=== PATIENT | male | born 1965 | race Caucasian/White ===

== ENCOUNTER 2017-07-07 10:05 | Inpatient (IN) | payer OTHER ==
[~2017-07-07] VITALS: Ht 154.9 cm; Wt 73.4 kg
[2017-07-07 11:25] LABS: BASOPHIL # 0.1 10^3/ul (0.0-0.1); BASOPHILS % 0.5 % (0.0-2.0); EOSINOPHILS % 0.2 % (0.0-7.0); HEMATOCRIT 45.8 % (42.0-52.0); HEMOGLOBIN 15.1 g/dl (14.0-18.0); LYMPHOCYTES # 1.9 10^3/ul (0.8-2.9); LYMPHOCYTES % 15.5 % (15.0-51.0); MEAN CORPUSCULAR HEMOGLOBIN 33.2 pg (29.0-33.0); MEAN CORPUSCULAR VOLUME 100.7 fl (82.0-101.0); MEAN PLATELET VOLUME 10.7 fl (7.4-10.4); MONOCYTE # 0.5 10^3/ul (0.3-0.9); NEUTROPHIL # 9.8 10^3/ul (1.6-7.5); NEUTROPHILS % 79.3 % (39.0-77.0); PLATELET COUNT 220 10^3/UL (140-415); RED BLOOD COUNT 4.55 10^6/ul (4.70-6.10); RED CELL DISTRIBUTION WIDTH 13.7 % (11.5-14.5); WHITE BLOOD COUNT 12.4 10^3/ul (4.8-10.8)
[2017-07-07 11:51] LABS: ALBUMIN 3.9 g/dl (3.3-4.9); ALBUMIN/GLOBULIN RATIO 0.97; BILIRUBIN,INDIRECT 0.8 mg/dl (0-1.1); BILIRUBIN,TOTAL 0.8 mg/dl (0.2-1.3); CALCIUM 9.3 mg/dl (8.4-10.2); CREATININE 1.29 mg/dl (0.61-1.24); POTASSIUM 4.6 mmol/L (3.5-5.1); TOTAL PROTEIN 7.9 g/dl (6.1-8.1)
[2017-07-07] MEDS ORDERED: SOD CHLORIDE 0.9% 100 ML ONE (12:31)
[2017-07-07] MEDS ORDERED: IOHEXOL 300MG/ML 150 ML BTL ONE (12:31)
--- NOTE | 2017-07-07 13:05 | RADRPT ---
PROCEDURE: CT ABDOMEN AND PELVIS WITH IV CONTRAST. CLINICAL INDICATION: Right lower quadrant pain with nausea and vomiting TECHNIQUE: CT scan of the abdomen and pelvis without contrast was performed on a multidetector hig h-resolution CT scanner following the use of IV contrast. 100 cc Omnipaque-300 was administered. Cor onal and sagittal reformatted images were obtained from the axial source images. Images were reviewe d on a high-resolution PACS workstation. The total exam CTDI equals 11 mGy and the total exam DLP eq uals 677.8 mGy-cm. One or more of the following dose reduction techniques were used: Automated exposure control. Adjustment of the mA and/or kV according to patient size. Use of iterative reconstruction technique. COMPARISON: None FINDINGS: CT abdomen: The lung bases are clear. The heart size is within limits. There is no significant pericardial effus ion. Hepatic morphology is within limits. Multiple large masses are scattered throughout the entire liver , with the largest within the posterior right lobe liver measuring 7.5 x 6.0 cm. Findings are highly concerning for malignancy. There is marked thickening of the wall the gallbladder . There is bulky lymphadenopathy in the region of the carmen hepatis and peripancreatic regions. The spleen is unremarkable. There is fatty atrophy of the pancreas. Both adrenal glands appear to be within normal limits. Both kidneys are and normal anatomic position. There is a left-sided renal cyst measuring 1.7 cm. No evidence of obstruction hydronephrosis. The visualized GI tract demonstrates normal caliber loops of small and large bowel. No evidence of o bstruction. Fat-containing periumbilical hernia is noted. The appendix is not clearly identified, ho wever no inflammatory change in right lower quadrant. The aorta appears to within limits. There is a large bulky retroperitoneal lymphadenopathy. The larg est measures 6.8 x 2.7 cm within the left periaortic region. Multiple aortocaval lymphadenopathy is also identified. CT pelvis: The bladder demonstrates asymmetric thickening of the mendiola. Bilateral inguinal hernias are noted. F luid is noted within the right inguinal hernia. The rectosigmoid colon demonstrate diverticulosis. N onspecific free fluid within the pelvis. Left external iliac chain lymphadenopathy is identified. The visualized osseous structures demonstrates multilevel degenerative disease of the spine. No fracisco s abnormal osseous lesions noted at this time. IMPRESSION: 1. Multiple large irregular enhancing masses scattered throughout the entire liver. The largest, gurdeep sures 7.5 x 6.0 cm within the posterior right lobe of the liver. Findings are highly concerning for malignancy/metastatic disease. 2. Marked abnormal appearance of the gallbladder, with marked thickening of the gallbladder wall. Ca nnot exclude the possibility of gallbladder malignancy. Recommend correlation with ultrasound. 3. Bulky mesenteric and retroperitoneal lymphadenopathy. The largest lymph node measures 6.8 x 2.7 c m within the left periaortic region. Findings are highly concerning for metastasis versus lymphoma. 4. No evidence of bowel obstruction. The appendix is not clearly identified, however no inflammatory changes within right lower quadrant. 5. Fat containing periumbilical hernia. Bilateral inguinal hernias. Fluid is noted within the right inguinal hernia. 6. Marked thickening of the wall the bladder, although findings may be secondary to infectious versu s inflammatory cystitis, bladder malignancy is not excluded. 7. Other incidental findings as described above. RPTAT: AAPP Physician Carline Date Time Electronically viewed and signed by Physician Carline on 07/07/2017 13:04 CARMEN/
--- NOTE | 2017-07-07 13:54 | ERD ---
ER Documentation Chief Complaint Chief Complaint sent by pmd for abd pain x 3 days with nausea HPI This is a 52-year-old male with a history of mental retardation is complaining of abdominal pain for a month. The patient says his pain is getting worse over the past 3 days. Is not a good historian due to his mental status however he has caretakers who can help me with history. 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 He has had no vomiting or diarrhea but does have some difficulty urinating. The patient is complaining of pain in his suprapubic and right lower quadrant. ROS All systems reviewed and are negative except as per history of present illness. PMhx/Soc History of Surgery: No Anesthesia Reaction: No Hx Neurological Disorder: No Hx Respiratory Disorders: No Hx Cardiac Disorders: No Hx Psychiatric Problems: Yes (DOWN SYNDROME.HYPOTHYROIDISM) Hx Miscellaneous Medical Probl: No Hx Alcohol Use: No Hx Substance Use: No Hx Tobacco Use: No Smoking Status: Never smoker FmHx Family History: No coronary disease Physical Exam Vitals Vital Signs Date Time Temp Pulse Resp B/P Pulse Ox O2 Delivery O2 Flow Rate FiO2 07/07/17 10:06 98.4 106 18 122/76 97 Physical Exam Const: Well-developed, well-nourished Head: Atraumatic, normocephalic Eyes: Normal Conjunctiva, PERRLA, EOMI, normal sclera, no nystagmus ENT: Normal External Ears, Nose and Mouth, moist mucus membranes. Neck: Full range of motion. No meningismus, no lymphadenopathy. Resp: Clear to auscultation bilaterally, no wheezing, rhonchi, rales Cardio: Regular rate and rhythm, no murmurs, S1 S2 present Abd: Soft, mild suprapubic and right lower quadrant tenderness, there is also some mild tenderness in the right upper quadrant, non distended. Normal bowel sounds, no guarding or rebound, no pulsitile abdominal masses or bruits Skin: No petechiae or rashes, no ecchymosis , no maculopapular rash Back: No midline or flank tenderness Ext: No cyanosis, or edema, FROM x 4, normal inspection, neurovascularly intact x 4 Neur: Awake and alert, STR 5/5 x 4, sensation intact x 4, no focal findings, cerebellum intact Psych: Normal Mood and Affect Result Diagram: 07/07/17 1115 07/07/17 1115 Results 24 hrs Laboratory Tests Test 07/07/17 11:15 White Blood Count 12.410^3/ul Red Blood Count 4.5510^6/ul Hemoglobin 15.1g/dl Hematocrit 45.8% Mean Corpuscular Volume 100.7fl Mean Corpuscular Hemoglobin 33.2pg Mean Corpuscular Hemoglobin Concent 33.0g/dl Red Cell Distribution Width 13.7% Platelet Count 20415^3/UL Mean Platelet Volume 10.7fl Neutrophils % 79.3% Lymphocytes % 15.5% Monocytes % 4.0% Eosinophils % 0.2% Basophils % 0.5% Nucleated Red Blood Cells % 0.0/100WBC Neutrophils # 9.810^3/ul Lymphocytes # 1.910^3/ul Monocytes # 0.510^3/ul Eosinophils # 0.010^3/ul Basophils # 0.110^3/ul Nucleated Red Blood Cells # 0.010^3/ul Sodium Level 140mmol/L Potassium Level 4.6mmol/L Chloride Level 98mmol/L Carbon Dioxide Level 33mmol/L Anion Gap 14 Blood Urea Nitrogen 15mg/dl Creatinine 1.29mg/dl Glucose Level 109mg/dl Calcium Level 9.3mg/dl Total Bilirubin 0.8mg/dl Direct Bilirubin 0.00mg/dl Indirect Bilirubin 0.8mg/dl Aspartate Amino Transf (AST/SGOT) 144IU/L Alanine Aminotransferase (ALT/SGPT) 136IU/L Alkaline Phosphatase 270IU/L Total Protein 7.9g/dl Albumin 3.9g/dl Globulin 4.00g/dl Albumin/Globulin Ratio 0.97 Current Medications Medications (Trade) Dose Ordered Sig/George Route PRN Reason Start Time Stop Time Status Last Admin Dose Admin Sodium Chloride (NS) 100 ml @ ud STK-MED ONCE .ROUTE 07/07/17 12:31 07/07/17 12:32 DC Iohexol (Omnipaque 300mg/ ml) 150 ml STK-MED ONCE .ROUTE 07/07/17 12:31 07/07/17 12:32 DC Procedures/MDM PROCEDURE: CT ABDOMEN AND PELVIS WITH IV CONTRAST. CLINICAL INDICATION: Right lower quadrant pain with nausea and vomiting TECHNIQUE: CT scan of the abdomen and pelvis without contrast was performed on a multidetector high-resolution CT scanner following the use of IV contrast. 100 cc Omnipaque-300 was administered. Coronal and sagittal reformatted images were obtained from the axial source images. Images were reviewed on a high- resolution PACS workstation. The total exam CTDI equals 11 mGy and the total exam DLP equals 677.8 mGy-cm. One or more of the following dose reduction techniques were used: Automated exposure control. Adjustment of the mA and/or kV according to patient size. Use of iterative reconstruction technique. COMPARISON: None FINDINGS: CT abdomen: The lung bases are clear. The heart size is within limits. There is no significant pericardial effusion. Hepatic morphology is within limits. Multiple large masses are scattered throughout the entire liver, with the largest within the posterior right lobe liver measuring 7.5 x 6.0 cm. Findings are highly concerning for malignancy. There is marked thickening of the wall the gallbladder . There is bulky lymphadenopathy in the region of the carmen hepatis and peripancreatic regions. The spleen is unremarkable. There is fatty atrophy of the pancreas. Both adrenal glands appear to be within normal limits. Both kidneys are and normal anatomic position. There is a left-sided renal cyst measuring 1.7 cm. No evidence of obstruction hydronephrosis. The visualized GI tract demonstrates normal caliber loops of small and large bowel. No evidence of obstruction. Fat-containing periumbilical hernia is noted. The appendix is not clearly identified, however no inflammatory change in right lower quadrant. The aorta appears to within limits. There is a large bulky retroperitoneal lymphadenopathy. The largest measures 6.8 x 2.7 cm within the left periaortic region. Multiple aortocaval lymphadenopathy is also identified. CT pelvis: The bladder demonstrates asymmetric thickening of the mendiola. Bilateral inguinal hernias are noted. Fluid is noted within the right inguinal hernia. The rectosigmoid colon demonstrate diverticulosis. Nonspecific free fluid within the pelvis. Left external iliac chain lymphadenopathy is identified. The visualized osseous structures demonstrates multilevel degenerative disease of the spine. No gross abnormal osseous lesions noted at this time. IMPRESSION: 1. Multiple large irregular enhancing masses scattered throughout the entire liver. The largest, measures 7.5 x 6.0 cm within the posterior right lobe of the liver. Findings are highly concerning for malignancy/metastatic disease. 2. Marked abnormal appearance of the gallbladder, with marked thickening of the gallbladder wall. Cannot exclude the possibility of gallbladder malignancy. Recommend correlation with ultrasound. 3. Bulky mesenteric and retroperitoneal lymphadenopathy. The largest lymph node measures 6.8 x 2.7 cm within the left periaortic region. Findings are highly concerning for metastasis versus lymphoma. 4. No evidence of bowel obstruction. The appendix is not clearly identified, however no inflammatory changes within right lower quadrant. 5. Fat containing periumbilical hernia. Bilateral inguinal hernias. Fluid is noted within the right inguinal hernia. 6. Marked thickening of the wall the bladder, although findings may be secondary to infectious versus inflammatory cystitis, bladder malignancy is not excluded. 7. Other incidental findings as described above. RPTAT: AAPP Physician Carline Date Time Electronically viewed and signed by Physician Carline on 07/07/2017 13:04 JL/ CC: EMMA FERRELL DO We will obtain ultrasound of the liver and gallbladder to rule out gallbladder malignancy. We will place a Tian catheter as the patient's unable to void and is having a difficult time urinating he feels that he is retaining urine. I page Dr. Rodriguez for admission for cancer workup and follow-up with gallbladder ultrasound for bladder cancer/and/or cholecystitis Departure Diagnosis: Primary Impression: Liver masses Additional Impression: Urinary retention Condition: Stable EMMA FERRELL DO Jul 07, 2017 13:54
--- NOTE | 2017-07-07 14:18 | RADRPT ---
PROCEDURE: US Abdomen. CLINICAL INDICATION: abdominal pain TECHNIQUE: Multiple real-time images were acquired of the patient's right upper quadrant abdomen a nd retroperitoneum utilizing a high resolution transducer. COMPARISON: CT from same day FINDINGS: The liver demonstrates heterogeneous echogenicity. The liver is normal in size. There are multiple liver masses, measuring up to 7.4 cm. The liver measures 16.8 cm in length. The portal vein is patent with normal direction of flow. No i ntrahepatic biliary dilatation is seen. The gallbladder is contracted and not well seen. There is a 9 mm calcified stone within the gallblad fernando. There is no pericholecystic fluid . There is gallbladder wall thickening, measuring 7 mm. The c ommon bile duct measures 8.5 mm in maximal dimension. The pancreas is only partially visualized. No free fluid is identified. The right kidney is normal in size, and demonstrate normal echogenicity and cortical thickness. The right kidney measures 9.6 cm in long dimension. There is no evidence of hydronephrosis. There are no kidney stones. RPTAT: AA IMPRESSION: Multiple large liver masses, consistent with metastatic disease. Small calcified stone within the gallbladder. Gallbladder wall is thickened measuring 7 mm. Dilated CBD. .Ezra Butler MD, Date Time Electronically viewed and signed by .Ezra Butler MD, MD on 07/07/2017 14:18 .S/
[2017-07-07] MEDS ORDERED: SOD CHLORIDE 0.9% 1,000 ML IV SCH (14:24)
[2017-07-07] MEDS ORDERED: ONDANSETRON 4 MG INJ IV PRN ×2 (14:30→23:00)
[2017-07-07] MEDS ORDERED: ACETAMINOPHEN 325 MG TAB PO PRN ×3 (14:30→23:00)
[2017-07-07 15:02] LABS: ADD UMIC YES; UR ASCORBIC ACID NEGATIVE (NEGATIVE); UR BACTERIA FEW /HPF (NONE SEEN); UR BILIRUBIN (Dip) NEGATIVE (NEGATIVE); UR BLOOD (Dip) NEGATIVE (NEGATIVE); UR CLARITY CLEAR (CLEAR); UR COLOR AMBER (YELLOW); UR GLUCOSE (Dip) NEGATIVE (NEGATIVE); UR KETONES (Dip) NEGATIVE (NEGATIVE); UR LEUKOCYTE ESTERASE (Dip) NEGATIVE Leu/ul (NEGATIVE); UR MUCUS FEW /HPF (NONE SEEN); UR NITRITE (Dip) NEGATIVE (NEGATIVE); UR RBC 2 /HPF (0-5); UR SPECIFIC GRAVITY (Dip) 1.043 (1.003-1.030); UR TOTAL PROTEIN (Dip) 2+ mg/dl (NEGATIVE); UR UROBILINOGEN (Dip) 1+ mg/dL (NEGATIVE)
[2017-07-07] MEDS ORDERED: LEVO50TA83 PO (16:08)
[2017-07-07] MEDS ORDERED: VIT D (16:08)
[2017-07-07] MEDS ORDERED: VALS80TA2 PO (16:08)
[2017-07-07] MEDS ORDERED: ALLO300T46 PO (16:08)
[2017-07-07] MEDS ORDERED: ATOR10TA65 PO (16:08)
[2017-07-07 20:00] VITALS: BP 118/77; RESP 20
[2017-07-07] MEDS: SOD CHLORIDE 0.45% 1,000 ML IV SCH (22:00)
--- NOTE | 2017-07-07 22:46 | QN ---
Documentation Comment [id number] KINGSLEY OVALLE MD Jul 07, 2017 22:46
[2017-07-07] MEDS ORDERED: NACL 0.9% 3 ML SYG IV SCH (23:00)
[2017-07-07] MEDS ORDERED: MAGNESIUM HYDROXIDE 30ML CUP PO PRN (23:00)
[2017-07-07] MEDS ORDERED: BISACODYL (EC) 5 MG TAB PO PRN (23:00)
[2017-07-07] MEDS ORDERED: DOCUSATE SODIUM 100 MG CAP PO PRN (23:00)
[2017-07-07] MEDS ORDERED: ACETAMINOPHEN 650 MG SUPP PR PRN (23:00)
[2017-07-08] MEDS: CEFTRIAXONE 1 GM/50 ML (PMX) 50 ML IVPB SCH ×2 (01:44→22:33)
[2017-07-08 02:19] VITALS: BP 121/75; RESP 20
[2017-07-08 02:27] LABS: CANCER ANTIGEN 125 99.4 U/ml (0.0-35.0)
[2017-07-08 03:08] LABS: CANCER ANTIGEN 19-9 > 1000.0 U/ml (0.0-37.0)
--- NOTE | 2017-07-08 05:31 | HP ---
DATE OF ADMISSION: 07/07/2017 HISTORY OF PRESENT ILLNESS: Kevin Samano is a 52-year-old male who has a history of mental retardation, was seen by er md, noted to have abdominal pain. Patient has not seen PMD for some time. The patient himself is unable to give any detailed history, has history of hypertension, gout. The patient in the ER, blood pressure 122/76. WBC 12.4, hematocrit 45.8, sodium 140, potassium 4.6, BUN 15, creatinine 1.29. Had a CT of the abdomen and pelvis without contrast performed, shows patient has multiple large irregular enhancing masses scattered toward the entire liver, marked abdominal appearance of the gallbladder with marked thickening of the gallbladder wall, bulky mesenteric and retroperitoneal lymphadenopathy. No evidence of bowel obstruction, fat containing periumbilical hernia, marked thickening of the wall of the bladder. PAST MEDICAL HISTORY: Positive for dyslipidemia, hypothyroidism, hypertension, gout. ALLERGY HISTORY: LISTED NEGATIVE. FAMILY HISTORY: Noncontributory. SOCIAL HISTORY: Negative. MEDICATIONS: 1. Allopurinol. 2. Lipitor. 3. Levothyroxine. 4. Diovan. 5. Vitamin D. REVIEW OF SYSTEM: HEENT: Unremarkable. RESPIRATORY: Unremarkable. CARDIOVASCULAR: Unremarkable. ABDOMEN: No hematemesis, melena, abdominal pain noted at this point. EXTREMITIES: Unremarkable for any swelling. CENTRAL NERVOUS SYSTEM: No history of CVA except mental retardation. PHYSICAL EXAMINATION: GENERAL: The patient is mentally challenged male with family at bedside. VITAL SIGNS: Pulse 85, blood pressure 120/76. HEAD: Atraumatic, normocephalic. Pupils equal, reactive to light. No pale conjunctivae or icterus. NECK: Supple. No JVD. LUNGS: Clear. CARDIOVASCULAR: S1, S2 normal. ABDOMEN: Soft, obese, bowel sounds present, no palpable mass. Distention noted. EXTREMITIES: No cyanosis, clubbing, or edema. CENTRAL NERVOUS SYSTEM: The patient is awake, alert, no focal deficit. LABORATORY DATA: As mentioned above with elevated abnormal LFT. IMPRESSION: 1. Metastatic carcinoma. 2. Acute kidney injury. 3. Systemic inflammatory response syndrome, rule out for gastrointestinal malignancy. 4. Mental retardation. 5. Hypothyroidism. 6. Dyslipidemia history. 7. History of gout. PLAN: Give this patient clear liquid diet, PPI, pain medication. Oncology consultation, antibiotics, and orders were done. Dictated By: KINGSLEY OVALLE MD BS/NTS Conf#: [id number] DID#: [id number]
[2017-07-08] MEDS: PANTOPRAZOLE (EC) 40 MG TAB PO SCH (06:00)
[2017-07-08 06:15] LABS: BASOPHIL # 0.1 10^3/ul (0.0-0.1); BASOPHILS % 0.5 % (0.0-2.0); EOSINOPHILS % 0.1 % (0.0-7.0); HEMATOCRIT 39.7 % (42.0-52.0); HEMOGLOBIN 12.8 g/dl (14.0-18.0); LYMPHOCYTES # 1.7 10^3/ul (0.8-2.9); LYMPHOCYTES % 17.6 % (15.0-51.0); MEAN CORPUSCULAR HEMOGLOBIN 31.9 pg (29.0-33.0); MEAN CORPUSCULAR HGB CONC 32.2 g/dl (32.0-37.0); MEAN PLATELET VOLUME 11.2 fl (7.4-10.4); MONOCYTE # 0.5 10^3/ul (0.3-0.9); MONOCYTES % 5.5 % (0.0-11.0); NEUTROPHIL # 7.5 10^3/ul (1.6-7.5); NEUTROPHILS % 75.8 % (39.0-77.0); PLATELET COUNT 200 10^3/UL (140-415); RED BLOOD COUNT 4.01 10^6/ul (4.70-6.10); WHITE BLOOD COUNT 9.8 10^3/ul (4.8-10.8)
[2017-07-08] MEDS: PANTOPRAZOLE 40 MG INJ IV SCH (06:22)
[2017-07-08] MEDS: LEVOTHYROXINE 50 MCG TAB PO SCH (06:22)
[2017-07-08 06:38] LABS: ALBUMIN 3.2 g/dl (3.3-4.9); ALBUMIN/GLOBULIN RATIO 0.94; BILIRUBIN,INDIRECT 0.6 mg/dl (0-1.1); BILIRUBIN,TOTAL 0.6 mg/dl (0.2-1.3); CALCIUM 8.4 mg/dl (8.4-10.2); CREATININE 1.16 mg/dl (0.61-1.24); POTASSIUM 4.8 mmol/L (3.5-5.1); TOTAL PROTEIN 6.6 g/dl (6.1-8.1)
--- NOTE | 2017-07-08 07:08 | CONS ---
Date/Time of Note Date/Time of Note DATE: 07/08/17 TIME: 06:59 Assessment/Plan Assessment/Plan Chief Complaint/Hosp Course 52 yo with 1. Multiple liver masses 2. Abdominal pain 3. Hypertension 4. Gout -pt will need a liver biopsy -CEA, CA 19-9 all ordered. will follow up -further recommendations will depend on final pathology Problems: Consultation Date/Type/Reason Admit Date/Time Jul 07, 2017 at 14:27 Date of Consultation: Jul 08, 2017 Type of Consultation: oncology Reason for Consultation liver masses Referring Provider: KINGSLEY OVALLE Hx of Present Illness a 52-year-old male who has a history of mental retardation, HTN and gout who presents to ER with abdominal pain and nausea. CT of the abdomen and pelvis without contrast performed, which demonstrated multiple large irregular enhancing masses throughout liver, marked abdominal appearance of the gallbladder with marked thickening of the gallbladder wall, as well as bulky mesenteric and retroperitoneal lymphadenopathy. We have been consulted given concern for underlying malignancy. Eyes: no complaints ENT: no complaints Respiratory: no complaints Cardiovascular: no complaints Gastrointestinal: decreased appetite, nausea, pain Genitourinary: no complaints Musculoskeletal: no complaints Skin: no complaints Neurologic: no complaints Endocrine: no complaints Past Medical History dyslipidemia, hypothyroidism, hypertension, gout. Past Surgical History Past Surgical Hx: no surgical history Family History Significant Family History: no pertinent family hx Social History Alcohol Use: none Smoking Status: Never smoker Drug Use: none Exam/Review of Systems Vital Signs Vitals Vital Signs Date Time Temp Pulse Resp B/P Pulse Ox O2 Delivery O2 Flow Rate FiO2 07/08/17 02:19 98.3 99 20 121/75 94 07/07/17 15:13 Room Air Intake and Output 07/07/17 07/07/17 07/08/17 15:00 23:00 07:00 Intake Total 930 ml Output Total 350 ml Balance 580 ml Exam Constitutional: other (with developmental delay) Psych: no complaints Head: normocephalic Eyes: nl conjunctiva ENMT: nl external ears & nose Neck: non-tender, supple Respiratory: clear to auscultation, normal air movement Cardiovascular: nl pulses, regular rate and rhythm Gastrointestinal: soft Musculoskeletal: nl extremities to inspection, nl gait and stance Extremities: normal pulses 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 Results Result Diagram: 07/08/17 0525 07/07/17 1115 Results 24 hrs Laboratory Tests Test 07/07/17 11:15 07/07/17 14:19 07/08/17 05:25 White Blood Count 12.4 H 9.8 # Red Blood Count 4.55 L 4.01 L Hemoglobin 15.1 12.8 L Hematocrit 45.8 39.7 L Mean Corpuscular Volume 100.7 99.0 Mean Corpuscular Hemoglobin 33.2 H 31.9 Mean Corpuscular Hemoglobin Concent 33.0 32.2 Red Cell Distribution Width 13.7 14.0 Platelet Count 220 200 Mean Platelet Volume 10.7 H 11.2 H Neutrophils % 79.3 H 75.8 Lymphocytes % 15.5 17.6 Monocytes % 4.0 5.5 Eosinophils % 0.2 0.1 Basophils % 0.5 0.5 Nucleated Red Blood Cells % 0.0 0.0 Neutrophils # 9.8 H 7.5 Lymphocytes # 1.9 1.7 Monocytes # 0.5 0.5 Eosinophils # 0.0 0.0 Basophils # 0.1 0.1 Nucleated Red Blood Cells # 0.0 0.0 Sodium Level 140 Potassium Level 4.6 Chloride Level 98 Carbon Dioxide Level 33 H Anion Gap 14 Blood Urea Nitrogen 15 Creatinine 1.29 H Glucose Level 109 Calcium Level 9.3 Total Bilirubin 0.8 Direct Bilirubin 0.00 Indirect Bilirubin 0.8 Aspartate Amino Transf (AST/SGOT) 144 H Alanine Aminotransferase (ALT/SGPT) 136 H Alkaline Phosphatase 270 H Total Protein 7.9 Albumin 3.9 Globulin 4.00 H Albumin/Globulin Ratio 0.97 Alpha Fetoprotein 3.86 Carcinoembryonic Antigen 611.0 H CA 19-9 Antigen > 1000.0 H CA 125 Antigen 99.4 H Urine Color VJ Urine Clarity CLEAR Urine pH 6.0 Urine Specific Campbell 1.043 H Urine Ketones NEGATIVE Urine Nitrite NEGATIVE Urine Bilirubin NEGATIVE Urine Urobilinogen 1+ H Urine Leukocyte Esterase NEGATIVE Urine Microscopic RBC 2 Urine Microscopic WBC 3 Urine Bacteria FEW A Urine Mucus FEW A Urine Hemoglobin NEGATIVE Urine Glucose NEGATIVE Urine Total Protein 2+ H Medications Medications Current Medications Sodium Chloride (1/2 NS) 1,000 ml @ 50 mls/hr Q20H IV Last administered on t 22:00; Admin Dose 50 MLS/HR; Start 07/07/17 at 22:00 Acetaminophen (Tylenol Tab) 650 mg Q6H PRN PO PAIN AND OR ELEVATED TEMP; Start 07/07/17 at 22:00 Pantoprazole (Protonix Tab) 40 mg DAILY@06 PO ; Start 07/08/17 at 06:00 Allopurinol (Zyloprim) 300 mg DAILY PO ; Start 07/08/17 at 09:00 Valsartan (Diovan) 80 mg DAILY PO ; Start 07/08/17 at 09:00 Cholecalciferol (Vitamin D) 2,000 unit DAILY PO ; Start 07/08/17 at 09:00 Ondansetron HCl (Zofran Inj) 4 mg Q6H PRN IV NAUSEA AND/OR VOMITING; Start 07/07/17 at 23:00 Acetaminophen (Tylenol Tab) 650 mg Q6H PRN PO PAIN LEVEL 1-3 OR FEVER; Start 07/07/17 at 23:00 Acetaminophen (Tylenol Supp) 650 mg Q6H PRN VA PAIN LEVEL 1-3 OR FEVER; Start 07/07/17 at 23:00 Docusate Sodium (Colace) 100 mg Q12H PRN PO CONSTIPATION; Start 07/07/17 at 23: 00 Magnesium Hydroxide (Milk Of Mag) 30 ml DAILY PRN PO CONSTIPATION; Start at 23:00 Bisacodyl (Dulcolax) 5 mg DAILY PRN PO CONSTIPATION; Start 07/07/17 at 23:00 Pantoprazole 40 mg 40 mg DAILY@06 IV Last administered on 07/08/17 06:22; Admin Dose 40 MG; Start 07/08/17 at 06:00 Ceftriaxone Sodium (Rocephin) 50 ml @ 100 mls/hr Q24H IVPB Last administered on 07/08/17 01:44; Admin Dose 100 MLS/HR; Start 07/07/17 at 23:00 Levothyroxine Sodium (Synthroid) 50 mcg DAILY@06 PO Last administered on 06:22; Admin Dose 50 MCG; Start 07/08/17 at 06:00 EMIGDIO SPIVEY M.D. Jul 08, 2017 07:07
[2017-07-08 07:38] VITALS: BP 119/78; RESP 14
[2017-07-08 08:36] LABS: INR 1.16; PROTIME 14.9 Sec (12.2-14.2); PT RATIO 1.2
[2017-07-08] MEDS: VALSARTAN 80 MG TAB PO SCH (08:41)
[2017-07-08] MEDS: ALLOPURINOL 300 MG TAB PO SCH (08:41)
[2017-07-08] MEDS: CHOLECALCIFEROL 2,000 UNIT CAP PO SCH (08:41)
[2017-07-08 12:30] LABS: CANCER ANTIGEN 19-9 > 10000.0 U/ml (0.0-37.0)
[2017-07-08 13:56] VITALS: BP 105/70; RESP 14
[2017-07-08] MEDS: SOD CHLORIDE 0.45% 1,000 ML IV SCH (18:00)
[2017-07-08 19:33] VITALS: BP 123/76; RESP 20
--- NOTE | 2017-07-08 20:33 | RADRPT ---
PROCEDURE: XR Chest. CLINICAL INDICATION: Shortness of breath. Preoperative exam TECHNIQUE: A single portable view of the chest was obtained. COMPARISON: None FINDINGS: The cardiomediastinal silhouette is within normal limits. The lung volumes are low with bibasilar co mpressive atelectasis. The remaining lungs and pleural spaces are clear. The soft tissues and osseo us structures are unremarkable. IMPRESSION: No acute cardiopulmonary disease. Low lung volumes with bibasilar compressive atelectasis. RPTAT: HPNM Physician Virgen Date Time Electronically viewed and signed by Physician Virgen on 07/08/2017 20:33 /
--- NOTE | 2017-07-08 22:29 | PN ---
Date/Time of Note Date/Time of Note DATE: 07/08/17 TIME: 22:28 Assessment/Plan VTE Prophylaxis VTE Prophylaxis Intervention: other Lines/Catheters IV Catheter Type (from Nrs): Peripheral IV Urinary Cath still in place: Yes Reason Cath still needed: other (indicate) Assessment/Plan Chief Complaint/Hosp Course IMPRESSION: 1. Metastatic carcinoma. 2. Acute kidney injury. 3. Systemic inflammatory response syndrome, rule out for gastrointestinal malignancy. 4. Mental retardation. 5. Hypothyroidism. 6. Dyslipidemia history. 7. History of gout. plan per dr crespo/w family Problems: Subjective 24 Hr Interval Summary Cardiovascular: no complaints Gastrointestinal: no complaints Genitourinary: no complaints Exam/Review of Systems Vital Signs Vitals Vital Signs Date Time Temp Pulse Resp B/P Pulse Ox O2 Delivery O2 Flow Rate FiO2 07/08/17 19:33 98.4 99 20 123/76 95 07/07/17 15:13 Room Air Intake and Output 07/07/17 07/07/17 07/08/17 15:00 23:00 07:00 Intake Total 930 ml Output Total 350 ml Balance 580 ml Exam Neck: supple Respiratory: clear to auscultation Cardiovascular: regular rate and rhythm Gastrointestinal: bowel sounds (+), soft Extremities: No edema Results Result Diagram: 07/08/1752407/08/17 0525 Results 24 hrs Laboratory Tests Test 07/08/17 05:25 07/08/17 07:42 White Blood Count 9.8 # Red Blood Count 4.01 L Hemoglobin 12.8 L Hematocrit 39.7 L Mean Corpuscular Volume 99.0 Mean Corpuscular Hemoglobin 31.9 Mean Corpuscular Hemoglobin Concent 32.2 Red Cell Distribution Width 14.0 Platelet Count 200 Mean Platelet Volume 11.2 H Neutrophils % 75.8 Lymphocytes % 17.6 Monocytes % 5.5 Eosinophils % 0.1 Basophils % 0.5 Nucleated Red Blood Cells % 0.0 Neutrophils # 7.5 Lymphocytes # 1.7 Monocytes # 0.5 Eosinophils # 0.0 Basophils # 0.1 Nucleated Red Blood Cells # 0.0 Sodium Level 138 Potassium Level 4.8 Chloride Level 101 Carbon Dioxide Level 28 Anion Gap 14 Blood Urea Nitrogen 18 Creatinine 1.16 Glucose Level 97 Calcium Level 8.4 Total Bilirubin 0.6 Direct Bilirubin 0.00 Indirect Bilirubin 0.6 Aspartate Amino Transf (AST/SGOT) 132 H Alanine Aminotransferase (ALT/SGPT) 124 H Alkaline Phosphatase 261 H Total Protein 6.6 # Albumin 3.2 L Globulin 3.40 H Albumin/Globulin Ratio 0.94 Prothrombin Time 14.9 H Prothrombin Time Ratio 1.2 INR International Normalized Ratio 1.16 Activated Partial Thromboplast Time 31.0 Carcinoembryonic Antigen 584.0 H CA 19-9 Antigen > 28923.0 H Medications Medications Current Medications Sodium Chloride (1/2 NS) 1,000 ml @ 50 mls/hr Q20H IV Last administered on 22:00; Admin Dose 50 MLS/HR; Start 07/07/17 at 22:00 Acetaminophen (Tylenol Tab) 650 mg Q6H PRN PO PAIN AND OR ELEVATED TEMP; Start 07/07/17 at 22:00 Pantoprazole (Protonix Tab) 40 mg DAILY@06 PO ; Start 07/08/17 at 06:00 Allopurinol (Zyloprim) 300 mg DAILY PO Last administered on 07/08/17 08:41; Admin Dose 300 MG; Start 07/08/17 at 09:00 Valsartan (Diovan) 80 mg DAILY PO Last administered on 07/08/17 08:41; Admin Dose 80 MG; Start 07/08/17 at 09:00 Cholecalciferol (Vitamin D) 2,000 unit DAILY PO Last administered on 07/08/17 08:41; Admin Dose 2,000 UNIT; Start 07/08/17 at 09:00 Ondansetron HCl (Zofran Inj) 4 mg Q6H PRN IV NAUSEA AND/OR VOMITING; Start 07/07/17 at 23:00 Acetaminophen (Tylenol Tab) 650 mg Q6H PRN PO PAIN LEVEL 1-3 OR FEVER; Start 07/07/17 at 23:00 Acetaminophen (Tylenol Supp) 650 mg Q6H PRN [place] PAIN LEVEL 1-3 OR FEVER; Start 07/07/17 at 23:00 Docusate Sodium (Colace) 100 mg Q12H PRN PO CONSTIPATION; Start 07/07/17 at 23: 00 Magnesium Hydroxide (Milk Of Mag) 30 ml DAILY PRN PO CONSTIPATION; Start at 23:00 Bisacodyl (Dulcolax) 5 mg DAILY PRN PO CONSTIPATION; Start 07/07/17 at 23:00 Pantoprazole 40 mg 40 mg DAILY@06 IV Last administered on 07/08/17 06:22; Admin Dose 40 MG; Start 07/08/17 at 06:00 Ceftriaxone Sodium (Rocephin) 50 ml @ 100 mls/hr Q24H IVPB Last administered on 07/08/17 01:44; Admin Dose 100 MLS/HR; Start 07/07/17 at 23:00 Levothyroxine Sodium (Synthroid) 50 mcg DAILY@06 PO Last administered on 06:22; Admin Dose 50 MCG; Start 07/08/17 at 06:00 KINGSLEY OVALLE MD Jul 08, 2017 22:29
[2017-07-08 22:36] VITALS: PULSE 83
[2017-07-09] VITALS (9 sets, daily range): BP systolic 94–123; BP diastolic 64–77; PULSE 78–82; RESP 11–20
[2017-07-09] MEDS: PANTOPRAZOLE (EC) 40 MG TAB PO SCH (06:00)
[2017-07-09] MEDS: LEVOTHYROXINE 50 MCG TAB PO SCH (06:00)
[2017-07-09] MEDS: PANTOPRAZOLE 40 MG INJ IV SCH (06:11)
[2017-07-09] MEDS ORDERED: MIDAZOLAM 1 MG/ML 2 ML INJ ONE (09:00)
[2017-07-09] MEDS ORDERED: FENTAnyl 50 MCG/ML VIAL ONE (09:00)
[2017-07-09] MEDS ORDERED: PROPOFOL 200 MG INJ ONE (09:00)
[2017-07-09] MEDS ORDERED: LIDOCAINE 1% (MDV) 20 ML INJ ONE (10:51)
[2017-07-09] MEDS ORDERED: SOD CHLORIDE 0.9% 500 ML ONE (10:51)
--- NOTE | 2017-07-09 10:56 | RADRPT ---
PROCEDURE: CT guided liver biopsy. CLINICAL INDICATION: Liver mass. TECHNIQUE: Informed consent was obtained. The procedure, risks, benefits, complications and alternatives were explained to the patient. Risks including bleeding and infection were explained. The patient unders tood and was willing to proceed. A procedural pause was performed. The patient's name, date of [facility], and procedure to be performed were verified. One or more of the following dose reduction techni ques were used: Automated exposure control, adjustment of the mA and/or kV according to patient size , use of iterative reconstruction technique. Using local anesthetic, sterile technique and CT guidance, a 20-gauge automated core biopsy needle w as used to biopsy the mass in the left hepatic lobe. Multiple passes were made. Adequate tissue wa s obtained according to the pathologist present during the procedure. The needle was removed. A po stprocedural scan was performed. A dressing was applied. The patient tolerated procedure well. COMPARISON: None. FINDINGS: Initial images demonstrate the tip of the needle at the edge of the lesion in question. Post biopsy images demonstrate no immediate complication. IMPRESSION: 1. Successful CT guided liver biopsy. RPTAT: QQ .Kilo De La Rosa MD, Date Time Electronically viewed and signed by .Kilo De La Rosa MD, on 07/09/2017 10:56 .R/
[2017-07-09] MEDS: SOD CHLORIDE 0.45% 1,000 ML IV SCH (11:23)
[2017-07-09] MEDS: VALSARTAN 80 MG TAB PO SCH (11:27)
[2017-07-09] MEDS: ALLOPURINOL 300 MG TAB PO SCH (11:30)
[2017-07-09] MEDS: CHOLECALCIFEROL 2,000 UNIT CAP PO SCH (11:30)
--- NOTE | 2017-07-09 15:46 | RADRPT ---
Vent Rate: 88 bpm RR Interval: 0 msec SD Interval: 140 msec QRS Duration: 88 msec QT Interval: 378 msec QTC Interval: 457 msec P-R-T [place]: 56 - 55 - 39 degrees Normal sinus rhythm RSR apos; orattern in V1 suggests right ventricular conduction delay Borderline ECG Electronically Signed By: Saleem Herbert [id number]
--- NOTE | 2017-07-09 18:36 | PN ---
Date/Time of Note Date/Time of Note DATE: 07/09/17 TIME: 18:35 Assessment/Plan VTE Prophylaxis VTE Prophylaxis Intervention: other Lines/Catheters IV Catheter Type (from Nrs): Peripheral IV Urinary Cath still in place: Yes Reason Cath still needed: other (indicate) Assessment/Plan Chief Complaint/Hosp Course IMPRESSION: 1. Metastatic carcinoma. 2. Acute kidney injury.better 3. Systemic inflammatory response syndrome, rule out for gastrointestinal malignancy. 4. Mental retardation. 5. Hypothyroidism. 6. Dyslipidemia history. 7. History of gout. 8 liver failure plan per dr dugan Problems: Subjective 24 Hr Interval Summary Subjective hx not possible: other (s/p liver biopsy) Exam/Review of Systems Vital Signs Vitals Vital Signs Date Time Temp Pulse Resp B/P Pulse Ox O2 Delivery O2 Flow Rate FiO2 07/09/17 13:40 97.5 91 18 123/71 98 07/09/17 10:56 Room Air 07/09/17 10:36 4.0 Intake and Output 07/08/17 07/08/17 07/09/17 15:00 23:00 07:00 Intake Total 2210 ml 980 ml Output Total 1500 ml 2000 ml Balance 710 ml -1020 ml Exam Respiratory: clear to auscultation Cardiovascular: regular rate and rhythm Gastrointestinal: bowel sounds (+), soft Extremities: No edema Results Result Diagram: 07/08/1752407/08/17524 Medications Medications Current Medications Sodium Chloride (1/2 NS) 1,000 ml @ 50 mls/hr Q20H IV Last administered on 11:23; Admin Dose 50 MLS/HR; Start 07/07/17 at 22:00 Acetaminophen (Tylenol Tab) 650 mg Q6H PRN PO PAIN AND OR ELEVATED TEMP; Start 07/07/17 at 22:00 Pantoprazole (Protonix Tab) 40 mg DAILY@06 PO ; Start 07/08/17 at 06:00 Allopurinol (Zyloprim) 300 mg DAILY PO Last administered on 07/09/17 11:30; Admin Dose 300 MG; Start 07/08/17 at 09:00 Valsartan (Diovan) 80 mg DAILY PO Last administered on 07/08/17 08:41; Admin Dose 80 MG; Start 07/08/17 at 09:00 Cholecalciferol (Vitamin D) 2,000 unit DAILY PO Last administered on 07/09/17 11:30; Admin Dose 2,000 UNIT; Start 07/08/17 at 09:00 Ondansetron HCl (Zofran Inj) 4 mg Q6H PRN IV NAUSEA AND/OR VOMITING; Start 07/07/17 at 23:00 Acetaminophen (Tylenol Tab) 650 mg Q6H PRN PO PAIN LEVEL 1-3 OR FEVER; Start 07/07/17 at 23:00 Acetaminophen (Tylenol Supp) 650 mg Q6H PRN [place] PAIN LEVEL 1-3 OR FEVER; Start 07/07/17 at 23:00 Docusate Sodium (Colace) 100 mg Q12H PRN PO CONSTIPATION; Start 07/07/17 at 23: 00 Magnesium Hydroxide (Milk Of Mag) 30 ml DAILY PRN PO CONSTIPATION; Start at 23:00 Bisacodyl (Dulcolax) 5 mg DAILY PRN PO CONSTIPATION; Start 07/07/17 at 23:00 Pantoprazole 40 mg 40 mg DAILY@06 IV Last administered on 07/09/17 06:11; Admin Dose 40 MG; Start 07/08/17 at 06:00 Ceftriaxone Sodium (Rocephin) 50 ml @ 100 mls/hr Q24H IVPB Last administered on 07/08/17 22:33; Admin Dose 100 MLS/HR; Start 07/07/17 at 23:00 Levothyroxine Sodium (Synthroid) 50 mcg DAILY@06 PO Last administered on 06:22; Admin Dose 50 MCG; Start 07/08/17 at 06:00 KINGSLEY OVALLE MD Jul 09, 2017 18:36
--- NOTE | 2017-07-09 18:52 | CONS ---
Date/Time of Note Date/Time of Note DATE: 07/09/17 TIME: 18:44 Assessment/Plan Assessment/Plan Chief Complaint/Hosp Course 52 yo with 1. Multiple liver masses 2. Abdominal pain 3. Hypertension 4. Gout -liver biopsy done this am -CA 19-9 markedly elevated making hepatobiliary origin cancer most probable. will follow up -further recommendations will depend on final pathology Problems: Consultation Date/Type/Reason Admit Date/Time Jul 07, 2017 at 14:27 Initial Consult Date 07/08/17 Type of Consultation: oncology Reason for Consultation liver mets Referring Provider: KINGSLEY OVALLE MD 24 HR Interval Summary Free Text/Dictation pt is s/p liver biopsy Exam/Review of Systems Vital Signs Vitals Vital Signs Date Time Temp Pulse Resp B/P Pulse Ox O2 Delivery O2 Flow Rate FiO2 07/09/17 13:40 97.5 91 18 123/71 98 07/09/17 10:56 Room Air 07/09/17 10:36 4.0 Intake and Output 07/08/17 07/08/17 07/09/17 15:00 23:00 07:00 Intake Total 2210 ml 980 ml Output Total 1500 ml 2000 ml Balance 710 ml -1020 ml Exam Constitutional: alert, oriented Psych: no complaints Head: normocephalic Eyes: nl conjunctiva ENMT: nl external ears & nose Neck: supple Respiratory: clear to auscultation Cardiovascular: regular rate and rhythm Gastrointestinal: soft Musculoskeletal: nl extremities to inspection Results Result Diagram: 07/08/17 0525 07/08/17 0525 Medications Medications Current Medications Sodium Chloride (1/2 NS) 1,000 ml @ 50 mls/hr Q20H IV Last administered on 11:23; Admin Dose 50 MLS/HR; Start 07/07/17 at 22:00 Acetaminophen (Tylenol Tab) 650 mg Q6H PRN PO PAIN AND OR ELEVATED TEMP; Start 07/07/17 at 22:00 Pantoprazole (Protonix Tab) 40 mg DAILY@06 PO ; Start 07/08/17 at 06:00 Allopurinol (Zyloprim) 300 mg DAILY PO Last administered on 07/09/17 11:30; Admin Dose 300 MG; Start 07/08/17 at 09:00 Valsartan (Diovan) 80 mg DAILY PO Last administered on 07/08/17 08:41; Admin Dose 80 MG; Start 07/08/17 at 09:00 Cholecalciferol (Vitamin D) 2,000 unit DAILY PO Last administered on 07/09/17 11:30; Admin Dose 2,000 UNIT; Start 07/08/17 at 09:00 Ondansetron HCl (Zofran Inj) 4 mg Q6H PRN IV NAUSEA AND/OR VOMITING; Start 07/07/17 at 23:00 Acetaminophen (Tylenol Tab) 650 mg Q6H PRN PO PAIN LEVEL 1-3 OR FEVER; Start 07/07/17 at 23:00 Acetaminophen (Tylenol Supp) 650 mg Q6H PRN OR PAIN LEVEL 1-3 OR FEVER; Start 07/07/17 at 23:00 Docusate Sodium (Colace) 100 mg Q12H PRN PO CONSTIPATION; Start 07/07/17 at 23: 00 Magnesium Hydroxide (Milk Of Mag) 30 ml DAILY PRN PO CONSTIPATION; Start at 23:00 Bisacodyl (Dulcolax) 5 mg DAILY PRN PO CONSTIPATION; Start 07/07/17 at 23:00 Pantoprazole 40 mg 40 mg DAILY@06 IV Last administered on 07/09/17 06:11; Admin Dose 40 MG; Start 07/08/17 at 06:00 Ceftriaxone Sodium (Rocephin) 50 ml @ 100 mls/hr Q24H IVPB Last administered on 07/08/17 22:33; Admin Dose 100 MLS/HR; Start 07/07/17 at 23:00 Levothyroxine Sodium (Synthroid) 50 mcg DAILY@06 PO Last administered on 06:22; Admin Dose 50 MCG; Start 07/08/17 at 06:00 EMIGDIO SPIVEY M.D. Jul 09, 2017 18:52
[2017-07-09 19:13] LABS: HAAIG REFLEX REFLEX FILED
[2017-07-09 20:28] LABS: HEPATITIS B CORE ANTIBODY NEGATIVE (NEGATIVE)
[2017-07-09] MEDS: CEFTRIAXONE 1 GM/50 ML (PMX) 50 ML IVPB SCH (23:20)
[2017-07-10 02:00] VITALS: BP 122/79; RESP 20
[2017-07-10] MEDS: PANTOPRAZOLE (EC) 40 MG TAB PO SCH (05:40)
[2017-07-10] MEDS: LEVOTHYROXINE 50 MCG TAB PO SCH (05:40)
[2017-07-10 05:50] LABS: BASOPHILS % 0.4 % (0.0-2.0); EOSINOPHILS # 0.1 10^3/ul (0.0-0.5); EOSINOPHILS % 0.5 % (0.0-7.0); HEMATOCRIT 40.4 % (42.0-52.0); HEMOGLOBIN 13.1 g/dl (14.0-18.0); LYMPHOCYTES # 1.8 10^3/ul (0.8-2.9); LYMPHOCYTES % 18.3 % (15.0-51.0); MEAN CORPUSCULAR HEMOGLOBIN 32.3 pg (29.0-33.0); MEAN CORPUSCULAR HGB CONC 32.4 g/dl (32.0-37.0); MEAN CORPUSCULAR VOLUME 99.5 fl (82.0-101.0); MEAN PLATELET VOLUME 10.9 fl (7.4-10.4); MONOCYTE # 0.5 10^3/ul (0.3-0.9); MONOCYTES % 4.7 % (0.0-11.0); NEUTROPHIL # 7.4 10^3/ul (1.6-7.5); NEUTROPHILS % 75.5 % (39.0-77.0); PLATELET COUNT 176 10^3/UL (140-415); RED BLOOD COUNT 4.06 10^6/ul (4.70-6.10); RED CELL DISTRIBUTION WIDTH 14.1 % (11.5-14.5); WHITE BLOOD COUNT 9.8 10^3/ul (4.8-10.8)
[2017-07-10] MEDS: PANTOPRAZOLE 40 MG INJ IV SCH (06:00)
[2017-07-10 06:55] LABS: ALBUMIN 3.2 g/dl (3.3-4.9); ALBUMIN/GLOBULIN RATIO 0.96; BILIRUBIN,INDIRECT 0.5 mg/dl (0-1.1); BILIRUBIN,TOTAL 0.5 mg/dl (0.2-1.3); CALCIUM 8.2 mg/dl (8.4-10.2); CREATININE 1.08 mg/dl (0.61-1.24); POTASSIUM 4.4 mmol/L (3.5-5.1); TOTAL PROTEIN 6.5 g/dl (6.1-8.1)
[2017-07-10 07:33] VITALS: BP 117/78; RESP 18
[2017-07-10] MEDS: ALLOPURINOL 300 MG TAB PO SCH (08:32)
[2017-07-10] MEDS: CHOLECALCIFEROL 2,000 UNIT CAP PO SCH (08:32)
[2017-07-10] MEDS: VALSARTAN 80 MG TAB PO SCH (08:33)
[2017-07-10] MEDS: SOD CHLORIDE 0.45% 1,000 ML IV SCH (09:03)
[2017-07-10 14:26] VITALS: BP 94/56; RESP 18
--- NOTE | 2017-07-10 18:36 | PN ---
Date/Time of Note Date/Time of Note DATE: 07/10/17 TIME: 18:35 Assessment/Plan VTE Prophylaxis VTE Prophylaxis Intervention: other Lines/Catheters IV [facility]from [facility] Mid Line Urinary Cath still in place: No Assessment/Plan Chief Complaint/Hosp Course IMPRESSION: 1. Metastatic carcinoma. 2. Acute kidney injury.better 3. Systemic inflammatory response syndrome, rule out for gastrointestinal malignancy. 4. Mental retardation. 5. Hypothyroidism. 6. Dyslipidemia history. 7. History of gout. 8 liver failure plan per dr dugan CK BIOPSY Problems: Subjective 24 Hr Interval Summary Subjective hx not possible: other (S/P LIVER BIOPSY) Gastrointestinal: no complaints Genitourinary: no complaints Exam/Review of Systems Vital Signs Vitals Vital Signs Date Time Temp Pulse Resp B/P Pulse Ox O2 Delivery O2 Flow Rate FiO2 07/10/17 14:26 98.0 95 18 94/56 94 07/09/17 10:56 Room Air 07/09/17 10:36 4.0 Intake and Output 07/09/17 07/09/17 07/10/17 14:59 22:59 06:59 Intake Total 600 ml 960 ml Output Total 1400 ml Balance -800 ml 960 ml Exam Respiratory: clear to auscultation Cardiovascular: regular rate and rhythm Gastrointestinal: nl liver, spleen, soft Musculoskeletal: nl extremities to inspection Results Result Diagram: 07/10/17 0520 07/10/17 0520 Results 24 hrs Laboratory Tests Test 07/09/17 19:08 07/10/17 05:20 Hepatitis B Surface Antigen NEGATIVE Hepatitis B Core Total Antibody NEGATIVE Hepatitis C Antibody NEGATIVE White Blood Count 9.8 Red Blood Count 4.06 L Hemoglobin 13.1 L Hematocrit 40.4 L Mean Corpuscular Volume 99.5 Mean Corpuscular Hemoglobin 32.3 Mean Corpuscular Hemoglobin Concent 32.4 Red Cell Distribution Width 14.1 Platelet Count 176 Mean Platelet Volume 10.9 H Neutrophils % 75.5 Lymphocytes % 18.3 Monocytes % 4.7 Eosinophils % 0.5 Basophils % 0.4 Nucleated Red Blood Cells % 0.0 Neutrophils # 7.4 Lymphocytes # 1.8 Monocytes # 0.5 Eosinophils # 0.1 Basophils # 0.0 Nucleated Red Blood Cells # 0.0 Sodium Level 135 Potassium Level 4.4 Chloride Level 98 Carbon Dioxide Level 29 Anion Gap 12 Blood Urea Nitrogen 11 Creatinine 1.08 Glucose Level 98 Calcium Level 8.2 L Total Bilirubin 0.5 Direct Bilirubin 0.00 Indirect Bilirubin 0.5 Aspartate Amino Transf (AST/SGOT) 217 #H Alanine Aminotransferase (ALT/SGPT) 184 H Alkaline Phosphatase 287 H Total Protein 6.5 Albumin 3.2 L Globulin 3.30 H Albumin/Globulin Ratio 0.96 Medications Medications Current Medications Sodium Chloride (1/2 NS) 1,000 ml @ 50 mls/hr Q20H IV Last administered on 09:03; Admin Dose 50 MLS/HR; Start 07/07/17 at 22:00 Pantoprazole (Protonix Tab) 40 mg DAILY@06 PO Last administered on 07/10/17 05 :40; Admin Dose 40 MG; Start 07/08/17 at 06:00 Allopurinol (Zyloprim) 300 mg DAILY PO Last administered on 07/10/17 08:32; Admin Dose 300 MG; Start 07/08/17 at 09:00 Valsartan (Diovan) 80 mg DAILY PO Last administered on 07/10/17 08:33; Admin Dose 80 MG; Start 07/08/17 at 09:00 Cholecalciferol (Vitamin D) 2,000 unit DAILY PO Last administered on 07/10/17 08:32; Admin Dose 2,000 UNIT; Start 07/08/17 at 09:00 Ondansetron HCl (Zofran Inj) 4 mg Q6H PRN IV NAUSEA AND/OR VOMITING Last administered on 07/10/17 09:55; Admin Dose 4 MG; Start 07/07/17 at 23:00 Acetaminophen (Tylenol Tab) 650 mg Q6H PRN PO PAIN LEVEL 1-3 OR FEVER; Start 07/07/17 at 23:00 Acetaminophen (Tylenol Supp) 650 mg Q6H PRN [place] PAIN LEVEL 1-3 OR FEVER; Start 07/07/17 at 23:00 Docusate Sodium (Colace) 100 mg Q12H PRN PO CONSTIPATION; Start 07/07/17 at 23: 00 Magnesium Hydroxide (Milk Of Mag) 30 ml DAILY PRN PO CONSTIPATION; Start at 23:00 Bisacodyl 5 mg 5 mg DAILY PRN PO CONSTIPATION; Start 07/07/17 at 23:00 Ceftriaxone Sodium (Rocephin) 50 ml @ 100 mls/hr Q24H IVPB Last administered on 07/09/17 23:20; Admin Dose 100 MLS/HR; Start 07/07/17 at 23:00 Levothyroxine Sodium (Synthroid) 50 mcg DAILY@06 PO Last administered on 05:40; Admin Dose 50 MCG; Start 07/08/17 at 06:00 KINGSLEY OVALLE MD Jul 10, 2017 18:36
[2017-07-10 19:53] VITALS: BP 106/66; RESP 20
[2017-07-10] MEDS: CEFTRIAXONE 1 GM/50 ML (PMX) 50 ML IVPB SCH (22:32)
[2017-07-11 02:08] VITALS: BP 111/74; RESP 20
[2017-07-11] MEDS: SOD CHLORIDE 0.45% 1,000 ML IV SCH ×2 (05:46→12:46)
[2017-07-11] MEDS: PANTOPRAZOLE (EC) 40 MG TAB PO SCH (05:46)
[2017-07-11] MEDS: LEVOTHYROXINE 50 MCG TAB PO SCH (05:46)
[2017-07-11 05:51] LABS: BASOPHIL # 0.1 10^3/ul (0.0-0.1); BASOPHILS % 0.6 % (0.0-2.0); EOSINOPHILS % 0.3 % (0.0-7.0); HEMATOCRIT 36.7 % (42.0-52.0); LYMPHOCYTES # 1.6 10^3/ul (0.8-2.9); MEAN CORPUSCULAR HEMOGLOBIN 32.4 pg (29.0-33.0); MEAN CORPUSCULAR HGB CONC 32.7 g/dl (32.0-37.0); MEAN CORPUSCULAR VOLUME 99.2 fl (82.0-101.0); MEAN PLATELET VOLUME 10.9 fl (7.4-10.4); MONOCYTE # 0.6 10^3/ul (0.3-0.9); MONOCYTES % 5.9 % (0.0-11.0); NEUTROPHIL # 8.1 10^3/ul (1.6-7.5); NEUTROPHILS % 77.6 % (39.0-77.0); PLATELET COUNT 164 10^3/UL (140-415); RED CELL DISTRIBUTION WIDTH 14.1 % (11.5-14.5); WHITE BLOOD COUNT 10.5 10^3/ul (4.8-10.8)
[2017-07-11 06:08] VITALS: BP 115/67; PULSE 95; RESP 16
[2017-07-11 06:20] LABS: ALBUMIN/GLOBULIN RATIO 0.93; BILIRUBIN,INDIRECT 0.5 mg/dl (0-1.1); BILIRUBIN,TOTAL 0.5 mg/dl (0.2-1.3); CREATININE 1.15 mg/dl (0.61-1.24); POTASSIUM 4.3 mmol/L (3.5-5.1); TOTAL PROTEIN 6.2 g/dl (6.1-8.1)
[2017-07-11 07:58] VITALS: BP 115/66; RESP 18
[2017-07-11] MEDS: VALSARTAN 80 MG TAB PO SCH (08:41)
[2017-07-11] MEDS: CHOLECALCIFEROL 2,000 UNIT CAP PO SCH (08:41)
[2017-07-11] MEDS: ALLOPURINOL 300 MG TAB PO SCH (08:41)
[2017-07-11 09:00] VITALS: Ht 154.9 cm; Wt 73.4 kg
[2017-07-11 11:26] VITALS: BP 108/57
--- NOTE | 2017-07-11 12:24 | PN ---
Date/Time of Note Date/Time of Note DATE: 07/11/17 TIME: 12:23 Assessment/Plan VTE Prophylaxis VTE Prophylaxis Intervention: ambulation Lines/Catheters IV [facility] Type (from [facility]): mid line Urinary Cath still in place: No Assessment/Plan Chief Complaint/Hosp Course 1. Metastatic carcinoma. 2. Acute kidney injury,better 3. Systemic inflammatory response syndrome 4. Mental retardation. 5. Hypothyroidism. 6. HX dyslipidemia. 7. History of gout. 8 liver failure 9. Hyponatremia Problems: Subjective 24 Hr Interval Summary Constitutional: no complaints Gastrointestinal: other (stool ater) Exam/Review of Systems Vital Signs Vitals Vital Signs Date Time Temp Pulse Resp B/P Pulse Ox O2 Delivery O2 Flow Rate FiO2 07/11/17 11:26 97.3 108/57 07/11/17 07:58 95 18 96 07/11/17 06:08 Room Air 07/09/17 10:36 4.0 Intake and Output 07/10/17 07/10/17 07/11/17 15:00 23:00 07:00 Intake Total 450 ml 1050 ml 1150 ml Output Total 600 ml Balance 450 ml 1050 ml 550 ml Exam Constitutional: alert Neck: supple Respiratory: clear to auscultation Cardiovascular: regular rate and rhythm Gastrointestinal: soft Results Result Diagram: 07/11/17 0524 07/11/17 0524 Results 24 hrs Laboratory Tests Test 07/11/17 05:24 White Blood Count 10.5 Red Blood Count 3.70 L Hemoglobin 12.0 L Hematocrit 36.7 L Mean Corpuscular Volume 99.2 Mean Corpuscular Hemoglobin 32.4 Mean Corpuscular Hemoglobin Concent 32.7 Red Cell Distribution Width 14.1 Platelet Count 164 Mean Platelet Volume 10.9 H Neutrophils % 77.6 H Lymphocytes % 15.0 Monocytes % 5.9 Eosinophils % 0.3 Basophils % 0.6 Nucleated Red Blood Cells % 0.0 Neutrophils # 8.1 H Lymphocytes # 1.6 Monocytes # 0.6 Eosinophils # 0.0 Basophils # 0.1 Nucleated Red Blood Cells # 0.0 Sodium Level 133 L Potassium Level 4.3 Chloride Level 97 Carbon Dioxide Level 30 Anion Gap 10 Blood Urea Nitrogen 11 Creatinine 1.15 Glucose Level 101 Calcium Level 8.0 L Total Bilirubin 0.5 Direct Bilirubin 0.00 Indirect Bilirubin 0.5 Aspartate Amino Transf (AST/SGOT) 182 H Alanine Aminotransferase (ALT/SGPT) 164 H Alkaline Phosphatase 257 H Total Protein 6.2 Albumin 3.0 L Globulin 3.20 Albumin/Globulin Ratio 0.93 Medications Medications Current Medications Sodium Chloride (1/2 NS) 1,000 ml @ 50 mls/hr Q20H IV Last administered on 09:03; Admin Dose 50 MLS/HR; Start 07/07/17 at 22:00 Pantoprazole (Protonix Tab) 40 mg DAILY@06 PO Last administered on 07/11/17 05:46; Admin Dose 40 MG; Start 07/08/17 at 06:00 Allopurinol (Zyloprim) 300 mg DAILY PO Last administered on 07/11/17 08:41; Admin Dose 300 MG; Start 07/08/17 at 09:00 Valsartan (Diovan) 80 mg DAILY PO Last administered on 07/10/17 08:33; Admin Dose 80 MG; Start 07/08/17 at 09:00 Cholecalciferol (Vitamin D) 2,000 unit DAILY PO Last administered on 08:41; Admin Dose 2,000 UNIT; Start 07/08/17 at 09:00 Ondansetron HCl (Zofran Inj) 4 mg Q6H PRN IV NAUSEA AND/OR VOMITING Last administered on 07/10/17 09:55; Admin Dose 4 MG; Start 07/07/17 at 23:00 Acetaminophen (Tylenol Tab) 650 mg Q6H PRN PO PAIN LEVEL 1-3 OR FEVER; Start 07/07/17 at 23:00 Acetaminophen (Tylenol Supp) 650 mg Q6H PRN [place] PAIN LEVEL 1-3 OR FEVER; Start 07/07/17 at 23:00 Docusate Sodium (Colace) 100 mg Q12H PRN PO CONSTIPATION; Start 07/07/17 at 23: 00 Magnesium Hydroxide (Milk Of Mag) 30 ml DAILY PRN PO CONSTIPATION; Start at 23:00 Bisacodyl 5 mg 5 mg DAILY PRN PO CONSTIPATION; Start 07/07/17 at 23:00 Ceftriaxone Sodium (Rocephin) 50 ml @ 100 mls/hr Q24H IVPB Last administered on 07/10/17 22:32; Admin Dose 100 MLS/HR; Start 07/07/17 at 23:00 Levothyroxine Sodium (Synthroid) 50 mcg DAILY@06 PO Last administered on t 05:46; Admin Dose 50 MCG; Start 07/08/17 at 06:00 MADALYN ART Jul 11, 2017 12:24
[2017-07-11 15:16] VITALS: BP 102/58; RESP 18
--- NOTE | 2017-07-11 19:39 | CONS ---
DATE OF ADMISSION: 07/07/2017 DATE OF CONSULTATION: CONSULTING SERVICE: GI. REQUESTING PROVIDER: Vignesh Ovalle MD. HISTORY OF PRESENT ILLNESS: The patient is a 52-year-old male with developmental delay, came to the emergency room complaining of abdominal pain. Not much information could be gathered from the earl ent. He had a CAT scan done, which showed multiple mets in the liver, also lymphadenopathy. He und erwent a liver biopsy, and the biopsy was consistent with the diagnosis of adenocarcinoma, the proba ble origin maybe biliary tract or upper GI or lower gastrointestinal tract. The patient's CA 19-9 w as 10,000. CEA was 584. PAST MEDICAL HISTORY: Dyslipidemia, hypothyroidism, hypertension and gout. FAMILY HISTORY: Nothing contributory. SOCIAL HISTORY: Negative. MEDICATIONS: All reviewed. PHYSICAL EXAMINATION: VITALS: Stable. HEENT: Unremarkable. NECK: Supple, no thyromegaly, no lymphadenopathy. CARDIOVASCULAR: No murmur, gallop or click. LUNGS: Clear. ABDOMEN: Benign. EXTREMITIES: No edema. CENTRAL NERVOUS SYSTEM: Grossly within normal limits. IMPRESSION: 1. Metastatic carcinoma in the liver. 2. Developmental delay. 3. Hypothyroidism. 4. Dyslipidemia. 5. Gout. PLAN: Discussed the case with Dr. Felisa Mckee, and Dr. Vignesh Ovalle. They want to proceed with EG D and colonoscopy in order to identify the primary. Discussed with brother, and he is in agreement for the procedure. Continue present care in the interim. The patient is scheduled for EGD and colo noscopy on Friday. Dictated By: MERRY KIM/EDGAR Conf#: [id number] DID#: [id number] CC: VIGNESH OVALLE MD;*EndCC*
[2017-07-11 19:51] VITALS: BP 105/58; RESP 20
--- NOTE | 2017-07-11 22:32 | CONS ---
Date/Time of Note Date/Time of Note DATE: 07/11/17 TIME: 22:28 Assessment/Plan Assessment/Plan Chief Complaint/Hosp Course 52 yo with 1. Multiple liver masses 2. Abdominal pain 3. Hypertension 4. 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 will follow up -further recommendations will depend on final pathology and results of endoscopy -lengthy discussion was had with PMD Dr Lester and patient's brother, regarding pathology and plan of care A total of 50 minutes of [id number] time was spent speaking with the patient, of which greater than 50% was spent in counseling and coordination of care and a detailed question and answer session. Problems: Consultation Date/Type/Reason Admit Date/Time Jul 07, 2017 at 14:27 Initial Consult Date 07/08/17 Type of Consultation: oncology Reason for Consultation liver mets Referring Provider: KINGSLEY OVALLE MD 24 HR Interval Summary Free Text/Dictation no acute overnight events. spoke with brother today about prelim path report Exam/Review of Systems Vital Signs Vitals Vital Signs Date Time Temp Pulse Resp B/P Pulse Ox O2 Delivery O2 Flow Rate FiO2 07/11/17 19:51 99.4 96 20 105/58 92 07/11/17 06:08 Room Air 07/09/17 10:36 4.0 Intake and Output 07/10/17 07/10/17 07/11/17 15:00 23:00 07:00 Intake Total 450 ml 1050 ml 1150 ml Output Total 600 ml Balance 450 ml 1050 ml 550 ml Exam Constitutional: alert, other (with developmental delay) Psych: no complaints Head: normocephalic Eyes: nl conjunctiva ENMT: nl external ears & nose Neck: non-tender, supple Respiratory: clear to auscultation Cardiovascular: regular rate and rhythm Gastrointestinal: soft Musculoskeletal: nl extremities to inspection Results Result Diagram: 07/11/1752307/11/17523 Results 24 hrs Laboratory Tests Test 07/11/17 05:24 White Blood Count 10.5 Red Blood Count 3.70 L Hemoglobin 12.0 L Hematocrit 36.7 L Mean Corpuscular Volume 99.2 Mean Corpuscular Hemoglobin 32.4 Mean Corpuscular Hemoglobin Concent 32.7 Red Cell Distribution Width 14.1 Platelet Count 164 Mean Platelet Volume 10.9 H Neutrophils % 77.6 H Lymphocytes % 15.0 Monocytes % 5.9 Eosinophils % 0.3 Basophils % 0.6 Nucleated Red Blood Cells % 0.0 Neutrophils # 8.1 H Lymphocytes # 1.6 Monocytes # 0.6 Eosinophils # 0.0 Basophils # 0.1 Nucleated Red Blood Cells # 0.0 Sodium Level 133 L Potassium Level 4.3 Chloride Level 97 Carbon Dioxide Level 30 Anion Gap 10 Blood Urea Nitrogen 11 Creatinine 1.15 Glucose Level 101 Calcium Level 8.0 L Total Bilirubin 0.5 Direct Bilirubin 0.00 Indirect Bilirubin 0.5 Aspartate Amino Transf (AST/SGOT) 182 H Alanine Aminotransferase (ALT/SGPT) 164 H Alkaline Phosphatase 257 H Total Protein 6.2 Albumin 3.0 L Globulin 3.20 Albumin/Globulin Ratio 0.93 Medications Medications Current Medications Sodium Chloride (1/2 NS) 1,000 ml @ 50 mls/hr Q20H IV Last administered on 12:46; Admin Dose 50 MLS/HR; Start 07/07/17 at 22:00 Pantoprazole (Protonix Tab) 40 mg DAILY@06 PO Last administered on 07/11/17 05:46; Admin Dose 40 MG; Start 07/08/17 at 06:00 Allopurinol (Zyloprim) 300 mg DAILY PO Last administered on 07/11/17 08:41; Admin Dose 300 MG; Start 07/08/17 at 09:00 Valsartan (Diovan) 80 mg DAILY PO Last administered on 07/10/17 08:33; Admin Dose 80 MG; Start 07/08/17 at 09:00 Cholecalciferol (Vitamin D) 2,000 unit DAILY PO Last administered on 08:41; Admin Dose 2,000 UNIT; Start 07/08/17 at 09:00 Ondansetron HCl (Zofran Inj) 4 mg Q6H PRN IV NAUSEA AND/OR VOMITING Last administered on 07/10/17 09:55; Admin Dose 4 MG; Start 07/07/17 at 23:00 Acetaminophen (Tylenol Tab) 650 mg Q6H PRN PO PAIN LEVEL 1-3 OR FEVER; Start 07/07/17 at 23:00 Acetaminophen (Tylenol Supp) 650 mg Q6H PRN [place] PAIN LEVEL 1-3 OR FEVER; Start 07/07/17 at 23:00 Docusate Sodium (Colace) 100 mg Q12H PRN PO CONSTIPATION; Start 07/07/17 at 23: 00 Magnesium Hydroxide (Milk Of Mag) 30 ml DAILY PRN PO CONSTIPATION; Start at 23:00 Bisacodyl 5 mg 5 mg DAILY PRN PO CONSTIPATION; Start 07/07/17 at 23:00 Ceftriaxone Sodium (Rocephin) 50 ml @ 100 mls/hr Q24H IVPB Last administered on 07/10/17 22:32; Admin Dose 100 MLS/HR; Start 07/07/17 at 23:00 Levothyroxine Sodium (Synthroid) 50 mcg DAILY@06 PO Last administered on 05:46; Admin Dose 50 MCG; Start 07/08/17 at 06:00 EMIGDIO SPIVEY M.D. Jul 11, 2017 22:31
[2017-07-11] MEDS: CEFTRIAXONE 1 GM/50 ML (PMX) 50 ML IVPB SCH (22:39)
[2017-07-12] MEDS: SOD CHLORIDE 0.45% 1,000 ML IV SCH ×2 (01:26→09:24)
[2017-07-12 02:03] VITALS: BP 112/72; RESP 20
[2017-07-12] MEDS: PANTOPRAZOLE (EC) 40 MG TAB PO SCH (06:03)
[2017-07-12] MEDS: LEVOTHYROXINE 50 MCG TAB PO SCH (06:03)
[2017-07-12 07:50] VITALS: BP 108/51; RESP 18
[2017-07-12] MEDS: VALSARTAN 80 MG TAB PO SCH (09:00)
[2017-07-12] MEDS: ALLOPURINOL 300 MG TAB PO SCH (09:24)
[2017-07-12] MEDS: CHOLECALCIFEROL 2,000 UNIT CAP PO SCH (09:24)
--- NOTE | 2017-07-12 13:12 | PN ---
Date/Time of Note Date/Time of Note DATE: 07/12/17 TIME: 13:11 Assessment/Plan VTE Prophylaxis VTE Prophylaxis Intervention: ambulation Lines/Catheters IV [facility] Mid Line Central line still needed: Yes Urinary Cath still in place: No Assessment/Plan Chief Complaint/Hosp Course 1. Metastatic adenocarcinoma. 2. Acute kidney injury,better 3. Systemic inflammatory response syndrome 4. Mental retardation. 5. Hypothyroidism. 6. HX dyslipidemia. 7. History of gout. 8. liver failure 9. Hyponatremia Problems: Assessment/Plan 1. EGD per dr Villavicencio 2. Fluid restriction to 1500 ml 3,. Disk with ct scan of abdomen Subjective 24 Hr Interval Summary Constitutional: improved, no complaints Exam/Review of Systems Vital Signs Vitals Vital Signs Date Time Temp Pulse Resp B/P Pulse Ox O2 Delivery O2 Flow Rate FiO2 07/12/17 07:50 98.6 96 18 108/51 94 07/11/17 06:08 Room Air 07/09/17 10:36 4.0 Intake and Output 07/11/17 07/11/17 07/12/17 15:00 23:00 07:00 Intake Total 600 ml 1320 ml 1130 ml Output Total 1500 ml Balance 600 ml -180 ml 1130 ml Exam Constitutional: alert, oriented Gastrointestinal: soft, tender (left epigastric area) Results Result Diagram: 07/11/17 0524 07/11/17 0524 Medications Medications Current Medications Sodium Chloride (1/2 NS) 1,000 ml @ 50 mls/hr Q20H IV Last administered on 09:24; Admin Dose 50 MLS/HR; Start 07/07/17 at 22:00 Pantoprazole (Protonix Tab) 40 mg DAILY@06 PO Last administered on 07/12/17 06:03; Admin Dose 40 MG; Start 07/08/17 at 06:00 Allopurinol (Zyloprim) 300 mg DAILY PO Last administered on 07/12/17 09:24; Admin Dose 300 MG; Start 07/08/17 at 09:00 Valsartan (Diovan) 80 mg DAILY PO Last administered on 07/10/17 08:33; Admin Dose 80 MG; Start 07/08/17 at 09:00 Cholecalciferol (Vitamin D) 2,000 unit DAILY PO Last administered on 09:24; Admin Dose 2,000 UNIT; Start 07/08/17 at 09:00 Ondansetron HCl (Zofran Inj) 4 mg Q6H PRN IV NAUSEA AND/OR VOMITING Last administered on 07/10/17 09:55; Admin Dose 4 MG; Start 07/07/17 at 23:00 Acetaminophen (Tylenol Tab) 650 mg Q6H PRN PO PAIN LEVEL 1-3 OR FEVER; Start 07/07/17 at 23:00 Acetaminophen (Tylenol Supp) 650 mg Q6H PRN [place] PAIN LEVEL 1-3 OR FEVER; Start 07/07/17 at 23:00 Docusate Sodium (Colace) 100 mg Q12H PRN PO CONSTIPATION; Start 07/07/17 at 23: 00 Magnesium Hydroxide (Milk Of Mag) 30 ml DAILY PRN PO CONSTIPATION; Start at 23:00 Bisacodyl 5 mg 5 mg DAILY PRN PO CONSTIPATION; Start 07/07/17 at 23:00 Ceftriaxone Sodium (Rocephin) 50 ml @ 100 mls/hr Q24H IVPB Last administered on 07/11/17 22:39; Admin Dose 100 MLS/HR; Start 07/07/17 at 23:00 Levothyroxine Sodium (Synthroid) 50 mcg DAILY@06 PO Last administered on 06:03; Admin Dose 50 MCG; Start 07/08/17 at 06:00 MADALYN ART Jul 12, 2017 13:12
[2017-07-12 14:16] VITALS: BP 107/68; RESP 16
[2017-07-12 20:00] VITALS: BP 96/51; RESP 20
[2017-07-12] MEDS: CEFTRIAXONE 1 GM/50 ML (PMX) 50 ML IVPB SCH (22:59)
[2017-07-13 02:00] VITALS: BP 115/70; RESP 20
[2017-07-13] MEDS: PANTOPRAZOLE (EC) 40 MG TAB PO SCH (05:53)
[2017-07-13] MEDS: LEVOTHYROXINE 50 MCG TAB PO SCH (05:53)
[2017-07-13 06:43] LABS: ALBUMIN 2.6 g/dl (3.3-4.9); ALBUMIN/GLOBULIN RATIO 0.76; BILIRUBIN,INDIRECT 0.5 mg/dl (0-1.1); BILIRUBIN,TOTAL 0.5 mg/dl (0.2-1.3); CALCIUM 8.2 mg/dl (8.4-10.2); CREATININE 1.19 mg/dl (0.61-1.24); POTASSIUM 4.4 mmol/L (3.5-5.1)
[2017-07-13 07:41] VITALS: BP 110/68; RESP 20
[2017-07-13] MEDS: VALSARTAN 80 MG TAB PO SCH (08:45)
[2017-07-13] MEDS: CHOLECALCIFEROL 2,000 UNIT CAP PO SCH (08:46)
[2017-07-13] MEDS: ALLOPURINOL 300 MG TAB PO SCH (08:46)
--- NOTE | 2017-07-13 09:59 | PN ---
MADALYN THACKER 07/13/17 0959: Date/Time of Note Date/Time of Note DATE: 07/13/17 TIME: 09:58 Assessment/Plan VTE Prophylaxis VTE Prophylaxis Intervention: ambulation Lines/Catheters IV Catheter Type (from [facility]): Mid Line Urinary Cath still in place: No Assessment/Plan Chief Complaint/Hosp Course 1. Metastatic adenocarcinoma. 2. Acute kidney injury,better 3. Systemic inflammatory response syndrome 4. Mental retardation. 5. Hypothyroidism. 6. HX dyslipidemia. 7. History of gout. 8. liver failure 9. Hyponatremia Problems: Assessment/Plan 1. Pending colonscopy 2. chemotherapy starts per dr Mckee Subjective 24 Hr Interval Summary Constitutional: improved, no complaints Exam/Review of Systems Vital Signs Vitals Vital Signs Date Time Temp Pulse Resp B/P Pulse Ox O2 Delivery O2 Flow Rate FiO2 07/13/17 07:41 98.8 92 20 110/68 97 07/11/17 06:08 Room Air 07/09/17 10:36 4.0 Intake and Output 07/12/17 07/12/17 07/13/17 15:00 23:00 07:00 Intake Total 200 ml 1500 ml 50 ml Output Total 1350 ml Balance 200 ml 150 ml 50 ml Exam Constitutional: alert, oriented Respiratory: clear to auscultation Cardiovascular: regular rate and rhythm Results Result Diagram: 07/11/17 0524 07/13/17 0501 Results 24 hrs Laboratory Tests Test 07/13/17 05:01 Sodium Level 136 Potassium Level 4.4 Chloride Level 99 Carbon Dioxide Level 32 H Anion Gap 9 Blood Urea Nitrogen 11 Creatinine 1.19 Glucose Level 97 Calcium Level 8.2 L Total Bilirubin 0.5 Direct Bilirubin 0.00 Indirect Bilirubin 0.5 Aspartate Amino Transf (AST/SGOT) 143 H Alanine Aminotransferase (ALT/SGPT) 144 H Alkaline Phosphatase 254 H Total Protein 6.0 L Albumin 2.6 L Globulin 3.40 H Albumin/Globulin Ratio 0.76 Medications Medications Current Medications Pantoprazole (Protonix Tab) 40 mg DAILY@06 PO Last administered on 07/13/17 05:53; Admin Dose 40 MG; Start 07/08/17 at 06:00 Allopurinol (Zyloprim) 300 mg DAILY PO Last administered on 07/13/17 08:46; Admin Dose 300 MG; Start 07/08/17 at 09:00 Valsartan (Diovan) 80 mg DAILY PO Last administered on 07/10/17 08:33; Admin Dose 80 MG; Start 07/08/17 at 09:00 Cholecalciferol (Vitamin D) 2,000 unit DAILY PO Last administered on 08:46; Admin Dose 2,000 UNIT; Start 07/08/17 at 09:00 Ondansetron HCl (Zofran Inj) 4 mg Q6H PRN IV NAUSEA AND/OR VOMITING Last administered on 07/10/17 09:55; Admin Dose 4 MG; Start 07/07/17 at 23:00 Acetaminophen (Tylenol Tab) 650 mg Q6H PRN PO PAIN LEVEL 1-3 OR FEVER; Start 07/07/17 at 23:00 Acetaminophen (Tylenol Supp) 650 mg Q6H PRN [place] PAIN LEVEL 1-3 OR FEVER; Start 07/07/17 at 23:00 Docusate Sodium (Colace) 100 mg Q12H PRN PO CONSTIPATION; Start 07/07/17 at 23: 00 Magnesium Hydroxide (Milk Of Mag) 30 ml DAILY PRN PO CONSTIPATION; Start at 23:00 Bisacodyl 5 mg 5 mg DAILY PRN PO CONSTIPATION; Start 07/07/17 at 23:00 Ceftriaxone Sodium (Rocephin) 50 ml @ 100 mls/hr Q24H IVPB Last administered on 07/12/17 22:59; Admin Dose 100 MLS/HR; Start 07/07/17 at 23:00 Levothyroxine Sodium (Synthroid) 50 mcg DAILY@06 PO Last administered on 05:53; Admin Dose 50 MCG; Start 07/08/17 at 06:00 YASEMIN OLIVARES MD 07/13/17 1459: Assessment/Plan Assessment/Plan Assessment/Plan EGD and colonoscopy tmw per GI Exam/Review of Systems Results Result Diagram: 07/11/17 0524 07/13/17 0501 MADALYN ART Jul 13, 2017 09:59 YASEMIN OLIVARES MD Jul 13, 2017 14:59
--- NOTE | 2017-07-13 10:11 | CONS ---
Date/Time of Note Date/Time of Note DATE: 07/12/17 TIME: 20:09 Assessment/Plan Assessment/Plan Chief Complaint/Hosp Course IMPRESSION: 1. Metastatic carcinoma in the liver. 2. Developmental delay. 3. Hypothyroidism. 4. Dyslipidemia. 5. Gout. PLAN: Discussed the case with Dr. Felisa Mckee, and Dr. Vignesh Ovalle. They want to proceed with EGD and colonoscopy in order to identify the primary. Discussed with brother, and he is in agreement for the procedure. Continue present care in the interim. The patient is scheduled for EGD and colonoscopy on Friday. Problems: Consultation Date/Type/Reason Admit Date/Time Jul 07, 2017 at 14:27 Initial Consult Date 07/08/17 Type of Consultation: GI Referring Provider: VIGNESH OVALLE MD 24 HR Interval Summary Free Text/Dictation no n/v, tolerating po Exam/Review of Systems Vital Signs Vitals Vital Signs Date Time Temp Pulse Resp B/P Pulse Ox O2 Delivery O2 Flow Rate FiO2 07/13/17 07:41 98.8 92 20 110/68 97 07/11/17 06:08 Room Air 07/09/17 10:36 4.0 Intake and Output 07/12/17 07/12/17 07/13/17 14:59 22:59 06:59 Intake Total 200 ml 1500 ml 50 ml Output Total 1350 ml Balance 200 ml 150 ml 50 ml Exam Constitutional: alert, oriented, well developed Psych: nl mood/affect, no complaints Head: atraumatic, normocephalic Eyes: EOMI, nl conjunctiva, nl lids ENMT: nl external ears & nose, nl lips & teeth, nl nasal mucosa & septum Neck: non-tender, supple Respiratory: clear to auscultation, normal air movement Cardiovascular: nl pulses, regular rate and rhythm Gastrointestinal: bowel sounds, non-tender Results Result Diagram: 07/11/17 0524 07/13/17 0501 Results 24 hrs Laboratory Tests Test 07/13/17 05:01 Sodium Level 136 Potassium Level 4.4 Chloride Level 99 Carbon Dioxide Level 32 H Anion Gap 9 Blood Urea Nitrogen 11 Creatinine 1.19 Glucose Level 97 Calcium Level 8.2 L Total Bilirubin 0.5 Direct Bilirubin 0.00 Indirect Bilirubin 0.5 Aspartate Amino Transf (AST/SGOT) 143 H Alanine Aminotransferase (ALT/SGPT) 144 H Alkaline Phosphatase 254 H Total Protein 6.0 L Albumin 2.6 L Globulin 3.40 H Albumin/Globulin Ratio 0.76 Medications Medications Current Medications Pantoprazole (Protonix Tab) 40 mg DAILY@06 PO Last administered on 07/13/17 05:53; Admin Dose 40 MG; Start 07/08/17 at 06:00 Allopurinol (Zyloprim) 300 mg DAILY PO Last administered on 07/13/17 08:46; Admin Dose 300 MG; Start 07/08/17 at 09:00 Valsartan (Diovan) 80 mg DAILY PO Last administered on 07/10/17 08:33; Admin Dose 80 MG; Start 07/08/17 at 09:00 Cholecalciferol (Vitamin D) 2,000 unit DAILY PO Last administered on 08:46; Admin Dose 2,000 UNIT; Start 07/08/17 at 09:00 Ondansetron HCl (Zofran Inj) 4 mg Q6H PRN IV NAUSEA AND/OR VOMITING Last administered on 07/10/17 09:55; Admin Dose 4 MG; Start 07/07/17 at 23:00 Acetaminophen (Tylenol Tab) 650 mg Q6H PRN PO PAIN LEVEL 1-3 OR FEVER; Start 07/07/17 at 23:00 Acetaminophen (Tylenol Supp) 650 mg Q6H PRN [place] PAIN LEVEL 1-3 OR FEVER; Start 07/07/17 at 23:00 Docusate Sodium (Colace) 100 mg Q12H PRN PO CONSTIPATION; Start 07/07/17 at 23: 00 Magnesium Hydroxide (Milk Of Mag) 30 ml DAILY PRN PO CONSTIPATION; Start at 23:00 Bisacodyl 5 mg 5 mg DAILY PRN PO CONSTIPATION; Start 07/07/17 at 23:00 Ceftriaxone Sodium (Rocephin) 50 ml @ 100 mls/hr Q24H IVPB Last administered on 07/12/17 22:59; Admin Dose 100 MLS/HR; Start 07/07/17 at 23:00 Levothyroxine Sodium (Synthroid) 50 mcg DAILY@06 PO Last administered on 05:53; Admin Dose 50 MCG; Start 07/08/17 at 06:00 MICHELLE GLASGOW MD Jul 13, 2017 10:11
--- NOTE | 2017-07-13 10:25 | CONS ---
Date/Time of Note Date/Time of Note DATE: 07/13/17 TIME: 10:24 Assessment/Plan Assessment/Plan Chief Complaint/Hosp Course IMPRESSION: 1. Metastatic carcinoma in the liver. 2. Developmental delay. 3. Hypothyroidism. 4. Dyslipidemia. 5. Gout. PLAN: 1. I discussed with brother, and he is in agreement for the procedure. 2. bowel prep today 3. scheduled for EGD and colonoscopy on Friday with Dr. Villavicencio. Problems: Consultation Date/Type/Reason Admit Date/Time Jul 07, 2017 at 14:27 Initial Consult Date 07/08/17 Type of Consultation: GI Referring Provider: KINGSLEY OVALLE MD 24 HR Interval Summary Free Text/Dictation no n/v, no abdominal pain Exam/Review of Systems Vital Signs Vitals Vital Signs Date Time Temp Pulse Resp B/P Pulse Ox O2 Delivery O2 Flow Rate FiO2 07/13/17 07:41 98.8 92 20 110/68 97 07/11/17 06:08 Room Air 07/09/17 10:36 4.0 Intake and Output 07/12/17 07/12/17 07/13/17 15:00 23:00 07:00 Intake Total 200 ml 1500 ml 50 ml Output Total 1350 ml Balance 200 ml 150 ml 50 ml Exam Psych: nl mood/affect, no complaints Head: atraumatic, normocephalic Eyes: EOMI, nl conjunctiva, nl lids ENMT: nl external ears & nose, nl lips & teeth, nl nasal mucosa & septum Neck: non-tender, supple Respiratory: clear to auscultation, normal air movement Cardiovascular: nl pulses, regular rate and rhythm Gastrointestinal: bowel sounds, non-tender, soft Results Result Diagram: 07/11/17 0524 07/13/17 0501 Results 24 hrs Laboratory Tests Test 07/13/17 05:01 Sodium Level 136 Potassium Level 4.4 Chloride Level 99 Carbon Dioxide Level 32 H Anion Gap 9 Blood Urea Nitrogen 11 Creatinine 1.19 Glucose Level 97 Calcium Level 8.2 L Total Bilirubin 0.5 Direct Bilirubin 0.00 Indirect Bilirubin 0.5 Aspartate Amino Transf (AST/SGOT) 143 H Alanine Aminotransferase (ALT/SGPT) 144 H Alkaline Phosphatase 254 H Total Protein 6.0 L Albumin 2.6 L Globulin 3.40 H Albumin/Globulin Ratio 0.76 Medications Medications Current Medications Pantoprazole (Protonix Tab) 40 mg DAILY@06 PO Last administered on 07/13/17 05:53; Admin Dose 40 MG; Start 07/08/17 at 06:00 Allopurinol (Zyloprim) 300 mg DAILY PO Last administered on 07/13/17 08:46; Admin Dose 300 MG; Start 07/08/17 at 09:00 Valsartan (Diovan) 80 mg DAILY PO Last administered on 07/10/17 08:33; Admin Dose 80 MG; Start 07/08/17 at 09:00 Cholecalciferol (Vitamin D) 2,000 unit DAILY PO Last administered on 08:46; Admin Dose 2,000 UNIT; Start 07/08/17 at 09:00 Ondansetron HCl (Zofran Inj) 4 mg Q6H PRN IV NAUSEA AND/OR VOMITING Last administered on 07/10/17 09:55; Admin Dose 4 MG; Start 07/07/17 at 23:00 Acetaminophen (Tylenol Tab) 650 mg Q6H PRN PO PAIN LEVEL 1-3 OR FEVER; Start 07/07/17 at 23:00 Acetaminophen (Tylenol Supp) 650 mg Q6H PRN [place] PAIN LEVEL 1-3 OR FEVER; Start 07/07/17 at 23:00 Docusate Sodium (Colace) 100 mg Q12H PRN PO CONSTIPATION; Start 07/07/17 at 23: 00 Magnesium Hydroxide (Milk Of Mag) 30 ml DAILY PRN PO CONSTIPATION; Start at 23:00 Bisacodyl 5 mg 5 mg DAILY PRN PO CONSTIPATION; Start 07/07/17 at 23:00 Ceftriaxone Sodium (Rocephin) 50 ml @ 100 mls/hr Q24H IVPB Last administered on 07/12/17 22:59; Admin Dose 100 MLS/HR; Start 07/07/17 at 23:00 Levothyroxine Sodium (Synthroid) 50 mcg DAILY@06 PO Last administered on 05:53; Admin Dose 50 MCG; Start 07/08/17 at 06:00 MICHELLE GLASGOW MD Jul 13, 2017 10:25
[2017-07-13 14:10] VITALS: BP 99/67; RESP 18
[2017-07-13 15:00] VITALS: BP 114/68; PULSE 99; RESP 16
[2017-07-13] MEDS ORDERED: PEG/ELECTROLYTES 4L BTL PO ONE ×2 (15:00→19:00)
[2017-07-13] MEDS ORDERED: BISACODYL (EC) 5 MG TAB PO ONE ×2 (16:00→20:00)
[2017-07-13 20:00] VITALS: BP 109/59; RESP 20
[2017-07-13] MEDS: CEFTRIAXONE 1 GM/50 ML (PMX) 50 ML IVPB SCH (22:56)
[2017-07-14] VITALS (10 sets, daily range): BP systolic 96–119; BP diastolic 58–81; PULSE 90–119; RESP 14–27
[2017-07-14] MEDS: PANTOPRAZOLE (EC) 40 MG TAB PO SCH (06:00)
[2017-07-14] MEDS: LEVOTHYROXINE 50 MCG TAB PO SCH (06:00)
[2017-07-14] MEDS: ALLOPURINOL 300 MG TAB PO SCH (08:33)
[2017-07-14] MEDS: VALSARTAN 80 MG TAB PO SCH (08:33)
[2017-07-14] MEDS: CHOLECALCIFEROL 2,000 UNIT CAP PO SCH (08:33)
--- NOTE | 2017-07-14 09:10 | CONS ---
Date/Time of Note Date/Time of Note DATE: 07/14/17 TIME: 09:08 Assessment/Plan Assessment/Plan Chief Complaint/Hosp Course 52 yo with 1. Multiple liver masses 2. Abdominal pain 3. Hypertension 4. Gout -prelim pathology from liver bx is consistent with either GI origin vs hepatobiliary -will consult GI for EGD and colonoscopy to help determine primary tumor. 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 will follow up -further recommendations will depend on final pathology and results of endoscopy -lengthy discussion was had with PMD Dr Lester and patient's brother, regarding pathology and plan of care A total of 50 minutes of [id number] time was spent speaking with the patient, of which greater than 50% was spent in counseling and coordination of care and a detailed question and answer session. Problems: Consultation Date/Type/Reason Admit Date/Time Jul 07, 2017 at 14:27 Initial Consult Date 07/08/17 Type of Consultation: Hematology/ Oncology Reason for Consultation metastatic cancer to liver Referring Provider: KINGSLEY OVALLE MD 24 HR Interval Summary Free Text/Dictation no acute overnight events. pt scheduled for EGD and colonoscopy today Exam/Review of Systems Vital Signs Vitals Vital Signs Date Time Temp Pulse Resp B/P Pulse Ox O2 Delivery O2 Flow Rate FiO2 07/14/17 07:38 99.1 91 16 115/71 94 07/13/17 15:00 Room Air Intake and Output 07/13/17 07/13/17 07/14/17 15:00 23:00 07:00 Intake Total 1200 ml 1850 ml Output Total 1800 ml 2 ml Balance -600 ml 1848 ml Exam Constitutional: alert, other (with developmental delay) Psych: no complaints Head: atraumatic, normocephalic Eyes: nl conjunctiva ENMT: nl external ears & nose Neck: supple Respiratory: clear to auscultation, normal air movement Cardiovascular: nl pulses, regular rate and rhythm Gastrointestinal: soft Extremities: normal pulses Neurological: 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 OPERATOR II-XII 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 Results Result Diagram: 07/11/17 0524 07/13/17 0501 Medications Medications Current Medications Pantoprazole (Protonix Tab) 40 mg DAILY@06 PO Last administered on 07/13/17t 05:53; Admin Dose 40 MG; Start 07/08/17 at 06:00 Allopurinol (Zyloprim) 300 mg DAILY PO Last administered on 07/13/17 08:46; Admin Dose 300 MG; Start 07/08/17 at 09:00 Valsartan (Diovan) 80 mg DAILY PO Last administered on 07/10/17 08:33; Admin Dose 80 MG; Start 07/08/17 at 09:00 Cholecalciferol (Vitamin D) 2,000 unit DAILY PO Last administered on 08:46; Admin Dose 2,000 UNIT; Start 07/08/17 at 09:00 Ondansetron HCl (Zofran Inj) 4 mg Q6H PRN IV NAUSEA AND/OR VOMITING Last administered on 07/10/17 09:55; Admin Dose 4 MG; Start 07/07/17 at 23:00 Acetaminophen (Tylenol Tab) 650 mg Q6H PRN PO PAIN LEVEL 1-3 OR FEVER; Start 07/07/17 at 23:00 Acetaminophen (Tylenol Supp) 650 mg Q6H PRN [place] PAIN LEVEL 1-3 OR FEVER; Start 07/07/17 at 23:00 Docusate Sodium (Colace) 100 mg Q12H PRN PO CONSTIPATION; Start 07/07/17 at 23: 00 Magnesium Hydroxide (Milk Of Mag) 30 ml DAILY PRN PO CONSTIPATION; Start at 23:00 Bisacodyl 5 mg 5 mg DAILY PRN PO CONSTIPATION; Start 07/07/17 at 23:00 Ceftriaxone Sodium (Rocephin) 50 ml @ 100 mls/hr Q24H IVPB Last administered on 07/13/17 22:56; Admin Dose 100 MLS/HR; Start 07/07/17 at 23:00 Levothyroxine Sodium (Synthroid) 50 mcg DAILY@06 PO Last administered on 05:53; Admin Dose 50 MCG; Start 07/08/17 at 06:00 EMIGDIO SPIVEY M.D. Jul 14, 2017 09:10
--- NOTE | 2017-07-14 11:15 | PN ---
Date/Time of Note Date/Time of Note DATE: 07/14/17 TIME: 11:10 Assessment/Plan VTE Prophylaxis VTE Prophylaxis Intervention: ambulation Lines/Catheters [facility] Line Urinary Cath still in place: No Assessment/Plan Chief Complaint/Hosp Course 52 y/o with # Metastatic adenocarcinoma s/p Liver biopsy primary; GI vs Hepatobiliary # Acute kidney injury resolved # Systemic inflammatory response syndrome # Mental retardation. # Hypothyroidism. # HX dyslipidemia. # History of gout. # Hyponatremia Plan - EGD and colonoscopy today - f/u Dr Rafi maher - dc rocephin - pain control - c/w allopurinol - c.w valsartan - c/w levothyroxine Spoke to brother at bedside Problems: Subjective 24 Hr Interval Summary Free Text/Dictation No abdominal pain EGD and Colonoscopy scheduled today Spoke to brother at bedside Exam/Review of Systems Vital Signs Vitals Vital Signs Date Time Temp Pulse Resp B/P Pulse Ox O2 Delivery O2 Flow Rate FiO2 07/14/17 07:38 99.1 91 16 115/71 94 07/13/17 15:00 Room Air Intake and Output 07/13/17 07/13/17 07/14/17 15:00 23:00 07:00 Intake Total 1200 ml 1850 ml Output Total 1800 ml 2 ml Balance -600 ml 1848 ml Exam Exam Psych: Mentally challenged no complaints, drawing on paper Head: atraumatic, normocephalic Eyes: EOMI, nl conjunctiva, nl lids ENMT: nl external ears & nose, nl lips & teeth, nl nasal mucosa & septum Neck: non-tender, supple Respiratory: clear to auscultation, normal air movement Cardiovascular: nl pulses, regular rate and rhythm Gastrointestinal: bowel sounds, non-tender, soft Results Result Diagram: 07/11/17 0524 07/13/17 0501 Medications Medications Current Medications Pantoprazole (Protonix Tab) 40 mg DAILY@06 PO Last administered on 07/13/17 05:53; Admin Dose 40 MG; Start 07/08/17 at 06:00 Allopurinol (Zyloprim) 300 mg DAILY PO Last administered on 07/13/17 08:46; Admin Dose 300 MG; Start 07/08/17 at 09:00 Valsartan (Diovan) 80 mg DAILY PO Last administered on 07/10/17 08:33; Admin Dose 80 MG; Start 07/08/17 at 09:00 Cholecalciferol (Vitamin D) 2,000 unit DAILY PO Last administered on 08:46; Admin Dose 2,000 UNIT; Start 07/08/17 at 09:00 Ondansetron HCl (Zofran Inj) 4 mg Q6H PRN IV NAUSEA AND/OR VOMITING Last administered on 07/10/17 09:55; Admin Dose 4 MG; Start 07/07/17 at 23:00 Acetaminophen (Tylenol Tab) 650 mg Q6H PRN PO PAIN LEVEL 1-3 OR FEVER; Start 07/07/17 at 23:00 Acetaminophen (Tylenol Supp) 650 mg Q6H PRN [place] PAIN LEVEL 1-3 OR FEVER; Start 07/07/17 at 23:00 Docusate Sodium (Colace) 100 mg Q12H PRN PO CONSTIPATION; Start 07/07/17 at 23: 00 Magnesium Hydroxide (Milk Of Mag) 30 ml DAILY PRN PO CONSTIPATION; Start at 23:00 Bisacodyl (Dulcolax) 5 mg DAILY PRN PO CONSTIPATION; Start 07/07/17 at 23:00 Levothyroxine Sodium (Synthroid) 50 mcg DAILY@06 PO Last administered on 05:53; Admin Dose 50 MCG; Start 07/08/17 at 06:00 YASEMIN OLIVARES MD Jul 14, 2017 11:15
[2017-07-14] MEDS ORDERED: LIDOCAINE 2% (SDV) 5 ML INJ ONE (12:46)
[2017-07-14] MEDS ORDERED: PROPOFOL 40 ML ONE (12:46)
--- NOTE | 2017-07-14 13:24 | OPPN ---
Date/Time of Note Date/Time of Note DATE: 07/14/17 TIME: 13:22 Proc Note GI Procedure Date 07/14/17 Indication: screening/surveillance, diagnostic Pre-procedure Diagnosis Intermittent vomiting Metastasis in the liver Post-procedure Diagnosis Gastritis #1 2. Thickened fold in the fundal area colon 1. Mild diverticulosis 2. External hemorrhoids 3. Negative all the way into the cecum Procedure Performed: Endoscopy, Colonoscopy Surgeon see signature line Record Center Coordinator none Anesthesia Type: MAC Tourniquet Time none EBL none Transfusion required none Biopsy 1: Stomach biopsy 1 Grafts/Implants none Tubes/Drains none Complication(s) none Procedure Description See description MERRY KWAN MD Jul 14, 2017 13:24
[2017-07-14] MEDS ORDERED: hydrALAzine 5 MG IV PRN (14:00)
[2017-07-14] MEDS ORDERED: LABETALOL 5 MG IV PRN (14:00)
[2017-07-15 02:00] VITALS: BP 108/67; RESP 20
--- NOTE | 2017-07-15 02:55 | GILP ---
DATE OF PROCEDURE: PROCEDURE PERFORMED: EGD with a biopsy and colonoscopy. INDICATION: A 52-year-old male undergoing this procedure for metastatic liver disease. He also has intermittent nausea and vomiting. The purpose is to evaluate the upper GI and lower GI tract and r ule out primary besides his CA was greater than 571. The risk of the procedure, related and unrelat ed complications, anesthetic risks, alternatives discussed and informed consent was obtained. DESCRIPTION OF PROCEDURE: The patient was brought to the GI lab, sedated by the anesthesiologist. After obtaining sedation, scope was passed with much ease into the esophagus which was grossly withi n normal limits. Stomach mucosa revealed gastritis. Biopsy taken to rule out H. pylori infection. Retroversion done, thickened fold in the fundal area identified. Scope was straightened out and en tered into duodenum. The apex of the duodenum and close to the ampulla, there were inflammatory felicia nges identified. Perhaps this might be due to the pancreatic lesion pressing into the duodenum. Al so, there was a bulge seen, although it was small in the bulb which appeared extraluminal compressio n. Scope was then straightened out and removed with good patient tolerance. IMPRESSION: 1. Thickened fold in the antrum close to the GE junction. 2. Gastritis. 3. Inflammatory inflammation of the mucosa, close to the ampulla and there was some bumps seen in t he bulb, probably from extraluminal compression. PLAN: To review histopathology. The patient needs a dedicated pancreatic CT scan with a 3-phase st udy. The patient's CA 19-9 is greater than 10,000. COLONOSCOPY REPORT: The patient was turned around, scope was passed with much ease into rectum. Th e whole colon appeared to be dilated and we did manage to pass through sigmoid, descending, transver se colon all the way into cecum. Appendiceal orifice identified. While coming out, mucosa thorough ly inspected. A few scattered diverticula seen in the left side of the colon. Retroversion was don e; it was grossly normal except for the external hemorrhoids. IMPRESSION: 1. Normal findings all the way into cecum. 2. Diverticulosis. 3. External hemorrhoids. 4. Clarity and cleanliness was good. PLAN: Again, is to get the pancreatic CT with 3-phase study to make sure there is no pancreatic les ion as the cause of mets in the liver. Dictated By: MERRY KWAN MD PJ/NTS Conf#: [id number] [facility]#: [id number] CC: EMIGDIO SPIVEY MD; KINGSLEY OVALLE MD;*EndCC*
[2017-07-15] MEDS: LEVOTHYROXINE 50 MCG TAB PO SCH (05:52)
[2017-07-15] MEDS: PANTOPRAZOLE (EC) 40 MG TAB PO SCH (05:52)
[2017-07-15 07:47] VITALS: BP 120/74; RESP 20
[2017-07-15] MEDS: CHOLECALCIFEROL 2,000 UNIT CAP PO SCH (08:25)
[2017-07-15] MEDS: ALLOPURINOL 300 MG TAB PO SCH (08:25)
[2017-07-15] MEDS: VALSARTAN 80 MG TAB PO SCH (08:25)
[2017-07-15] MEDS ORDERED: BARIUM SULF 2% 450 ML BTL (BERRY SMOOTHIE) PO ONE (10:00)
[2017-07-15] MEDS ORDERED: BARIUM SULFATE 0.1% 450 ML BTL (VOLUMEN) PO ONE (11:52)
--- NOTE | 2017-07-15 12:58 | PN ---
Date/Time of Note Date/Time of Note DATE: 07/15/17 TIME: 12:56 Assessment/Plan VTE Prophylaxis VTE Prophylaxis Intervention: contraindicated Lines/Catheters IV [facility] Type [facility]from [facility] Urinary Cath still in place: No Assessment/Plan Chief Complaint/Hosp Course 52 y/o with # Metastatic adenocarcinoma s/p Liver biopsy primary; GI vs Hepatobiliary # Acute kidney injury resolved # Systemic inflammatory response syndrome # Mental retardation. # Hypothyroidism. # HX dyslipidemia. # History of gout. # Hyponatremia Plan - CT pancreas today - f/u Dr Mckee recnan, f/u in 1 week post dc today - d/c home today pending CT scan results - pain control - c/w allopurinol - c.w valsartan - c/w levothyroxine Spoke to brother at bedside Problems: Subjective 24 Hr Interval Summary Free Text/Dictation s/p EGG and Colnoscopy which showed some gastritis/diverticulosis CT pancreas per Dr Mckee Exam/Review of Systems Vital Signs Vitals Vital Signs Date Time Temp Pulse Resp B/P Pulse Ox O2 Delivery O2 Flow Rate FiO2 07/15/17 07:47 99.2 90 20 120/74 94 07/14/17 13:43 Room Air Intake and Output 07/14/17 07/14/17 07/15/17 15:00 23:00 07:00 Intake Total 740 ml 500 ml Output Total 1 ml Balance 740 ml 499 ml Exam sych: Mentally challenged no complaints, drawing on paper Head: atraumatic, normocephalic Eyes: EOMI, nl conjunctiva, nl lids ENMT: nl external ears & nose, nl lips & teeth, nl nasal mucosa & septum Neck: non-tender, supple Respiratory: clear to auscultation, normal air movement Cardiovascular: nl pulses, regular rate and rhythm Gastrointestinal: bowel sounds, non-tender, soft Results Result Diagram: 07/11/17 0524 07/13/17 0501 Medications Medications Current Medications Pantoprazole (Protonix Tab) 40 mg DAILY@06 PO Last administered on 07/15/17 05:52; Admin Dose 40 MG; Start 07/08/17 at 06:00 Allopurinol (Zyloprim) 300 mg DAILY PO Last administered on 07/15/17 08:25; Admin Dose 300 MG; Start 07/08/17 at 09:00 Valsartan (Diovan) 80 mg DAILY PO Last administered on 07/15/17 08:25; Admin Dose 80 MG; Start 07/08/17 at 09:00 Cholecalciferol (Vitamin D) 2,000 unit DAILY PO Last administered on 08:25; Admin Dose 2,000 UNIT; Start 07/08/17 at 09:00 Ondansetron HCl (Zofran Inj) 4 mg Q6H PRN IV NAUSEA AND/OR VOMITING Last administered on 07/10/17 09:55; Admin Dose 4 MG; Start 07/07/17 at 23:00 Acetaminophen (Tylenol Tab) 650 mg Q6H PRN PO PAIN LEVEL 1-3 OR FEVER; Start 07/07/17 at 23:00 Acetaminophen (Tylenol Supp) 650 mg Q6H PRN [place] PAIN LEVEL 1-3 OR FEVER; Start 07/07/17 at 23:00 Docusate Sodium (Colace) 100 mg Q12H PRN PO CONSTIPATION; Start 07/07/17 at 23: 00 Magnesium Hydroxide (Milk Of Mag) 30 ml DAILY PRN PO CONSTIPATION; Start at 23:00 Bisacodyl (Dulcolax) 5 mg DAILY PRN PO CONSTIPATION; Start 07/07/17 at 23:00 Levothyroxine Sodium (Synthroid) 50 mcg DAILY@06 PO Last administered on 05:52; Admin Dose 50 MCG; Start 07/08/17 at 06:00 YASEMIN OLIVARES MD Jul 15, 2017 12:58
[2017-07-15] MEDS ORDERED: PANT40TA4 PO (13:00)
--- NOTE | 2017-07-15 13:00 | PDOCDIS ---
Discharge Instructions DIAGNOSIS Discharge Diagnosis Metastatic liver adeno CA CONDITION Patient Condition: Good HOME CARE INSTRUCTIONS: Diet Instructions: Low Fat /CholesterolSpecial Diet: REGULAR ACTIVITY: Activity Restrictions: Slowly Increase Activity FOLLOW UP/APPOINTMENTS Follow-up Plan F/U Dr Chiang in 1 week for chemotherapy treatment f/u PCP in 1 -2 weeks YASEMIN OLIVARES MD Jul 15, 2017 12:59
--- NOTE | 2017-07-15 13:15 | CONS ---
Date/Time of Note Date/Time of Note DATE: 07/15/17 TIME: 13:12 Assessment/Plan Assessment/Plan Chief Complaint/Hosp Course 52 yo with 1. Multiple liver masses 2. Abdominal pain 3. Hypertension 4. Gout -prelim pathology from liver bx is consistent with either GI origin vs hepatobiliary - EGD and colonoscopy were negative for obvious malignancy -will check CT Abdomen with pancreatic protocol to more fully evaluate for pancreatic mass -CA 19-9 markedly elevated making hepatobiliary origin cancer most probable. will follow up -further recommendations will depend on final pathology and results of endoscopy -lengthy discussion was had with PMD Dr Lester and patient's brother, regarding pathology and plan of care A total of 50 minutes of [id number] time was spent speaking with the patient, of which greater than 50% was spent in counseling and coordination of care and a detailed question and answer session. Problems: Consultation Date/Type/Reason Admit Date/Time Jul 07, 2017 at 14:27 Initial Consult Date 07/08/17 Type of Consultation: Hematology/ Oncology Reason for Consultation metastatic cancer to liver Referring Provider: KINGSLEY OVALLE MD 24 HR Interval Summary Free Text/Dictation s/p EGD and colonoscopy both which were unremarkable Exam/Review of Systems Vital Signs Vitals Vital Signs Date Time Temp Pulse Resp B/P Pulse Ox O2 Delivery O2 Flow Rate FiO2 07/15/17 07:47 99.2 90 20 120/74 94 07/14/17 13:43 Room Air Intake and Output 07/14/17 07/14/17 07/15/17 15:00 23:00 07:00 Intake Total 740 ml 500 ml Output Total 1 ml Balance 740 ml 499 ml Exam Constitutional: alert, oriented, other (with developmental delay) Psych: no complaints Head: normocephalic Eyes: nl conjunctiva ENMT: nl external ears & nose, nl lips & teeth Neck: non-tender, supple Respiratory: clear to auscultation, normal air movement Cardiovascular: regular rate and rhythm Gastrointestinal: soft Results Result Diagram: 07/11/17 0524 07/13/17 0501 Medications Medications Current Medications Pantoprazole (Protonix Tab) 40 mg DAILY@06 PO Last administered on 07/15/17t 05:52; Admin Dose 40 MG; Start 07/08/17 at 06:00 Allopurinol (Zyloprim) 300 mg DAILY PO Last administered on 07/15/17 08:25; Admin Dose 300 MG; Start 07/08/17 at 09:00 Valsartan (Diovan) 80 mg DAILY PO Last administered on 07/15/17 08:25; Admin Dose 80 MG; Start 07/08/17 at 09:00 Cholecalciferol (Vitamin D) 2,000 unit DAILY PO Last administered on 08:25; Admin Dose 2,000 UNIT; Start 07/08/17 at 09:00 Ondansetron HCl (Zofran Inj) 4 mg Q6H PRN IV NAUSEA AND/OR VOMITING Last administered on 07/10/17 09:55; Admin Dose 4 MG; Start 07/07/17 at 23:00 Acetaminophen (Tylenol Tab) 650 mg Q6H PRN PO PAIN LEVEL 1-3 OR FEVER; Start 07/07/17 at 23:00 Acetaminophen (Tylenol Supp) 650 mg Q6H PRN [place] PAIN LEVEL 1-3 OR FEVER; Start 07/07/17 at 23:00 Docusate Sodium (Colace) 100 mg Q12H PRN PO CONSTIPATION; Start 07/07/17 at 23: 00 Magnesium Hydroxide (Milk Of Mag) 30 ml DAILY PRN PO CONSTIPATION; Start at 23:00 Bisacodyl (Dulcolax) 5 mg DAILY PRN PO CONSTIPATION; Start 07/07/17 at 23:00 Levothyroxine Sodium (Synthroid) 50 mcg DAILY@06 PO Last administered on 05:52; Admin Dose 50 MCG; Start 07/08/17 at 06:00 EMIGDIO SPIVEY M.D. Jul 15, 2017 13:15
[2017-07-15] MEDS ORDERED: IOHEXOL 300MG/ML 150 ML BTL ONE (13:25)
[2017-07-15 14:08] VITALS: BP 121/65; RESP 20
--- NOTE | 2017-07-15 15:29 | RADRPT ---
PROCEDURE: CT Abdomen with and without contrast. CLINICAL INDICATION: Liver masses. Evaluate for pancreatic lesion. TECHNIQUE: Multiple contiguous axial CT images of the abdomen were obtained prior to and following the intravenous administration of 100 cc of Omnipaque-300. Contrast enhanced images were obtained d uring the arterial and venous phases. Coronal and sagittal reformations were also performed. DICOM images are available. CTDIvol (mGy): 13.90, 17.56, 17.18; Total Exam DLP (mGy-cm): 1785.21. One or more of the following dose reduction techniques were utilized: - Automated exposure control. - Adjustment of the mA and/or kV according to patient size. - Use of iterative reconstruction technique. COMPARISON: CT guided liver biopsy 07/09/2017. Gallbladder ultrasound 07/07/2017. CT abdomen/pelvi s 07/07/2017. FINDINGS: Limited imaging of the lower thorax demonstrates scattered bibasilar atelectatic changes. Infiltrative carcinoma is seen throughout the right lobe of the liver and medial segment of the left hepatic lobe. The general appearance of the liver is grossly unchanged. The hepatic and portal vein s are patent. Marked heterogeneous enhancement and gallbladder wall thickening are present. There is no definable fat plane between the gallbladder and liver. There is marked enhancement and wall thic kening of the cystic duct. Mild intrahepatic biliary duct dilatation is present. Bulky adenopathy is seen within the carmen hepatis and portacaval space. This adenopathy is in intimate association with the head/neck of the pancreas and does not appear to be centered within the pancreatic parenchyma. The remainder of the pancreas is unremarkable. There is no pancreatic gland atrophy or main duct dil atation. Bulky retrocrural and retroperitoneal/periaortic lymphadenopathy is unchanged. The spleen a nd left adrenal gland are unremarkable. Very mild nodularity of the right adrenal gland is observed. The kidneys are symmetric in size and enhancement. There is no evidence of enhancing/hypoenhancing r enal lesion. There is a punctate stone within the interpolar region of the left kidney. There are no stones of the upper urinary tracts. There is no hydronephrosis or abnormal perinephric inflammatio n. The abdominal aorta is normal in caliber. Atherosclerotic calcification is present. The stomach is partially distended with fluid. The descending portion of the duodenum is not well vi sualized as a result of infiltrative tumor and adenopathy within the carmen hepatis. The visualized p ortions of the large intestines are unremarkable. There is a fat-containing umbilical hernia. Mild n odularity is seen within the right paracolic gutter raising suspicion of peritoneal carcinomatosis. Trace upper abdominal ascites is observed. Degenerative changes of the spine are present. Subcutaneous soft tissues are unremarkable. IMPRESSION: Extensive infiltrative carcinoma throughout the liver with mild intrahepatic biliary duct dilatation , as detailed above. The hepatic parenchyma is indistinguishable from the presumed tumor infiltratio n of the gallbladder. In addition, there is thickening and hyperenhancement of the cystic duct with bulky neoplastic lymphadenopathy of the central upper abdomen and retroperitoneum. 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 The bulky lymphadenopathy of the carmen hepatis and portacaval space is in intimate association wit h the head/neck of the pancreas and not completely centered within the pancreatic parenchyma. Thus, a pancreatic carcinoma cannot be completely excluded however is considered less likely. Trace ascites with nodularity of the right paracolic gutter, highly suspicious for peritoneal carcin omatosis. RPTAT: HLST .Melissa Jeffers MD, Date Time Electronically viewed and signed by .Melissa Jeffers MD, on 07/15/2017 15:28 .T/
--- NOTE | 2017-07-16 06:35 | DS ---
DATE OF ADMISSION: 07/07/2017 DATE OF DISCHARGE: 07/15/2017 HISTORY OF PRESENT ILLNESS AND HOSPITAL COURSE: This is a 52-year-old male with a past medical hist ory of mental retardation. Seen by , noted to have abdominal pain. The patient had not seen a nv PMD for quite some time. The patient has history of hypertension, gout, hypothyroidism. On admi ssion, the vital signs were stable. White count was 12.4, hematocrit 45.8. Sodium 140, potassium 4 .6, BUN of 14, creatinine of 1.29. The patient had a CT scan of the abdomen and pelvis on admission which showed the patient had marked irregular enhancing masses scattered throughout the entire live r, largest was 7.5 x 6 cm within the posterior right lobe of the liver. Marked abnormal appearance of gallbladder with thickening of the gallbladder wall. Bulky mesenteric and retroperitoneal lympha denopathy. Largest lymph node was 6.8 x 2 cm. No evidence of bowel obstruction. Fat-containing pe riumbilical hernia. Marked thickening of the wall of the bladder. Although findings may be infecti ous versus inflammatory cystitis. The patient had a gallbladder ultrasound that showed multiple lar ge liver masses consistent with metastatic disease. Small calcified stone within the gallbladder. Gallbladder wall is thickened measuring 7 mm. Dilated CBD. The patient was seen by Dr. Mckee for o ncology consultation. According to her, the patient will need liver biopsy. CEA and CA 19-9 were o rdered. CEA was 584 and CA 19-9 was greater than 100,000. The patient was also seen with a GI cons ultation with Dr. Villavicencio. The patient had a biopsy. Also had a chest x-ray which showed no acute c ardiopulmonary disease. The patient had a needle biopsy of the liver masses that showed biopsy was consistent with metastatic adenocarcinoma moderately differentiated. Possible sites of origin for t his metastatic adenocarcinoma include stomach, pancreas and small intestine. Clinical correlation i s recommended. Based on Dr. Mckee's recommendation, GI was consulted for colonoscopy and EGD. The patient had an EGD and colonoscopy that basically did not show any evidence of a primary malignancy. EGD showed some gastritis, thickened fold in the fundal area. Colonoscopy showed mild diverticulo sis, external hemorrhoids. The patient also had an abdominal CT of the pancreas per protocol which showed extensive infiltrative carcinoma throughout the liver with intrahepatic ductal dilatation. H epatic carcinoma is indistinguishable. In addition, there is thickening and hyperenhancement of cys tic duct with bulky neoplastic lymphadenopathy. Imaging findings are highly suspicious for gallblad fernando carcinoma with liver mets and metastatic lymphadenopathy. The bulky lymphadenopathy of carmen he patis and portacaval association with head and neck of the pancreas which could not be complet michelle excluded. The patient was seen by Dr. Mckee, and the plan was to follow her as an outpatient fo r possible treatment, chemo options. Case was discussed with at bedside. DISCHARGE DIAGNOSES: 1. Multiple liver masses with metastatic adenocarcinoma, primary gastrointestinal. Esophagogastrod uodenoscopy and colonoscopy negative for any primary malignancy. Likely secondary to liver/pancreas . 2. Acute kidney injury, resolved. 3. Systemic inflammatory response syndrome. 4. Mental retardation. 5. Hypothyroidism. 6. History of dyslipidemia. 7. History of gout. 8. Hyponatremia, resolved. DISCHARGE INSTRUCTIONS: 1. The patient was instructed. I have spoken to the brother about meeting with Dr. Mckee in about 1 week about chemotherapy options. 2. New medication was pantoprazole 40 mg p.o. daily. Continue with home medications which are allo purinol 300, levothyroxine 50, valsartan 80, , atorvastatin 10. 3. The patient was instructed to return to the ER if he has severe abdominal pain, nausea, vomiting , fevers and chills. Dictated By: YASEMIN VILLARREAL/EDGAR Conf#: [id number] DID#: [id number] CC: KINGSLEY OVALLE MD;*EndCC*
== END 2017-07-15 18:30 | disposition home or self-care (01) | DRG 436 ==
LOC: E/R 10:05 → MS2 14:27
PROVIDERS: ADMIT Internal Medicine Nephrology; ATTEND Internal Medicine Nephrology
PROC: 0FB23ZX Excision of Left Lobe Liver, Percutaneous Approach, Diagnostic (ICD-10-PCS; 2017-07-09)
PROC: 0DB68ZX Excision of Stomach, Via Natural or Artificial Opening Endoscopic, Diagnostic (ICD-10-PCS; principal; 2017-07-14 12:30)
PROC: 0DJD8ZZ Inspection of Lower Intestinal Tract, Via Natural or Artificial Opening Endoscopic (ICD-10-PCS; 2017-07-14 12:30)
DX: C78.7 Secondary malignant neoplasm of liver and intrahepatic bile duct (principal); N17.9 Acute kidney failure, unspecified; K72.90 Hepatic failure, unspecified without coma; R65.10 Systemic inflammatory response syndrome (SIRS) of non-infectious origin without acute organ dysfunction; C23 Malignant neoplasm of gallbladder; C77.2 Secondary and unspecified malignant neoplasm of intra-abdominal lymph nodes; E87.1 Hypo-osmolality and hyponatremia; I10 Essential (primary) hypertension; Q90.9 Down syndrome, unspecified; E03.9 Hypothyroidism, unspecified; R33.9 Retention of urine, unspecified; M10.9 Gout, unspecified; E78.5 Hyperlipidemia, unspecified; K29.70 Gastritis, unspecified, without bleeding; K57.30 Diverticulosis of large intestine without perforation or abscess without bleeding; K64.4 Residual hemorrhoidal skin tags
CPT/HCPCS: 36415; 71010; 74160; 74177; 76705; 77012; 80053; 81001; 82105; 82378; 85025; 85610; 85730; 86301; 86304; 86704; 86709; 86803; 87340; 88307; 88313; 93005; C9113; J0696; J2250; J2405; J3010; J7030; J7040; Q9967

== ENCOUNTER 2017-07-21 11:07 | Inpatient (IN) | payer OTHER ==
[~2017-07-21] VITALS: Ht 154.9 cm; Wt 75.1 kg
[~2017-07-21 11:07] MED LIST: ALLO300T46 PO; LEVO50TA83 PO; PANT40TA4 PO; VALS80TA2 PO; VIT D
[2017-07-21] MEDS ORDERED: LEVO75TA5 PO (11:15)
[2017-07-21] MEDS ORDERED: CHOL100062 PO (11:15)
[2017-07-21] MEDS ORDERED: ATOR10TA65 PO (11:16)
--- NOTE | 2017-07-21 11:19 | ERD ---
ER Documentation Chief Complaint Chief Complaint HPI 52-year-old man with a recent history of hepatocellular carcinoma with metastasis presents with increasing abdominal distention and pain. His brother who is at the bedside states he has been using opioid analgesics without relief and has had continued abdominal pain and distention. He has had no fevers or chills, no blood per rectum, no vomiting or diarrhea, no complaints of chest pain or shortness of breath. HPI supplemented by reviewing past medical history , speaking to EMS, speaking to his brother. ROS All systems reviewed and are negative except as per history of present illness. Medications Home Meds Reported Medications Atorvastatin Calcium (Atorvastatin Calcium) 10 Mg Tablet, 10 MG PO QHS, #30 TAB 07/21/17 Levothyroxine Sodium* (Levothyroxine Sodium*) 75 Mcg Tablet, 75 MCG PO BEFORE BREAKFAST, #30 TAB 07/21/17 Cholecalciferol* (Vitamin D3*) 1,000 Unit Tablet, 2000 UNIT PO DAILY, TAB 07/21/17 Valsartan* (Diovan*) 80 Mg Tablet, 80 MG PO DAILY, TAB 07/07/17 Allopurinol* (Zyloprim*) 300 Mg Tablet, 300 MG PO DAILY, TAB 07/07/17 Discontinued Reported Medications Levothyroxine Sodium* (Synthroid*) 50 Mcg Tablet, 50 MCG PO BEFORE BREAKFAST, # 30 TAB 07/07/17 [Vit D] No Conflict Check, 1999 INTLU 07/07/17 Atorvastatin Calcium (Atorvastatin Calcium) 10 Mg Tablet, 10 MG PO QHS, #30 TAB 07/07/17 Discontinued Scripts Pantoprazole* (Pantoprazole*) 40 Mg Tablet.dr, 40 MG PO DAILY@06 for 30 Days Prov:YASEMIN OLIVARES MD 07/15/17 Allergies Allergies: Coded Allergies: No Known Allergies (Verified Allergy, Unknown, 07/07/17) PMhx/Soc Recent diagnosed hepatocellular metastatic adenocarcinoma, Down syndrome, possible gallbladder, metastatic lymphadenopathy of the retroperitoneum, carmen hepatis, hypothyroidism, hyponatremia, dyslipidemia History of Surgery: No Anesthesia Reaction: No Hx Neurological Disorder: Yes (mental delay) Hx Respiratory Disorders: No Hx Cardiac Disorders: Yes (htn) Hx Psychiatric Problems: No Hx Miscellaneous Medical Probl: Yes (gout, hyoerlipidemia) Hx Alcohol Use: No Hx Substance Use: No Hx Tobacco Use: No FmHx Family History: No diabetes Physical Exam Vitals Vital Signs Date Time Temp Pulse Resp B/P Pulse Ox O2 Delivery O2 Flow Rate FiO2 07/21/17 11:18 100.6 134 20 106/75 95 Physical Exam GENERAL: Mild discomfort, Down syndrome facies, febrile, dehydrated HEENT: Dry mucous membranes, pink conjunctiva, no cervical spine tenderness or step-off deformities, no goiter, no jaundice or icterus, extraocular movements intact without pain. No submandibular induration, and no pharyngeal erythema NEURO: Pupils equal round reactive to light, no focal deficits, no facial asymmetry, mostly nonverbal CARDIAC: Regular rate and rhythm, no murmurs rubs or gallops LUNGS: Clear bilaterally no wheezing crackles or stridor ABDOMEN: Soft protuberant, distended abdomen, mild periumbilical ecchymosis with a small soft hernia periumbilically SKIN: Warm and dry to touch, no abrasions, contusions, or hematomas, no lacerations, no ecchymosis, no target lesions, and without ulcers EXTREMITIES: No clubbing cyanosis, 1+ pitting edema bilaterally, calves are bilaterally symmetrical, no Homans sign, no popliteal cord sign. Distal pulses equal and bilateral PSYCH: Normal affect without agitation or irritability Result Diagram: 07/21/17 1130 07/21/17 1130 Results 24 hrs Laboratory Tests Test 07/21/17 11:30 07/21/17 11:39 White Blood Count 12.810^3/ul Red Blood Count 3.7110^6/ul Hemoglobin 12.4g/dl Hematocrit 36.5% Mean Corpuscular Volume 98.4fl Mean Corpuscular Hemoglobin 33.4pg Mean Corpuscular Hemoglobin Concent 34.0g/dl Red Cell Distribution Width 16.2% Platelet Count 66621^3/UL Mean Platelet Volume 11.9fl Neutrophils % 86.9% Lymphocytes % 7.5% Monocytes % 4.0% Eosinophils % 0.0% Basophils % 0.3% Nucleated Red Blood Cells % 0.0/100WBC Neutrophils # 11.210^3/ul Lymphocytes # 1.010^3/ul Monocytes # 0.510^3/ul Eosinophils # 0.010^3/ul Basophils # 0.010^3/ul Nucleated Red Blood Cells # 0.010^3/ul Prothrombin Time 16.9Sec Prothrombin Time Ratio 1.3 INR International Normalized Ratio 1.37 Sodium Level 133mmol/L Potassium Level 4.7mmol/L Chloride Level 94mmol/L Carbon Dioxide Level 29mmol/L Anion Gap 15 Blood Urea Nitrogen 21mg/dl Creatinine 1.25mg/dl Glucose Level 102mg/dl Lactic Acid Level 3.9mmol/L Calcium Level 8.8mg/dl Total Bilirubin 5.7mg/dl Direct Bilirubin 4.10mg/dl Indirect Bilirubin 1.6mg/dl Aspartate Amino Transf (AST/SGOT) 1420IU/L Alanine Aminotransferase (ALT/SGPT) 778IU/L Alkaline Phosphatase 826IU/L Ammonia < 9umol/l Troponin I < 0.012ng/ml Total Protein 6.7g/dl Albumin 3.1g/dl Globulin 3.60g/dl Albumin/Globulin Ratio 0.86 Lipase 123U/L Urine Color VJ Urine Clarity CLOUDY Urine pH 5.0 Urine Specific [place] 1.021 Urine Ketones NEGATIVEmg/dL Urine Nitrite NEGATIVEmg/dL Urine Bilirubin 1+mg/dL Urine Urobilinogen 2+mg/dL Urine Leukocyte Esterase NEGATIVELeu/ul Urine Microscopic RBC 1/HPF Urine Microscopic WBC 4/HPF Urine Bacteria FEW/HPF Urine Mucus FEW/HPF Urine Hemoglobin 2+mg/dL Urine Glucose NEGATIVEmg/dL Urine Total Protein 2+mg/dl Current Medications Medications (Trade) Dose Ordered Sig/George Route PRN Reason Start Time Stop Time Status Last Admin Dose Admin Sodium Chloride (NS) 1,000 ml @ 1,000 mls/hr Q1H ONCE IV 07/21/17 11:30 07/21/17 12:29 DC 07/21/17 11:45 Ondansetron HCl (Zofran Inj) 4 mg ONCE STAT IV 07/21/17 11:24 07/21/17 11:25 DC 07/21/17 11:45 Ketorolac Tromethamine (Toradol) 15 mg ONCE STAT IV 07/21/17 11:25 07/21/17 11:26 DC 07/21/17 11:45 Sodium Chloride 2000 ml 2,000 ml BOLUS OVER 2 HOURS STAT IV* 07/21/17 11:28 07/21/17 11:35 DC 07/21/17 11:45 Cefepime HCl 50 ml @ 100 mls/hr ONCE ONCE IVPB 07/21/17 11:30 07/21/17 11:59 DC 07/21/17 11:45 Vancomycin HCl (Vancocin) 250 ml @ 125 mls/hr ONCE IVPB 07/21/17 11:30 07/21/17 13:29 DC 07/21/17 13:03 Procedures/MDM IV line was established patient was placed on hospital monitor rhythm strip revealed a sinus tachycardia at 120 bpm with upright P and T waves. Patient was febrile. Blood and urine cultures have been ordered results are pending I will follow-up. I administered 2 L IV for suspected sepsis although patient received less than 30 cc/kg IV fluids because of his recent history of hepatocellular carcinoma and current edema. I treated him here with Toradol 15 mg IV, Zofran 4 mg IV, cefepime 1 g IV, and vancomycin 1 g IV. I reviewed the patient's recent pathology report. Recent Biopsy: MICROSCOPIC DESCRIPTION: Multiple core needle biopsies of liver show complete replacement of hepatic parenchyma by adenocarcinoma. Tumor is composed of small to medium size glands, occasionally in a cribriform arrangement, with cuboidal to columnar epithelial cells showing round to irregular hyperchromatic nuclei and a moderate amount of amphophilic to eosinophilic cytoplasm. Tumor necrosis is present and there are frequent mitotic figures. There is moderate stromal fibrosis. The tumor cells show luminal and intracytoplasmic mucin positivity and a mucicarmine stain ( positive control concurrently reviewed). The differential diagnosis includes metastatic adenocarcinoma from the gastrointestinal tract, including colon, the extrahepatic biliary system and pancreas, lung and less likely, primary cholangiocarcinoma of the liver.... results as follow: CA19.9: Positive, cytoplasmic. CDX2: Weakly positive, nuclear. CK7: Positive, cytoplasmic. CK17: Negative. CK19: Positive, cytoplasmic. CK20: Positive, cytoplasmic. Napsin A: Negative. SATB2: Negative. TTF1: Negative. Villin: Positive, cytoplasmic. EKG performed, read by me revealed a sinus tachycardia at 124 bpm, normal axis, narrow QRS complex, no concerning ST elevations or depressions noted. One view chest x-ray performed, read by me there is atelectatic changes bilaterally and a right lower lobe infiltrate, no pneumothorax, no end of the diaphragm. CBC reveals a mild leukocytosis, electrolytes revealed dehydration with a BUN/ creatinine of 21/1.3, liver function tests were all abnormal with elevated total bilirubin, and severe transaminitis which is worse than previous. His lipase is normal, alkaline phosphatase is normal, lactic acid elevated at 3.9, troponin negative. Urine analysis was negative for infection CT scan of the abdomen and pelvis was performed please review radiologist dictation for full report although no significant changes, although patient does have ascites. Spontaneous bacterial peritonitis is a concern. Patient's infectious symptoms have not stabilized and the patient is at risk of rapid decompensation. The patient will be admitted for careful hydration, antibiotic therapy, and infectious source control. Severe Sepsis Assessment: Infectious Source: Right lower lobe pneumonia versus SBP End organ damage indicated by: Lactate > 2.0 mmol/L Bili > 2 Severe Sepsis Managment: Blood Cultures X 2 before broad spectrum antibiotics initiated within 3 hours of recognition. 30 ml/kg NS bolus Completed Initial Lactate: 3.9 Repeat Lactate 3.7 Critical Care: Time: 55 minutes, this was time separate from other billable procedures Treatments/Evaluations: Emergent fluid management, while maintaining close respiratory support. Immediate broad spectrum antibiotic therapy. Simultaneous assessment for possible sources in order to direct therapy. Consideration for invasive and chemical support to prevent respiratory or cardiac collapse. Septic Shock Assessment (1 hour post 30 ml/kg fluid bolus): Hypotension (SBP < 90 or 40 mmHg drop, MAP < 65): No Lactic acid > 4.0 no Perfusion Reassessment for Septic Shock: Temp 99.5, pulse 100 bpm, respiratory rate 20 breaths per minute, BP 120/80 Heart Exam: Tachycardic Lung Exam: No Crackles Capillary Refill: Less than 2 seconds Peripheral Pulses: Radially present Skin: [place] and dry Hypotensive Treatment (not required for isolated lactic acid elevation): Comfort Care: No Central LIne: Not indicated Vasopressor started: Not Indicated I considered further perfusion assessment with CVP measurement, SCVO2, bedside ultrasound volume assessment, passive leg raise, trial of further fluid bolus. And preceded with gentle IV hydration and broad-spectrum antibiotics Accepting Care Team: Current data and ongoing care discussed. Time: Time of admission Primary Provider: Dr. Rodriguez Consulting: Infectious disease, hematology oncology, nephrology Outstanding Data: none Departure Diagnosis: Primary Impression: Sepsis Sepsis type: sepsis due to unspecified organism Qualified Code: A41.9 - Sepsis, due to unspecified organism Additional Impressions: Pneumonia Pneumonia type: due to unspecified organism Laterality: right Lung location : lower lobe of lung Qualified Code: J18.1 - Pneumonia of right lower lobe due to infectious organism Ascites Ascites type: malignant Qualified Code: R18.0 - Malignant ascites Hepatocellular carcinoma Hepatitis Transaminitis Down syndrome Condition: Serious MICHELLE GARCIA MD Jul 21, 2017 11:19
[2017-07-21] MEDS ORDERED: ONDANSETRON 4 MG INJ IV STA (11:24)
[2017-07-21] MEDS ORDERED: KETOROLAC 15 MG INJ IV STA ×2 (11:25→15:24)
[2017-07-21] MEDS ORDERED: SODIUM CHLORIDE 0.9% 1L BAG IV* STA (11:28)
[2017-07-21] MEDS ORDERED: VANCOMYCIN 1 GM (PMX) 250 ML IVPB SCH (11:30)
[2017-07-21] MEDS ORDERED: SOD CHLORIDE 0.9% 1,000 ML IV ONE (11:30)
[2017-07-21] MEDS ORDERED: CEFEPIME 1GM/50 ML (PMX) 50 ML IVPB ONE (11:30)
[2017-07-21 12:09] LABS: BASOPHILS % 0.3 % (0.0-2.0); HEMATOCRIT 36.5 % (42.0-52.0); HEMOGLOBIN 12.4 g/dl (14.0-18.0); LYMPHOCYTES % 7.5 % (15.0-51.0); MEAN CORPUSCULAR HEMOGLOBIN 33.4 pg (29.0-33.0); MEAN CORPUSCULAR VOLUME 98.4 fl (82.0-101.0); MEAN PLATELET VOLUME 11.9 fl (7.4-10.4); MONOCYTE # 0.5 10^3/ul (0.3-0.9); NEUTROPHIL # 11.2 10^3/ul (1.6-7.5); NEUTROPHILS % 86.9 % (39.0-77.0); PLATELET COUNT 187 10^3/UL (140-415); RED BLOOD COUNT 3.71 10^6/ul (4.70-6.10); RED CELL DISTRIBUTION WIDTH 16.2 % (11.5-14.5); WHITE BLOOD COUNT 12.8 10^3/ul (4.8-10.8)
[2017-07-21 12:14] LABS: ADD UMIC YES; UR ASCORBIC ACID NEGATIVE (NEGATIVE); UR BACTERIA FEW /HPF (NONE SEEN); UR BILIRUBIN (Dip) 1+ mg/dL (NEGATIVE); UR BLOOD (Dip) 2+ mg/dL (NEGATIVE); UR CLARITY CLOUDY (CLEAR); UR COLOR AMBER (YELLOW); UR GLUCOSE (Dip) NEGATIVE (NEGATIVE); UR KETONES (Dip) NEGATIVE (NEGATIVE); UR LEUKOCYTE ESTERASE (Dip) NEGATIVE Leu/ul (NEGATIVE); UR MUCUS FEW /HPF (NONE SEEN); UR NITRITE (Dip) NEGATIVE (NEGATIVE); UR RBC 1 /HPF (0-5); UR SPECIFIC GRAVITY (Dip) 1.021 (1.003-1.030); UR TOTAL PROTEIN (Dip) 2+ mg/dl (NEGATIVE); UR UROBILINOGEN (Dip) 2+ mg/dL (NEGATIVE)
--- NOTE | 2017-07-21 12:19 | RADRPT ---
PROCEDURE: XR Chest. CLINICAL INDICATION: Shortness of breath. Possible sepsis TECHNIQUE: A single portable view of the chest was obtained. COMPARISON: 07/08/2017 FINDINGS: The cardiomediastinal silhouette is within normal limits. Right basilar air space disease is seen. T he right hemidiaphragm is elevated. Suggestion of mild left basilar atelectasis is seen. The remaini ng lungs and pleural spaces are clear. The soft tissues and osseous structures are unremarkable. IMPRESSION: Right basilar air space disease which may represent atelectasis versus infiltrate. A short interval follow-up is suggested. RPTAT: HPNM Physician Virgen Date Time Electronically viewed and signed by Physician Virgen on 07/21/2017 12:19 /
[2017-07-21 12:27] LABS: INR 1.37; PROTIME 16.9 Sec (12.2-14.2); PT RATIO 1.3
[2017-07-21 12:31] LABS: ALANINE AMINOTRANSFERASE 778 IU/L (13-69); ALBUMIN 3.1 g/dl (3.3-4.9); ALBUMIN/GLOBULIN RATIO 0.86; ALKALINE PHOSPHATASE 826 IU/L (42-121); ANION GAP 15 (8-16); BILIRUBIN,INDIRECT 1.6 mg/dl (0-1.1); BILIRUBIN,TOTAL 5.7 mg/dl (0.2-1.3); BLOOD UREA NITROGEN 21 mg/dl (7-20); CALCIUM 8.8 mg/dl (8.4-10.2); CARBON DIOXIDE 29 mmol/L (21-31); CHLORIDE 94 mmol/L (97-110); CREATININE 1.25 mg/dl (0.61-1.24); GLUCOSE 102 mg/dl (70-220); POTASSIUM 4.7 mmol/L (3.5-5.1); SODIUM 133 mmol/L (135-144); TOTAL PROTEIN 6.7 g/dl (6.1-8.1)
[2017-07-21 12:37] LABS: ASPARTATE AMINO TRANSFERASE 1420 IU/L (15-46)
--- NOTE | 2017-07-21 12:39 | RADRPT ---
PROCEDURE: CT abdomen and pelvis without IV contrast. CLINICAL INDICATION: Abdominal pain TECHNIQUE: CT scan of the abdomen and pelvis without contrast was performed on the [employer] volumetric [address] scanner. The patient was scanned without intravenous contrast. Coronal and sagittal refo rmatted images were obtained from the axial source images. The CTDI vol is 17.68 mGy and the DLP is 1071.51 mGy-cm. One or more of the following dose reduction techniques were used: Automated exposure control. Adjustment of the mA and/or kV according to patient size. Use of iterative reconstruction technique. COMPARISON: 07/15/2017 FINDINGS: CT abdomen: Bibasilar air space is once again seen which may represent atelectasis. A nodule in the lingula is s een measuring 4 mm in size on image series 3 image 10. The heart size is not enlarged and is without pericardial thickening or effusion. The liver is again noted to be abnormal morphology with enlargement of the lateral segment left hepa tic lobe and caudate lobe. Multiple infiltrating low attenuation irregular masses throughout the angelo er is once again seen. Mild intrahepatic ductal dilatation is seen. The spleen is normal in size an d homogeneous in density. The stomach is grossly unremarkable. the pancreas is grossly unremarkabl e in size and contour. No discrete pancreatic mass is seen. The pancreatic duct appears normal in ca liber. The gallbladder and biliary tree are unremarkable and there is no evidence for common bile du ct dilatation. The adrenal glands are symmetric and normal. The kidneys are symmetrically unremark able as well. A small left renal cyst is again seen. No renal calculus or obstructive uropathy or ma ss lesion is seen. The aorta is of normal in caliber. Again seen is bulky adenopathy in the retroperitoneum once again which has not changed significantly. Multiple enlarged nodes in the right hepatis region are also o nce again seen. The small and large bowel and mesentery, as visualized, are unremarkable. No inflam matory changes in the periappendiceal region is seen. A very mild volume of ascites is once again se en. A fat containing ventral hernia is again seen. CT pelvis: The pelvic organs are normal. The pelvic sidewalls and inguinal regions are clear. No pelvic mass, lymphadenopathy, or free fluid is seen. No acute inflammation is seen. The urinary bladder wall i s thickened. Bilateral inguinal hernias are seen containing acidic fluid. The surrounding osseous structures are unremarkable. No osteolytic or osteoblastic lesion is detect ed. IMPRESSION: 1. Abnormal liver morphology with infiltrating masses throughout the liver again seen which may rep resent liver metastasis and is essentially unchanged. 2. Bulky retroperitoneal lymphadenopathy as well as adenopathy in the carmen hepatis again seen cons istent with lymph node metastasis without significant interval change. 3. Mild volume of ascites which has not changed significantly. 4. Thickened urinary bladder wall, questionable if this is related to a decompressed state. The pos sibility of cystitis cannot be excluded. Consider correlation with urinalysis as clinically warrante d. RPTAT: HPNM Physician Virgen Date Time Electronically viewed and signed by Physician Virgen on 07/21/2017 12:39 /
[2017-07-21 12:46] LABS: TROPONIN-I < 0.012 ng/ml (0.00-0.12)
--- NOTE | 2017-07-21 13:12 | HP ---
Date/Time of Note Date/Time of Note DATE: 07/21/17 TIME: 13:08 Assessment/Plan VTE Prophylaxis VTE Prophylaxis Intervention: LMWH Assessment/Plan Chief Complaint/Hosp Course 1. Sepsis, lactic acid 3.9 possible with primary pneumonia. Chest X ray showed Right basilar air space disease which may represent atelectasis versus infiltrate. 2. Multiple liver masses with metastatic adenocarcinoma, primary gastrointestinal. Esophagogastroduodenoscopy and colonoscopy negative for any primary malignancy. 3. Hyponatremia 4. Mental retardation. 5. Hypothyroidism. 6. History of dyslipidemia. 7. History of gout. 8. Anemia 9. Hypoalbuminemia 10 Ventral hernia, containing fat 11. Hyperbilirubunemia. Problems: Assessment/Plan 1. resuscitation with fluids 2. Start antibiotics. 3. Sepsis workout 4. Telemetry admit. 5. Dr Desai consult, was called 6. Dr Mullen was called , pulmonary consult 7. Dr. Villavicencio for hyperbilirubnemia, was called HPI/ROS Admit Date/Time Admit Date/Time Hx of Present Illness Patient has mental retardation and unable to provide any history. Per patient brother patient did not feel good last week, showed abdominal pain and was weak. The primary doctor ordered Hydromorphone 4 mg once and the medication knocked pt down, he slept, not moving whole consecutive night, developed diaphoresis and weakness. Next day his abdomen was more distended and umbilicus protrudes. Per assisted poly area supervisor, who also presents at the bedside, on Friday patient vomited few times undigested food and Friday he vomited once. Pt has history of liver metastatic disease, obesity, the primary lesion still undiagnosed, hypertension, OBED, and mental retardation. The patient has appointment with Dr Desai to start chemotherapy. ROS icteric ENT: congestion, dysphagia, sore throat, No bleeding, No discharge, No no complaints, No other, No pain Respiratory: cough, no complaints, other, pain, pleuritic pain, shortness of breath, sputum, wheezing Cardiovascular: chest pain, edema, lightheadedness, orthopenea, No no complaints, No other, No palpitations, No paroxysmal nocturnal dyspnea Gastrointestinal: constipation (last stool yesterday), No blood, No decreased appetite, No diarrhea, No flatus, No nausea, No no complaints, No other, No pain, No passing stool, No vomiting Skin: bruising, erythema, laceration, no complaints, other, pruritis, rash, skin lesions Neurologic: confusion, dizziness, No focal-weakness, No headache, No no complaints, No other, No seizure, No syncope Lymphatic: adenopathy, lymphadema, tender nodes, No no complaints, No other Immunologic: immunodeficiency (known malignancy) PMH/Family/Social Past Surgical History Past Surgical Hx: no surgical history Social History Smoking Status: Never smoker Exam/Review of Systems Vital Signs Vitals Vital Signs Date Time Temp Pulse Resp B/P Pulse Ox O2 Delivery O2 Flow Rate FiO2 07/21/17 11:18 100.6 134 20 106/75 95 Exam Exam Brother in the examination room Constitutional: alert, oriented Psych: no complaints Eyes: nl conjunctiva ENMT: nl external ears & nose Respiratory: crackles/rales, other (with supplemental oxygen) Cardiovascular: regular rate and rhythm Gastrointestinal: distended, firm, soft Genitourinary - Male: nl penis Musculoskeletal: nl extremities to inspection Extremities: normal pulses Skin: diaphoresis, ecchymosis, laceration, nl turgor, other, puncture, rash or lesions Labs Result Diagram: 07/21/17 1130 07/21/17 1130 Medications Medications Current Medications Vancomycin HCl (Vancocin) 250 ml @ 125 mls/hr ONCE IVPB Last administered on 07/21/17t 13:03; Admin Dose 125 MLS/HR; Start 07/21/17 at 11:30; Stop at 13:29 MADALYN ART Jul 21, 2017 13:12
[2017-07-21 13:15] VITALS: TEMP 98.1
[2017-07-21] MEDS ORDERED: HYDROmorphONE 0.5 MG/0.5 ML SYG IV PRN (13:30)
[2017-07-21] MEDS ORDERED: ACETAMINOPHEN 325 MG TAB PO PRN (13:30)
[2017-07-21] MEDS ORDERED: IBUPROFEN 600 MG TAB PO PRN (13:30)
[2017-07-21] MEDS ORDERED: DEXTROSE 5%-0.45% NACL 1,000 ML IV SCH (13:30)
[2017-07-21] MEDS ORDERED: METOCLOPRAMIDE 10 MG INJ IV PRN (13:30)
[2017-07-21] MEDS ORDERED: NACL 0.9% 3 ML SYG IV SCH (13:30)
[2017-07-21] MEDS ORDERED: KETOROLAC 30 MG INJ IV STA (15:23)
[2017-07-21 16:08] VITALS: BP 106/58; PULSE 119; RESP 18; Ht 154.9 cm; Wt 75.1 kg
--- NOTE | 2017-07-21 19:46 | CONS ---
DATE OF ADMISSION: 07/21/2017 DATE OF CONSULTATION: TYPE OF CONSULTATION: Pulmonary. REASON FOR CONSULTATION: Respiratory distress, dehydration and sepsis. HISTORY OF PRESENT ILLNESS: This is an unfortunate 52-year-old gentleman with a history of learning disability, recently diagnosed with metastatic liver cancer 2 weeks ago. The patient was discharge d back to his assisted living facility. Today, he had increasing confusion, abdominal pain, mild re spiratory distress requiring transfer back to [facility]. The patient has had pro gressive lymphadenopathy consistent with metastatic disease. Chest x-ray shows right lower lobe ate lectasis. He has elevated lactic acidosis and significant severe transaminitis with elevated total and direct bilirubin. PAST MEDICAL HISTORY: Has a recent diagnosis of metastatic adenocarcinoma, presumed gastrointestina l. ALLERGIES: NONE. SOCIAL HISTORY: Nonsmoker, no alcohol, no history of drug use. FAMILY HISTORY: Noncontributory. REVIEW OF SYSTEMS: A 12-point review of systems was negative other than that mentioned above. PHYSICAL EXAMINATION: GENERAL: Well-nourished, well-developed gentleman, appears comfortable at rest, jaundiced. VITAL SIGNS: Currently afebrile. T-max was 100.6, pulse is 120, blood pressure 124/75, O2 sat 96% on 1 liter nasal cannula. NECK: Supple. No JVD or lymphadenopathy. NECK: Supple. Palpable lymphadenopathy. CARDIAC: S1, S2, tachycardia. No added sounds or murmurs. CHEST: Diminished air entry bilaterally. ABDOMEN: Distended, obese. Palpable liver. EXTREMITIES: No cyanosis, clubbing or edema. NEUROLOGIC: Generalized weakness. LABORATORIES: White count 12.8, hemoglobin 12.4, platelets of 187. INR 1.37. BUN 21, creatinine 1 .25. Lactic acid initially 3.9, now 3.7. AST 1420, ALT 778, alk phos 826, total bilirubin 5.7. DIAGNOSTIC DATA: CT abdomen and pelvis demonstrates metastatic liver process, significant lymphaden opathy. IMPRESSION AND PLAN: 1. Severe sepsis. 2. Progressive metastatic adenocarcinoma. 3. Significant transaminitis secondary to above. Overall, the patient's prognosis is extremely poor. Will require: 1. Hydration. 2. Antibiotics. 3. Agree with DNR code status. 4. Consider palliative care consult. Dictated By: RICHIE ANN MD SV/EDGAR Conf#: [id number] [facility]#: [id number] CC: YASEMIN OLIVARES;*[facility]*
[2017-07-21 20:00] VITALS: PULSE 120
[2017-07-21] MEDS ORDERED: VANCOMYCIN IV PER PHARMACY XX SCH (20:00)
--- NOTE | 2017-07-21 20:14 | QN ---
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 livermets - Paracentesis, send fluid for studies - pain control - iv abx - chandler - Heme onc/ GI and pulmonary consults YASEMIN OLIVARES MD Jul 21, 2017 20:14
[2017-07-21] MEDS ORDERED: PIPER-TAZO 3.375 GM IV (PMX) 100 ML ONE (20:38)
[2017-07-21] MEDS: SOD CHLORIDE 0.9% 1,000 ML IV SCH (21:06)
[2017-07-21] MEDS: PIPER-TAZO 3.375 GM IV (PMX) 50 ML IVPB SCH (21:07)
[2017-07-21 21:52] VITALS: BP 107/62; PULSE 124; RESP 18
[2017-07-22] VITALS (10 sets, daily range): BP systolic 92–118; BP diastolic 57–69; PULSE 100–113; RESP 18–20
[2017-07-22] MEDS: SOD CHLORIDE 0.9% 1,000 ML IV SCH ×3 (02:00→22:36)
[2017-07-22 05:50] LABS: HAAIG REFLEX REFLEX FILED
[2017-07-22 05:57] LABS: BASOPHILS % 0.3 % (0.0-2.0); HEMATOCRIT 30.7 % (42.0-52.0); HEMOGLOBIN 10.3 g/dl (14.0-18.0); LYMPHOCYTES % 9.4 % (15.0-51.0); MEAN CORPUSCULAR HEMOGLOBIN 33.2 pg (29.0-33.0); MEAN CORPUSCULAR HGB CONC 33.6 g/dl (32.0-37.0); MEAN PLATELET VOLUME 12.1 fl (7.4-10.4); MONOCYTE # 0.5 10^3/ul (0.3-0.9); MONOCYTES % 4.9 % (0.0-11.0); NEUTROPHIL # 9.3 10^3/ul (1.6-7.5); NEUTROPHILS % 84.3 % (39.0-77.0); PLATELET COUNT 171 10^3/UL (140-415); RED CELL DISTRIBUTION WIDTH 16.5 % (11.5-14.5); WHITE BLOOD COUNT 11.1 10^3/ul (4.8-10.8)
[2017-07-22] MEDS: PIPER-TAZO 3.375 GM IV (PMX) 50 ML IVPB SCH ×4 (06:00→22:57)
[2017-07-22] MEDS ORDERED: PANTOPRAZOLE 40 MG INJ IV SCH (06:00)
[2017-07-22 06:44] LABS: CALCIUM 7.9 mg/dl (8.4-10.2); CREATININE 1.17 mg/dl (0.61-1.24); MAGNESIUM 2.1 mg/dl (1.7-2.5); POTASSIUM 4.5 mmol/L (3.5-5.1)
[2017-07-22] MEDS ORDERED: PIPER-TAZO 3.375 GM IV (PMX) 100 ML ONE (07:00)
[2017-07-22 07:30] LABS: HEPATITIS B CORE ANTIBODY NEGATIVE (NEGATIVE)
[2017-07-22] MEDS: ENOXAPARIN 40 MG/0.4 ML SYG SC SCH ×2 (09:00→17:40)
--- NOTE | 2017-07-22 09:49 | RADRPT ---
PROCEDURE: XR Chest. CLINICAL INDICATION: Shortness of breath TECHNIQUE: Single portable view of the chest was obtained COMPARISON: July 21, 2017 FINDINGS: The trachea is midline. The cardiac silhouette a large and pulmonary vascularity are within normal l imits. There is a right lower lobe opacification. The costophrenic angles are sharp. IMPRESSION: 1. No change since prior exam. 2. Right lower lobe opacification; pneumonia versus atelectasis. RPTAT: AARR Physician Carline Date Time Electronically viewed and signed by Audrey Guzman Physician on 07/22/2017 09:49 CARMEN/
[2017-07-22] MEDS ORDERED: VANCOMYCIN 1.25 GM in SOD CHLORIDE 0.9% 250 ML IVPB SCH (10:00)
[2017-07-22] MEDS ORDERED: KETOROLAC 15 MG INJ IV STA (10:47)
--- NOTE | 2017-07-22 11:11 | CONS ---
Date/Time of Note Date/Time of Note DATE: 07/22/17 TIME: 11:07 Assessment/Plan Assessment/Plan Additional Assessment/Plan Chest x-ray was reviewed from today which is showing minimal right lower lobe infiltrative changes. Difficult to rule out underlying malignant process. Assessment and recommendations; 1. Patient with a history of Down syndrome admitted for abdominal distention, scheduled for abdominal paracentesis today. 2. Metastatic hepatocellular carcinoma with unknown primary. With bulky abdominal lymphadenopathy. 3. Mild ascites. 4. Severe elevation in transaminases and hyperbilirubinemia. 5. Mild pain. 6. Difficult to rule out superimposed right lower lobe pneumonia versus underlying metastatic process. I did have a very detailed discussion the patient's 2 brothers who are the primary caregivers and apprised him of the very poor overall prognosis. The family wants comfort care evaluation and transferred to hospice. Prognosis is extremely poor. At this time I would recommend canceling MRI of the abdomen. Consultation Date/Type/Reason Admit Date/Time Jul 21, 2017 at 12:47 Initial Consult Date Type of Consultation: Pulmonary 24 HR Interval Summary Free Text/Dictation Patient's condition is stable. Denies any shortness of breath. Complains of very minimal abdominal pain. General exam; middle-aged male, awake, currently in no distress. Exam/Review of Systems Vital Signs Vitals Vital Signs Date Time Temp Pulse Resp B/P Pulse Ox O2 Delivery O2 Flow Rate FiO2 07/22/17 08:00 107 07/22/17 05:55 98.0 20 103/64 94 Nasal Cannula 2.0 Intake and Output 07/21/17 07/21/17 07/22/17 15:00 23:00 07:00 Output Total 300 ml 250 ml Balance -300 ml -250 ml Exam HEENT exam; supple neck, patient remains icteric. Cervical lymphadenopathy is present. Patient has carious teeth. Pupils are small bilaterally. Patient has Down's facies. Chest exam; diminished but clear breath sounds. S1-S2 audible, no murmurs. Regular rhythm. Abdomen exam; slightly protuberant. Nontender. Bowel sounds audible. Hepatomegaly is present. Extremity exam; no peripheral edema. 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 Results Result Diagram: 07/22/17 0446 07/22/17 0446 Results 24 hrs Laboratory Tests Test 07/21/17 11:30 07/21/17 11:39 07/21/17 13:47 07/21/17 15:26 White Blood Count 12.8 #H Red Blood Count 3.71 L Hemoglobin 12.4 L Hematocrit 36.5 L Mean Corpuscular Volume 98.4 Mean Corpuscular Hemoglobin 33.4 H Mean Corpuscular Hemoglobin Concent 34.0 Red Cell Distribution Width 16.2 H Platelet Count 187 Mean Platelet Volume 11.9 H Neutrophils % 86.9 H Lymphocytes % 7.5 L Monocytes % 4.0 Eosinophils % 0.0 Basophils % 0.3 Nucleated Red Blood Cells % 0.0 Neutrophils # 11.2 H Lymphocytes # 1.0 Monocytes # 0.5 Eosinophils # 0.0 Basophils # 0.0 Nucleated Red Blood Cells # 0.0 Prothrombin Time 16.9 H Prothrombin Time Ratio 1.3 INR International Normalized Ratio 1.37 Sodium Level 133 L Potassium Level 4.7 Chloride Level 94 L Carbon Dioxide Level 29 Anion Gap 15 Blood Urea Nitrogen 21 H Creatinine 1.25 H Glucose Level 102 Lactic Acid Level 3.9 *H 3.7 *H 2.6 *H Calcium Level 8.8 Total Bilirubin 5.7 H Direct Bilirubin 4.10 H Indirect Bilirubin 1.6 H Aspartate Amino Transf (AST/SGOT) 1420 H Alanine Aminotransferase (ALT/SGPT) 778 H Alkaline Phosphatase 826 H Ammonia < 9 L Troponin I < 0.012 Total Protein 6.7 Albumin 3.1 L Globulin 3.60 H Albumin/Globulin Ratio 0.86 Lipase 123 Urine Color VJ Urine Clarity CLOUDY A Urine pH 5.0 Urine Specific [place] 1.021 Urine Ketones NEGATIVE Urine Nitrite NEGATIVE Urine Bilirubin 1+ H Urine Urobilinogen 2+ H Urine Leukocyte Esterase NEGATIVE Urine Microscopic RBC 1 Urine Microscopic WBC 4 Urine Bacteria FEW A Urine Mucus FEW A Urine Hemoglobin 2+ H Urine Glucose NEGATIVE Urine Total Protein 2+ H Test 07/22/17 04:46 White Blood Count 11.1 H Red Blood Count 3.10 L Hemoglobin 10.3 L Hematocrit 30.7 L Mean Corpuscular Volume 99.0 Mean Corpuscular Hemoglobin 33.2 H Mean Corpuscular Hemoglobin Concent 33.6 Red Cell Distribution Width 16.5 H Platelet Count 171 Mean Platelet Volume 12.1 H Neutrophils % 84.3 H Lymphocytes % 9.4 L Monocytes % 4.9 Eosinophils % 0.0 Basophils % 0.3 Nucleated Red Blood Cells % 0.0 Neutrophils # 9.3 H Lymphocytes # 1.0 Monocytes # 0.5 Eosinophils # 0.0 Basophils # 0.0 Nucleated Red Blood Cells # 0.0 Sodium Level 134 L Potassium Level 4.5 Chloride Level 100 Carbon Dioxide Level 27 Anion Gap 12 Blood Urea Nitrogen 20 Creatinine 1.17 Glucose Level 85 Calcium Level 7.9 L Phosphorus Level 4.0 Magnesium Level 2.1 Hepatitis B Surface Antigen NEGATIVE Hepatitis B Core Total Antibody NEGATIVE Hepatitis C Antibody NEGATIVE Medications Medications Current Medications Ondansetron HCl (Zofran Inj) 4 mg Q6H PRN IV NAUSEA AND/OR VOMITING; Start at 13:30 Metoclopramide HCl (Reglan) 10 mg Q6H PRN IV NAUSEA AND/OR VOMITING; Start at 13:30 Acetaminophen (Tylenol Tab) 650 mg Q6H PRN PO PAIN LEVEL 1-3 OR FEVER; Start 07/21/17 at 13:30 Pantoprazole (Protonix Iv) 40 mg DAILY@06 IV Last administered on 07/22/17 05 :51; Admin Dose 40 MG; Start 07/22/17 at 06:00 Enoxaparin Sodium 40 mg 40 mg DAILY SC ; Start 07/22/17 at 09:00 Sodium Chloride 1,000 ml @ 60 mls/hr [id number] IV Last administered on 21:06; Admin Dose 60 MLS/HR; Start 07/21/17 at 16:00 Piperacillin Sod/ Tazobactam Sod 50 ml @ 100 mls/hr Q8 IVPB Last administered on 07/22/17 06:00; Admin Dose 100 MLS/HR; Start 07/21/17 at 22:00 Vancomycin HCl 1.25 gm/Sodium Chloride 250 ml @ 83.333 mls/ hr Q24H IVPB Last administered on 07/22/17 09:07; Admin Dose 83.333 MLS/HR; Start 07/22/17 at 10:00; Stop 07/22/17 at 11:59 Vancomycin HCl/ Dextrose/Water (Vancocin/D5W) 150 ml @ 100 mls/hr Q12H IVPB ; Start 07/23/17 at 00:00 JOHN DOMINIQUE Jul 22, 2017 11:10
--- NOTE | 2017-07-22 11:21 | CONS ---
DATE OF ADMISSION: 07/21/2017 DATE OF CONSULTATION: TYPE OF CONSULTATION: Gastroenterology. Dear Drs. Ovalle and Antonio: Thank you for your referral. The patient is a pleasant 52-year-old male with developmental delay wh o was recently diagnosed with metastatic disease in the liver. The patient underwent upper endoscop y and colonoscopy by me, both were negative and to my knowledge, CA 19-9 level was high almost 38,00 0. Though the CAT scan did not show any pancreatic mass, both the CA 19-9 and CEA levels were high. The patient came to the emergency room complaining of abdominal pain, diffuse in nature. 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 PAST MEDICAL HISTORY: Metastatic liver disease, obesity, developmental delay, hypertension. REVIEW OF SYSTEMS: Negative. Discussed with the brother who was by the side of the patient. PAST SURGICAL HISTORY: None. SOCIAL HISTORY: Does not smoke or drink, lives in board and care facility. ALLERGIES: NONE. PHYSICAL EXAMINATION: GENERAL: Overweight, not in distress. VITAL SIGNS: Stable. HEENT: Unremarkable. NECK: Supple, no thyromegaly, no lymphadenopathy. CARDIOVASCULAR: No murmur, gallop or click. LUNGS: Clear. ABDOMEN: Soft. Mild tenderness. Bowel sounds good. No mass upper abdomen. EXTREMITIES: No edema. CENTRAL NERVOUS SYSTEM: Grossly within normal limits. LABORATORY DATA: WBC 12.8, hematocrit is 36.5. The patient's BUN and creatinine were within normal limits. Ammonia was normal. Bilirubin was 5.7, SGOT and SGPT in the range of , alkaline phos phatase was 826. The imaging study showed an infiltrating mass throughout the liver and multiple re troperitoneal lymphadenopathy and a thickened bladder wall. IMPRESSION: 1. Abdominal pain. 2. Developmental delay. 3. Metastatic liver disease. 4. Obesity. 5. Multiple retroperitoneal lymphadenopathy. 6. Gallstones. PLAN: Will get MRCP done because patient's bilirubin jumped pretty fast. The patient's CA19-9 was greater than 10,000 and CEA level was 584. This was done on 07/08/2017. Will do an abdominal parac entesis diagnostic, send the fluid for culture and in the interim continue empirically on antibiotic s. Third generation of cephalosporin. Dictated By: MERRY KIM/NTS Conf#: [id number] DID#: [id number] CC: KINGSLEY OVALLE MD; YASEMIN OLIVARES;*End*
--- NOTE | 2017-07-22 16:45 | RADRPT ---
PROCEDURE: MRI abdomen / MRCP CLINICAL INDICATION: Abdominal pain. Clinical concern for choledocholithiasis TECHNIQUE: MRI of the abdomen is performed without contrast utilizing axial T2 and T2 fat suppress ion sequences as well as in and out of phase imaging. The MRCP is performed and the MIP series sub mitted for review. COMPARISON: CT abdomen and pelvis 07/21/2017 FINDINGS: The study is limited because of motion artifact. Visualized lower thorax: Right greater than left lower lobe subsegmental atelectasis is present wit h mild elevation of the right hemidiaphragm. Liver: Hepatomegaly is noted the maximum dimension of the liver is 22.1 cm. There are multiple, too numerous to count, irregularly marginated centrally hyperintense T2 foci with intermediate T1 signa l, findings compatible with diffuse metastatic disease of the liver until proven otherwise. There is central intrahepatic ductal dilatation in the left main hepatic duct 40 mm and the right main hepat ic duct 15 mm. Gallbladder: Suboptimally visualized, possibly contracted. There is no evidence of cholecystitis Common bile duct: There is no filling defect to suggest choledocholithiasis. The caliber of the du ct is normal estimated at 4 mm. The MRCP shows some central intrahepatic duct dilatation but no amado dence of common bile duct or peripheral intrahepatic duct dilatation. Pancreas: No obvious pancreatic mass or pancreatic duct dilatation is demonstrated. Spleen: Normal in size with no masses evident. Adrenal glands: Unremarkable bilaterally. Kidneys: Grossly normal. Incidental hyperintense T2 cyst of the left renal cortex is present. Nonsp ecific perinephric fat stranding is noted. Stomach, visualized small bowel and visualized large intestine: No obvious distension or wall thicke nasim identified. Peritoneal cavity and retroperitoneum: Retroperitoneal adenopathy is present the largest left peria ortic and measuring 3.1 cm in greatest dimension. Additional peripancreatic adenopathy, short axis o f 1.7 cm is present. The small amount of ascites seen on the CT is less conspicuous on MRI Abdominal aorta: Normal in caliber estimated at 2 cm. Inferior vena cava: Grossly normal. Vertebral bodies and osseous structures: Grossly normal. Musculature and soft tissues: Unremarkable. RPTAT:HJJR IMPRESSION: 1. Examination is extremely limited because of patient motion artifact. 2. Central intrahepatic ductal dilatation is present but there is no evidence of common bile duct d ilatation or choledocholithiasis. The possibility of a common bile duct stricture is difficult to en tirely exclude. 3. Too numerous to count hepatic masses causing hepatomegaly, findings consistent with diffuse meta static disease until proven otherwise. 4. Metastatic retroperitoneal lymphadenopathy is again noted. Paulie Renee Physician Date Time Electronically viewed and signed by Paulie Renee Physician on 07/22/2017 16:45 JR/
[2017-07-22 17:07] LABS: ALBUMIN 2.4 g/dl (3.3-4.9); ALBUMIN/GLOBULIN RATIO 0.77; BILIRUBIN,DIRECT 1.1 mg/dl (0.00-0.20); BILIRUBIN,INDIRECT 1.1 mg/dl (0-1.1); BILIRUBIN,TOTAL 2.2 mg/dl (0.2-1.3); CALCIUM 7.7 mg/dl (8.4-10.2); CREATININE 1.28 mg/dl (0.61-1.24); POTASSIUM 4.1 mmol/L (3.5-5.1); TOTAL PROTEIN 5.5 g/dl (6.1-8.1)
--- NOTE | 2017-07-22 17:21 | RADRPT ---
PROCEDURE: Abdominal ultrasound CLINICAL INDICATION: Abdominal pain and distension TECHNIQUE: Axial and longitudinal garnett scale images of the four abdominal quadrants COMPARISON: None FINDINGS: Four quadrant abdominal ultrasound demonstrate small ascites IMPRESSION: Small ascites RPTAT: HH .Nazario Murphy MD, MD Date Time Electronically viewed and signed by .Nazario Murphy MD, on 07/22/2017 17:20 .W/
--- NOTE | 2017-07-22 19:32 | PN ---
Date/Time of Note Date/Time of Note DATE: 07/22/17 TIME: 19:31 Assessment/Plan VTE Prophylaxis VTE Prophylaxis Intervention: LMWH Lines/Catheters IV [facility]from [facility] Saline Lock Urinary Cath still in place: Yes Reason Cath still needed: urinary retention Assessment/Plan Chief Complaint/Hosp Course 1. Sepsis, lactic acid 3.9 possible with primary pneumonia. Chest X ray showed Right basilar air space disease which may represent atelectasis versus infiltrate. , better 2. Multiple liver masses with metastatic adenocarcinoma, primary gastrointestinal. Esophagogastroduodenoscopy and colonoscopy negative for any primary malignancy. 3. Hyponatremia 4. Mental retardation. 5. Hypothyroidism. 6. History of dyslipidemia. 7. History of gout. 8. Anemia 9. Hypoalbuminemia 10 Ventral hernia, containing fat 11. Hyperbilirubinemia. 12, Gall bladder stone Problems: Assessment/Plan 1. continue NPO 2. continue IV fluids 3. Continue a/b 4. Possible ERCP Subjective 24 Hr Interval Summary Constitutional: improved, no complaints Exam/Review of Systems Vital Signs Vitals Vital Signs Date Time Temp Pulse Resp B/P Pulse Ox O2 Delivery O2 Flow Rate FiO2 07/22/17 18:30 99.6 109 19 99/61 96 Mechanical Ventilator 2.0 Nasal Cannula Intake and Output 07/21/17 07/21/17 07/22/17 14:59 22:59 06:59 Output Total 300 ml 250 ml Balance -300 ml -250 ml Exam Constitutional: alert Head: atraumatic, normocephalic Neck: supple Respiratory: diminished breath sounds Cardiovascular: regular rate and rhythm Gastrointestinal: other (umbilical hernia), soft Results Result Diagram: 07/22/17 0446 07/22/17 1625 Results 24 hrs Laboratory Tests Test 07/22/17 04:46 07/22/17 16:25 White Blood Count 11.1 H Red Blood Count 3.10 L Hemoglobin 10.3 L Hematocrit 30.7 L Mean Corpuscular Volume 99.0 Mean Corpuscular Hemoglobin 33.2 H Mean Corpuscular Hemoglobin Concent 33.6 Red Cell Distribution Width 16.5 H Platelet Count 171 Mean Platelet Volume 12.1 H Neutrophils % 84.3 H Lymphocytes % 9.4 L Monocytes % 4.9 Eosinophils % 0.0 Basophils % 0.3 Nucleated Red Blood Cells % 0.0 Neutrophils # 9.3 H Lymphocytes # 1.0 Monocytes # 0.5 Eosinophils # 0.0 Basophils # 0.0 Nucleated Red Blood Cells # 0.0 Sodium Level 134 L 132 L Potassium Level 4.5 4.1 Chloride Level 100 99 Carbon Dioxide Level 27 27 Anion Gap 12 10 Blood Urea Nitrogen 20 20 Creatinine 1.17 1.28 H Glucose Level 85 118 Calcium Level 7.9 L 7.7 L Phosphorus Level 4.0 Magnesium Level 2.1 Hepatitis B Surface Antigen NEGATIVE Hepatitis B Core Total Antibody NEGATIVE Hepatitis C Antibody NEGATIVE Total Bilirubin 2.2 #H Direct Bilirubin 1.10 #H Indirect Bilirubin 1.1 Aspartate Amino Transf (AST/SGOT) 672 #H Alanine Aminotransferase (ALT/SGPT) 449 H Alkaline Phosphatase 481 H Total Protein 5.5 #L Albumin 2.4 L Globulin 3.10 Albumin/Globulin Ratio 0.77 Medications Medications Current Medications Ondansetron HCl (Zofran Inj) 4 mg Q6H PRN IV NAUSEA AND/OR VOMITING; Start at 13:30 Metoclopramide HCl (Reglan) 10 mg Q6H PRN IV NAUSEA AND/OR VOMITING; Start at 13:30 Acetaminophen (Tylenol Tab) 650 mg Q6H PRN PO PAIN LEVEL 1-3 OR FEVER; Start 07/21/17 at 13:30 Enoxaparin Sodium 40 mg 40 mg DAILY SC Last administered on 07/22/17 17:40; Admin Dose 40 MG; Start 07/22/17 at 09:00 Sodium Chloride 1,000 ml @ 60 mls/hr [id number] IV Last administered on 21:06; Admin Dose 60 MLS/HR; Start 07/21/17 at 16:00 Piperacillin Sod/ Tazobactam Sod 50 ml @ 100 mls/hr Q8 IVPB Last administered on 07/22/17 14:06; Admin Dose 100 MLS/HR; Start 07/21/17 at 22:00 Vancomycin HCl/ Dextrose/Water (Vancocin/D5W) 150 ml @ 100 mls/hr Q12H IVPB ; Start 07/23/17 at 00:00 Famotidine (Pepcid Iv) 20 mg Q12 IV ; Start 07/23/17 at 09:00 MADALYN ART Jul 22, 2017 19:32
--- NOTE | 2017-07-22 20:52 | CONS ---
Date/Time of Note Date/Time of Note DATE: 07/22/17 TIME: 20:39 Assessment/Plan Assessment/Plan Chief Complaint/Hosp Course 52 yo with 1. Multiple liver masses - likely of gall bladder origin 2. Hyperbilirubinemia 3. Hypertension 4. Gout - clinical presentation and pathology make gall bladder primary the most likely - extensive discussion was had with patient's brother who understands that given the rising bilirubin, the options for treatment are very limited and pose great risk. With a bilirubin of 5 chemotherapy has the risk of accelerating fulminant liver failure. -MRCP was reviewed and it is unlikely that a GI procedure can decrease the bilirubin. Will await GI recs to see if intervention can be done -Given the rapidly progressing cancer, I believe patient should be referred for hospice care. I believe chemotherapy is too risky at this time and would likely shorten rather than lengthen his life. A total of 50 minutes of [id number] time was spent speaking with the patient, of which greater than 50% was spent in counseling and coordination of care and a detailed question and answer session. Problems: Consultation Date/Type/Reason Admit Date/Time Jul 21, 2017 at 12:47 Date of Consultation: Jul 22, 2017 Type of Consultation: oncology Reason for Consultation metastatic liver cancer Referring Provider: YASEMIN OLIVARES MD Hx of Present Illness 52-year-old male who has a history of mental retardation, HTN and gout who presents to ER with abdominal pain and nausea. CT of the abdomen and pelvis without contrast performed, which demonstrated multiple large irregular enhancing masses throughout liver, marked abdominal appearance of the gallbladder with marked thickening of the gallbladder wall, as well as bulky mesenteric and retroperitoneal lymphadenopathy. Biopsy was consistent with upper GI vs hepatobiliary primary. EGD and colonoscopy were done which did not demonstrate any cancerous lesions. A CT with pancreatic protocol demonstrated gall bladder wall thickening which make gall bladder primary the most likely especially with the elevated CA 19-9 to 38,000. Pt was supposed to follow up with me as an out patient to discuss further treatments but has now been admitted again for abdominal pain. Since last admission patients bilirubin has dramatically increased to 5.1 from 0.5. difficult to obtain given patient's mental retardation Past Medical History Mental retardation. Hypothyroidism. History of dyslipidemia. History of gout. liver metastasis. Past Surgical History Past Surgical Hx: no surgical history Family History Significant Family History: no pertinent family hx Social History Smoking Status: Never smoker Exam/Review of Systems Vital Signs Vitals Vital Signs Date Time Temp Pulse Resp B/P Pulse Ox O2 Delivery O2 Flow Rate FiO2 07/22/17 18:30 99.6 109 19 99/61 96 Mechanical Ventilator 2.0 Nasal Cannula Intake and Output 07/21/17 07/21/17 07/22/17 15:00 23:00 07:00 Output Total 300 ml 250 ml Balance -300 ml -250 ml Exam Constitutional: alert, oriented Psych: no complaints Head: normocephalic Eyes: nl conjunctiva ENMT: nl external ears & nose Neck: non-tender, supple Respiratory: diminished breath sounds Cardiovascular: regular rate and rhythm Gastrointestinal: soft Musculoskeletal: muscle weakness Extremities: normal pulses Results Result Diagram: 07/22/17 0446 07/22/17 1625 Results 24 hrs Laboratory Tests Test 07/22/17 04:46 07/22/17 16:25 White Blood Count 11.1 H Red Blood Count 3.10 L Hemoglobin 10.3 L Hematocrit 30.7 L Mean Corpuscular Volume 99.0 Mean Corpuscular Hemoglobin 33.2 H Mean Corpuscular Hemoglobin Concent 33.6 Red Cell Distribution Width 16.5 H Platelet Count 171 Mean Platelet Volume 12.1 H Neutrophils % 84.3 H Lymphocytes % 9.4 L Monocytes % 4.9 Eosinophils % 0.0 Basophils % 0.3 Nucleated Red Blood Cells % 0.0 Neutrophils # 9.3 H Lymphocytes # 1.0 Monocytes # 0.5 Eosinophils # 0.0 Basophils # 0.0 Nucleated Red Blood Cells # 0.0 Sodium Level 134 L 132 L Potassium Level 4.5 4.1 Chloride Level 100 99 Carbon Dioxide Level 27 27 Anion Gap 12 10 Blood Urea Nitrogen 20 20 Creatinine 1.17 1.28 H Glucose Level 85 118 Calcium Level 7.9 L 7.7 L Phosphorus Level 4.0 Magnesium Level 2.1 Hepatitis B Surface Antigen NEGATIVE Hepatitis B Core Total Antibody NEGATIVE Hepatitis C Antibody NEGATIVE Total Bilirubin 2.2 #H Direct Bilirubin 1.10 #H Indirect Bilirubin 1.1 Aspartate Amino Transf (AST/SGOT) 672 #H Alanine Aminotransferase (ALT/SGPT) 449 H Alkaline Phosphatase 481 H Total Protein 5.5 #L Albumin 2.4 L Globulin 3.10 Albumin/Globulin Ratio 0.77 Medications Medications Current Medications Ondansetron HCl (Zofran Inj) 4 mg Q6H PRN IV NAUSEA AND/OR VOMITING; Start at 13:30 Metoclopramide HCl (Reglan) 10 mg Q6H PRN IV NAUSEA AND/OR VOMITING; Start at 13:30 Acetaminophen (Tylenol Tab) 650 mg Q6H PRN PO PAIN LEVEL 1-3 OR FEVER; Start 07/21/17 at 13:30 Enoxaparin Sodium 40 mg 40 mg DAILY SC Last administered on 07/22/17 17:40; Admin Dose 40 MG; Start 07/22/17 at 09:00 Sodium Chloride 1,000 ml @ 60 mls/hr [id number] IV Last administered on 21:06; Admin Dose 60 MLS/HR; Start 07/21/17 at 16:00 Piperacillin Sod/ Tazobactam Sod 50 ml @ 100 mls/hr Q8 IVPB Last administered on 07/22/17 14:06; Admin Dose 100 MLS/HR; Start 07/21/17 at 22:00 Vancomycin HCl/ Dextrose/Water (Vancocin/D5W) 150 ml @ 100 mls/hr Q12H IVPB ; Start 07/23/17 at 00:00 Famotidine (Pepcid Iv) 20 mg Q12 IV ; Start 07/23/17 at 09:00 EMIGDIO SPIVEY M.D. Jul 22, 2017 20:51
--- NOTE | 2017-07-22 22:01 | CONS ---
DATE OF ADMISSION: 07/21/2017 DATE OF CONSULTATION: GASTROINTESTINAL CONSULTATION FOLLOWUP HISTORY OF PRESENT ILLNESS: A 52-year-old male with metastatic liver disease of unknown origin came back to the hospital with abdominal pain. The patient's bilirubin had jumped to 5.7. His bilirubi n was normal just a few days ago. OBJECTIVE: VITAL SIGNS: Stable. ABDOMEN: Benign. LUNGS: Clear. EXTREMITIES: No edema. CENTRAL NERVOUS SYSTEM: Grossly within normal limits. LABORATORY DATA: WBC count which was 12.8, dropped down to 11.1. The patient's bilirubin also has dropped down after IV antibiotic to 2.2. Alkaline phosphatase dropped down to . SGOT, SGPT al so dropped down. MRCP was done which showed intrahepatic dilatation. IMPRESSION: Most probably patient has a biliary stricture. Cholangiocarcinoma cannot be ruled out. The bile duct is of normal caliber. No obvious pancreatic mass or pancreatic duct dilatation. Th e patient had retroperitoneal adenopathy, and there was a small amount of ascitic fluid. So, the im pression is: 1. The patient definitely has biliary stricture of [place] tumor with intrahepatic bile duct dilat ation and abnormal LFT. 2. Leukocytosis, better on antibiotic. 3. Developmental delay. PLAN: To continue antibiotic. Patient definitely needs ERCP with possible stenting, and also to co nfirm the diagnosis so that appropriate treatment can be started, and if there is a cholangiocarcino ma, and if possible, we will use catheter to ablate the tumor. I have discussed with a brother and he is agreed. Dictated By: MERRY KIM/EDGAR Conf#: [id number] DID#: [id number] CC: YASEMIN OLIVARES;*EndCC*
[2017-07-22] MEDS ORDERED: IBUPROFEN 200 MG TAB PO ONE (22:30)
[2017-07-23] VITALS (14 sets, daily range): BP systolic 91–104; BP diastolic 53–62; PULSE 89–115; RESP 16–22
[2017-07-23] MEDS: VANCOMYCIN 750 MG in DEXTROSE 5% 150 ML IVPB SCH ×2 (00:23→13:02)
[2017-07-23] MEDS: PIPER-TAZO 3.375 GM IV (PMX) 50 ML IVPB SCH ×3 (07:19→21:17)
[2017-07-23] MEDS ORDERED: PHYTONADIONE 10 MG/ML INJ SC ONE (07:30)
[2017-07-23] MEDS: ENOXAPARIN 40 MG/0.4 ML SYG SC SCH (08:57)
[2017-07-23] MEDS: FAMOTIDINE 20 MG INJ IV SCH ×2 (10:22→20:39)
--- NOTE | 2017-07-23 12:19 | PN ---
MADALYN THACKER 07/23/17 1219: Date/Time of Note Date/Time of Note DATE: 07/23/17 TIME: 12:17 Assessment/Plan VTE Prophylaxis VTE Prophylaxis Intervention: SCD's Lines/Catheters IV Catheter Type (from Nrs): Saline Lock Urinary Cath still in place: Yes Reason Cath still needed: urinary retention Assessment/Plan Chief Complaint/Hosp Course 1. Sepsis,better 2. Multiple liver masses with metastatic adenocarcinoma, primary gastrointestinal. Esophagogastroduodenoscopy and colonoscopy negative for any primary malignancy. 3. Hyponatremia, resolved 4. Mental retardation. 5. Hypothyroidism. 6. History of dyslipidemia. 7. History of gout. 8. Anemia 9. Hypoalbuminemia 10 Ventral hernia, containing fat 11. Hyperbilirubinemia. 12, Gall bladder stone Problems: Assessment/Plan 1. keep NPO 2. IV fluids to start 3. anticipate ICU care Subjective 24 Hr Interval Summary Constitutional: improved, no complaints ENT: no complaints Respiratory: no complaints Gastrointestinal: pain Exam/Review of Systems Vital Signs Vitals Vital Signs Date Time Temp Pulse Resp B/P Pulse Ox O2 Delivery O2 Flow Rate FiO2 07/23/17 08:00 97.8 89 20 95/61 98 Nasal Cannula 07/23/17 07:00 2.0 Intake and Output 07/22/17 07/22/17 07/23/17 14:59 22:59 06:59 Intake Total 250 ml 900 ml Output Total 1000 ml Balance 250 ml -100 ml Exam Constitutional: alert, oriented Neck: supple Respiratory: clear to auscultation Cardiovascular: regular rate and rhythm Gastrointestinal: distended Results Result Diagram: 07/22/17 0446 07/22/17 1625 Results 24 hrs Laboratory Tests Test 07/22/17 16:25 Sodium Level 132 L Potassium Level 4.1 Chloride Level 99 Carbon Dioxide Level 27 Anion Gap 10 Blood Urea Nitrogen 20 Creatinine 1.28 H Glucose Level 118 Calcium Level 7.7 L Total Bilirubin 2.2 #H Direct Bilirubin 1.10 #H Indirect Bilirubin 1.1 Aspartate Amino Transf (AST/SGOT) 672 #H Alanine Aminotransferase (ALT/SGPT) 449 H Alkaline Phosphatase 481 H Total Protein 5.5 #L Albumin 2.4 L Globulin 3.10 Albumin/Globulin Ratio 0.77 Medications Medications Current Medications Ondansetron HCl (Zofran Inj) 4 mg Q6H PRN IV NAUSEA AND/OR VOMITING; Start at 13:30 Metoclopramide HCl (Reglan) 10 mg Q6H PRN IV NAUSEA AND/OR VOMITING; Start at 13:30 Acetaminophen (Tylenol Tab) 650 mg Q6H PRN PO PAIN LEVEL 1-3 OR FEVER; Start 07/21/17 at 13:30 Enoxaparin Sodium 40 mg 40 mg DAILY SC Last administered on 07/22/17 17:40; Admin Dose 40 MG; Start 07/22/17 at 09:00 Sodium Chloride 1,000 ml @ 60 mls/hr [id number] IV Last administered on 22:36; Admin Dose 60 MLS/HR; Start 07/21/17 at 16:00 Piperacillin Sod/ Tazobactam Sod 50 ml @ 100 mls/hr Q8 IVPB Last administered on 07/23/17 07:19; Admin Dose 100 MLS/HR; Start 07/21/17 at 22:00 Vancomycin HCl/ Dextrose/Water (Vancocin/D5W) 150 ml @ 100 mls/hr Q12H IVPB Last administered on 07/23/17 00:23; Admin Dose 100 MLS/HR; Start 07/23/17 at 00:00 Famotidine (Pepcid Iv) 20 mg Q12 IV Last administered on 07/23/17 10:22; Admin Dose 20 MG; Start 07/23/17 at 09:00 YASEMIN OLIVARES MD 07/23/17 1759: Assessment/Plan Assessment/Plan Assessment/Plan ercp per Dr Saud MANCILLA improving cmp tmw Exam/Review of Systems Results Result Diagram: 07/22/17 0446 07/22/17 1625 MADALYN ART Jul 23, 2017 12:19 YASEMIN OLIVARES MD Jul 23, 2017 17:59
[2017-07-23] MEDS: DEXTROSE 5%-0.9% NACL 1,000 ML IV SCH (13:08)
--- NOTE | 2017-07-23 14:01 | CONS ---
Date/Time of Note Date/Time of Note DATE: 07/23/17 TIME: 13:57 Consult Date/Type/Reason Admit Date/Time Jul 21, 2017 at 12:47 Initial Consult Date 07/22/17 Type of Consultation: Pulmonary Ordering Provider: YASEMIN OLIVARES MD Subjective More comfortable. Less shortness of breath. Objective Vital Signs Date Time Temp Pulse Resp B/P Pulse Ox O2 Delivery O2 Flow Rate FiO2 07/23/17 12:00 107 07/23/17 08:00 97.8 20 95/61 98 Nasal Cannula 07/23/17 07:00 2.0 Intake and Output 07/22/17 07/22/17 07/23/17 15:00 23:00 07:00 Intake Total 250 ml 900 ml Output Total 1000 ml Balance 250 ml -100 ml Exam PHYSICAL EXAMINATION: GENERAL: Well-nourished, well-developed gentleman, decreased jaundice. VITAL SIGNS: NECK: Supple. No JVD or lymphadenopathy. NECK: Supple. Palpable lymphadenopathy. CARDIAC: S1, S2, tachycardia. No added sounds or murmurs. CHEST: Diminished air entry bilaterally. ABDOMEN: Distended, obese. Palpable liver. EXTREMITIES: No cyanosis, clubbing or edema. NEUROLOGIC: Generalized weakness. Results/Medications Result Diagram: 07/22/17 0446 07/22/17 1625 Results 24 hrs Laboratory Tests Test 07/22/17 16:25 Sodium Level 132 L Potassium Level 4.1 Chloride Level 99 Carbon Dioxide Level 27 Anion Gap 10 Blood Urea Nitrogen 20 Creatinine 1.28 H Glucose Level 118 Calcium Level 7.7 L Total Bilirubin 2.2 #H Direct Bilirubin 1.10 #H Indirect Bilirubin 1.1 Aspartate Amino Transf (AST/SGOT) 672 #H Alanine Aminotransferase (ALT/SGPT) 449 H Alkaline Phosphatase 481 H Total Protein 5.5 #L Albumin 2.4 L Globulin 3.10 Albumin/Globulin Ratio 0.77 Medications Current Medications Ondansetron HCl (Zofran Inj) 4 mg Q6H PRN IV NAUSEA AND/OR VOMITING; Start at 13:30 Metoclopramide HCl (Reglan) 10 mg Q6H PRN IV NAUSEA AND/OR VOMITING; Start at 13:30 Acetaminophen (Tylenol Tab) 650 mg Q6H PRN PO PAIN LEVEL 1-3 OR FEVER; Start 07/21/17 at 13:30 Enoxaparin Sodium 40 mg 40 mg DAILY SC Last administered on 07/22/17 17:40; Admin Dose 40 MG; Start 07/22/17 at 09:00 Piperacillin Sod/ Tazobactam Sod 50 ml @ 100 mls/hr Q8 IVPB Last administered on 07/23/17 07:19; Admin Dose 100 MLS/HR; Start 07/21/17 at 22:00 Vancomycin HCl/ Dextrose/Water (Vancocin/D5W) 150 ml @ 100 mls/hr Q12H IVPB Last administered on 07/23/17 13:02; Admin Dose 100 MLS/HR; Start 07/23/17 at 00:00 Famotidine 20 mg 20 mg Q12 IV Last administered on 07/23/17 10:22; Admin Dose 20 MG; Start 07/23/17 at 09:00 Dextrose/Sodium Chloride (D5-NS) 1,000 ml @ 60 mls/hr [id number] IV Last administered on 07/23/17 13:08; Admin Dose 60 MLS/HR; Start 07/23/17 at 12:30 Assessment/Plan Chief Complaint/Hosp Course IMPRESSION 1. Resolving sepsis severe sepsis. 2. Progressive metastatic adenocarcinoma with significant hepatic tumor burden. 3. Significant transaminitis secondary to above. Plan: 1. Hydration. 2. Antibiotics. 3. Agree with DNR code status. 4. Consider palliative care consult. 5. Possible ERCP GI recommendations. Problems: RICHIE ANN MD, [facility] Jul 23, 2017 14:01
--- NOTE | 2017-07-23 15:04 | CONS ---
Date/Time of Note Date/Time of Note DATE: 07/23/17 TIME: 15:02 Assessment/Plan Assessment/Plan Chief Complaint/Hosp Course 52 yo with 1. Multiple liver masses - likely of gall bladder origin 2. Hyperbilirubinemia 3. Hypertension 4. Gout - clinical presentation and pathology make gall bladder primary the most likely - extensive discussion was had with patient's brother who understands that given the rising bilirubin, the options for treatment are very limited and pose great risk. With a bilirubin of 5 chemotherapy has the risk of accelerating fulminant liver failure. -MRCP was reviewed by GI. ERCP to be performed today -it bilirubin can be normalized after stent placement can try chemotherapy with Xeloda. A total of 50 minutes of [id number] time was spent speaking with the patient, of which greater than 50% was spent in counseling and coordination of care and a detailed question and answer session. Problems: Consultation Date/Type/Reason Admit Date/Time Jul 21, 2017 at 12:47 Initial Consult Date 07/22/17 Type of Consultation: Hematology Reason for Consultation gall bladder cancer Referring Provider: YASEMIN OLIVARES MD 24 HR Interval Summary Free Text/Dictation pt feels more energetic today. awaiting ERCP Exam/Review of Systems Vital Signs Vitals Vital Signs Date Time Temp Pulse Resp B/P Pulse Ox O2 Delivery O2 Flow Rate FiO2 07/23/17 12:00 107 07/23/17 08:00 97.8 20 95/61 98 Nasal Cannula 07/23/17 07:00 2.0 Intake and Output 07/22/17 07/22/17 07/23/17 14:59 22:59 06:59 Intake Total 250 ml 900 ml Output Total 1000 ml Balance 250 ml -100 ml Exam Constitutional: alert, oriented Psych: no complaints Head: normocephalic Eyes: nl conjunctiva Neck: non-tender, supple Respiratory: clear to auscultation Cardiovascular: regular rate and rhythm Gastrointestinal: soft Musculoskeletal: nl extremities to inspection Results Result Diagram: 07/22/17 0446 07/22/17 1625 Results 24 hrs Laboratory Tests Test 07/22/17 16:25 Sodium Level 132 L Potassium Level 4.1 Chloride Level 99 Carbon Dioxide Level 27 Anion Gap 10 Blood Urea Nitrogen 20 Creatinine 1.28 H Glucose Level 118 Calcium Level 7.7 L Total Bilirubin 2.2 #H Direct Bilirubin 1.10 #H Indirect Bilirubin 1.1 Aspartate Amino Transf (AST/SGOT) 672 #H Alanine Aminotransferase (ALT/SGPT) 449 H Alkaline Phosphatase 481 H Total Protein 5.5 #L Albumin 2.4 L Globulin 3.10 Albumin/Globulin Ratio 0.77 Medications Medications Current Medications Ondansetron HCl (Zofran Inj) 4 mg Q6H PRN IV NAUSEA AND/OR VOMITING; Start at 13:30 Metoclopramide HCl (Reglan) 10 mg Q6H PRN IV NAUSEA AND/OR VOMITING; Start at 13:30 Acetaminophen (Tylenol Tab) 650 mg Q6H PRN PO PAIN LEVEL 1-3 OR FEVER; Start 07/21/17 at 13:30 Enoxaparin Sodium 40 mg 40 mg DAILY SC Last administered on 07/22/17 17:40; Admin Dose 40 MG; Start 07/22/17 at 09:00 Piperacillin Sod/ Tazobactam Sod 50 ml @ 100 mls/hr Q8 IVPB Last administered on 07/23/17 07:19; Admin Dose 100 MLS/HR; Start 07/21/17 at 22:00 Vancomycin HCl/ Dextrose/Water (Vancocin/D5W) 150 ml @ 100 mls/hr Q12H IVPB Last administered on 07/23/17 13:02; Admin Dose 100 MLS/HR; Start 07/23/17 at 00:00 Famotidine 20 mg 20 mg Q12 IV Last administered on 07/23/17 10:22; Admin Dose 20 MG; Start 07/23/17 at 09:00 Dextrose/Sodium Chloride (D5-NS) 1,000 ml @ 60 mls/hr [id number] IV Last administered on 07/23/17 13:08; Admin Dose 60 MLS/HR; Start 07/23/17 at 12:30 EMIGDIO SPIVEY M.D. Jul 23, 2017 15:04
[2017-07-23] MEDS: ONDANSETRON 4 MG INJ IV PRN (17:29)
[2017-07-23] MEDS ORDERED: KETOROLAC 15 MG INJ IV STA (19:33)
--- NOTE | 2017-07-23 20:03 | CONS ---
Date/Time of Note Date/Time of Note DATE: 07/23/17 TIME: 20:01 Assessment/Plan Assessment/Plan Additional Assessment/Plan IMPRESSION: Most probably patient has a biliary stricture. Cholangiocarcinoma cannot be ruled out. The bile duct is of normal caliber. No obvious pancreatic mass or pancreatic duct dilatation. The patient had retroperitoneal adenopathy, and there was a small amount of ascitic fluid. So, the impression is: 1. The patient definitely has biliary stricture with intrahepatic bile duct dilatation and abnormal LFT. 2. Leukocytosis, better on antibiotic. 3. Developmental delay. PLAN: To continue antibiotic. Patient definitely needs ERCP with possible stenting, and also to confirm the diagnosis so that appropriate treatment can be started, and if there is a cholangiocarcinoma, and if possible, we will use Habib catheter to ablate the tumor. Patient was scheduled today at 7:30 PM for ERCP. However as per the OR previous case was complicated and they cannot give exact time for the ERCP procedure patient was hungry so decided to proceed with it tomorrow I discussed the case with the brother at 8 PM [id number] and they have agreed to proceed with the procedure tomorrow. Consultation Date/Type/Reason Admit Date/Time Jul 21, 2017 at 12:47 Initial Consult Date 07/22/17 Type of Consultation: Hematology Referring Provider: YASEMIN OLIVARES MD 24 HR Interval Summary Constitutional: improved Exam/Review of Systems Vital Signs Vitals Vital Signs Date Time Temp Pulse Resp B/P Pulse Ox O2 Delivery O2 Flow Rate FiO2 07/23/17 18:37 97.9 103 16 95/56 Nasal Cannula 2.0 07/23/17 18:33 100 Intake and Output 07/22/17 07/22/17 07/23/17 15:00 23:00 07:00 Intake Total 250 ml 900 ml Output Total 1000 ml Balance 250 ml -100 ml Exam Constitutional: alert, oriented, well developed Psych: nl mood/affect, no complaints Head: atraumatic, normocephalic Eyes: EOMI, PERRL, nl conjunctiva, nl lids, nl sclera ENMT: nl external ears & nose, nl lips & teeth, nl nasal mucosa & septum Neck: non-tender, supple Respiratory: clear to auscultation, normal air movement Cardiovascular: nl pulses, regular rate and rhythm Gastrointestinal: nl liver, spleen, non-tender, soft Musculoskeletal: nl extremities to inspection, nl gait and stance Extremities: normal pulses Neurological: [employer] OPERATOR II-XII intact, nl mental status, nl speech, nl strength Skin: nl turgor, No rash or lesions Lymph: nl lymph nodes Results Result Diagram: 07/22/17 0446 07/22/17 1625 Medications Medications Current Medications Ondansetron HCl (Zofran Inj) 4 mg Q6H PRN IV NAUSEA AND/OR VOMITING Last administered on 07/23/17 17:29; Admin Dose 4 MG; Start 07/21/17 at 13:30 Metoclopramide HCl (Reglan) 10 mg Q6H PRN IV NAUSEA AND/OR VOMITING; Start at 13:30 Acetaminophen (Tylenol Tab) 650 mg Q6H PRN PO PAIN LEVEL 1-3 OR FEVER; Start 07/21/17 at 13:30 Enoxaparin Sodium 40 mg 40 mg DAILY SC Last administered on 07/22/17 17:40; Admin Dose 40 MG; Start 07/22/17 at 09:00 Piperacillin Sod/ Tazobactam Sod 50 ml @ 100 mls/hr Q8 IVPB Last administered on 07/23/17 15:09; Admin Dose 100 MLS/HR; Start 07/21/17 at 22:00 Vancomycin HCl/ Dextrose/Water (Vancocin/D5W) 150 ml @ 100 mls/hr Q12H IVPB Last administered on 07/23/17 13:02; Admin Dose 100 MLS/HR; Start 07/23/17 at 00:00 Famotidine 20 mg 20 mg Q12 IV Last administered on 07/23/17 10:22; Admin Dose 20 MG; Start 07/23/17 at 09:00 Dextrose/Sodium Chloride (D5-NS) 1,000 ml @ 60 mls/hr [id number] IV Last administered on 07/23/17 13:08; Admin Dose 60 MLS/HR; Start 07/23/17 at 12:30 MERRY KWAN MD Jul 23, 2017 20:03
[2017-07-24] VITALS (17 sets, daily range): BP systolic 83–112; BP diastolic 53–71; PULSE 92–98; RESP 12–20
[2017-07-24] MEDS: VANCOMYCIN 1 GM in NS 250 ML IVPB SCH ×2 (00:34→16:04)
[2017-07-24] MEDS: PIPER-TAZO 3.375 GM IV (PMX) 50 ML IVPB SCH ×3 (05:39→20:33)
[2017-07-24] MEDS: DEXTROSE 5%-0.9% NACL 1,000 ML IV SCH ×2 (05:51→21:50)
[2017-07-24 06:53] LABS: BASOPHIL # 0.1 10^3/ul (0.0-0.1); BASOPHILS % 0.5 % (0.0-2.0); HEMATOCRIT 28.6 % (42.0-52.0); HEMOGLOBIN 9.6 g/dl (14.0-18.0); LYMPHOCYTES # 1.2 10^3/ul (0.8-2.9); MEAN CORPUSCULAR HEMOGLOBIN 33.3 pg (29.0-33.0); MEAN CORPUSCULAR HGB CONC 33.6 g/dl (32.0-37.0); MEAN CORPUSCULAR VOLUME 99.3 fl (82.0-101.0); MEAN PLATELET VOLUME 11.6 fl (7.4-10.4); MONOCYTE # 0.7 10^3/ul (0.3-0.9); MONOCYTES % 5.8 % (0.0-11.0); NEUTROPHIL # 9.9 10^3/ul (1.6-7.5); NEUTROPHILS % 80.3 % (39.0-77.0); PLATELET COUNT 194 10^3/UL (140-415); RED BLOOD COUNT 2.88 10^6/ul (4.70-6.10); RED CELL DISTRIBUTION WIDTH 17.4 % (11.5-14.5); WHITE BLOOD COUNT 12.3 10^3/ul (4.8-10.8)
[2017-07-24 07:18] LABS: ALBUMIN 2.2 g/dl (3.3-4.9); ALBUMIN/GLOBULIN RATIO 0.66; BILIRUBIN,DIRECT 0.7 mg/dl (0.00-0.20); BILIRUBIN,INDIRECT 1.1 mg/dl (0-1.1); BILIRUBIN,TOTAL 1.8 mg/dl (0.2-1.3); CALCIUM 7.9 mg/dl (8.4-10.2); CREATININE 1.25 mg/dl (0.61-1.24); POTASSIUM 4.1 mmol/L (3.5-5.1); TOTAL PROTEIN 5.5 g/dl (6.1-8.1)
[2017-07-24] MEDS: ENOXAPARIN 40 MG/0.4 ML SYG SC SCH (09:00)
[2017-07-24] MEDS: FAMOTIDINE 20 MG INJ IV SCH ×2 (09:01→20:32)
[2017-07-24] MEDS ORDERED: PROPOFOL 20 ML ONE (10:08)
[2017-07-24] MEDS ORDERED: CEFAZOLIN 1 GM INJ ONE (10:08)
[2017-07-24] MEDS ORDERED: MIDAZOLAM 1 MG/ML 2 ML INJ ONE (10:08)
[2017-07-24] MEDS ORDERED: FENTAnyl 50 MCG/ML VIAL ONE (10:08)
[2017-07-24] MEDS ORDERED: ROCURONIUM 50 MG INJ ONE (10:08)
[2017-07-24] MEDS ORDERED: morphine (1 MG/ML) 10ML SYRINGE IV PRN ×2 (10:30)
[2017-07-24] MEDS ORDERED: ONDANSETRON 4 MG INJ IV PRN (10:30)
[2017-07-24] MEDS ORDERED: EPHEDrine SULFATE 50 MG/5 ML SYG IV PRN (10:30)
[2017-07-24] MEDS ORDERED: INDOMETHACIN 50 MG SUPP PR ONE (10:30)
[2017-07-24] MEDS ORDERED: hydrALAzine 20 MG INJ IV PRN (10:30)
[2017-07-24] MEDS ORDERED: DIPHENHYDRAMINE 50 MG INJ IV PRN (10:30)
[2017-07-24] MEDS ORDERED: METOCLOPRAMIDE 10 MG INJ IV PRN (10:30)
[2017-07-24] MEDS ORDERED: MEPERIDINE 25 MG INJ IV PRN (10:30)
[2017-07-24] MEDS ORDERED: LABETALOL HCL 20MG INJ IV PRN (10:30)
[2017-07-24] MEDS ORDERED: ALBUMIN HUMAN 5% 250 ML IV PRN (10:30)
[2017-07-24] MEDS ORDERED: FENTAnyl 50 MCG/ML VIAL IV PRN ×2 (10:30)
[2017-07-24] MEDS ORDERED: GLUCAGON 1 MG INJ ONE ×2 (10:58→11:29)
--- NOTE | 2017-07-24 11:17 | CONS ---
Date/Time of Note Date/Time of Note DATE: 07/24/17 TIME: 11:16 Consult Date/Type/Reason Admit Date/Time Jul 21, 2017 at 12:47 Initial Consult Date 07/22/17 Type of Consultation: Pulmonary Ordering Provider: YASEMIN OLIVARES MD Subjective Patient having ERCP. No events overnight. Objective Vital Signs Date Time Temp Pulse Resp B/P Pulse Ox O2 Delivery O2 Flow Rate FiO2 07/24/17 08:36 95 07/24/17 07:22 97.8 16 92/60 98 07/23/17 20:00 Nasal Cannula 2.0 Intake and Output 07/23/17 07/23/17 07/24/17 15:00 23:00 07:00 Intake Total 710 ml Output Total 750 ml 800 ml Balance -750 ml -90 ml Exam PHYSICAL EXAMINATION: GENERAL: Chronically ill appearing lady, comfortable at rest, nasal cannula oxygen. VITAL SIGNS: Nasal cannula oxygen NECK: Supple. No JVD or lymphadenopathy. CARDIAC: S1, S2, no added sounds or murmurs. CHEST: Diminished air entry bilaterally. ABDOMEN: Soft, nontender. No guarding or rebound. EXTREMITIES: No cyanosis, clubbing. Edema +1. NEUROLOGIC: Generalized weakness. Results/Medications Result Diagram: 07/24/17 0625 07/24/17 0624 Results 24 hrs Laboratory Tests Test 07/23/17 23:02 07/24/17 06:24 07/24/17 06:25 Vancomycin Level Trough 9.4 L Sodium Level 137 Potassium Level 4.1 Chloride Level 101 Carbon Dioxide Level 31 Anion Gap 9 Blood Urea Nitrogen 20 Creatinine 1.25 H Glucose Level 101 Calcium Level 7.9 L Total Bilirubin 1.8 H Direct Bilirubin 0.70 #H Indirect Bilirubin 1.1 Aspartate Amino Transf (AST/SGOT) 318 #H Alanine Aminotransferase (ALT/SGPT) 291 H Alkaline Phosphatase 376 H Total Protein 5.5 L Albumin 2.2 L Globulin 3.30 H Albumin/Globulin Ratio 0.66 White Blood Count 12.3 H Red Blood Count 2.88 L Hemoglobin 9.6 L Hematocrit 28.6 L Mean Corpuscular Volume 99.3 Mean Corpuscular Hemoglobin 33.3 H Mean Corpuscular Hemoglobin Concent 33.6 Red Cell Distribution Width 17.4 H Platelet Count 194 Mean Platelet Volume 11.6 H Neutrophils % 80.3 H Lymphocytes % 10.0 L Monocytes % 5.8 Eosinophils % 0.0 Basophils % 0.5 Nucleated Red Blood Cells % 0.0 Neutrophils # 9.9 H Lymphocytes # 1.2 Monocytes # 0.7 Eosinophils # 0.0 Basophils # 0.1 Nucleated Red Blood Cells # 0.0 Medications Current Medications Ondansetron HCl (Zofran Inj) 4 mg Q6H PRN IV NAUSEA AND/OR VOMITING Last administered on 07/23/17 17:29; Admin Dose 4 MG; Start 07/21/17 at 13:30 Metoclopramide HCl (Reglan) 10 mg Q6H PRN IV NAUSEA AND/OR VOMITING; Start at 13:30 Acetaminophen (Tylenol Tab) 650 mg Q6H PRN PO PAIN LEVEL 1-3 OR FEVER; Start 07/21/17 at 13:30 Enoxaparin Sodium 40 mg 40 mg DAILY SC Last administered on 07/22/17 17:40; Admin Dose 40 MG; Start 07/22/17 at 09:00 Piperacillin Sod/ Tazobactam Sod (Zosyn 3.375gm/ 50 ml (Pmx)) 50 ml @ 100 mls/ hr Q8 IVPB Last administered on 07/24/17 05:39; Admin Dose 100 MLS/HR; Start 07/21/17 at 22:00 Famotidine 20 mg 20 mg Q12 IV Last administered on 07/24/17 09:01; Admin Dose 20 MG; Start 07/23/17 at 09:00 Dextrose/Sodium Chloride 1,000 ml @ 60 mls/hr [id number] IV Last administered on 07/24/17 05:51; Admin Dose 60 MLS/HR; Start 07/23/17 at 12:30 Vancomycin HCl (Vancocin) 250 ml @ 125 mls/hr Q12H IVPB Last administered on 07/24/17 00:34; Admin Dose 125 MLS/HR; Start 07/24/17 at 00:00 Assessment/Plan Chief Complaint/Hosp Course IMPRESSION 1. Resolving sepsis severe sepsis. 2. Progressive metastatic adenocarcinoma with significant hepatic tumor burden. 3. Significant transaminitis secondary to above. Obstructive jaundice possible cholangiocarcinoma. Currently having ERCP. Plan: 1. Hydration. 2. Antibiotics. 3. Agree with DNR code status. 4. Consider palliative care consult. 5. GI recommendations Problems: VADGAMA,RICHIE V. MD, [facility] Jul 24, 2017 11:17
[2017-07-24] MEDS ORDERED: ONDANSETRON 4 MG INJ ONE (12:44)
[2017-07-24] MEDS ORDERED: DEXAMETHASONE 4 MG/ML 1 ML INJ ONE (12:44)
[2017-07-24] MEDS ORDERED: SUGAMMADEX SODIUM 200 MG/2 ML VIAL IV ONE (12:44)
[2017-07-24] MEDS ORDERED: METOCLOPRAMIDE 10 MG INJ ONE (12:44)
--- NOTE | 2017-07-24 13:35 | OPPN ---
Date/Time of Note Date/Time of Note DATE: 07/24/17 TIME: 13:33 Proc Note GI Procedure Date 07/24/17 Indication: diagnostic Pre-procedure Diagnosis Biliary obstruction Post-procedure Diagnosis Bile duct is completely blocked Pancreatic stent successfully deployed Unstable duodenal position for ERCP scope and the procedure had to be done in the left recumbent position rather than in supine. Procedure Performed: ERCP Surgeon see signature line Inside Sales Manager none Anesthesia Type: MAC Tourniquet Time none EBL none Transfusion required none Biopsy 1: None Grafts/Implants none Tubes/Drains none Complication(s) none Disposition: PACU Procedure Description Procedure dictated MERRY KWAN MD Jul 24, 2017 13:35
--- NOTE | 2017-07-24 13:47 | PN ---
Date/Time of Note Date/Time of Note DATE: 07/24/17 TIME: 13:46 Assessment/Plan VTE Prophylaxis VTE Prophylaxis Intervention: LMWH Lines/Catheters IV [facility]from [facility] Peripheral IV Urinary Cath still in place: Yes Reason Cath still needed: urinary retention Assessment/Plan Chief Complaint/Hosp Course 1. Sepsis,better 2. Multiple liver masses with metastatic adenocarcinoma, primary gastrointestinal. Esophagogastroduodenoscopy and colonoscopy negative for any primary malignancy. 3. Hyponatremia, resolved 4. Mental retardation. 5. Hypothyroidism. 6. History of dyslipidemia. 7. History of gout. 8. Anemia 9. Hypoalbuminemia 10 Ventral hernia, containing fat 11. Hyperbilirubinemia. 12, Gall bladder stone Problems: Assessment/Plan 1. Pt is still in recovery Exam/Review of Systems Vital Signs Vitals Vital Signs Date Time Temp Pulse Resp B/P Pulse Ox O2 Delivery O2 Flow Rate FiO2 07/24/17 13:36 94 13 109/65 95 Nasal Cannula 2.0 07/24/17 13:06 98.2 Intake and Output 07/23/17 07/23/17 07/24/17 15:00 23:00 07:00 Intake Total 710 ml Output Total 750 ml 800 ml Balance -750 ml -90 ml Results Result Diagram: 07/24/17 0625 07/24/17 0624 Results 24 hrs Laboratory Tests Test 07/23/17 23:02 07/24/17 06:24 07/24/17 06:25 Vancomycin Level Trough 9.4 L Sodium Level 137 Potassium Level 4.1 Chloride Level 101 Carbon Dioxide Level 31 Anion Gap 9 Blood Urea Nitrogen 20 Creatinine 1.25 H Glucose Level 101 Calcium Level 7.9 L Total Bilirubin 1.8 H Direct Bilirubin 0.70 #H Indirect Bilirubin 1.1 Aspartate Amino Transf (AST/SGOT) 318 #H Alanine Aminotransferase (ALT/SGPT) 291 H Alkaline Phosphatase 376 H Total Protein 5.5 L Albumin 2.2 L Globulin 3.30 H Albumin/Globulin Ratio 0.66 White Blood Count 12.3 H Red Blood Count 2.88 L Hemoglobin 9.6 L Hematocrit 28.6 L Mean Corpuscular Volume 99.3 Mean Corpuscular Hemoglobin 33.3 H Mean Corpuscular Hemoglobin Concent 33.6 Red Cell Distribution Width 17.4 H Platelet Count 194 Mean Platelet Volume 11.6 H Neutrophils % 80.3 H Lymphocytes % 10.0 L Monocytes % 5.8 Eosinophils % 0.0 Basophils % 0.5 Nucleated Red Blood Cells % 0.0 Neutrophils # 9.9 H Lymphocytes # 1.2 Monocytes # 0.7 Eosinophils # 0.0 Basophils # 0.1 Nucleated Red Blood Cells # 0.0 Medications Medications Current Medications Ondansetron HCl (Zofran Inj) 4 mg Q6H PRN IV NAUSEA AND/OR VOMITING Last administered on 07/23/17 17:29; Admin Dose 4 MG; Start 07/21/17 at 13:30 Metoclopramide HCl (Reglan) 10 mg Q6H PRN IV NAUSEA AND/OR VOMITING; Start at 13:30 Acetaminophen (Tylenol Tab) 650 mg Q6H PRN PO PAIN LEVEL 1-3 OR FEVER; Start 07/21/17 at 13:30 Enoxaparin Sodium 40 mg 40 mg DAILY SC Last administered on 07/22/17 17:40; Admin Dose 40 MG; Start 07/22/17 at 09:00 Piperacillin Sod/ Tazobactam Sod (Zosyn 3.375gm/ 50 ml (Pmx)) 50 ml @ 100 mls/ hr Q8 IVPB Last administered on 07/24/17 05:39; Admin Dose 100 MLS/HR; Start 07/21/17 at 22:00 Famotidine 20 mg 20 mg Q12 IV Last administered on 07/24/17 09:01; Admin Dose 20 MG; Start 07/23/17 at 09:00 Dextrose/Sodium Chloride 1,000 ml @ 60 mls/hr [id number] IV Last administered on 07/24/17 05:51; Admin Dose 60 MLS/HR; Start 07/23/17 at 12:30 Vancomycin HCl 250 ml @ 125 mls/hr Q12H IVPB Last administered on 07/24/17 00:34; Admin Dose 125 MLS/HR; Start 07/24/17 at 00:00 Lactated Ringer's (Lr) 500 ml @ 500 mls/hr Q1H ONCE IV ; Start 07/24/17 at 14: 00; Stop 07/24/17 at 14:59; Status MADALYN TYSON Jul 24, 2017 13:47
[2017-07-24] MEDS ORDERED: LACTATED RINGER'S 500 ML IV ONE (14:00)
--- NOTE | 2017-07-24 16:43 | GILP ---
DATE OF PROCEDURE: PROCEDURE PERFORMED: ERCP, placement of the pancreatic stent, and EGD. INDICATION: This is a 52-year-old male with mets to the liver presented with abdominal pain and fev er. Patient was empirically started on antibiotic. CAT scan showed just metastasis, so we ordered a MRCP which showed dilated left and right hepatic duct. Gallbladder was all contracted and the may e duct was not dilated. 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 The purpose of this procedure is to evaluate the biliary system and to place a stent. INFORMED CONSENT: The risk of the procedure, related and unrelated complications including bleeding , perforation, pancreatitis, severity of the pancreatitis, repeatedly explained to both of the broth ers who are the durable power of attorney law clerk. They understood and gave informed consent. DESCRIPTION OF PROCEDURE: The patient was brought to the OR, intubated by the anesthesiologist, nieves kim in a prone position, and he was given Indocin suppository. After the ERCP scope passed with muc h ease into the esophagus, advanced further down into stomach and the pyloric channel the patient scott d a U-shaped stomach and pyloric channel was getting compressed maybe due to a supine position and o besity and this was very unusual. Managed to pass the scope into the duodenum but the ampulla could not be identified because of the deformed duodenum or the tumor was playing in altering the anatomy of both the duodenum and the pyloric channel. So at that point decided to remove the scope and use upper endoscope, used upper endoscope and technically that made it difficult in the prone position for the scope to be passed into the duodenum. Managed to somehow pass and identify the ampulla, so at this point decided to do it in a left recumbent position rather than the classical prone position . So ERCP scope was passed in the left recumbent position and ampulla was identified. The scope po sition was still even in the short position it was not great and the long position could not be obta ined. Cannulated the pancreatic duct selectively. Double wire technique was used, hoping that it w ould go into the bile duct, but the bile duct appeared to be completely blocked. No bile was coming out, so in order to protect the pancreas decided to deploy the pancreatic stent. We did not have a ny pigtail stent available on the cart, so we used whatever the stent was available 7 mm 5-Russian st raight stent pancreatic stent that was available, that was deployed successfully after deploying the stent tried to cannulate the bile duct which had a different opening the very end of bile duct, but again the tumor was preventing the deeper cannulation, so no dye was injected. At this point decid ed to just remove the scope and because of the left recumbent position on the fluoro we could not ge t a proper fluoro image. IMPRESSION: Unstable duodenal position for the ERCP scope, successfully deployed pancreatic stent, bile duct was completely blocked by the tumor. PLAN: IV hydration with ringer lactate 2 liter over a period of 4 to 6 hours. Discussed with the a nesthesiologist if the patient is asymptomatic and then clear liquid diet and we will advance it. I discussed with both the brothers we may have to do a PTC and put a stent through the percutaneous a pproach and if the tumor is well identified on the cholangiogram through the pocket in this approach then I will make arrangement in the future for habit catheter tube to burn the tumor and keep the c onfluence patent. Dictated By: MERRY KIM/EDGAR Conf#: [id number] DID#: [id number] CC: YASEMIN OLIVARES; KINGSLEY OVALLE MD;*EndCC*
[2017-07-25] VITALS (11 sets, daily range): BP systolic 93–129; BP diastolic 61–72; PULSE 87–113; RESP 17–18
[2017-07-25] MEDS: VANCOMYCIN 1 GM in NS 250 ML IVPB SCH ×2 (00:20→11:41)
[2017-07-25] MEDS: PIPER-TAZO 3.375 GM IV (PMX) 50 ML IVPB SCH ×3 (05:34→20:30)
--- NOTE | 2017-07-25 08:18 | RADRPT ---
PROCEDURE: Intraoperative imaging for ERCP with fluoroscopy. CLINICAL INDICATION: Biliary obstruction. Intraoperative. TECHNIQUE: 2 images of the right upper quadrant of the abdomen were obtained in the operating room with an image intensifier. No radiologist was in attendance. Fluoroscopy time is 0.3 minutes. COMPARISON: MRCP dated 07/22/2017. FINDINGS: Images demonstrate the endoscope in position. There is no contrast in the common bile duct or pancre atic duct. IMPRESSION: 1. ERCP as described above. RPTAT: QQ .Kilo De La Rosa MD, MD Date Time Electronically viewed and signed by .Kilo De La Rosa MD, on 07/25/2017 08:17 .R/
[2017-07-25 08:56] LABS: BASOPHILS % 0.1 % (0.0-2.0); HEMOGLOBIN 10.9 g/dl (14.0-18.0); LYMPHOCYTES # 1.1 10^3/ul (0.8-2.9); MEAN CORPUSCULAR HEMOGLOBIN 33.7 pg (29.0-33.0); MEAN CORPUSCULAR HGB CONC 34.1 g/dl (32.0-37.0); MEAN CORPUSCULAR VOLUME 99.1 fl (82.0-101.0); MONOCYTE # 0.7 10^3/ul (0.3-0.9); MONOCYTES % 4.3 % (0.0-11.0); NEUTROPHIL # 13.4 10^3/ul (1.6-7.5); NEUTROPHILS % 85.2 % (39.0-77.0); PLATELET COUNT 217 10^3/UL (140-415); RED BLOOD COUNT 3.23 10^6/ul (4.70-6.10); RED CELL DISTRIBUTION WIDTH 18.2 % (11.5-14.5); WHITE BLOOD COUNT 15.7 10^3/ul (4.8-10.8)
[2017-07-25] MEDS: ENOXAPARIN 40 MG/0.4 ML SYG SC SCH (09:00)
[2017-07-25] MEDS: FAMOTIDINE 20 MG INJ IV SCH ×2 (09:07→20:31)
[2017-07-25 09:10] LABS: CALCIUM 8.1 mg/dl (8.4-10.2); CREATININE 1.16 mg/dl (0.61-1.24); POTASSIUM 4.1 mmol/L (3.5-5.1)
--- NOTE | 2017-07-25 12:43 | CONS ---
Date/Time of Note Date/Time of Note DATE: 07/25/17 TIME: 12:41 Assessment/Plan Assessment/Plan Additional Assessment/Plan 1. The patient definitely has biliary stricture with intrahepatic bile duct dilatation and abnormal LFT. 2. Leukocytosis, better on antibiotic. 3. Developmental delay. Plan Patient is a complete bile duct obstruction, pancreatic stent successfully deployed. Duodenum is fixed secondary to tumor. Ask Dr. Kilo De La Rosa to do PTC, but because of metastasis he declined it. Continue present care Advance diet Consultation Date/Type/Reason Admit Date/Time Jul 21, 2017 at 12:47 Initial Consult Date 07/22/17 Type of Consultation: Pulmonary Referring Provider: YASEMIN OLIVARES MD 24 HR Interval Summary Free Text/Dictation Patient is constipated Abdominal pain better He wants solid food Constitutional: no complaints Exam/Review of Systems Vital Signs Vitals Vital Signs Date Time Temp Pulse Resp B/P Pulse Ox O2 Delivery O2 Flow Rate FiO2 07/25/17 12:30 107 07/25/17 11:39 98.1 98/61 99 07/25/17 10:38 2.0 07/25/17 08:20 Nasal Cannula Intake and Output 07/24/17 07/24/17 07/25/17 15:00 23:00 07:00 Intake Total 300 ml 1250 ml Output Total 600 ml 950 ml Balance -300 ml 300 ml Exam Constitutional: alert, oriented, well developed Psych: nl mood/affect, no complaints Head: atraumatic, normocephalic Eyes: EOMI, PERRL, nl conjunctiva, nl lids, nl sclera ENMT: nl external ears & nose, nl lips & teeth, nl nasal mucosa & septum Neck: non-tender, supple Respiratory: clear to auscultation, normal air movement Cardiovascular: nl pulses, regular rate and rhythm Gastrointestinal: nl liver, spleen, non-tender, soft Musculoskeletal: nl extremities to inspection, nl gait and stance Extremities: normal pulses Neurological: MANAGER CONTRACT II-XII intact, nl mental status, nl speech, nl strength Skin: nl turgor, No rash or lesions Lymph: nl lymph nodes Results Result Diagram: 07/25/17 0746 07/25/17 0746 Results 24 hrs Laboratory Tests Test 07/25/17 07:46 White Blood Count 15.7 #H Red Blood Count 3.23 L Hemoglobin 10.9 L Hematocrit 32.0 L Mean Corpuscular Volume 99.1 Mean Corpuscular Hemoglobin 33.7 H Mean Corpuscular Hemoglobin Concent 34.1 Red Cell Distribution Width 18.2 H Platelet Count 217 Mean Platelet Volume 12.0 H Neutrophils % 85.2 H Lymphocytes % 7.0 L Monocytes % 4.3 Eosinophils % 0.0 Basophils % 0.1 Nucleated Red Blood Cells % 0.0 Neutrophils # 13.4 H Lymphocytes # 1.1 Monocytes # 0.7 Eosinophils # 0.0 Basophils # 0.0 Nucleated Red Blood Cells # 0.0 Sodium Level 136 Potassium Level 4.1 Chloride Level 100 Carbon Dioxide Level 29 Anion Gap 11 Blood Urea Nitrogen 18 Creatinine 1.16 Glucose Level 137 Calcium Level 8.1 L Medications Medications Current Medications Ondansetron HCl (Zofran Inj) 4 mg Q6H PRN IV NAUSEA AND/OR VOMITING Last administered on 07/23/17 17:29; Admin Dose 4 MG; Start 07/21/17 at 13:30 Metoclopramide HCl (Reglan) 10 mg Q6H PRN IV NAUSEA AND/OR VOMITING; Start at 13:30 Acetaminophen (Tylenol Tab) 650 mg Q6H PRN PO PAIN LEVEL 1-3 OR FEVER; Start 07/21/17 at 13:30 Enoxaparin Sodium 40 mg 40 mg DAILY SC Last administered on 07/22/17 17:40; Admin Dose 40 MG; Start 07/22/17 at 09:00 Piperacillin Sod/ Tazobactam Sod (Zosyn 3.375gm/ 50 ml (Pmx)) 50 ml @ 100 mls/ hr Q8 IVPB Last administered on 07/25/17 05:34; Admin Dose 100 MLS/HR; Start 07/21/17 at 22:00 Famotidine 20 mg 20 mg Q12 IV Last administered on 07/25/17 09:07; Admin Dose 20 MG; Start 07/23/17 at 09:00 Dextrose/Sodium Chloride 1,000 ml @ 60 mls/hr [id number] IV Last administered on 07/24/17 05:51; Admin Dose 60 MLS/HR; Start 07/23/17 at 12:30 Vancomycin HCl (Vancocin) 250 ml @ 125 mls/hr Q12H IVPB Last administered on 07/25/17 11:41; Admin Dose 125 MLS/HR; Start 07/24/17 at 00:00 MERRY KWAN MD Jul 25, 2017 12:43
--- NOTE | 2017-07-25 12:49 | PN ---
MADALYN THACKER 07/25/17 1249: Date/Time of Note Date/Time of Note DATE: 07/25/17 TIME: 12:47 Assessment/Plan VTE Prophylaxis VTE Prophylaxis Intervention: SCD's Lines/Catheters IV Catheter Type (from Nrs): Peripheral IV Urinary Cath still in place: Yes Reason Cath still needed: urinary retention Assessment/Plan Chief Complaint/Hosp Course 1. Sepsis,on VAncomucyn. Primary source is Pneumonia 2. Multiple liver masses with metastatic adenocarcinoma, primary gastrointestinal. Esophagogastroduodenoscopy and colonoscopy negative for any primary malignancy. 3. Hyponatremia, resolved 4. Mental retardation. 5. Hypothyroidism. 6. History of dyslipidemia. 7. History of gout. 8. Anemia 9. Hypoalbuminemia 10 Ventral hernia, containing fat 11. Hyperbilirubinemia. 12, Biliary stricture with intrahepatic bile duct dilatation and abnormal LFT. Problems: Assessment/Plan 1. change chandler bag 2. ERCP per dr Villavicencio 3. continue a.b Subjective 24 Hr Interval Summary Constitutional: no complaints ENT: no complaints Respiratory: no complaints Cardiovascular: no complaints Genitourinary: no complaints Musculoskeletal: no complaints Skin: other (icteric) Exam/Review of Systems Vital Signs Vitals Vital Signs Date Time Temp Pulse Resp B/P Pulse Ox O2 Delivery O2 Flow Rate FiO2 07/25/17 12:30 107 07/25/17 11:39 98.1 17 98/61 99 07/25/17 10:38 2.0 07/25/17 08:20 Nasal Cannula Intake and Output 07/24/17 07/24/17 07/25/17 15:00 23:00 07:00 Intake Total 300 ml 1250 ml Output Total 600 ml 950 ml Balance -300 ml 300 ml Exam icteric Constitutional: alert, oriented Respiratory: clear to auscultation Cardiovascular: regular rate and rhythm Gastrointestinal: rebound or guarding Results Result Diagram: 07/25/17 0746 07/25/17 0746 Results 24 hrs Laboratory Tests Test 07/25/17 07:46 White Blood Count 15.7 #H Red Blood Count 3.23 L Hemoglobin 10.9 L Hematocrit 32.0 L Mean Corpuscular Volume 99.1 Mean Corpuscular Hemoglobin 33.7 H Mean Corpuscular Hemoglobin Concent 34.1 Red Cell Distribution Width 18.2 H Platelet Count 217 Mean Platelet Volume 12.0 H Neutrophils % 85.2 H Lymphocytes % 7.0 L Monocytes % 4.3 Eosinophils % 0.0 Basophils % 0.1 Nucleated Red Blood Cells % 0.0 Neutrophils # 13.4 H Lymphocytes # 1.1 Monocytes # 0.7 Eosinophils # 0.0 Basophils # 0.0 Nucleated Red Blood Cells # 0.0 Sodium Level 136 Potassium Level 4.1 Chloride Level 100 Carbon Dioxide Level 29 Anion Gap 11 Blood Urea Nitrogen 18 Creatinine 1.16 Glucose Level 137 Calcium Level 8.1 L Medications Medications Current Medications Ondansetron HCl (Zofran Inj) 4 mg Q6H PRN IV NAUSEA AND/OR VOMITING Last administered on 07/23/17 17:29; Admin Dose 4 MG; Start 07/21/17 at 13:30 Metoclopramide HCl (Reglan) 10 mg Q6H PRN IV NAUSEA AND/OR VOMITING; Start at 13:30 Acetaminophen (Tylenol Tab) 650 mg Q6H PRN PO PAIN LEVEL 1-3 OR FEVER; Start 07/21/17 at 13:30 Enoxaparin Sodium 40 mg 40 mg DAILY SC Last administered on 07/22/17 17:40; Admin Dose 40 MG; Start 07/22/17 at 09:00 Piperacillin Sod/ Tazobactam Sod (Zosyn 3.375gm/ 50 ml (Pmx)) 50 ml @ 100 mls/ hr Q8 IVPB Last administered on 07/25/17 05:34; Admin Dose 100 MLS/HR; Start 07/21/17 at 22:00 Famotidine 20 mg 20 mg Q12 IV Last administered on 07/25/17 09:07; Admin Dose 20 MG; Start 07/23/17 at 09:00 Dextrose/Sodium Chloride 1,000 ml @ 60 mls/hr [id number] IV Last administered on 07/24/17 05:51; Admin Dose 60 MLS/HR; Start 07/23/17 at 12:30 Vancomycin HCl (Vancocin) 250 ml @ 125 mls/hr Q12H IVPB Last administered on 07/25/17 11:41; Admin Dose 125 MLS/HR; Start 07/24/17 at 00:00 YASEMIN OLIVARES MD 07/25/17 1554: Assessment/Plan Assessment/Plan Assessment/Plan LFt improving yesterday, recheck today ? PTC could not be done ? Repeat ERCP per Dr Villavicencio? Exam/Review of Systems Results Result Diagram: 07/25/17 0746 07/25/17 0746 MADALYN ART Jul 25, 2017 12:49 YASEMIN OLIVARES MD Jul 25, 2017 15:54
[2017-07-25] MEDS ORDERED: NA PHOSPHATE/BIPHOS 133 ML ENEMA PR ONE (13:30)
[2017-07-25] MEDS: DEXTROSE 5%-0.9% NACL 1,000 ML IV SCH (14:30)
[2017-07-25 15:40] LABS: ALBUMIN 2.5 g/dl (3.3-4.9); ALBUMIN/GLOBULIN RATIO 0.73; BILIRUBIN,DIRECT 1.7 mg/dl (0.00-0.20); BILIRUBIN,INDIRECT 0.9 mg/dl (0-1.1); BILIRUBIN,TOTAL 2.6 mg/dl (0.2-1.3); CALCIUM 7.7 mg/dl (8.4-10.2); CREATININE 1.11 mg/dl (0.61-1.24); POTASSIUM 4.1 mmol/L (3.5-5.1); TOTAL PROTEIN 5.9 g/dl (6.1-8.1)
[2017-07-25] MEDS ORDERED: IBUPROFEN 200 MG TAB PO ONE (18:30)
[2017-07-26] VITALS (12 sets, daily range): BP systolic 90–108; BP diastolic 55–68; PULSE 90–103; RESP 16–20
[2017-07-26] MEDS: VANCOMYCIN 1 GM in NS 250 ML IVPB SCH ×2 (00:09→11:50)
[2017-07-26] MEDS: PIPER-TAZO 3.375 GM IV (PMX) 50 ML IVPB SCH ×3 (05:56→20:37)
[2017-07-26 07:33] LABS: BASOPHIL # 0.1 10^3/ul (0.0-0.1); BASOPHILS % 0.5 % (0.0-2.0); EOSINOPHILS % 0.1 % (0.0-7.0); HEMATOCRIT 30.8 % (42.0-52.0); LYMPHOCYTES # 1.2 10^3/ul (0.8-2.9); LYMPHOCYTES % 7.5 % (15.0-51.0); MEAN CORPUSCULAR HEMOGLOBIN 32.7 pg (29.0-33.0); MEAN CORPUSCULAR HGB CONC 32.5 g/dl (32.0-37.0); MEAN CORPUSCULAR VOLUME 100.7 fl (82.0-101.0); MEAN PLATELET VOLUME 12.2 fl (7.4-10.4); MONOCYTE # 0.8 10^3/ul (0.3-0.9); MONOCYTES % 5.1 % (0.0-11.0); NEUTROPHIL # 12.9 10^3/ul (1.6-7.5); NEUTROPHILS % 82.3 % (39.0-77.0); PLATELET COUNT 202 10^3/UL (140-415); RED BLOOD COUNT 3.06 10^6/ul (4.70-6.10); WHITE BLOOD COUNT 15.6 10^3/ul (4.8-10.8)
[2017-07-26 07:57] LABS: ALBUMIN 2.2 g/dl (3.3-4.9); ALBUMIN/GLOBULIN RATIO 0.68; CALCIUM 8.1 mg/dl (8.4-10.2); CREATININE 1.3 mg/dl (0.61-1.24); TOTAL PROTEIN 5.4 g/dl (6.1-8.1)
[2017-07-26] MEDS: FAMOTIDINE 20 MG INJ IV SCH ×2 (08:45→20:37)
[2017-07-26] MEDS: ENOXAPARIN 40 MG/0.4 ML SYG SC SCH (08:46)
[2017-07-26] MEDS ORDERED: traMADol 50 MG TAB PO ONE (10:30)
[2017-07-26 14:46] LABS: ADD UMIC YES; UR AMORPHOUS CRYSTAL MODERATE /HPF (NONE SEEN); UR ASCORBIC ACID NEGATIVE (NEGATIVE); UR BACTERIA FEW /HPF (NONE SEEN); UR BILIRUBIN (Dip) 1+ mg/dL (NEGATIVE); UR BLOOD (Dip) 2+ mg/dL (NEGATIVE); UR CLARITY TURBID (CLEAR); UR COLOR AMBER (YELLOW); UR GLUCOSE (Dip) NEGATIVE (NEGATIVE); UR KETONES (Dip) NEGATIVE (NEGATIVE); UR LEUKOCYTE ESTERASE (Dip) NEGATIVE Leu/ul (NEGATIVE); UR NITRITE (Dip) NEGATIVE (NEGATIVE); UR RBC 42 /HPF (0-5); UR SPECIFIC GRAVITY (Dip) 1.034 (1.003-1.030); UR TOTAL PROTEIN (Dip) 1+ mg/dl (NEGATIVE); UR UROBILINOGEN (Dip) 2+ mg/dL (NEGATIVE)
--- NOTE | 2017-07-26 16:00 | CONS ---
Date/Time of Note Date/Time of Note DATE: 07/26/17 TIME: 15:59 Assessment/Plan Assessment/Plan Additional Assessment/Plan Assessment/Plan Assessment/Plan Additional Assessment/Plan 1. The patient definitely has biliary stricture with intrahepatic bile duct dilatation and abnormal LFT. 2. Leukocytosis, better on antibiotic. 3. Developmental delay. Plan Patient is a complete bile duct obstruction, pancreatic stent successfully deployed. Duodenum is fixed secondary to tumor. Ask Dr. Kilo De La Rosa to do PTC, but because of metastasis he declined it. Continue present care Advance diet Discussed with the both the brothers and he wants to make another attempt at ERCP to drain the bile duct Consultation Date/Type/Reason Admit Date/Time Jul 21, 2017 at 12:47 Initial Consult Date 07/22/17 Type of Consultation: Pulmonary Referring Provider: YASEMIN OLIVARES MD 24 HR Interval Summary Constitutional: improved, no complaints Exam/Review of Systems Vital Signs Vitals Vital Signs Date Time Temp Pulse Resp B/P Pulse Ox O2 Delivery O2 Flow Rate FiO2 07/26/17 15:21 98.7 98 16 99/66 100 07/26/17 08:20 Nasal Cannula 2.0 Intake and Output 07/25/17 07/25/17 07/26/17 15:00 23:00 07:00 Intake Total 350 ml 950 ml 1050 ml Output Total 250 ml 650 ml Balance 350 ml 700 ml 400 ml Exam Constitutional: alert, oriented, well developed Psych: nl mood/affect, no complaints Head: atraumatic, normocephalic Eyes: EOMI, PERRL, nl conjunctiva, nl lids, nl sclera ENMT: nl external ears & nose, nl lips & teeth, nl nasal mucosa & septum Neck: non-tender, supple Respiratory: clear to auscultation, normal air movement Cardiovascular: nl pulses, regular rate and rhythm Gastrointestinal: nl liver, spleen, non-tender, soft Musculoskeletal: nl extremities to inspection, nl gait and stance Extremities: normal pulses Neurological: ELECTRICIAN MARINE II-XII intact, nl mental status, nl speech, nl strength Skin: nl turgor, No rash or lesions Lymph: nl lymph nodes Results Result Diagram: 07/26/17 0646 07/26/17 0646 Results 24 hrs Laboratory Tests Test 07/25/17 23:06 07/26/17 06:46 07/26/17 11:00 Vancomycin Level Trough 16.4 White Blood Count 15.6 H Red Blood Count 3.06 L Hemoglobin 10.0 L Hematocrit 30.8 L Mean Corpuscular Volume 100.7 Mean Corpuscular Hemoglobin 32.7 Mean Corpuscular Hemoglobin Concent 32.5 Red Cell Distribution Width 19.0 H Platelet Count 202 Mean Platelet Volume 12.2 H Neutrophils % 82.3 H Lymphocytes % 7.5 L Monocytes % 5.1 Eosinophils % 0.1 Basophils % 0.5 Nucleated Red Blood Cells % 0.0 Neutrophils # 12.9 H Lymphocytes # 1.2 Monocytes # 0.8 Eosinophils # 0.0 Basophils # 0.1 Nucleated Red Blood Cells # 0.0 Sodium Level 138 Potassium Level 4.0 Chloride Level 103 Carbon Dioxide Level 28 Anion Gap 11 Blood Urea Nitrogen 20 Creatinine 1.30 H Glucose Level 97 Calcium Level 8.1 L Total Bilirubin 3.0 H Direct Bilirubin 2.00 H Indirect Bilirubin 1.0 Aspartate Amino Transf (AST/SGOT) 313 H Alanine Aminotransferase (ALT/SGPT) 232 H Alkaline Phosphatase 546 H Total Protein 5.4 L Albumin 2.2 L Globulin 3.20 Albumin/Globulin Ratio 0.68 Urine Color VJ Urine Clarity TURBID A Urine pH 5.0 Urine Specific [place] 1.034 H Urine Ketones NEGATIVE Urine Nitrite NEGATIVE Urine Bilirubin 1+ H Urine Urobilinogen 2+ H Urine Leukocyte Esterase NEGATIVE Urine Microscopic RBC 42 H Urine Microscopic WBC 5 Urine Amorphous Crystals MODERATE Urine Bacteria FEW A Urine Hemoglobin 2+ H Urine Glucose NEGATIVE Urine Total Protein 1+ H Medications Medications Current Medications Ondansetron HCl (Zofran Inj) 4 mg Q6H PRN IV NAUSEA AND/OR VOMITING Last administered on 07/23/17 17:29; Admin Dose 4 MG; Start 07/21/17 at 13:30 Metoclopramide HCl (Reglan) 10 mg Q6H PRN IV NAUSEA AND/OR VOMITING; Start at 13:30 Acetaminophen (Tylenol Tab) 650 mg Q6H PRN PO PAIN LEVEL 1-3 OR FEVER; Start 07/21/17 at 13:30 Enoxaparin Sodium 40 mg 40 mg DAILY SC Last administered on 07/22/17 17:40; Admin Dose 40 MG; Start 07/22/17 at 09:00 Piperacillin Sod/ Tazobactam Sod (Zosyn 3.375gm/ 50 ml (Pmx)) 50 ml @ 100 mls/ hr Q8 IVPB Last administered on 07/26/17 13:45; Admin Dose 100 MLS/HR; Start 07/21/17 at 22:00 Famotidine (Pepcid Iv) 20 mg Q12 IV Last administered on 07/26/17 08:45; Admin Dose 20 MG; Start 07/23/17 at 09:00 Morphine Sulfate (morphine) 1 mg Q6H PRN IV PAIN; Start 07/26/17 at 16:00 MERRY KWAN MD Jul 26, 2017 16:00
--- NOTE | 2017-07-26 17:20 | RADRPT ---
PROCEDURE: Ultrasound kidneys CLINICAL INDICATION: Hematuria TECHNIQUE: Transabdominal scan COMPARISON: None FINDINGS: Right kidney measures 9.8 cm, left kidney 12.3 cm without stones or hydronephrosis. Normal cortical thickness and echogenicity seen. Small ascites is seen. The Tian catheter noted in the bladder. IMPRESSION: No stones or hydronephrosis noted. RPTAT: [facility] Physician Deepika Date Time Electronically viewed and signed by Physician Deepika on 07/26/2017 17:20 MB/
[2017-07-27] VITALS (13 sets, daily range): BP systolic 88–100; BP diastolic 52–77; PULSE 95–110; RESP 17–19
[2017-07-27] MEDS ORDERED: VANCOMYCIN 750 MG in DEXTROSE 5% 150 ML IVPB SCH ×2
[2017-07-27] MEDS: PIPER-TAZO 3.375 GM IV (PMX) 50 ML IVPB SCH ×3 (05:20→21:32)
[2017-07-27 07:33] LABS: ABNORMAL IP MESSAGE 1; BASOPHIL # 0.1 10^3/ul (0.0-0.1); BASOPHILS % 0.6 % (0.0-2.0); EOSINOPHILS % 0.1 % (0.0-7.0); LYMPHOCYTES # 1.2 10^3/ul (0.8-2.9); LYMPHOCYTES % 7.5 % (15.0-51.0); MEAN CORPUSCULAR HEMOGLOBIN 33.4 pg (29.0-33.0); MEAN CORPUSCULAR HGB CONC 33.3 g/dl (32.0-37.0); MEAN CORPUSCULAR VOLUME 100.3 fl (82.0-101.0); MEAN PLATELET VOLUME 12.4 fl (7.4-10.4); MONOCYTE # 0.7 10^3/ul (0.3-0.9); MONOCYTES % 4.7 % (0.0-11.0); NEUTROPHILS % 81.6 % (39.0-77.0); PLATELET COUNT 197 10^3/UL (140-415); POSITIVE DIFF @See below; RED BLOOD COUNT 2.99 10^6/ul (4.70-6.10); RED CELL DISTRIBUTION WIDTH 19.5 % (11.5-14.5); WHITE BLOOD COUNT 15.9 10^3/ul (4.8-10.8)
[2017-07-27 07:56] LABS: ALBUMIN 2.2 g/dl (3.3-4.9); ALBUMIN/GLOBULIN RATIO 0.66; BILIRUBIN,DIRECT 2.9 mg/dl (0.00-0.20); BILIRUBIN,TOTAL 3.9 mg/dl (0.2-1.3); CALCIUM 8.3 mg/dl (8.4-10.2); CREATININE 1.4 mg/dl (0.61-1.24); POTASSIUM 4.1 mmol/L (3.5-5.1); TOTAL PROTEIN 5.5 g/dl (6.1-8.1)
[2017-07-27] MEDS: FAMOTIDINE 20 MG INJ IV SCH ×2 (08:55→21:32)
--- NOTE | 2017-07-27 12:21 | PN ---
VIOLETKDDYLANZohrehMADALYN 07/27/17 1221: Date/Time of Note Date/Time of Note DATE: 07/27/17 TIME: 12:20 Assessment/Plan VTE Prophylaxis VTE Prophylaxis Intervention: ambulation Lines/Catheters IV [facility] [place] Urinary Cath still in place: Yes Reason Cath still needed: urinary retention Assessment/Plan Chief Complaint/Hosp Course 1. Sepsis,on Zosyn Primary source is Pneumonia 2. Multiple liver masses with metastatic adenocarcinoma, primary gastrointestinal. Esophagogastroduodenoscopy and colonoscopy negative for any primary malignancy. 3. Hyponatremia, resolved 4. Mental retardation. 5. Hypothyroidism. 6. History of dyslipidemia. 7. History of gout. 8. Anemia 9. Hypoalbuminemia 10 Ventral hernia, containing fat 11. Hyperbilirubinemia. 12. Biliary stricture with intrahepatic bile duct dilatation and abnormal LFT. Problems: Assessment/Plan 1. UA negative for infection 2. No obvious sources of hematuria 3. chest xray Subjective 24 Hr Interval Summary Cardiovascular: no complaints Gastrointestinal: no complaints Exam/Review of Systems Vital Signs Vitals Vital Signs Date Time Temp Pulse Resp B/P Pulse Ox O2 Delivery O2 Flow Rate FiO2 07/27/17 11:49 98.5 108 18 90/53 95 07/27/17 08:20 Nasal Cannula 1.0 Intake and Output 07/26/17 07/26/17 07/27/17 15:00 23:00 07:00 Intake Total 300 ml 750 ml 120 ml Output Total 400 ml 400 ml Balance 300 ml 350 ml -280 ml Exam Constitutional: alert, oriented Cardiovascular: regular rate and rhythm Gastrointestinal: soft Results Result Diagram: 07/27/17 0643 07/27/17 0647 Results 24 hrs Laboratory Tests Test 07/27/17 06:43 07/27/17 06:47 White Blood Count 15.9 H Red Blood Count 2.99 L Hemoglobin 10.0 L Hematocrit 30.0 L Mean Corpuscular Volume 100.3 Mean Corpuscular Hemoglobin 33.4 H Mean Corpuscular Hemoglobin Concent 33.3 Red Cell Distribution Width 19.5 H Platelet Count 197 Mean Platelet Volume 12.4 H Neutrophils % 81.6 H Lymphocytes % 7.5 L Monocytes % 4.7 Eosinophils % 0.1 Basophils % 0.6 Nucleated Red Blood Cells % 0.0 Neutrophils # 13.0 H Lymphocytes # 1.2 Monocytes # 0.7 Eosinophils # 0.0 Basophils # 0.1 Nucleated Red Blood Cells # 0.0 Sodium Level 138 Potassium Level 4.1 Chloride Level 103 Carbon Dioxide Level 28 Anion Gap 11 Blood Urea Nitrogen 23 H Creatinine 1.40 H Glucose Level 87 Calcium Level 8.3 L Total Bilirubin 3.9 H Direct Bilirubin 2.90 H Indirect Bilirubin 1.0 Aspartate Amino Transf (AST/SGOT) 422 H Alanine Aminotransferase (ALT/SGPT) 244 H Alkaline Phosphatase 679 H Total Protein 5.5 L Albumin 2.2 L Globulin 3.30 H Albumin/Globulin Ratio 0.66 Medications Medications Current Medications Ondansetron HCl (Zofran Inj) 4 mg Q6H PRN IV NAUSEA AND/OR VOMITING Last administered on 07/23/17 17:29; Admin Dose 4 MG; Start 07/21/17 at 13:30 Metoclopramide HCl (Reglan) 10 mg Q6H PRN IV NAUSEA AND/OR VOMITING; Start at 13:30 Acetaminophen 650 mg 650 mg Q6H PRN PO PAIN LEVEL 1-3 OR FEVER; Start at 13:30 Piperacillin Sod/ Tazobactam Sod (Zosyn 3.375gm/ 50 ml (Pmx)) 50 ml @ 100 mls/ hr Q8 IVPB Last administered on 07/27/17 05:20; Admin Dose 100 MLS/HR; Start 07/21/17 at 22:00 Famotidine (Pepcid Iv) 20 mg Q12 IV Last administered on 07/27/17 08:55; Admin Dose 20 MG; Start 07/23/17 at 09:00 Morphine Sulfate (morphine) 1 mg Q6H PRN IV PAIN; Start 07/26/17 at 16:00 YASEMIN OLIVARES MD 07/27/17 1531: Assessment/Plan Assessment/Plan Assessment/Plan ERCP again tmw Will talk to Dr Mckee tmw for possible chemo Exam/Review of Systems Results Result Diagram: 07/27/17 0643 07/27/17 0647 MADALYN ART Jul 27, 2017 12:21 YASEMIN OLIVARES MD Jul 27, 2017 15:31
--- NOTE | 2017-07-27 13:15 | CONS ---
Date/Time of Note Date/Time of Note DATE: 07/27/17 TIME: 13:15 Assessment/Plan Assessment/Plan Additional Assessment/Plan Assessment/Plan Additional Assessment/Plan 1. The patient definitely has biliary stricture with intrahepatic bile duct dilatation and abnormal LFT. LFT is getting worse 2. Leukocytosis, better on antibiotic. 3. Developmental delay. Plan Patient is a complete bile duct obstruction, pancreatic stent successfully deployed. Duodenum is fixed secondary to tumor. Ask Dr. Kilo De La Rosa to do PTC, but because of metastasis he declined it. Continue present care Advance diet Discussed with the both the brothers and he wants to make another attempt at ERCP to drain the bile duct Patient is scheduled for ERCP tomorrow Consultation Date/Type/Reason Admit Date/Time Jul 21, 2017 at 12:47 Initial Consult Date 07/22/17 Type of Consultation: Pulmonary Referring Provider: YASEMIN OLIVARES MD 24 HR Interval Summary Constitutional: no complaints Exam/Review of Systems Vital Signs Vitals Vital Signs Date Time Temp Pulse Resp B/P Pulse Ox O2 Delivery O2 Flow Rate FiO2 07/27/17 12:30 105 07/27/17 11:49 98.5 18 90/53 95 07/27/17 08:20 Nasal Cannula 1.0 Intake and Output 07/26/17 07/26/17 07/27/17 15:00 23:00 07:00 Intake Total 300 ml 750 ml 120 ml Output Total 400 ml 400 ml Balance 300 ml 350 ml -280 ml Exam Constitutional: alert, oriented, well developed Psych: nl mood/affect, no complaints Head: atraumatic, normocephalic Eyes: EOMI, PERRL, nl conjunctiva, nl lids, nl sclera ENMT: nl external ears & nose, nl lips & teeth, nl nasal mucosa & septum Neck: non-tender, supple Respiratory: clear to auscultation, normal air movement Cardiovascular: nl pulses, regular rate and rhythm Gastrointestinal: nl liver, spleen, non-tender, soft Musculoskeletal: nl extremities to inspection, nl gait and stance Extremities: normal pulses Neurological: PLASTIC CARD GRADER CARDROOM II-XII intact, nl mental status, nl speech, nl strength Skin: nl turgor, No rash or lesions Lymph: nl lymph nodes Results Result Diagram: 07/27/17 0643 07/27/17 0647 Results 24 hrs Laboratory Tests Test 07/27/17 06:43 07/27/17 06:47 White Blood Count 15.9 H Red Blood Count 2.99 L Hemoglobin 10.0 L Hematocrit 30.0 L Mean Corpuscular Volume 100.3 Mean Corpuscular Hemoglobin 33.4 H Mean Corpuscular Hemoglobin Concent 33.3 Red Cell Distribution Width 19.5 H Platelet Count 197 Mean Platelet Volume 12.4 H Neutrophils % 81.6 H Lymphocytes % 7.5 L Monocytes % 4.7 Eosinophils % 0.1 Basophils % 0.6 Nucleated Red Blood Cells % 0.0 Neutrophils # 13.0 H Lymphocytes # 1.2 Monocytes # 0.7 Eosinophils # 0.0 Basophils # 0.1 Nucleated Red Blood Cells # 0.0 Sodium Level 138 Potassium Level 4.1 Chloride Level 103 Carbon Dioxide Level 28 Anion Gap 11 Blood Urea Nitrogen 23 H Creatinine 1.40 H Glucose Level 87 Calcium Level 8.3 L Total Bilirubin 3.9 H Direct Bilirubin 2.90 H Indirect Bilirubin 1.0 Aspartate Amino Transf (AST/SGOT) 422 H Alanine Aminotransferase (ALT/SGPT) 244 H Alkaline Phosphatase 679 H Total Protein 5.5 L Albumin 2.2 L Globulin 3.30 H Albumin/Globulin Ratio 0.66 Medications Medications Current Medications Ondansetron HCl (Zofran Inj) 4 mg Q6H PRN IV NAUSEA AND/OR VOMITING Last administered on 07/23/17 17:29; Admin Dose 4 MG; Start 07/21/17 at 13:30 Metoclopramide HCl (Reglan) 10 mg Q6H PRN IV NAUSEA AND/OR VOMITING; Start at 13:30 Acetaminophen 650 mg 650 mg Q6H PRN PO PAIN LEVEL 1-3 OR FEVER; Start at 13:30 Piperacillin Sod/ Tazobactam Sod (Zosyn 3.375gm/ 50 ml (Pmx)) 50 ml @ 100 mls/ hr Q8 IVPB Last administered on 07/27/17 05:20; Admin Dose 100 MLS/HR; Start 07/21/17 at 22:00 Famotidine (Pepcid Iv) 20 mg Q12 IV Last administered on 07/27/17 08:55; Admin Dose 20 MG; Start 07/23/17 at 09:00 Morphine Sulfate (morphine) 1 mg Q6H PRN IV PAIN; Start 07/26/17 at 16:00 MERRY KWAN MD Jul 27, 2017 13:15
[2017-07-27] MEDS: morphine 2 MG INJ IV PRN (19:13)
--- NOTE | 2017-07-27 21:38 | RADRPT ---
PROCEDURE: XR Chest. CLINICAL INDICATION: Shortness of breath. TECHNIQUE: Single frontal view. COMPARISON: 07/22/2017. FINDINGS: There is atelectasis at the lung bases, slightly improved. Right is worse than left. The lungs are o therwise clear. The heart size is normal. There is no pleural effusion. There is no pneumothorax. IMPRESSION: 1. Atelectasis at the lung bases, slightly improved with right worse than left. 2. Otherwise unremarkable chest radiograph. RPTAT: QQ .Kilo D eLa Rosa MD, MD Date Time Electronically viewed and signed by .Kilo De La Rosa MD, MD on 07/27/2017 21:37 .R/
[2017-07-28] VITALS (17 sets, daily range): BP systolic 81–125; BP diastolic 47–77; PULSE 96–118; RESP 16–42
[2017-07-28] MEDS: PIPER-TAZO 3.375 GM IV (PMX) 50 ML IVPB SCH ×3 (05:09→22:47)
[2017-07-28] MEDS: morphine 2 MG INJ IV PRN ×2 (05:13→13:22)
[2017-07-28] MEDS: FAMOTIDINE 20 MG INJ IV SCH ×2 (08:06→22:47)
--- NOTE | 2017-07-28 09:11 | RADRPT ---
PROCEDURE: XR Chest. CLINICAL INDICATION: Pulmonary edema. Dyspnea. Abnormal chest x-ray. Follow-up. TECHNIQUE: Single frontal chest x-ray. COMPARISON: 07/27/2017 FINDINGS: The lungs are remarkable for patchy infiltration in the lung bases, right greater than left. This is worse in the interim. Small right pleural effusion may be present. There is no pneumothorax. The ca rdiomediastinal silhouette is unremarkable. The osseous structures are unremarkable. IMPRESSION: 1. Worsening opacification in the lung bases, with a probable small right pleural effusion. Basilar pneumonia is a likely possibility. Continued treatment and short-term follow-up is advised. RPTAT: PP .Carlos Garduno MD, MD Date Time Electronically viewed and signed by .Carlos Garduno MD, on 07/28/2017 09:11 .B/
[2017-07-28] MEDS ORDERED: IOHEXOL 300MG/ML 30 ML BTL ONE (15:30)
[2017-07-28] MEDS ORDERED: INDOMETHACIN 50 MG SUPP PR ONE (15:30)
[2017-07-28] MEDS ORDERED: ROCURONIUM 50 MG INJ ONE (16:06)
[2017-07-28] MEDS ORDERED: PROPOFOL 0 ML ONE (16:06)
[2017-07-28] MEDS ORDERED: MIDAZOLAM 1 MG/ML 2 ML INJ ONE (16:06)
[2017-07-28] MEDS ORDERED: METOCLOPRAMIDE 10 MG INJ ONE (16:07)
[2017-07-28] MEDS ORDERED: PHENYLephrine (100 MCG/ML) 5ML SYG ONE (16:31)
[2017-07-28] MEDS ORDERED: CIPROFLOXACIN 400MG/D5W 200 ML ONE (16:40)
[2017-07-28] MEDS ORDERED: ETOMIDATE 20 MG INJ ONE (16:42)
[2017-07-28] MEDS ORDERED: FENTAnyl 50 MCG/ML VIAL ONE (17:14)
[2017-07-28] MEDS ORDERED: NEOSTIGMINE 3 MG/3 ML SYRINGE ONE (18:19)
[2017-07-28] MEDS ORDERED: LACTATED RINGER'S 1,000 ML IV SCH (19:00)
[2017-07-28] MEDS: ONDANSETRON 4 MG INJ IV PRN (19:02)
--- NOTE | 2017-07-28 19:04 | OPPN ---
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
[2017-07-28] MEDS: LACTATED RINGER'S 1,000 ML IV SCH (19:39)
--- NOTE | 2017-07-28 20:17 | PN ---
Date/Time of Note Date/Time of Note DATE: 07/28/17 TIME: 20:14 Assessment/Plan VTE Prophylaxis VTE Prophylaxis Intervention: other Lines/Catheters IV Catheter Type (from Nrs): Peripheral IV Urinary Cath still in place: Yes Reason Cath still needed: other (indicate) Assessment/Plan Chief Complaint/Hosp Course 1. Sepsis,on Zosyn 2. Multiple liver masses with metastatic adenocarcinoma, primary gastrointestinal. Esophagogastroduodenoscopy and colonoscopy negative for any primary malignancy. 3. Hyponatremia, resolved 4. Mental retardation. 5. Hypothyroidism. 6. History of dyslipidemia. 7. History of gout. 8. Anemia 9. Hypoalbuminemia 10 Ventral hernia, containing fat 11. Hyperbilirubinemia. 12. Biliary stricture with intrahepatic bile duct dilatation and abnormal LFT. 13 S/P ERCP plan ck labs per gi Problems: Subjective 24 Hr Interval Summary Subjective hx not possible: other (s/p ercp no stent placed unable) Exam/Review of Systems Vital Signs Vitals Vital Signs Date Time Temp Pulse Resp B/P Pulse Ox O2 Delivery O2 Flow Rate FiO2 07/28/17 19:50 97.5 101 21 81/47 97 07/28/17 19:07 Nasal Cannula 07/28/17 18:49 4.0 Intake and Output 07/27/17 07/27/17 07/28/17 15:00 23:00 07:00 Intake Total 500 ml 120 ml Output Total 600 ml Balance 500 ml -480 ml Exam Neck: supple Respiratory: clear to auscultation Cardiovascular: regular rate and rhythm Gastrointestinal: bowel sounds (+), soft Extremities: No edema Results Result Diagram: 07/27/17 0643 07/27/17 0647 Medications Medications Current Medications Ondansetron HCl (Zofran Inj) 4 mg Q6H PRN IV NAUSEA AND/OR VOMITING Last administered on 07/28/17t 19:02; Admin Dose 4 MG; Start 07/21/17 at 13:30 Metoclopramide HCl (Reglan) 10 mg Q6H PRN IV NAUSEA AND/OR VOMITING; Start at 13:30 Acetaminophen 650 mg 650 mg Q6H PRN PO PAIN LEVEL 1-3 OR FEVER; Start at 13:30 Piperacillin Sod/ Tazobactam Sod (Zosyn 3.375gm/ 50 ml (Pmx)) 50 ml @ 100 mls/ hr Q8 IVPB Last administered on 07/28/17 13:22; Admin Dose 100 MLS/HR; Start 07/21/17 at 22:00 Famotidine (Pepcid Iv) 20 mg Q12 IV Last administered on 07/28/17 08:06; Admin Dose 20 MG; Start 07/23/17 at 09:00 Morphine Sulfate 1 mg 1 mg Q6H PRN IV PAIN Last administered on 07/28/17 13: 22; Admin Dose 1 MG; Start 07/26/17 at 16:00 Lactated Ringer's 1,000 ml @ 150 mls/hr Q6H40M IV Last administered on 19:39; Admin Dose 150 MLS/HR; Start 07/28/17 at 23:01 Sodium Chloride (NS) 500 ml @ 500 mls/hr Q1H ONCE IV ; Start 07/28/17 at 20:30 ; Stop 07/28/17 at 21:29; Status KINGSLEY LOPZE MD Jul 28, 2017 20:17
[2017-07-28] MEDS ORDERED: SOD CHLORIDE 0.9% 500 ML IV ONE (20:30)
--- NOTE | 2017-07-28 21:18 | RADRPT ---
PROCEDURE: Intraoperative imaging for ERCP with fluoroscopy. CLINICAL INDICATION: Right upper quadrant pain. Intraoperative. TECHNIQUE: 5 images of the right upper quadrant of the abdomen were obtained in the operating room with an image intensifier. No radiologist was in attendance. Fluoroscopy time is 0.3 minutes. COMPARISON: ERCP dated 07/24/2017. FINDINGS: Images demonstrate the endoscope in position. There is no contrast in the common bile duct or pancre atic duct. IMPRESSION: 1. ERCP as described above. RPTAT: QQ .Kilo De La Rosa MD, MD Date Time Electronically viewed and signed by .Kilo De La Rosa MD, on 07/28/2017 21:18 .R/
[2017-07-29] VITALS (14 sets, daily range): BP systolic 77–100; BP diastolic 49–63; PULSE 93–180; RESP 15–23
--- NOTE | 2017-07-29 00:34 | GILP ---
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 Patient's bilirubin keeps going up, so the purpose is to try to put a stent in the bile duct if possible. The patient has a pancreatic stent which has protected the pancreatic duct, and because of his obesity, technically, it was difficult to put him in a prone position. So the procedure was done in a supine position. INFORMED CONSENT: The risk of the procedure, related and unrelated complications, anesthetic risks, alternatives were discussed. Informed consent was obtained. DESCRIPTION OF PROCEDURE: The patient was brought to the OR, room #5, placed in a supine position. He was intubated and ERCP scope passed with much ease into esophagus and advanced further down into stomach and the pancreatic stent was identified. We traced the stent, which led us to the ampulla. The sphincterotome was engaged. The wire was going only into the pancreatic duct and not into the bile duct, so at this point, decided to do a sphincterotomy. Sphincterotomy was done and after doi ng sphincterotomy and poking with a wire, there was a good flow of bile. We could see the bile comi ng out, but even with angulated wire, it was difficult to get a deeper cannulation into the bi le duct. The wire was going into the pancreatic duct. No contrast was injected and since the bile flow was good, we decided at this point to terminate the procedure and the scope was removed with go od patient tolerance. The patient was examined in the recovery room. He was extubated and had no s ymptoms. IMPRESSION: 1. Sphincterotomy done. Good biliary drainage established. 2. Deeper cannulation of the wire was not possible because of the tumor. 3. Pancreatic stent was intact. PLAN: Indocin suppository was given. We will continue with IV hydration with Ringer's lactate 250 mL per hour for the next 4 hours. Patient had received 1 liter of fluid in the OR altogether and th en will drop down the Ringer's lactate to 150 mL per hour. Continue with antibiotics for his pneum onia and will monitor LFT. Dictated By: MERRY KIM/EDGAR Conf#: [id number] DID#: [id number]
[2017-07-29] MEDS: PIPER-TAZO 3.375 GM IV (PMX) 50 ML IVPB SCH ×3 (05:56→22:24)
[2017-07-29] MEDS: LACTATED RINGER'S 1,000 ML IV SCH ×2 (05:56→12:21)
[2017-07-29 06:44] LABS: ABNORMAL IP MESSAGE 1; BASOPHIL # 0.1 10^3/ul (0.0-0.1); BASOPHILS % 0.7 % (0.0-2.0); EOSINOPHILS % 0.2 % (0.0-7.0); HEMATOCRIT 26.6 % (42.0-52.0); LYMPHOCYTES # 1.3 10^3/ul (0.8-2.9); LYMPHOCYTES % 7.7 % (15.0-51.0); MEAN CORPUSCULAR HEMOGLOBIN 33.7 pg (29.0-33.0); MEAN CORPUSCULAR HGB CONC 33.8 g/dl (32.0-37.0); MEAN CORPUSCULAR VOLUME 99.6 fl (82.0-101.0); MEAN PLATELET VOLUME 12.4 fl (7.4-10.4); MONOCYTE # 0.8 10^3/ul (0.3-0.9); MONOCYTES % 4.6 % (0.0-11.0); NEUTROPHIL # 12.7 10^3/ul (1.6-7.5); NEUTROPHILS % 77.4 % (39.0-77.0); PLATELET COUNT 189 10^3/UL (140-415); POSITIVE DIFF @See below; RED BLOOD COUNT 2.67 10^6/ul (4.70-6.10); RED CELL DISTRIBUTION WIDTH 20.8 % (11.5-14.5); WHITE BLOOD COUNT 16.4 10^3/ul (4.8-10.8)
[2017-07-29 07:16] LABS: ALBUMIN/GLOBULIN RATIO 0.64; BILIRUBIN,DIRECT 1.5 mg/dl (0.00-0.20); BILIRUBIN,INDIRECT 0.9 mg/dl (0-1.1); BILIRUBIN,TOTAL 2.4 mg/dl (0.2-1.3); CALCIUM 8.2 mg/dl (8.4-10.2); CREATININE 1.79 mg/dl (0.61-1.24); POTASSIUM 4.3 mmol/L (3.5-5.1); TOTAL PROTEIN 5.1 g/dl (6.1-8.1)
[2017-07-29] MEDS: FAMOTIDINE 20 MG INJ IV SCH ×2 (08:40→22:24)
[2017-07-29] MEDS: morphine 2 MG INJ IV PRN (08:40)
[2017-07-29] MEDS ORDERED: ALBUMIN HUMAN 25% 50 ML IV STA (09:33)
--- NOTE | 2017-07-29 12:15 | CONS ---
Date/Time of Note Date/Time of Note DATE: 07/29/17 TIME: 11:58 Assessment/Plan Assessment/Plan Chief Complaint/Hosp Course 52 yo with 1. Multiple liver masses - likely of gall bladder origin 2. Hyperbilirubinemia 3. Hypertension 4. Gout - clinical presentation and pathology make gall bladder primary the most likely -pt is now w/p ERCP and bilirubin has decreased -still given elevated AST/ALT Xeloda still carries its risk -will monitor LFTS and plan to start Xeloda during this admission if possible - extensive discussion was had with patient's brother who understands that given the elevated LFTS, Xeloda carries its risks given it is hepatically excreted. Still with families understanding and consent we can try this therapy A total of 40 minutes of rwby-ik-jows time was spent speaking with the patient, of which greater than 50% was spent in counseling and coordination of care and a detailed question and answer session. Problems: Consultation Date/Type/Reason Admit Date/Time Jul 21, 2017 at 12:47 Initial Consult Date 07/22/17 Type of Consultation: Hematology Reason for Consultation gall bladder cancer Referring Provider: YASEMIN OLIVARES MD 24 HR Interval Summary Free Text/Dictation pt had ERCP done yesterday with sphincterotomy, stent was noted to be in tact and biliary drainage was noted. Exam/Review of Systems Vital Signs Vitals Vital Signs Date Time Temp Pulse Resp B/P Pulse Ox O2 Delivery O2 Flow Rate FiO2 07/29/17 11:21 98 15 77/49 97 07/29/17 07:40 97.7 07/29/17 03:29 2.0 07/28/17 20:00 Nasal Cannula Intake and Output 07/28/17 07/28/17 07/29/17 15:00 23:00 07:00 Intake Total 2500 ml Output Total 450 ml 450 ml Balance -450 ml 2050 ml Exam Constitutional: alert, oriented Psych: no complaints Head: atraumatic, normocephalic Eyes: nl conjunctiva ENMT: nl external ears & nose Neck: non-tender, supple Respiratory: clear to auscultation, normal air movement Cardiovascular: regular rate and rhythm Gastrointestinal: soft Musculoskeletal: nl extremities to inspection Results Result Diagram: 07/29/17 0622 07/29/17 0621 Results 24 hrs Laboratory Tests Test 07/29/17 06:21 07/29/17 06:22 Sodium Level 137 Potassium Level 4.3 Chloride Level 104 Carbon Dioxide Level 25 Anion Gap 12 Blood Urea Nitrogen 32 H Creatinine 1.79 H Glucose Level 122 Calcium Level 8.2 L Total Bilirubin 2.4 H Direct Bilirubin 1.50 #H Indirect Bilirubin 0.9 Aspartate Amino Transf (AST/SGOT) 583 H Alanine Aminotransferase (ALT/SGPT) 287 H Alkaline Phosphatase 431 H Total Protein 5.1 L Albumin 2.0 L Globulin 3.10 Albumin/Globulin Ratio 0.64 White Blood Count 16.4 H Red Blood Count 2.67 L Hemoglobin 9.0 L Hematocrit 26.6 L Mean Corpuscular Volume 99.6 Mean Corpuscular Hemoglobin 33.7 H Mean Corpuscular Hemoglobin Concent 33.8 Red Cell Distribution Width 20.8 H Platelet Count 189 Mean Platelet Volume 12.4 H Neutrophils % 77.4 H Lymphocytes % 7.7 L Monocytes % 4.6 Eosinophils % 0.2 Basophils % 0.7 Nucleated Red Blood Cells % 0.0 Neutrophils # 12.7 H Lymphocytes # 1.3 Monocytes # 0.8 Eosinophils # 0.0 Basophils # 0.1 Nucleated Red Blood Cells # 0.0 Medications Medications Current Medications Ondansetron HCl (Zofran Inj) 4 mg Q6H PRN IV NAUSEA AND/OR VOMITING Last administered on 07/28/17 19:02; Admin Dose 4 MG; Start 07/21/17 at 13:30 Metoclopramide HCl (Reglan) 10 mg Q6H PRN IV NAUSEA AND/OR VOMITING; Start at 13:30 Acetaminophen 650 mg 650 mg Q6H PRN PO PAIN LEVEL 1-3 OR FEVER; Start at 13:30 Piperacillin Sod/ Tazobactam Sod (Zosyn 3.375gm/ 50 ml (Pmx)) 50 ml @ 100 mls/ hr Q8 IVPB Last administered on 07/29/17 05:56; Admin Dose 100 MLS/HR; Start 07/21/17 at 22:00 Famotidine (Pepcid Iv) 20 mg Q12 IV Last administered on 07/29/17 08:40; Admin Dose 20 MG; Start 07/23/17 at 09:00 Morphine Sulfate 1 mg 1 mg Q6H PRN IV PAIN Last administered on 07/29/17 08: 40; Admin Dose 1 MG; Start 07/26/17 at 16:00 Lactated Ringer's (Lr) 1,000 ml @ 150 mls/hr Q6H40M IV Last administered on 05:56; Admin Dose 150 MLS/HR; Start 07/28/17 at 23:01 EMIGDIO SPIVEY M.D. Jul 29, 2017 12:07
[2017-07-29 12:26] LABS: ABNORMAL IP MESSAGE 1; BASOPHIL # 0.1 10^3/ul (0.0-0.1); BASOPHILS % 0.8 % (0.0-2.0); EOSINOPHILS % 0.3 % (0.0-7.0); HEMATOCRIT 28.1 % (42.0-52.0); HEMOGLOBIN 9.3 g/dl (14.0-18.0); LYMPHOCYTES # 1.1 10^3/ul (0.8-2.9); MEAN CORPUSCULAR HEMOGLOBIN 33.2 pg (29.0-33.0); MEAN CORPUSCULAR HGB CONC 33.1 g/dl (32.0-37.0); MEAN CORPUSCULAR VOLUME 100.4 fl (82.0-101.0); MEAN PLATELET VOLUME 12.6 fl (7.4-10.4); MONOCYTE # 0.6 10^3/ul (0.3-0.9); NEUTROPHIL # 12.5 10^3/ul (1.6-7.5); NEUTROPHILS % 78.6 % (39.0-77.0); PLATELET COUNT 191 10^3/UL (140-415); POSITIVE DIFF @See below; RED CELL DISTRIBUTION WIDTH 20.5 % (11.5-14.5); WHITE BLOOD COUNT 15.9 10^3/ul (4.8-10.8)
[2017-07-29 12:55] LABS: ANISOCYTOSIS 3+ (0-0); EOSINOPHILS % (M) 1 % (0-7); METAMYELOCYTES %M 5 % (0-0); MONOCYTES % (M) 2 % (0-11); PLATELET ESTIMATE NORMAL; POLYCHROMASIA 1+ (0-0); TARGET CELLS 1+ (0-0)
[2017-07-29] MEDS: FUROSEMIDE 20 MG INJ IV SCH (16:40)
--- NOTE | 2017-07-29 18:40 | PN ---
Date/Time of Note Date/Time of Note DATE: 07/29/17 TIME: 18:38 Assessment/Plan VTE Prophylaxis VTE Prophylaxis Intervention: other Lines/Catheters IV Catheter Type (from Nrs): Saline Lock Urinary Cath still in place: Yes Reason Cath still needed: other (indicate) Assessment/Plan Chief Complaint/Hosp Course 1. Sepsis,on Zosyn 2. Multiple liver masses with metastatic adenocarcinoma, primary gastrointestinal. Esophagogastroduodenoscopy and colonoscopy negative for any primary malignancy. 3. Hyponatremia, resolved 4. Mental retardation. 5. Hypothyroidism. 6. History of dyslipidemia. 7. History of gout. 8. Anemia 9. Hypoalbuminemia 10 Ventral hernia, containing fat 11. Hyperbilirubinemia. 12. Biliary stricture with intrahepatic bile duct dilatation and abnormal LFT.S /P ERCP 13 S/P ERCP 14 EDEMA LEGS plan ck labs per gi PER DR ALLYSSA POPE Problems: Subjective 24 Hr Interval Summary Respiratory: cough (+) Gastrointestinal: pain (+) Genitourinary: no complaints Exam/Review of Systems Vital Signs Vitals Vital Signs Date Time Temp Pulse Resp B/P Pulse Ox O2 Delivery O2 Flow Rate FiO2 07/29/17 17:15 3.0 07/29/17 16:00 109 07/29/17 15:18 99.4 16 91/59 97 07/29/17 08:15 Nasal Cannula Intake and Output 07/28/17 07/28/17 07/29/17 14:59 22:59 06:59 Intake Total 2500 ml Output Total 450 ml 450 ml Balance -450 ml 2050 ml Exam Respiratory: diminished breath sounds Cardiovascular: regular rate and rhythm Gastrointestinal: bowel sounds (+), soft Extremities: edema (++) Results Result Diagram: 07/29/17 1126 07/29/17 0621 Results 24 hrs Laboratory Tests Test 07/29/17 06:21 07/29/17 06:22 07/29/17 11:26 Sodium Level 137 Potassium Level 4.3 Chloride Level 104 Carbon Dioxide Level 25 Anion Gap 12 Blood Urea Nitrogen 32 H Creatinine 1.79 H Glucose Level 122 Calcium Level 8.2 L Total Bilirubin 2.4 H Direct Bilirubin 1.50 #H Indirect Bilirubin 0.9 Aspartate Amino Transf (AST/SGOT) 583 H Alanine Aminotransferase (ALT/SGPT) 287 H Alkaline Phosphatase 431 H Total Protein 5.1 L Albumin 2.0 L Globulin 3.10 Albumin/Globulin Ratio 0.64 White Blood Count 16.4 H 15.9 H Red Blood Count 2.67 L 2.80 L Hemoglobin 9.0 L 9.3 L Hematocrit 26.6 L 28.1 L Mean Corpuscular Volume 99.6 100.4 Mean Corpuscular Hemoglobin 33.7 H 33.2 H Mean Corpuscular Hemoglobin Concent 33.8 33.1 Red Cell Distribution Width 20.8 H 20.5 H Platelet Count 189 191 Mean Platelet Volume 12.4 H 12.6 H Neutrophils % 77.4 H 78.6 H Lymphocytes % 7.7 L 7.0 L Monocytes % 4.6 4.0 Eosinophils % 0.2 0.3 Basophils % 0.7 0.8 Nucleated Red Blood Cells % 0.0 0.0 Neutrophils # 12.7 H 12.5 H Lymphocytes # 1.3 1.1 Monocytes # 0.8 0.6 Eosinophils # 0.0 0.0 Basophils # 0.1 0.1 Nucleated Red Blood Cells # 0.0 0.0 Segmented Neutrophils % (Manual) 63 Band Neutrophils % (Manual) 23 H Lymphocytes % (Manual) 6 L Monocytes % (Manual) 2 Eosinophils % (Manual) 1 Metamyelocytes % (manual) 5 H Neutrophils # (Manual) 10.6 H Band Neutrophils # 3.6 H Absolute Lymphocytes (Manual) 0.9 Absolute Monocytes (Manual) 0.3 Metamyelocytes # 0.7 H Platelet Estimate NORMAL Polychromasia 1+ Anisocytosis 3+ Macrocytosis 3+ Target Cells 1+ Amylase Level 161 H Medications Medications Current Medications Ondansetron HCl (Zofran Inj) 4 mg Q6H PRN IV NAUSEA AND/OR VOMITING Last administered on 07/28/17 19:02; Admin Dose 4 MG; Start 07/21/17 at 13:30 Metoclopramide HCl (Reglan) 10 mg Q6H PRN IV NAUSEA AND/OR VOMITING; Start at 13:30 Acetaminophen 650 mg 650 mg Q6H PRN PO PAIN LEVEL 1-3 OR FEVER; Start at 13:30 Piperacillin Sod/ Tazobactam Sod (Zosyn 3.375gm/ 50 ml (Pmx)) 50 ml @ 100 mls/ hr Q8 IVPB Last administered on 07/29/17 13:38; Admin Dose 100 MLS/HR; Start 07/21/17 at 22:00 Famotidine (Pepcid Iv) 20 mg Q12 IV Last administered on 07/29/17 08:40; Admin Dose 20 MG; Start 07/23/17 at 09:00 Morphine Sulfate (morphine) 1 mg Q6H PRN IV PAIN Last administered on 08:40; Admin Dose 1 MG; Start 07/26/17 at 16:00 Furosemide (Lasix) 20 mg DAILY IV Last administered on 07/29/17 16:40; Admin Dose 20 MG; Start 07/29/17 at 16:00 KINGSLEY OVALLE MD Jul 29, 2017 18:40
--- NOTE | 2017-07-29 18:51 | CONS ---
Date/Time of Note Date/Time of Note DATE: 07/29/17 TIME: 18:50 Assessment/Plan Assessment/Plan Additional Assessment/Plan Assessment/Plan Additional Assessment/Plan 1. The patient definitely has biliary stricture with intrahepatic bile duct dilatation and abnormal LFT. LFT is getting worse 2. Leukocytosis, better on antibiotic. 3. Developmental delay. Plan Patient is a complete bile duct obstruction, pancreatic stent successfully deployed. Sphincterotomy was done and does a good drainage. Patient bilirubin is coming down Duodenum is fixed secondary to tumor. Ask Dr. Kilo De La Rosa to do PTC, but because of metastasis he declined it. Continue present care Advance diet Discussed with the brother [id number] and also on telephone. Once the bilirubin is below 2 we can start the patient on a chemotherapy Consultation Date/Type/Reason Admit Date/Time Jul 21, 2017 at 12:47 Initial Consult Date 07/22/17 Type of Consultation: Hematology Referring Provider: YASEMIN OLIVARES MD 24 HR Interval Summary Constitutional: improved Exam/Review of Systems Vital Signs Vitals Vital Signs Date Time Temp Pulse Resp B/P Pulse Ox O2 Delivery O2 Flow Rate FiO2 07/29/17 17:15 3.0 07/29/17 16:00 109 07/29/17 15:18 99.4 16 91/59 97 07/29/17 08:15 Nasal Cannula Intake and Output 07/28/17 07/28/17 07/29/17 15:00 23:00 07:00 Intake Total 2500 ml Output Total 450 ml 450 ml Balance -450 ml 2050 ml Exam Constitutional: alert, oriented, well developed Psych: nl mood/affect, no complaints Head: atraumatic, normocephalic Eyes: EOMI, PERRL, nl conjunctiva, nl lids, nl sclera ENMT: nl external ears & nose, nl lips & teeth, nl nasal mucosa & septum Neck: non-tender, supple Respiratory: clear to auscultation, normal air movement Cardiovascular: nl pulses, regular rate and rhythm Gastrointestinal: nl liver, spleen, non-tender, soft Musculoskeletal: nl extremities to inspection, nl gait and stance Extremities: normal pulses Neurological: MARBLE MASON II-XII intact, nl mental status, nl speech, nl strength Skin: nl turgor, No rash or lesions Lymph: nl lymph nodes Results Result Diagram: 07/29/17 1126 07/29/17 0621 Results 24 hrs Laboratory Tests Test 07/29/17 06:21 07/29/17 06:22 07/29/17 11:26 Sodium Level 137 Potassium Level 4.3 Chloride Level 104 Carbon Dioxide Level 25 Anion Gap 12 Blood Urea Nitrogen 32 H Creatinine 1.79 H Glucose Level 122 Calcium Level 8.2 L Total Bilirubin 2.4 H Direct Bilirubin 1.50 #H Indirect Bilirubin 0.9 Aspartate Amino Transf (AST/SGOT) 583 H Alanine Aminotransferase (ALT/SGPT) 287 H Alkaline Phosphatase 431 H Total Protein 5.1 L Albumin 2.0 L Globulin 3.10 Albumin/Globulin Ratio 0.64 White Blood Count 16.4 H 15.9 H Red Blood Count 2.67 L 2.80 L Hemoglobin 9.0 L 9.3 L Hematocrit 26.6 L 28.1 L Mean Corpuscular Volume 99.6 100.4 Mean Corpuscular Hemoglobin 33.7 H 33.2 H Mean Corpuscular Hemoglobin Concent 33.8 33.1 Red Cell Distribution Width 20.8 H 20.5 H Platelet Count 189 191 Mean Platelet Volume 12.4 H 12.6 H Neutrophils % 77.4 H 78.6 H Lymphocytes % 7.7 L 7.0 L Monocytes % 4.6 4.0 Eosinophils % 0.2 0.3 Basophils % 0.7 0.8 Nucleated Red Blood Cells % 0.0 0.0 Neutrophils # 12.7 H 12.5 H Lymphocytes # 1.3 1.1 Monocytes # 0.8 0.6 Eosinophils # 0.0 0.0 Basophils # 0.1 0.1 Nucleated Red Blood Cells # 0.0 0.0 Segmented Neutrophils % (Manual) 63 Band Neutrophils % (Manual) 23 H Lymphocytes % (Manual) 6 L Monocytes % (Manual) 2 Eosinophils % (Manual) 1 Metamyelocytes % (manual) 5 H Neutrophils # (Manual) 10.6 H Band Neutrophils # 3.6 H Absolute Lymphocytes (Manual) 0.9 Absolute Monocytes (Manual) 0.3 Metamyelocytes # 0.7 H Platelet Estimate NORMAL Polychromasia 1+ Anisocytosis 3+ Macrocytosis 3+ Target Cells 1+ Amylase Level 161 H Medications Medications Current Medications Ondansetron HCl (Zofran Inj) 4 mg Q6H PRN IV NAUSEA AND/OR VOMITING Last administered on 07/28/17t 19:02; Admin Dose 4 MG; Start 07/21/17 at 13:30 Metoclopramide HCl (Reglan) 10 mg Q6H PRN IV NAUSEA AND/OR VOMITING; Start at 13:30 Acetaminophen 650 mg 650 mg Q6H PRN PO PAIN LEVEL 1-3 OR FEVER; Start at 13:30 Piperacillin Sod/ Tazobactam Sod (Zosyn 3.375gm/ 50 ml (Pmx)) 50 ml @ 100 mls/ hr Q8 IVPB Last administered on 07/29/17 13:38; Admin Dose 100 MLS/HR; Start 07/21/17 at 22:00 Famotidine (Pepcid Iv) 20 mg Q12 IV Last administered on 07/29/17 08:40; Admin Dose 20 MG; Start 07/23/17 at 09:00 Morphine Sulfate (morphine) 1 mg Q6H PRN IV PAIN Last administered on 08:40; Admin Dose 1 MG; Start 07/26/17 at 16:00 Furosemide (Lasix) 20 mg DAILY IV Last administered on 07/29/17 16:40; Admin Dose 20 MG; Start 07/29/17 at 16:00 MERRY KWAN MD Jul 29, 2017 18:51
[2017-07-30] VITALS (12 sets, daily range): BP systolic 83–109; BP diastolic 52–61; PULSE 100–120; RESP 15–20
[2017-07-30] MEDS: PIPER-TAZO 3.375 GM IV (PMX) 50 ML IVPB SCH ×3 (05:44→21:51)
[2017-07-30] MEDS: morphine 2 MG INJ IV PRN ×2 (05:44→13:03)
[2017-07-30 07:44] LABS: ABNORMAL IP MESSAGE 1; BASOPHIL # 0.1 10^3/ul (0.0-0.1); BASOPHILS % 0.5 % (0.0-2.0); EOSINOPHILS % 0.1 % (0.0-7.0); HEMATOCRIT 27.4 % (42.0-52.0); HEMOGLOBIN 9.1 g/dl (14.0-18.0); LYMPHOCYTES # 1.3 10^3/ul (0.8-2.9); LYMPHOCYTES % 7.6 % (15.0-51.0); MEAN CORPUSCULAR HEMOGLOBIN 33.3 pg (29.0-33.0); MEAN CORPUSCULAR HGB CONC 33.2 g/dl (32.0-37.0); MEAN CORPUSCULAR VOLUME 100.4 fl (82.0-101.0); MEAN PLATELET VOLUME 12.5 fl (7.4-10.4); MONOCYTE # 0.7 10^3/ul (0.3-0.9); MONOCYTES % 4.2 % (0.0-11.0); NEUTROPHIL # 13.7 10^3/ul (1.6-7.5); PLATELET COUNT 184 10^3/UL (140-415); POSITIVE DIFF @See below; RED BLOOD COUNT 2.73 10^6/ul (4.70-6.10); RED CELL DISTRIBUTION WIDTH 20.9 % (11.5-14.5); WHITE BLOOD COUNT 17.3 10^3/ul (4.8-10.8)
[2017-07-30 08:12] LABS: ALBUMIN 2.1 g/dl (3.3-4.9); ALBUMIN/GLOBULIN RATIO 0.7; BILIRUBIN,DIRECT 1.1 mg/dl (0.00-0.20); BILIRUBIN,INDIRECT 0.8 mg/dl (0-1.1); BILIRUBIN,TOTAL 1.9 mg/dl (0.2-1.3); CREATININE 1.89 mg/dl (0.61-1.24); POTASSIUM 4.3 mmol/L (3.5-5.1); TOTAL PROTEIN 5.1 g/dl (6.1-8.1)
[2017-07-30] MEDS: FAMOTIDINE 20 MG INJ IV SCH (08:14)
[2017-07-30] MEDS: FUROSEMIDE 20 MG INJ IV SCH (09:00)
--- NOTE | 2017-07-30 09:10 | CONS ---
Date/Time of Note Date/Time of Note DATE: 07/30/17 TIME: 09:09 Assessment/Plan Assessment/Plan Chief Complaint/Hosp Course 52 yo with 1. Multiple liver masses - likely of gall bladder origin 2. Hyperbilirubinemia 3. Hypertension 4. Gout - clinical presentation and pathology make gall bladder primary the most likely -pt is now w/p ERCP and bilirubin has decreased -still given elevated AST/ALT Xeloda still carries its risk -will monitor LFTS and plan to start Xeloda during this admission if possible - extensive discussion was had with patient's brother who understands that given the elevated LFTS, Xeloda carries its risks given it is hepatically excreted. Still with families understanding and consent we can try this therapy A total of 40 minutes of [id number] time was spent speaking with the patient, of which greater than 50% was spent in counseling and coordination of care and a detailed question and answer session. Problems: Consultation Date/Type/Reason Admit Date/Time Jul 21, 2017 at 12:47 Initial Consult Date 07/22/17 Type of Consultation: Hematology Reason for Consultation metastatic gall bladder cancer Referring Provider: YASEMIN OLIVARES MD 24 HR Interval Summary Free Text/Dictation pt continues to feel better post ERCP. having bowel movements Exam/Review of Systems Vital Signs Vitals Vital Signs Date Time Temp Pulse Resp B/P Pulse Ox O2 Delivery O2 Flow Rate FiO2 07/30/17 08:34 100 07/30/17 07:46 99.0 16 85/54 95 07/30/17 06:33 3.0 07/29/17 20:00 Nasal Cannula Intake and Output 07/29/17 07/29/17 07/30/17 14:59 22:59 06:59 Intake Total 50 ml 700 ml 50 ml Output Total 200 ml Balance 50 ml 500 ml 50 ml Exam Constitutional: alert, oriented Psych: no complaints Head: atraumatic, normocephalic Eyes: nl conjunctiva ENMT: nl external ears & nose Neck: non-tender, supple Respiratory: clear to auscultation Cardiovascular: regular rate and rhythm Gastrointestinal: soft Musculoskeletal: nl extremities to inspection Extremities: normal pulses Neurological: FINANCE ADVISOR II-XII intact Results Result Diagram: 07/30/17 0625 07/30/17 0625 Results 24 hrs Laboratory Tests Test 07/29/17 11:26 07/30/17 06:25 White Blood Count 15.9 H 17.3 H Red Blood Count 2.80 L 2.73 L Hemoglobin 9.3 L 9.1 L Hematocrit 28.1 L 27.4 L Mean Corpuscular Volume 100.4 100.4 Mean Corpuscular Hemoglobin 33.2 H 33.3 H Mean Corpuscular Hemoglobin Concent 33.1 33.2 Red Cell Distribution Width 20.5 H 20.9 H Platelet Count 191 184 Mean Platelet Volume 12.6 H 12.5 H Neutrophils % 78.6 H 79.0 H Segmented Neutrophils % (Manual) 63 Band Neutrophils % (Manual) 23 H Lymphocytes % 7.0 L 7.6 L Lymphocytes % (Manual) 6 L Monocytes % 4.0 4.2 Monocytes % (Manual) 2 Eosinophils % 0.3 0.1 Eosinophils % (Manual) 1 Basophils % 0.8 0.5 Metamyelocytes % (manual) 5 H Nucleated Red Blood Cells % 0.0 0.0 Neutrophils # 12.5 H 13.7 H Neutrophils # (Manual) 10.6 H Band Neutrophils # 3.6 H Absolute Lymphocytes (Manual) 0.9 Lymphocytes # 1.1 1.3 Monocytes # 0.6 0.7 Absolute Monocytes (Manual) 0.3 Eosinophils # 0.0 0.0 Basophils # 0.1 0.1 Metamyelocytes # 0.7 H Nucleated Red Blood Cells # 0.0 0.0 Platelet Estimate NORMAL Polychromasia 1+ Anisocytosis 3+ Macrocytosis 3+ Target Cells 1+ Amylase Level 161 H Sodium Level 136 Potassium Level 4.3 Chloride Level 101 Carbon Dioxide Level 26 Anion Gap 13 Blood Urea Nitrogen 33 H Creatinine 1.89 H Glucose Level 91 Calcium Level 8.0 L Total Bilirubin 1.9 H Direct Bilirubin 1.10 H Indirect Bilirubin 0.8 Aspartate Amino Transf (AST/SGOT) 515 H Alanine Aminotransferase (ALT/SGPT) 277 H Alkaline Phosphatase 428 H Total Protein 5.1 L Albumin 2.1 L Globulin 3.00 Albumin/Globulin Ratio 0.70 Medications Medications Current Medications Ondansetron HCl (Zofran Inj) 4 mg Q6H PRN IV NAUSEA AND/OR VOMITING Last administered on 07/28/17t 19:02; Admin Dose 4 MG; Start 07/21/17 at 13:30 Metoclopramide HCl (Reglan) 10 mg Q6H PRN IV NAUSEA AND/OR VOMITING; Start at 13:30 Acetaminophen 650 mg 650 mg Q6H PRN PO PAIN LEVEL 1-3 OR FEVER; Start at 13:30 Piperacillin Sod/ Tazobactam Sod (Zosyn 3.375gm/ 50 ml (Pmx)) 50 ml @ 100 mls/ hr Q8 IVPB Last administered on 07/30/17 05:44; Admin Dose 100 MLS/HR; Start 07/21/17 at 22:00 Famotidine (Pepcid Iv) 20 mg Q12 IV Last administered on 07/30/17 08:14; Admin Dose 20 MG; Start 07/23/17 at 09:00 Morphine Sulfate (morphine) 1 mg Q6H PRN IV PAIN Last administered on 05:44; Admin Dose 1 MG; Start 07/26/17 at 16:00 Furosemide (Lasix) 20 mg DAILY IV Last administered on 07/29/17 16:40; Admin Dose 20 MG; Start 07/29/17 at 16:00 EMIGDIO SPIVEY M.D. Jul 30, 2017 09:10
--- NOTE | 2017-07-30 12:41 | PN ---
Date/Time of Note Date/Time of Note DATE: 07/30/17 TIME: 12:40 Assessment/Plan VTE Prophylaxis VTE Prophylaxis Intervention: other Lines/Catheters [facility] Saline Lock Assessment/Plan Chief Complaint/Hosp Course 1. Sepsis,on Zosyn 2. Multiple liver masses with metastatic adenocarcinoma, primary gastrointestinal. Esophagogastroduodenoscopy and colonoscopy negative for any primary malignancy. 3. Hyponatremia, resolved 4. Mental retardation. 5. Hypothyroidism. 6. History of dyslipidemia. 7. History of gout. 8. Anemia 9. Hypoalbuminemia 10 Ventral hernia, containing fat 11. Hyperbilirubinemia. 12. Biliary stricture with intrahepatic bile duct dilatation and abnormal LFT.S /P ERCP 13 S/P ERCP 14 EDEMA LEGS plan ck labs per gi PER DR ALLYSSA POPE Problems: Subjective 24 Hr Interval Summary Respiratory: no complaints Cardiovascular: no complaints Gastrointestinal: no complaints Exam/Review of Systems Vital Signs Vitals Vital Signs Date Time Temp Pulse Resp B/P Pulse Ox O2 Delivery O2 Flow Rate FiO2 07/30/17 12:21 107 07/30/17 11:28 99.2 18 109/61 98 07/30/17 06:33 3.0 07/29/17 20:00 Nasal Cannula Intake and Output 07/29/17 07/29/17 07/30/17 14:59 22:59 06:59 Intake Total 50 ml 700 ml 50 ml Output Total 200 ml Balance 50 ml 500 ml 50 ml Exam Neck: supple Respiratory: clear to auscultation Cardiovascular: regular rate and rhythm Gastrointestinal: soft Musculoskeletal: nl extremities to inspection Extremities: edema (++) Results Result Diagram: 07/30/1725 07/30/17 0625 Results 24 hrs Laboratory Tests Test 07/30/17 06:25 White Blood Count 17.3 H Red Blood Count 2.73 L Hemoglobin 9.1 L Hematocrit 27.4 L Mean Corpuscular Volume 100.4 Mean Corpuscular Hemoglobin 33.3 H Mean Corpuscular Hemoglobin Concent 33.2 Red Cell Distribution Width 20.9 H Platelet Count 184 Mean Platelet Volume 12.5 H Neutrophils % 79.0 H Lymphocytes % 7.6 L Monocytes % 4.2 Eosinophils % 0.1 Basophils % 0.5 Nucleated Red Blood Cells % 0.0 Neutrophils # 13.7 H Lymphocytes # 1.3 Monocytes # 0.7 Eosinophils # 0.0 Basophils # 0.1 Nucleated Red Blood Cells # 0.0 Sodium Level 136 Potassium Level 4.3 Chloride Level 101 Carbon Dioxide Level 26 Anion Gap 13 Blood Urea Nitrogen 33 H Creatinine 1.89 H Glucose Level 91 Calcium Level 8.0 L Total Bilirubin 1.9 H Direct Bilirubin 1.10 H Indirect Bilirubin 0.8 Aspartate Amino Transf (AST/SGOT) 515 H Alanine Aminotransferase (ALT/SGPT) 277 H Alkaline Phosphatase 428 H Total Protein 5.1 L Albumin 2.1 L Globulin 3.00 Albumin/Globulin Ratio 0.70 Medications Medications Current Medications Ondansetron HCl (Zofran Inj) 4 mg Q6H PRN IV NAUSEA AND/OR VOMITING Last administered on 07/28/17 19:02; Admin Dose 4 MG; Start 07/21/17 at 13:30 Metoclopramide HCl (Reglan) 10 mg Q6H PRN IV NAUSEA AND/OR VOMITING; Start at 13:30 Acetaminophen 650 mg 650 mg Q6H PRN PO PAIN LEVEL 1-3 OR FEVER; Start at 13:30 Piperacillin Sod/ Tazobactam Sod (Zosyn 3.375gm/ 50 ml (Pmx)) 50 ml @ 100 mls/ hr Q8 IVPB Last administered on 07/30/17 05:44; Admin Dose 100 MLS/HR; Start 07/21/17 at 22:00 Famotidine (Pepcid Iv) 20 mg Q12 IV Last administered on 07/30/17 08:14; Admin Dose 20 MG; Start 07/23/17 at 09:00 Morphine Sulfate (morphine) 1 mg Q6H PRN IV PAIN Last administered on 05:44; Admin Dose 1 MG; Start 07/26/17 at 16:00 Furosemide (Lasix) 20 mg DAILY IV Last administered on 07/29/17 16:40; Admin Dose 20 MG; Start 07/29/17 at 16:00 KINGSLEY OVALLE MD Jul 30, 2017 12:40
[2017-07-30] MEDS: ONDANSETRON 4 MG INJ IV PRN (13:02)
--- NOTE | 2017-07-30 18:46 | CONS ---
Date/Time of Note Date/Time of Note DATE: 07/30/17 TIME: 18:44 Assessment/Plan Assessment/Plan Additional Assessment/Plan Additional Assessment/Plan 1. The patient definitely has biliary stricture with intrahepatic bile duct dilatation and abnormal LFT. LFT is improving 2. Leukocytosis, better on antibiotic. 3. Developmental delay. 4. Renal insufficiency 5. Hypertension 6. 2-3+ pedal edema Plan Patient is a complete bile duct obstruction, pancreatic stent successfully deployed. Sphincterotomy was done and does a good drainage. Patient bilirubin is coming down Duodenum is fixed secondary to tumor. Ask Dr. Kilo De La Rosa to do PTC, but because of metastasis he declined it. Continue present care Advance diet Discussed with the brother [id number] and also on telephone. Patient's liver function test improving slowly. Renal function is deteriorating Consultation Date/Type/Reason Admit Date/Time Jul 21, 2017 at 12:47 Initial Consult Date 07/22/17 Type of Consultation: Hematology Referring Provider: YASEMIN OLIVARES MD 24 HR Interval Summary Constitutional: improved Exam/Review of Systems Vital Signs Vitals Vital Signs Date Time Temp Pulse Resp B/P Pulse Ox O2 Delivery O2 Flow Rate FiO2 07/30/17 16:23 101 07/30/17 15:15 97.4 15 86/52 98 07/30/17 14:00 3.0 07/30/17 08:00 Nasal Cannula Intake and Output 07/29/17 07/29/17 07/30/17 15:00 23:00 07:00 Intake Total 50 ml 700 ml 300 ml Output Total 200 ml 350 ml Balance 50 ml 500 ml -50 ml Exam Cardiovascular: nl pulses, regular rate and rhythm Gastrointestinal: nl liver, spleen, non-tender, soft Musculoskeletal: nl extremities to inspection, nl gait and stance Extremities: edema, pitting pedal edema Results Result Diagram: 07/30/17 0625 07/30/17 0625 Results 24 hrs Laboratory Tests Test 07/30/17 06:25 White Blood Count 17.3 H Red Blood Count 2.73 L Hemoglobin 9.1 L Hematocrit 27.4 L Mean Corpuscular Volume 100.4 Mean Corpuscular Hemoglobin 33.3 H Mean Corpuscular Hemoglobin Concent 33.2 Red Cell Distribution Width 20.9 H Platelet Count 184 Mean Platelet Volume 12.5 H Neutrophils % 79.0 H Lymphocytes % 7.6 L Monocytes % 4.2 Eosinophils % 0.1 Basophils % 0.5 Nucleated Red Blood Cells % 0.0 Neutrophils # 13.7 H Lymphocytes # 1.3 Monocytes # 0.7 Eosinophils # 0.0 Basophils # 0.1 Nucleated Red Blood Cells # 0.0 Sodium Level 136 Potassium Level 4.3 Chloride Level 101 Carbon Dioxide Level 26 Anion Gap 13 Blood Urea Nitrogen 33 H Creatinine 1.89 H Glucose Level 91 Calcium Level 8.0 L Total Bilirubin 1.9 H Direct Bilirubin 1.10 H Indirect Bilirubin 0.8 Aspartate Amino Transf (AST/SGOT) 515 H Alanine Aminotransferase (ALT/SGPT) 277 H Alkaline Phosphatase 428 H Total Protein 5.1 L Albumin 2.1 L Globulin 3.00 Albumin/Globulin Ratio 0.70 Medications Medications Current Medications Ondansetron HCl (Zofran Inj) 4 mg Q6H PRN IV NAUSEA AND/OR VOMITING Last administered on 07/30/17 13:02; Admin Dose 4 MG; Start 07/21/17 at 13:30 Metoclopramide HCl (Reglan) 10 mg Q6H PRN IV NAUSEA AND/OR VOMITING; Start at 13:30 Acetaminophen 650 mg 650 mg Q6H PRN PO PAIN LEVEL 1-3 OR FEVER; Start at 13:30 Piperacillin Sod/ Tazobactam Sod (Zosyn 3.375gm/ 50 ml (Pmx)) 50 ml @ 100 mls/ hr Q8 IVPB Last administered on 07/30/17 13:02; Admin Dose 100 MLS/HR; Start 07/21/17 at 22:00 Morphine Sulfate (morphine) 1 mg Q6H PRN IV PAIN Last administered on 13:03; Admin Dose 1 MG; Start 07/26/17 at 16:00 Furosemide (Lasix) 20 mg DAILY IV Last administered on 07/29/17 16:40; Admin Dose 20 MG; Start 07/29/17 at 16:00 Pantoprazole (Protonix Tab) 40 mg DAILY@06 PO ; Start 07/31/17 at 06:00 MERRY KWAN MD Jul 30, 2017 18:46
[2017-07-31] VITALS (11 sets, daily range): BP systolic 88–92; BP diastolic 51–55; PULSE 97–108; RESP 16–20
[2017-07-31] MEDS: morphine 2 MG INJ IV PRN ×2 (04:27→19:49)
[2017-07-31] MEDS: PIPER-TAZO 3.375 GM IV (PMX) 50 ML IVPB SCH ×3 (06:54→23:11)
[2017-07-31] MEDS: PANTOPRAZOLE (EC) 40 MG TAB PO SCH (06:54)
[2017-07-31] MEDS: FUROSEMIDE 20 MG INJ IV SCH (08:49)
[2017-07-31 09:16] LABS: ABNORMAL IP MESSAGE 1; BASOPHIL # 0.1 10^3/ul (0.0-0.1); BASOPHILS % 0.6 % (0.0-2.0); EOSINOPHILS # 0.1 10^3/ul (0.0-0.5); EOSINOPHILS % 0.3 % (0.0-7.0); HEMATOCRIT 27.7 % (42.0-52.0); LYMPHOCYTES # 1.9 10^3/ul (0.8-2.9); LYMPHOCYTES % 8.4 % (15.0-51.0); MEAN CORPUSCULAR HEMOGLOBIN 33.2 pg (29.0-33.0); MEAN CORPUSCULAR HGB CONC 32.5 g/dl (32.0-37.0); MEAN CORPUSCULAR VOLUME 102.2 fl (82.0-101.0); MEAN PLATELET VOLUME 12.6 fl (7.4-10.4); MONOCYTE # 0.9 10^3/ul (0.3-0.9); MONOCYTES % 4.1 % (0.0-11.0); NEUTROPHIL # 17.3 10^3/ul (1.6-7.5); PLATELET COUNT 184 10^3/UL (140-415); POSITIVE DIFF @See below; RED BLOOD COUNT 2.71 10^6/ul (4.70-6.10); RED CELL DISTRIBUTION WIDTH 21.9 % (11.5-14.5); WHITE BLOOD COUNT 22.2 10^3/ul (4.8-10.8)
[2017-07-31 09:49] LABS: ALBUMIN 2.2 g/dl (3.3-4.9); ALBUMIN/GLOBULIN RATIO 0.73; BILIRUBIN,DIRECT 0.6 mg/dl (0.00-0.20); BILIRUBIN,INDIRECT 0.6 mg/dl (0-1.1); BILIRUBIN,TOTAL 1.2 mg/dl (0.2-1.3); CALCIUM 8.1 mg/dl (8.4-10.2); CREATININE 2.4 mg/dl (0.61-1.24); POTASSIUM 4.7 mmol/L (3.5-5.1); TOTAL PROTEIN 5.2 g/dl (6.1-8.1)
[2017-07-31] MEDS: SPIRONOLACTONE 25 MG TAB PO SCH (12:55)
[2017-07-31] MEDS: MIDODRINE 5 MG TAB PO SCH ×2 (12:55→17:26)
--- NOTE | 2017-07-31 16:52 | PN ---
Date/Time of Note Date/Time of Note DATE: 07/31/17 TIME: 16:50 Assessment/Plan VTE Prophylaxis VTE Prophylaxis Intervention: other Lines/Catheters IV [facility]from [facility] Saline Lock Urinary Cath still in place: No Assessment/Plan Chief Complaint/Hosp Course 1. Sepsis,on Zosyn 2. Multiple liver masses with metastatic adenocarcinoma, primary gastrointestinal. Esophagogastroduodenoscopy and colonoscopy negative for any primary malignancy. 3. Hyponatremia, resolved 4. Mental retardation. 5. Hypothyroidism. 6. History of dyslipidemia. 7. History of gout. 8. Anemia 9. Hypoalbuminemia 10 Ventral hernia, containing fat 11. Hyperbilirubinemia. 12. Biliary stricture with intrahepatic bile duct dilatation and abnormal LFT.S /P ERCP 13 S/P ERCP 14 EDEMA LEGS 15scrotal edema 16 leucocytosis plan ck labs per gi PER DR SPIVEY aldactone Problems: Subjective 24 Hr Interval Summary Constitutional: no complaints Cardiovascular: no complaints Gastrointestinal: decreased appetite, No diarrhea, No pain Exam/Review of Systems Vital Signs Vitals Vital Signs Date Time Temp Pulse Resp B/P Pulse Ox O2 Delivery O2 Flow Rate FiO2 07/31/17 16:00 99 07/31/17 15:58 98.1 18 90/51 97 07/31/17 01:38 3.0 07/30/17 20:00 Nasal Cannula Intake and Output 07/30/17 07/30/17 07/31/17 14:59 22:59 06:59 Intake Total 250 ml 900 ml 300 ml Output Total 350 ml 450 ml Balance -100 ml 450 ml 300 ml Exam Neck: supple Respiratory: clear to auscultation Cardiovascular: regular rate and rhythm Gastrointestinal: bowel sounds (+), soft Extremities: edema (+) Results Result Diagram: 07/31/17 0807/31/17 08 Results 24 hrs Laboratory Tests Test 07/31/17 08:02 White Blood Count 22.2 #H Red Blood Count 2.71 L Hemoglobin 9.0 L Hematocrit 27.7 L Mean Corpuscular Volume 102.2 H Mean Corpuscular Hemoglobin 33.2 H Mean Corpuscular Hemoglobin Concent 32.5 Red Cell Distribution Width 21.9 H Platelet Count 184 Mean Platelet Volume 12.6 H Neutrophils % 78.0 H Lymphocytes % 8.4 L Monocytes % 4.1 Eosinophils % 0.3 Basophils % 0.6 Nucleated Red Blood Cells % 0.0 Neutrophils # 17.3 H Lymphocytes # 1.9 Monocytes # 0.9 Eosinophils # 0.1 Basophils # 0.1 Nucleated Red Blood Cells # 0.0 Sodium Level 135 Potassium Level 4.7 Chloride Level 101 Carbon Dioxide Level 25 Anion Gap 14 Blood Urea Nitrogen 43 H Creatinine 2.40 H Glucose Level 82 Calcium Level 8.1 L Total Bilirubin 1.2 Direct Bilirubin 0.60 #H Indirect Bilirubin 0.6 Aspartate Amino Transf (AST/SGOT) 450 H Alanine Aminotransferase (ALT/SGPT) 261 H Alkaline Phosphatase 421 H Total Protein 5.2 L Albumin 2.2 L Globulin 3.00 Albumin/Globulin Ratio 0.73 Medications Medications Current Medications Ondansetron HCl (Zofran Inj) 4 mg Q6H PRN IV NAUSEA AND/OR VOMITING Last administered on 07/30/17 13:02; Admin Dose 4 MG; Start 07/21/17 at 13:30 Metoclopramide HCl (Reglan) 10 mg Q6H PRN IV NAUSEA AND/OR VOMITING; Start at 13:30 Acetaminophen 650 mg 650 mg Q6H PRN PO PAIN LEVEL 1-3 OR FEVER; Start at 13:30 Piperacillin Sod/ Tazobactam Sod (Zosyn 3.375gm/ 50 ml (Pmx)) 50 ml @ 100 mls/ hr Q8 IVPB Last administered on 07/31/17 13:57; Admin Dose 100 MLS/HR; Start 07/21/17 at 22:00 Morphine Sulfate (morphine) 1 mg Q6H PRN IV PAIN Last administered on 04:27; Admin Dose 1 MG; Start 07/26/17 at 16:00 Pantoprazole (Protonix Tab) 40 mg DAILY@06 PO Last administered on 07/31/17 06:54; Admin Dose 40 MG; Start 07/31/17 at 06:00 Spironolactone (Aldactone) 25 mg DAILY PO Last administered on 07/31/17 12:55 ; Admin Dose 25 MG; Start 07/31/17 at 11:30 Midodrine (Proamatine) 5 mg BID@,17 PO Last administered on 07/31/17 12:55 ; Admin Dose 5 MG; Start 07/31/17 at 12:00 KINGSLEY OVALLE MD Jul 31, 2017 16:52
--- NOTE | 2017-07-31 17:38 | CONS ---
Date/Time of Note Date/Time of Note DATE: 07/31/17 TIME: 17:31 Assessment/Plan Assessment/Plan Chief Complaint/Hosp Course 52 yo with 1. Multiple liver masses - likely of gall bladder origin 2. Hyperbilirubinemia 3. Hypertension 4. Gout 5. Hepatorenal syndrome. Cr now elevated - clinical presentation and pathology make gall bladder primary the most likely -pt is now w/p ERCP and bilirubin has decreased -still given elevated AST/ALT Xeloda still carries its risk -will start low dose Xeldoa 1000mg BID 14 days on 7 days off. family understands risk involved given elevated lfts and creatinine but they would like to try some palliative therapy - extensive discussion was had with patient's brother who understands that given the elevated LFTS, Xeloda carries its risks given it is hepatically excreted. Still with families understanding and consent we can try this therapy A total of 40 minutes of [id number] time was spent speaking with the patient, of which greater than 50% was spent in counseling and coordination of care and a detailed question and answer session. Problems: Consultation Date/Type/Reason Admit Date/Time Jul 21, 2017 at 12:47 Initial Consult Date 07/22/17 Type of Consultation: Hematology Reason for Consultation gall bladder Referring Provider: YASEMIN OLIVARES MD 24 HR Interval Summary Free Text/Dictation pt still with swelling. creatinine still continues to rise Exam/Review of Systems Vital Signs Vitals Vital Signs Date Time Temp Pulse Resp B/P Pulse Ox O2 Delivery O2 Flow Rate FiO2 07/31/17 16:00 99 07/31/17 15:58 98.1 18 90/51 97 07/31/17 07:00 3.0 07/30/17 20:00 Nasal Cannula Intake and Output 07/30/17 07/30/17 07/31/17 14:59 22:59 06:59 Intake Total 250 ml 900 ml 300 ml Output Total 350 ml 450 ml Balance -100 ml 450 ml 300 ml Exam Constitutional: alert, oriented Psych: no complaints Head: normocephalic Eyes: nl conjunctiva ENMT: nl external ears & nose Neck: non-tender, supple Respiratory: clear to auscultation Cardiovascular: nl pulses, regular rate and rhythm Gastrointestinal: soft Musculoskeletal: swelling Results Result Diagram: 07/31/17 0802 07/31/17 0802 Results 24 hrs Laboratory Tests Test 07/31/17 08:02 White Blood Count 22.2 #H Red Blood Count 2.71 L Hemoglobin 9.0 L Hematocrit 27.7 L Mean Corpuscular Volume 102.2 H Mean Corpuscular Hemoglobin 33.2 H Mean Corpuscular Hemoglobin Concent 32.5 Red Cell Distribution Width 21.9 H Platelet Count 184 Mean Platelet Volume 12.6 H Neutrophils % 78.0 H Lymphocytes % 8.4 L Monocytes % 4.1 Eosinophils % 0.3 Basophils % 0.6 Nucleated Red Blood Cells % 0.0 Neutrophils # 17.3 H Lymphocytes # 1.9 Monocytes # 0.9 Eosinophils # 0.1 Basophils # 0.1 Nucleated Red Blood Cells # 0.0 Sodium Level 135 Potassium Level 4.7 Chloride Level 101 Carbon Dioxide Level 25 Anion Gap 14 Blood Urea Nitrogen 43 H Creatinine 2.40 H Glucose Level 82 Calcium Level 8.1 L Total Bilirubin 1.2 Direct Bilirubin 0.60 #H Indirect Bilirubin 0.6 Aspartate Amino Transf (AST/SGOT) 450 H Alanine Aminotransferase (ALT/SGPT) 261 H Alkaline Phosphatase 421 H Total Protein 5.2 L Albumin 2.2 L Globulin 3.00 Albumin/Globulin Ratio 0.73 Medications Medications Current Medications Ondansetron HCl (Zofran Inj) 4 mg Q6H PRN IV NAUSEA AND/OR VOMITING Last administered on 07/30/17 13:02; Admin Dose 4 MG; Start 07/21/17 at 13:30 Metoclopramide HCl (Reglan) 10 mg Q6H PRN IV NAUSEA AND/OR VOMITING; Start at 13:30 Acetaminophen 650 mg 650 mg Q6H PRN PO PAIN LEVEL 1-3 OR FEVER; Start at 13:30 Piperacillin Sod/ Tazobactam Sod (Zosyn 3.375gm/ 50 ml (Pmx)) 50 ml @ 100 mls/ hr Q8 IVPB Last administered on 07/31/17 13:57; Admin Dose 100 MLS/HR; Start 07/21/17 at 22:00 Morphine Sulfate (morphine) 1 mg Q6H PRN IV PAIN Last administered on 04:27; Admin Dose 1 MG; Start 07/26/17 at 16:00 Pantoprazole (Protonix Tab) 40 mg DAILY@06 PO Last administered on 07/31/17 06:54; Admin Dose 40 MG; Start 07/31/17 at 06:00 Spironolactone (Aldactone) 25 mg DAILY PO Last administered on 07/31/17 12:55 ; Admin Dose 25 MG; Start 07/31/17 at 11:30 Midodrine (Proamatine) 5 mg BID@, PO Last administered on 07/31/17 17:26 ; Admin Dose 5 MG; Start 07/31/17 at 12:00 EMIGDIO SPIVEY M.D. Jul 31, 2017 17:38
--- NOTE | 2017-07-31 19:42 | CONS ---
Date/Time of Note Date/Time of Note DATE: 07/31/17 TIME: 19:41 Assessment/Plan Assessment/Plan Additional Assessment/Plan Additional Assessment/Plan Additional Assessment/Plan 1. The patient definitely has biliary stricture with intrahepatic bile duct dilatation and abnormal LFT. LFT is improving, bilirubin came down to 1.2 2. Leukocytosis, on antibiotic. 3. Developmental delay. 4. Renal insufficiency, creatinine is now 2.2 5. Hypertension 6. 2-3+ pedal edema 7. Gout Plan Patient is a complete bile duct obstruction, pancreatic stent successfully deployed. Sphincterotomy was done and does a good drainage. Patient bilirubin is coming down Duodenum is fixed secondary to tumor. Ask Dr. Kilo De La Rosa to do PTC, but because of metastasis he declined it. Continue present care Advance diet Discussed with the brother [id number] and also on telephone. Patient's liver function test improving slowly. Renal function is deteriorating Consultation Date/Type/Reason Admit Date/Time Jul 21, 2017 at 12:47 Initial Consult Date 07/22/17 Type of Consultation: Hematology Referring Provider: YASEMIN OLIVARES MD 24 HR Interval Summary Free Text/Dictation Patient feels better More hungry, pain is minimal Exam/Review of Systems Vital Signs Vitals Vital Signs Date Time Temp Pulse Resp B/P Pulse Ox O2 Delivery O2 Flow Rate FiO2 07/31/17 16:00 99 07/31/17 15:58 98.1 18 90/51 97 07/31/17 07:00 3.0 07/30/17 20:00 Nasal Cannula Intake and Output 07/30/17 07/30/17 07/31/17 15:00 23:00 07:00 Intake Total 900 ml 300 ml Output Total 450 ml Balance 450 ml 300 ml Exam Constitutional: alert, oriented, well developed Psych: nl mood/affect, no complaints Head: atraumatic, normocephalic Eyes: EOMI, PERRL, nl conjunctiva, nl lids, nl sclera ENMT: nl external ears & nose, nl lips & teeth, nl nasal mucosa & septum Neck: non-tender, supple Respiratory: clear to auscultation, normal air movement Cardiovascular: nl pulses, regular rate and rhythm Gastrointestinal: nl liver, spleen, non-tender, soft Musculoskeletal: nl extremities to inspection, nl gait and stance Extremities: normal pulses, pitting pedal edema 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, nl mental status, nl speech, nl strength Skin: nl turgor, No rash or lesions Lymph: nl lymph nodes Results Result Diagram: 07/31/1780107/31/17 08 Results 24 hrs Laboratory Tests Test 07/31/17 08:02 White Blood Count 22.2 #H Red Blood Count 2.71 L Hemoglobin 9.0 L Hematocrit 27.7 L Mean Corpuscular Volume 102.2 H Mean Corpuscular Hemoglobin 33.2 H Mean Corpuscular Hemoglobin Concent 32.5 Red Cell Distribution Width 21.9 H Platelet Count 184 Mean Platelet Volume 12.6 H Neutrophils % 78.0 H Lymphocytes % 8.4 L Monocytes % 4.1 Eosinophils % 0.3 Basophils % 0.6 Nucleated Red Blood Cells % 0.0 Neutrophils # 17.3 H Lymphocytes # 1.9 Monocytes # 0.9 Eosinophils # 0.1 Basophils # 0.1 Nucleated Red Blood Cells # 0.0 Sodium Level 135 Potassium Level 4.7 Chloride Level 101 Carbon Dioxide Level 25 Anion Gap 14 Blood Urea Nitrogen 43 H Creatinine 2.40 H Glucose Level 82 Calcium Level 8.1 L Total Bilirubin 1.2 Direct Bilirubin 0.60 #H Indirect Bilirubin 0.6 Aspartate Amino Transf (AST/SGOT) 450 H Alanine Aminotransferase (ALT/SGPT) 261 H Alkaline Phosphatase 421 H Total Protein 5.2 L Albumin 2.2 L Globulin 3.00 Albumin/Globulin Ratio 0.73 Medications Medications Current Medications Ondansetron HCl (Zofran Inj) 4 mg Q6H PRN IV NAUSEA AND/OR VOMITING Last administered on 07/30/17 13:02; Admin Dose 4 MG; Start 07/21/17 at 13:30 Metoclopramide HCl (Reglan) 10 mg Q6H PRN IV NAUSEA AND/OR VOMITING; Start at 13:30 Acetaminophen 650 mg 650 mg Q6H PRN PO PAIN LEVEL 1-3 OR FEVER; Start at 13:30 Piperacillin Sod/ Tazobactam Sod (Zosyn 3.375gm/ 50 ml (Pmx)) 50 ml @ 100 mls/ hr Q8 IVPB Last administered on 07/31/17 13:57; Admin Dose 100 MLS/HR; Start 07/21/17 at 22:00 Morphine Sulfate (morphine) 1 mg Q6H PRN IV PAIN Last administered on 04:27; Admin Dose 1 MG; Start 07/26/17 at 16:00 Pantoprazole (Protonix Tab) 40 mg DAILY@06 PO Last administered on 07/31/17 06:54; Admin Dose 40 MG; Start 07/31/17 at 06:00 Spironolactone (Aldactone) 25 mg DAILY PO Last administered on 07/31/17 12:55 ; Admin Dose 25 MG; Start 07/31/17 at 11:30 Midodrine (Proamatine) 5 mg BID@,17 PO Last administered on 07/31/17 17:26 ; Admin Dose 5 MG; Start 07/31/17 at 12:00 MERRY KWAN MD Jul 31, 2017 19:42
[2017-08-01 02:06] VITALS: BP 95/51; RESP 21
[2017-08-01 05:14] LABS: ABNORMAL IP MESSAGE 1; BASOPHIL # 0.1 10^3/ul (0.0-0.1); BASOPHILS % 0.6 % (0.0-2.0); EOSINOPHILS # 0.1 10^3/ul (0.0-0.5); EOSINOPHILS % 0.3 % (0.0-7.0); HEMATOCRIT 25.3 % (42.0-52.0); HEMOGLOBIN 8.4 g/dl (14.0-18.0); LYMPHOCYTES # 1.5 10^3/ul (0.8-2.9); LYMPHOCYTES % 6.2 % (15.0-51.0); MEAN CORPUSCULAR HEMOGLOBIN 33.3 pg (29.0-33.0); MEAN CORPUSCULAR HGB CONC 33.2 g/dl (32.0-37.0); MEAN CORPUSCULAR VOLUME 100.4 fl (82.0-101.0); MEAN PLATELET VOLUME 12.9 fl (7.4-10.4); MONOCYTES % 4.1 % (0.0-11.0); NEUTROPHIL # 19.1 10^3/ul (1.6-7.5); NEUTROPHILS % 82.3 % (39.0-77.0); PLATELET COUNT 179 10^3/UL (140-415); POSITIVE DIFF @See below; RED BLOOD COUNT 2.52 10^6/ul (4.70-6.10); RED CELL DISTRIBUTION WIDTH 21.7 % (11.5-14.5); WHITE BLOOD COUNT 23.2 10^3/ul (4.8-10.8)
[2017-08-01 05:44] LABS: ALBUMIN 2.2 g/dl (3.3-4.9); ALBUMIN/GLOBULIN RATIO 0.78; BILIRUBIN,DIRECT 1.3 mg/dl (0.00-0.20); BILIRUBIN,INDIRECT 0.8 mg/dl (0-1.1); BILIRUBIN,TOTAL 2.1 mg/dl (0.2-1.3); CALCIUM 8.1 mg/dl (8.4-10.2); CREATININE 2.19 mg/dl (0.61-1.24); POTASSIUM 5.1 mmol/L (3.5-5.1)
[2017-08-01] MEDS: PANTOPRAZOLE (EC) 40 MG TAB PO SCH (06:17)
[2017-08-01] MEDS: PIPER-TAZO 3.375 GM IV (PMX) 50 ML IVPB SCH ×3 (06:18→21:07)
[2017-08-01 08:03] VITALS: BP 107/67; RESP 20
[2017-08-01] MEDS: MIDODRINE 5 MG TAB PO SCH ×2 (10:09→18:18)
[2017-08-01] MEDS: SPIRONOLACTONE 25 MG TAB PO SCH (10:10)
[2017-08-01] MEDS: morphine 2 MG INJ IV PRN (10:37)
--- NOTE | 2017-08-01 11:10 | CONS ---
Date/Time of Note Date/Time of Note DATE: 08/01/17 TIME: 11:08 Assessment/Plan Assessment/Plan Chief Complaint/Hosp Course 52 yo with 1. Multiple liver masses - likely of gall bladder origin 2. Hyperbilirubinemia 3. Hypertension 4. Gout 5. Hepatorenal syndrome. Cr now elevated - clinical presentation and pathology make gall bladder primary the most likely -pt is now w/p ERCP and bilirubin has decreased -still given elevated AST/ALT Xeloda still carries its risk -will start low dose Xeldoa 1000mg BID 14 days on 7 days off. family understands risk involved given elevated lfts and creatinine but they would like to try some palliative therapy - extensive discussion was had with patient's brother who understands that given the elevated LFTS, Xeloda carries its risks given it is hepatically excreted. Still with families understanding and consent we can try this therapy A total of 40 minutes of [id number] time was spent speaking with the patient, of which greater than 50% was spent in counseling and coordination of care and a detailed question and answer session. Problems: Consultation Date/Type/Reason Admit Date/Time Jul 21, 2017 at 12:47 Initial Consult Date 07/22/17 Type of Consultation: Hematology Reason for Consultation metastatic gall bladder cancer Referring Provider: YASEMIN OLIVARES MD 24 HR Interval Summary Free Text/Dictation pt has worsening swelling of his lower extremities and scrotum Exam/Review of Systems Vital Signs Vitals Vital Signs Date Time Temp Pulse Resp B/P Pulse Ox O2 Delivery O2 Flow Rate FiO2 08/01/17 08:03 97.8 97 20 107/67 98 08/01/17 08:00 Nasal Cannula 3.0 Intake and Output 07/31/17 07/31/17 08/01/17 14:59 22:59 06:59 Intake Total 650 ml 1000 ml Output Total 850 ml Balance 650 ml 150 ml Exam Constitutional: frail, other (with developmental delay) Psych: nl mood/affect, no complaints Head: normocephalic Eyes: nl conjunctiva ENMT: nl external ears & nose Neck: jvd, supple Respiratory: clear to auscultation Cardiovascular: regular rate and rhythm Gastrointestinal: soft Musculoskeletal: swelling (in bilateral LE) Results Result Diagram: 08/01/17 0423 08/01/173 Results 24 hrs Laboratory Tests Test 08/01/17 04:23 White Blood Count 23.2 H Red Blood Count 2.52 L Hemoglobin 8.4 L Hematocrit 25.3 L Mean Corpuscular Volume 100.4 Mean Corpuscular Hemoglobin 33.3 H Mean Corpuscular Hemoglobin Concent 33.2 Red Cell Distribution Width 21.7 H Platelet Count 179 Mean Platelet Volume 12.9 H Neutrophils % 82.3 H Lymphocytes % 6.2 L Monocytes % 4.1 Eosinophils % 0.3 Basophils % 0.6 Nucleated Red Blood Cells % 0.0 Neutrophils # 19.1 H Lymphocytes # 1.5 Monocytes # 1.0 H Eosinophils # 0.1 Basophils # 0.1 Nucleated Red Blood Cells # 0.0 Sodium Level 133 L Potassium Level 5.1 Chloride Level 100 Carbon Dioxide Level 26 Anion Gap 12 Blood Urea Nitrogen 44 H Creatinine 2.19 H Glucose Level 80 Calcium Level 8.1 L Total Bilirubin 2.1 H Direct Bilirubin 1.30 #H Indirect Bilirubin 0.8 Aspartate Amino Transf (AST/SGOT) 390 H Alanine Aminotransferase (ALT/SGPT) 240 H Alkaline Phosphatase 444 H Total Protein 5.0 L Albumin 2.2 L Globulin 2.80 Albumin/Globulin Ratio 0.78 Medications Medications Current Medications Ondansetron HCl (Zofran Inj) 4 mg Q6H PRN IV NAUSEA AND/OR VOMITING Last administered on 07/30/17 13:02; Admin Dose 4 MG; Start 07/21/17 at 13:30 Metoclopramide HCl (Reglan) 10 mg Q6H PRN IV NAUSEA AND/OR VOMITING; Start at 13:30 Acetaminophen 650 mg 650 mg Q6H PRN PO PAIN LEVEL 1-3 OR FEVER; Start at 13:30 Piperacillin Sod/ Tazobactam Sod (Zosyn 3.375gm/ 50 ml (Pmx)) 50 ml @ 100 mls/ hr Q8 IVPB Last administered on 08/01/17 06:18; Admin Dose 100 MLS/HR; Start 07/21/17 at 22:00 Morphine Sulfate (morphine) 1 mg Q6H PRN IV PAIN Last administered on 10:37; Admin Dose 1 MG; Start 07/26/17 at 16:00 Pantoprazole (Protonix Tab) 40 mg DAILY@06 PO Last administered on 08/01/17 06 :17; Admin Dose 40 MG; Start 07/31/17 at 06:00 Spironolactone (Aldactone) 25 mg DAILY PO Last administered on 08/01/17 10:10 ; Admin Dose 25 MG; Start 07/31/17 at 11:30 Midodrine (Proamatine) 5 mg BID@ PO Last administered on 08/01/17 10:09; Admin Dose 5 MG; Start 07/31/17 at 12:00 Tramadol HCl (Ultram) 50 mg BID PRN PO PAIN; Start 08/01/17 at 11:00 EMIGDIO SPIVEY M.D. Aug 01, 2017 11:10
--- NOTE | 2017-08-01 12:45 | CONS ---
Date/Time of Note Date/Time of Note DATE: 08/01/17 TIME: 12:45 Assessment/Plan Assessment/Plan Additional Assessment/Plan 1. The patient definitely has biliary stricture with intrahepatic bile duct dilatation and abnormal LFT. LFT is improving, bilirubin came down to 1.2 2. Leukocytosis, on antibiotic. 3. Developmental delay. 4. Renal insufficiency, creatinine is now 2.2 5. Hypertension 6. 2-3+ pedal edema 7. Gout Plan Patient is a complete bile duct obstruction, pancreatic stent successfully deployed. Sphincterotomy was done and does a good drainage. Patient bilirubin is coming down Duodenum is fixed secondary to tumor. Ask Dr. Kilo De La Rosa to do PTC, but because of metastasis he declined it. Continue present care Advance diet Discussed with the brother [id number] and also on telephone. Patient's liver function test improving slowly. Renal function has stabilized. If bilirubin keeps going up then patient definitely needs a PTC. Continue antibiotic Consultation Date/Type/Reason Admit Date/Time Jul 21, 2017 at 12:47 Initial Consult Date 07/22/17 Type of Consultation: Hematology Referring Provider: YASEMIN OLIVARES MD 24 HR Interval Summary Constitutional: improved Exam/Review of Systems Vital Signs Vitals Vital Signs Date Time Temp Pulse Resp B/P Pulse Ox O2 Delivery O2 Flow Rate FiO2 08/01/17 08:03 97.8 97 20 107/67 98 08/01/17 08:00 Nasal Cannula 3.0 Intake and Output 07/31/17 07/31/17 08/01/17 14:59 22:59 06:59 Intake Total 650 ml 1000 ml Output Total 850 ml Balance 650 ml 150 ml Exam Constitutional: alert, oriented, well developed Psych: nl mood/affect, no complaints Head: atraumatic, normocephalic Eyes: EOMI, PERRL, nl conjunctiva, nl lids, nl sclera ENMT: nl external ears & nose, nl lips & teeth, nl nasal mucosa & septum Neck: non-tender, supple Respiratory: clear to auscultation, normal air movement Cardiovascular: nl pulses, regular rate and rhythm Gastrointestinal: nl liver, spleen, non-tender, soft Musculoskeletal: nl extremities to inspection, nl gait and stance Extremities: normal pulses 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, nl mental status, nl speech, nl strength Skin: nl turgor, No rash or lesions Lymph: nl lymph nodes Results Result Diagram: 08/01/17 0423 08/01/17 0423 Results 24 hrs Laboratory Tests Test 08/01/17 04:23 White Blood Count 23.2 H Red Blood Count 2.52 L Hemoglobin 8.4 L Hematocrit 25.3 L Mean Corpuscular Volume 100.4 Mean Corpuscular Hemoglobin 33.3 H Mean Corpuscular Hemoglobin Concent 33.2 Red Cell Distribution Width 21.7 H Platelet Count 179 Mean Platelet Volume 12.9 H Neutrophils % 82.3 H Lymphocytes % 6.2 L Monocytes % 4.1 Eosinophils % 0.3 Basophils % 0.6 Nucleated Red Blood Cells % 0.0 Neutrophils # 19.1 H Lymphocytes # 1.5 Monocytes # 1.0 H Eosinophils # 0.1 Basophils # 0.1 Nucleated Red Blood Cells # 0.0 Sodium Level 133 L Potassium Level 5.1 Chloride Level 100 Carbon Dioxide Level 26 Anion Gap 12 Blood Urea Nitrogen 44 H Creatinine 2.19 H Glucose Level 80 Calcium Level 8.1 L Total Bilirubin 2.1 H Direct Bilirubin 1.30 #H Indirect Bilirubin 0.8 Aspartate Amino Transf (AST/SGOT) 390 H Alanine Aminotransferase (ALT/SGPT) 240 H Alkaline Phosphatase 444 H Total Protein 5.0 L Albumin 2.2 L Globulin 2.80 Albumin/Globulin Ratio 0.78 Medications Medications Current Medications Ondansetron HCl (Zofran Inj) 4 mg Q6H PRN IV NAUSEA AND/OR VOMITING Last administered on 07/30/17 13:02; Admin Dose 4 MG; Start 07/21/17 at 13:30 Metoclopramide HCl (Reglan) 10 mg Q6H PRN IV NAUSEA AND/OR VOMITING; Start at 13:30 Acetaminophen 650 mg 650 mg Q6H PRN PO PAIN LEVEL 1-3 OR FEVER; Start at 13:30 Piperacillin Sod/ Tazobactam Sod (Zosyn 3.375gm/ 50 ml (Pmx)) 50 ml @ 100 mls/ hr Q8 IVPB Last administered on 08/01/17 06:18; Admin Dose 100 MLS/HR; Start 07/21/17 at 22:00 Morphine Sulfate (morphine) 1 mg Q6H PRN IV PAIN Last administered on 10:37; Admin Dose 1 MG; Start 07/26/17 at 16:00 Pantoprazole (Protonix Tab) 40 mg DAILY@06 PO Last administered on 08/01/17 06 :17; Admin Dose 40 MG; Start 07/31/17 at 06:00 Spironolactone (Aldactone) 25 mg DAILY PO Last administered on 08/01/17 10:10 ; Admin Dose 25 MG; Start 07/31/17 at 11:30 Midodrine (Proamatine) 5 mg BID@ PO Last administered on 08/01/17 10:09; Admin Dose 5 MG; Start 07/31/17 at 12:00 Tramadol HCl (Ultram) 50 mg BID PRN PO PAIN; Start 08/01/17 at 11:00 MERRY KWAN MD Aug 01, 2017 12:45
[2017-08-01 14:00] VITALS: BP 92/52; RESP 20
--- NOTE | 2017-08-01 14:57 | PN ---
Date/Time of Note Date/Time of Note DATE: 08/01/17 TIME: 14:56 Assessment/Plan VTE Prophylaxis VTE Prophylaxis Intervention: SCD's Lines/Catheters IV C[facility]ter Type [facility] Saline Lock Urinary Cath still in place: No Assessment/Plan Chief Complaint/Hosp Course 1. Sepsis,on Zosyn Primary source is Pneumonia 2. Multiple liver masses with metastatic adenocarcinoma, primary gastrointestinal. Esophagogastroduodenoscopy and colonoscopy negative for any primary malignancy. 3. Hyponatremia, resolved 4. Mental retardation. 5. Hypothyroidism. 6. History of dyslipidemia. 7. History of gout. 8. Anemia 9. Hypoalbuminemia 10 Ventral hernia, containing fat 11. Hyperbilirubinemia. 12. Biliary stricture with intrahepatic bile duct dilatation and abnormal LFT. 13 Bilateral edema Problems: Assessment/Plan 1. continue current regime Subjective 24 Hr Interval Summary Gastrointestinal: pain Genitourinary: no complaints Exam/Review of Systems Vital Signs Vitals Vital Signs Date Time Temp Pulse Resp B/P Pulse Ox O2 Delivery O2 Flow Rate FiO2 08/01/17 08:03 97.8 97 20 107/67 98 08/01/17 08:00 Nasal Cannula 3.0 Intake and Output 07/31/17 07/31/17 08/01/17 15:00 23:00 07:00 Intake Total 650 ml 1000 ml Output Total 850 ml Balance 650 ml 150 ml Exam Constitutional: alert, oriented Psych: no complaints Cardiovascular: regular rate and rhythm Genitourinary - Male: other (scrotal edema) Musculoskeletal: joint tenderness, swelling Results Result Diagram: 08/01/17 0423 08/01/17 0423 Results 24 hrs Laboratory Tests Test 08/01/17 04:23 White Blood Count 23.2 H Red Blood Count 2.52 L Hemoglobin 8.4 L Hematocrit 25.3 L Mean Corpuscular Volume 100.4 Mean Corpuscular Hemoglobin 33.3 H Mean Corpuscular Hemoglobin Concent 33.2 Red Cell Distribution Width 21.7 H Platelet Count 179 Mean Platelet Volume 12.9 H Neutrophils % 82.3 H Lymphocytes % 6.2 L Monocytes % 4.1 Eosinophils % 0.3 Basophils % 0.6 Nucleated Red Blood Cells % 0.0 Neutrophils # 19.1 H Lymphocytes # 1.5 Monocytes # 1.0 H Eosinophils # 0.1 Basophils # 0.1 Nucleated Red Blood Cells # 0.0 Sodium Level 133 L Potassium Level 5.1 Chloride Level 100 Carbon Dioxide Level 26 Anion Gap 12 Blood Urea Nitrogen 44 H Creatinine 2.19 H Glucose Level 80 Calcium Level 8.1 L Total Bilirubin 2.1 H Direct Bilirubin 1.30 #H Indirect Bilirubin 0.8 Aspartate Amino Transf (AST/SGOT) 390 H Alanine Aminotransferase (ALT/SGPT) 240 H Alkaline Phosphatase 444 H Total Protein 5.0 L Albumin 2.2 L Globulin 2.80 Albumin/Globulin Ratio 0.78 Medications Medications Current Medications Ondansetron HCl (Zofran Inj) 4 mg Q6H PRN IV NAUSEA AND/OR VOMITING Last administered on 07/30/17 13:02; Admin Dose 4 MG; Start 07/21/17 at 13:30 Metoclopramide HCl (Reglan) 10 mg Q6H PRN IV NAUSEA AND/OR VOMITING; Start at 13:30 Acetaminophen 650 mg 650 mg Q6H PRN PO PAIN LEVEL 1-3 OR FEVER; Start at 13:30 Piperacillin Sod/ Tazobactam Sod (Zosyn 3.375gm/ 50 ml (Pmx)) 50 ml @ 100 mls/ hr Q8 IVPB Last administered on 08/01/17 13:45; Admin Dose 100 MLS/HR; Start 07/21/17 at 22:00 Morphine Sulfate (morphine) 1 mg Q6H PRN IV PAIN Last administered on 10:37; Admin Dose 1 MG; Start 07/26/17 at 16:00 Pantoprazole (Protonix Tab) 40 mg DAILY@06 PO Last administered on 08/01/17 06 :17; Admin Dose 40 MG; Start 07/31/17 at 06:00 Spironolactone (Aldactone) 25 mg DAILY PO Last administered on 08/01/17 10:10 ; Admin Dose 25 MG; Start 07/31/17 at 11:30 Midodrine (Proamatine) 5 mg BID@ PO Last administered on 08/01/17 10:09; Admin Dose 5 MG; Start 07/31/17 at 12:00 Tramadol HCl (Ultram) 50 mg BID PRN PO PAIN; Start 08/01/17 at 11:00 Capecitabine (Xeloda) 1,000 mg Q12 PO ; Start 08/02/17 at 09:00; Stop 08/15/17 at 21:01; Status MADALYN TYSON Aug 01, 2017 14:57
[2017-08-01 20:04] VITALS: BP 95/56; RESP 22
[2017-08-02 01:56] VITALS: BP 104/56; RESP 20
[2017-08-02 05:21] LABS: ABNORMAL IP MESSAGE 1; BASOPHIL # 0.1 10^3/ul (0.0-0.1); BASOPHILS % 0.5 % (0.0-2.0); EOSINOPHILS # 0.1 10^3/ul (0.0-0.5); EOSINOPHILS % 0.3 % (0.0-7.0); HEMATOCRIT 26.5 % (42.0-52.0); HEMOGLOBIN 8.9 g/dl (14.0-18.0); LYMPHOCYTES # 1.4 10^3/ul (0.8-2.9); LYMPHOCYTES % 5.9 % (15.0-51.0); MEAN CORPUSCULAR HGB CONC 33.6 g/dl (32.0-37.0); MEAN CORPUSCULAR VOLUME 101.1 fl (82.0-101.0); MEAN PLATELET VOLUME 12.7 fl (7.4-10.4); MONOCYTE # 0.9 10^3/ul (0.3-0.9); MONOCYTES % 3.6 % (0.0-11.0); NEUTROPHIL # 19.9 10^3/ul (1.6-7.5); NEUTROPHILS % 83.2 % (39.0-77.0); PLATELET COUNT 184 10^3/UL (140-415); POSITIVE DIFF @See below; RED BLOOD COUNT 2.62 10^6/ul (4.70-6.10); RED CELL DISTRIBUTION WIDTH 21.9 % (11.5-14.5); WHITE BLOOD COUNT 23.9 10^3/ul (4.8-10.8)
[2017-08-02] MEDS: PIPER-TAZO 3.375 GM IV (PMX) 50 ML IVPB SCH ×3 (05:41→22:51)
[2017-08-02] MEDS: PANTOPRAZOLE (EC) 40 MG TAB PO SCH (05:41)
[2017-08-02 05:59] LABS: ALBUMIN 2.1 g/dl (3.3-4.9); ALBUMIN/GLOBULIN RATIO 0.75; BILIRUBIN,DIRECT 0.7 mg/dl (0.00-0.20); BILIRUBIN,INDIRECT 0.6 mg/dl (0-1.1); BILIRUBIN,TOTAL 1.3 mg/dl (0.2-1.3); CALCIUM 8.1 mg/dl (8.4-10.2); CREATININE 2.22 mg/dl (0.61-1.24); POTASSIUM 4.9 mmol/L (3.5-5.1); TOTAL PROTEIN 4.9 g/dl (6.1-8.1)
[2017-08-02 07:57] VITALS: BP 95/52; RESP 20
[2017-08-02] MEDS: MIDODRINE 5 MG TAB PO SCH ×2 (08:46→17:31)
[2017-08-02] MEDS: SPIRONOLACTONE 25 MG TAB PO SCH (08:46)
--- NOTE | 2017-08-02 11:24 | CONS ---
DATE OF ADMISSION: 07/21/2017 DATE OF CONSULTATION: 08/01/2017 TYPE OF CONSULTATION: Infectious Disease. REASON FOR CONSULTATION: Antibiotic management. PROBLEM LIST: 1. Kevin Samano is a 52-year-old male who was admitted with sepsis with lactic acid of 3.9 and a pr imary pneumonia. Chest x-ray showed right basilar airspace disease. 2. Multiple liver masses with metastatic adenocarcinoma. His EGD and colonoscopy were negative for primary malignancy. 3. Mental retardation. 4. Hypothyroidism. 5. Dyslipidemia. 6. Gout. 7. Anemia. 8. Ventral hernia. 9. Hyperbilirubinemia. The patient was initially resuscitated with fluids. He was started on antibiotics. His white count was 12.8 on admission, H and H 12.4 and 36.5, platelet count 187,000. BUN and creatinine 21/2.5. The patient's blood cultures were negative. Urine cultures negative. Recent chest x-ray showed wor sening opacification in the lung bases with probable small pleural effusion. Basilar pneumonia is a likely possibility. White count today is 23.9, H and H of 8.9 and 26.5, platelet count 184,000. B UN and creatinine 44/2.2. Urine from the showed negative for ketones and nitrites, and on the was negative. Serologies were negative for hepatitis B and hepatitis C. The patient is being followed by a number of different physicians. He was seen by Felisa Mckee MD, who noted multiple li gabi masses, likely of gallbladder origin, hyperbilirubinemia, hypertension, gout, hepatorenal syndro me. The gallbladder primarily is most likely the primary. He has elevated AST and ALT. The patien t is on low dose Xeloda. PAST MEDICAL HISTORY: Operations as outlined. FAMILY HISTORY: Noncontributory. SOCIAL HISTORY: He does not smoke, drink or abuse drugs. ALLERGIES: NONE TO PENICILLIN, SULFA OR FOODS. MEDICATIONS: Per chart. REVIEW OF SYSTEMS: As per HPI. PHYSICAL EXAMINATION: GENERAL: The patient is a frail individual with developmental delays. SKIN: Without generalized rash. HEENT: Within normal limits. NECK: Supple. LYMPH NODES: None palpable. CHEST: Decreased breath sounds at the bases. HEART: Without murmur or gallop. ABDOMEN: Soft, nontender, without organosplenomegaly or masses. EXTREMITIES: Without cyanosis, clubbing, or edema. RECTAL AND GENITAL: Deferred. NEUROLOGIC: No focal neurological abnormalities. The patient was also seen by Dr. Villavicencio. He was noted to have biliary stricture with intrahepatic b ile duct dilatation and abnormal liver function tests. The liver function tests are improving. The patient is on with leukocytosis. Dr. Kilo De La Rosa was asked to do a PTC, but because of metastasis, he declined. The patient is septic, on Zosyn. We will continue him on current therapy. I will dic rowe my findings to Dr. Rodriguez and to the various consultants. Dictated By: CHINO BASSETT MD, JD/EDGAR Conf#: [id number] DID#: [id number] CC: YASEMIN OLIVARES;*EndCC*
[2017-08-02] MEDS: morphine 2 MG INJ IV PRN (12:41)
--- NOTE | 2017-08-02 13:02 | CONS ---
Date/Time of Note Date/Time of Note DATE: 08/02/17 TIME: 13:00 Assessment/Plan Assessment/Plan Additional Assessment/Plan Assessment/Plan Additional Assessment/Plan 1. The patient definitely has biliary stricture with intrahepatic bile duct dilatation and abnormal LFT. LFT is improving, bilirubin came down to 1.2 2. Leukocytosis, on antibiotic. 3. Developmental delay. 4. Renal insufficiency, creatinine is now 2.2 5. Hypertension 6. 2-3+ pedal edema 7. Gout Plan Patient is a complete bile duct obstruction, pancreatic stent successfully deployed. Sphincterotomy was done and does a good drainage. Patient bilirubin is coming down Duodenum is fixed secondary to tumor. Ask Dr. Kilo De La Rosa to do PTC, but because of metastasis he declined it. Continue present care Advance diet Discussed with the brother [id number] and also on telephone. Patient's liver function test improving slowly. Renal function has stabilized. If bilirubin keeps going up then patient definitely needs a PTC. Continue antibiotic Consultation Date/Type/Reason Admit Date/Time Jul 21, 2017 at 12:47 Initial Consult Date 07/22/17 Type of Consultation: Hematology Referring Provider: YASEMIN OLIVARES MD 24 HR Interval Summary Free Text/Dictation Patient complains of mild abdominal discomfort Exam/Review of Systems Vital Signs Vitals Vital Signs Date Time Temp Pulse Resp B/P Pulse Ox O2 Delivery O2 Flow Rate FiO2 08/02/17 08:00 Nasal Cannula 2.0 08/02/17 07:57 98.6 103 20 95/52 95 Intake and Output 08/01/17 08/01/17 08/02/17 15:00 23:00 07:00 Intake Total 50 ml 770 ml 500 ml Output Total 600 ml 400 ml Balance 50 ml 170 ml 100 ml Exam Neck: non-tender, supple Respiratory: clear to auscultation, normal air movement Cardiovascular: nl pulses, regular rate and rhythm Gastrointestinal: nl liver, spleen, non-tender, soft Extremities: edema, pitting pedal edema Neurological: [employer] II-XII intact, nl mental status, nl speech, nl strength Results Result Diagram: 08/02/17 0443 08/02/17 0443 Results 24 hrs Laboratory Tests Test 08/02/17 04:43 White Blood Count 23.9 H Red Blood Count 2.62 L Hemoglobin 8.9 L Hematocrit 26.5 L Mean Corpuscular Volume 101.1 H Mean Corpuscular Hemoglobin 34.0 H Mean Corpuscular Hemoglobin Concent 33.6 Red Cell Distribution Width 21.9 H Platelet Count 184 Mean Platelet Volume 12.7 H Neutrophils % 83.2 H Lymphocytes % 5.9 L Monocytes % 3.6 Eosinophils % 0.3 Basophils % 0.5 Nucleated Red Blood Cells % 0.0 Neutrophils # 19.9 H Lymphocytes # 1.4 Monocytes # 0.9 Eosinophils # 0.1 Basophils # 0.1 Nucleated Red Blood Cells # 0.0 Sodium Level 134 L Potassium Level 4.9 Chloride Level 101 Carbon Dioxide Level 24 Anion Gap 14 Blood Urea Nitrogen 44 H Creatinine 2.22 H Glucose Level 100 Calcium Level 8.1 L Total Bilirubin 1.3 Direct Bilirubin 0.70 #H Indirect Bilirubin 0.6 Aspartate Amino Transf (AST/SGOT) 310 H Alanine Aminotransferase (ALT/SGPT) 216 H Alkaline Phosphatase 468 H Total Protein 4.9 L Albumin 2.1 L Globulin 2.80 Albumin/Globulin Ratio 0.75 Medications Medications Current Medications Ondansetron HCl (Zofran Inj) 4 mg Q6H PRN IV NAUSEA AND/OR VOMITING Last administered on 07/30/17 13:02; Admin Dose 4 MG; Start 07/21/17 at 13:30 Metoclopramide HCl (Reglan) 10 mg Q6H PRN IV NAUSEA AND/OR VOMITING; Start at 13:30 Acetaminophen 650 mg 650 mg Q6H PRN PO PAIN LEVEL 1-3 OR FEVER; Start at 13:30 Piperacillin Sod/ Tazobactam Sod (Zosyn 3.375gm/ 50 ml (Pmx)) 50 ml @ 100 mls/ hr Q8 IVPB Last administered on 08/02/17 05:41; Admin Dose 100 MLS/HR; Start 07/21/17 at 22:00 Morphine Sulfate (morphine) 1 mg Q6H PRN IV PAIN Last administered on 12:41; Admin Dose 1 MG; Start 07/26/17 at 16:00 Pantoprazole (Protonix Tab) 40 mg DAILY@06 PO Last administered on 08/02/17 05 :41; Admin Dose 40 MG; Start 07/31/17 at 06:00 Spironolactone (Aldactone) 25 mg DAILY PO Last administered on 08/02/17 08:46 ; Admin Dose 25 MG; Start 07/31/17 at 11:30 Midodrine (Proamatine) 5 mg BID@ PO Last administered on 08/02/17 08:46; Admin Dose 5 MG; Start 07/31/17 at 12:00 Tramadol HCl (Ultram) 50 mg BID PRN PO PAIN; Start 08/01/17 at 11:00 Capecitabine (Xeloda) 1,000 mg Q12 PO ; Start 08/02/17 at 09:00; Stop 08/15/17 at 21:01; Status MERRY MARTIN MD Aug 02, 2017 13:02
--- NOTE | 2017-08-02 14:07 | PN ---
Date/Time of Note Date/Time of Note DATE: 08/02/17 TIME: 14:05 Assessment/Plan VTE Prophylaxis VTE Prophylaxis Intervention: heparin Lines/Catheters IV [facility] Saline Lock Urinary Cath still in place: No Assessment/Plan Chief Complaint/Hosp Course 1. Sepsis,on Zosyn Primary source is Pneumonia 2. Multiple liver masses with metastatic adenocarcinoma, primary gastrointestinal. Esophagogastroduodenoscopy and colonoscopy negative for any primary malignancy. 3. Hyponatremia, resolved 4. Mental retardation. 5. Hypothyroidism. 6. History of dyslipidemia. 7. History of gout. 8. Anemia 9. Hypoalbuminemia 10 Ventral hernia, containing fat 11. Hyperbilirubinemia. 12. Biliary stricture with intrahepatic bile duct dilatation and abnormal LFT. 13 Bilateral edema Problems: Assessment/Plan 1. US abdomen r/o ascites. Subjective 24 Hr Interval Summary Gastrointestinal: pain Exam/Review of Systems Vital Signs Vitals Vital Signs Date Time Temp Pulse Resp B/P Pulse Ox O2 Delivery O2 Flow Rate FiO2 08/02/17 08:00 Nasal Cannula 2.0 08/02/17 07:57 98.6 103 20 95/52 95 Intake and Output 08/01/17 08/01/17 08/02/17 14:59 22:59 06:59 Intake Total 50 ml 770 ml 500 ml Output Total 600 ml 400 ml Balance 50 ml 170 ml 100 ml Exam Constitutional: alert, oriented Gastrointestinal: distended Results Result Diagram: 08/02/17 0443 08/02/17 0443 Results 24 hrs Laboratory Tests Test 08/02/17 04:43 White Blood Count 23.9 H Red Blood Count 2.62 L Hemoglobin 8.9 L Hematocrit 26.5 L Mean Corpuscular Volume 101.1 H Mean Corpuscular Hemoglobin 34.0 H Mean Corpuscular Hemoglobin Concent 33.6 Red Cell Distribution Width 21.9 H Platelet Count 184 Mean Platelet Volume 12.7 H Neutrophils % 83.2 H Lymphocytes % 5.9 L Monocytes % 3.6 Eosinophils % 0.3 Basophils % 0.5 Nucleated Red Blood Cells % 0.0 Neutrophils # 19.9 H Lymphocytes # 1.4 Monocytes # 0.9 Eosinophils # 0.1 Basophils # 0.1 Nucleated Red Blood Cells # 0.0 Sodium Level 134 L Potassium Level 4.9 Chloride Level 101 Carbon Dioxide Level 24 Anion Gap 14 Blood Urea Nitrogen 44 H Creatinine 2.22 H Glucose Level 100 Calcium Level 8.1 L Total Bilirubin 1.3 Direct Bilirubin 0.70 #H Indirect Bilirubin 0.6 Aspartate Amino Transf (AST/SGOT) 310 H Alanine Aminotransferase (ALT/SGPT) 216 H Alkaline Phosphatase 468 H Total Protein 4.9 L Albumin 2.1 L Globulin 2.80 Albumin/Globulin Ratio 0.75 Medications Medications Current Medications Ondansetron HCl (Zofran Inj) 4 mg Q6H PRN IV NAUSEA AND/OR VOMITING Last administered on 07/30/17 13:02; Admin Dose 4 MG; Start 07/21/17 at 13:30 Metoclopramide HCl (Reglan) 10 mg Q6H PRN IV NAUSEA AND/OR VOMITING; Start at 13:30 Acetaminophen 650 mg 650 mg Q6H PRN PO PAIN LEVEL 1-3 OR FEVER; Start at 13:30 Piperacillin Sod/ Tazobactam Sod (Zosyn 3.375gm/ 50 ml (Pmx)) 50 ml @ 100 mls/ hr Q8 IVPB Last administered on 08/02/17 05:41; Admin Dose 100 MLS/HR; Start 07/21/17 at 22:00 Morphine Sulfate (morphine) 1 mg Q6H PRN IV PAIN Last administered on 12:41; Admin Dose 1 MG; Start 07/26/17 at 16:00 Pantoprazole (Protonix Tab) 40 mg DAILY@06 PO Last administered on 08/02/17 05 :41; Admin Dose 40 MG; Start 07/31/17 at 06:00 Spironolactone (Aldactone) 25 mg DAILY PO Last administered on 08/02/17 08:46 ; Admin Dose 25 MG; Start 07/31/17 at 11:30 Midodrine (Proamatine) 5 mg BID@,17 PO Last administered on 08/02/17 08:46; Admin Dose 5 MG; Start 07/31/17 at 12:00 Tramadol HCl (Ultram) 50 mg BID PRN PO PAIN; Start 08/01/17 at 11:00 Capecitabine (Xeloda) 1,000 mg Q12 PO ; Start 08/02/17 at 09:00; Stop 08/15/17 at 21:01; Status MADALYN TYSON 2, 2017 14:07
[2017-08-02] MEDS: ONDANSETRON 4 MG INJ IV PRN (18:03)
[2017-08-02 18:39] VITALS: BP 89/51; RESP 22
[2017-08-02 20:35] VITALS: BP 107/60; PULSE 98; RESP 18
[2017-08-03] MEDS: PIPER-TAZO 3.375 GM IV (PMX) 50 ML IVPB SCH ×2 (05:36→14:12)
[2017-08-03] MEDS: PANTOPRAZOLE (EC) 40 MG TAB PO SCH (05:36)
[2017-08-03 05:38] LABS: ABNORMAL IP MESSAGE 1; HEMATOCRIT 26.3 % (42.0-52.0); HEMOGLOBIN 8.9 g/dl (14.0-18.0); MEAN CORPUSCULAR HEMOGLOBIN 34.1 pg (29.0-33.0); MEAN CORPUSCULAR HGB CONC 33.8 g/dl (32.0-37.0); MEAN CORPUSCULAR VOLUME 100.8 fl (82.0-101.0); MEAN PLATELET VOLUME 12.9 fl (7.4-10.4); PLATELET COUNT 203 10^3/UL (140-415); POSITIVE DIFF @See below; RED BLOOD COUNT 2.61 10^6/ul (4.70-6.10); RED CELL DISTRIBUTION WIDTH 22.2 % (11.5-14.5); WHITE BLOOD COUNT 25.6 10^3/ul (4.8-10.8)
[2017-08-03 05:56] LABS: ALBUMIN 2.3 g/dl (3.3-4.9); ALBUMIN/GLOBULIN RATIO 0.74; BILIRUBIN,DIRECT 2.1 mg/dl (0.00-0.20); BILIRUBIN,INDIRECT 0.9 mg/dl (0-1.1); CALCIUM 8.4 mg/dl (8.4-10.2); CREATININE 2.55 mg/dl (0.61-1.24); POTASSIUM 5.6 mmol/L (3.5-5.1); TOTAL PROTEIN 5.4 g/dl (6.1-8.1)
[2017-08-03 08:20] VITALS: BP 91/56; RESP 22
[2017-08-03 08:36] LABS: ANISOCYTOSIS 2+ (0-0); GIANT THROMBO% (M) 2 % (0-0); HYPOCHROMASIA 1+ (0-0); METAMYELOCYTES %M 3 % (0-0); MONOCYTES % (M) 2 % (0-11); MYELOCYTES % (M) 4 % (0-0); PLATELET ESTIMATE NORMAL; POLYCHROMASIA 2+ (0-0); TARGET CELLS 1+ (0-0)
--- NOTE | 2017-08-03 09:01 | RADRPT ---
PROCEDURE: XR Chest. CLINICAL INDICATION: Shortness of breath TECHNIQUE: An AP view of the chest was obtained. COMPARISON: CHEST 07/28/2017; CHEST 07/27/2017; CHEST 07/22/2017; CHEST 07/21/2017 FINDINGS: There is prominence of the interstitial markings. There is right basilar consolidation with small r ight pleural effusion. No pneumothorax is seen. The cardiomediastinal silhouette is within normal l imits for size. The osseous structures demonstrate senescent changes. IMPRESSION: 1. Mild prominence of the interstitial markings, may reflect mild underlying interstitial edema or chronic lung changes. No significant interval change. 2. Small right pleural effusion with right basilar atelectasis versus pneumonia, also unchanged. RPTAT: HH .Fernanda Chaudhry MD, MD Date Time Electronically viewed and signed by .Fernanda Chaudhry MD, MD on 08/03/2017 09:01 .Mat/
[2017-08-03] MEDS: SPIRONOLACTONE 25 MG TAB PO SCH (09:30)
[2017-08-03] MEDS: MIDODRINE 5 MG TAB PO SCH ×2 (09:46→17:29)
--- NOTE | 2017-08-03 11:06 | RADRPT ---
PROCEDURE: Ultrasound-guided Paracentesis. CLINICAL INDICATION: Ascites. COMPARISON: None. TECHNIQUE: The risks, benefits, and alternatives were explained to the patient/patient guardian, including but not limited to bleeding, infection, pain, visceral or vascular damage, shock, and . The patien t guardian understood the risks and the alternatives and wished to proceed with the procedure. Info rmed written consent was obtained. A procedural time out was performed. The patient's name, date of , and procedure to be performed were verified. Utilizing ultrasound guidance, optimal location for entry to the peritoneal cavity was ascertained. The overlying skin was prepped and draped in the usual sterile fashion. Approximately 10 ml of 1% lidocaine was injected locally for pain control. Using ultrasound guidance, an 8-Brazilian catheter wa s introduced into the peritoneal cavity in the right lower quadrant without difficulty. FINDINGS: Initial images demonstrate ascites. Approximately 2.4 liters of clear yellow fluid was aspirated an d discarded. The patient tolerated the procedure well without complication. IMPRESSION: Uncomplicated ultrasound-guided paracentesis. RPTAT: QQ .Melissa Jeffers MD, Date Time Electronically viewed and signed by .Melissa Jeffers MD, on 08/03/2017 11:06 .T/
[2017-08-03 11:20] VITALS: BP 92/50; PULSE 97; RESP 20
[2017-08-03] MEDS ORDERED: LIDOCAINE 1% (MPF) 5 ML VIAL ONE (11:44)
[2017-08-03] MEDS ORDERED: NA POLYST SULFON 15 GM/60 ML BTL PO ONE (14:30)
--- NOTE | 2017-08-03 14:35 | PN ---
Date/Time of Note Date/Time of Note DATE: 08/03/17 TIME: 14:33 Assessment/Plan VTE Prophylaxis VTE Prophylaxis Intervention: LMWH Lines/Catheters IV [facility] Saline Lock Urinary Cath still in place: No Assessment/Plan Chief Complaint/Hosp Course 1. Sepsis,on Zosyn Primary source is Pneumonia 2. Multiple liver masses with metastatic adenocarcinoma, primary gastrointestinal. Esophagogastroduodenoscopy and colonoscopy negative for any primary malignancy. 3. Hyponatremia, resolved 4. Mental retardation. 5. Hypothyroidism. 6. History of dyslipidemia. 7. History of gout. 8. Anemia 9. Hypoalbuminemia 10 Ventral hernia, containing fat 11. Hyperbilirubinemia. 12. Biliary stricture with intrahepatic bile duct dilatation and abnormal LFT. 13 Bilateral edema Problems: Assessment/Plan 1. continue fluid restriction. 2. PT therapy Subjective 24 Hr Interval Summary Musculoskeletal: back pain, swelling Exam/Review of Systems Vital Signs Vitals Vital Signs Date Time Temp Pulse Resp B/P Pulse Ox O2 Delivery O2 Flow Rate FiO2 08/03/17 11:20 98.6 97 20 92/50 94 Nasal Cannula 2.0 Intake and Output 08/02/17 08/02/17 08/03/17 15:00 23:00 07:00 Intake Total 890 ml 600 ml Output Total 550 ml 700 ml Balance 340 ml -100 ml Exam Constitutional: alert, oriented Respiratory: clear to auscultation Cardiovascular: regular rate and rhythm Gastrointestinal: soft Results Result Diagram: 08/03/17 0431 08/03/17 0431 Results 24 hrs Laboratory Tests Test 08/03/17 04:31 White Blood Count 25.6 H Red Blood Count 2.61 L Hemoglobin 8.9 L Hematocrit 26.3 L Mean Corpuscular Volume 100.8 Mean Corpuscular Hemoglobin 34.1 H Mean Corpuscular Hemoglobin Concent 33.8 Red Cell Distribution Width 22.2 H Platelet Count 203 Mean Platelet Volume 12.9 H Neutrophils % Segmented Neutrophils % (Manual) 80 H Band Neutrophils % (Manual) 6 H Lymphocytes % Lymphocytes % (Manual) 5 L Monocytes % Monocytes % (Manual) 2 Eosinophils % Basophils % Metamyelocytes % (manual) 3 H Myelocytes % (Manual) 4 H Nucleated Red Blood Cells % 0.0 Neutrophils # Neutrophils # (Manual) 20.9 H Band Neutrophils # 1.5 H Absolute Lymphocytes (Manual) 1.2 Lymphocytes # Monocytes # Absolute Monocytes (Manual) 0.5 Eosinophils # Basophils # Metamyelocytes # 0.7 H Myelocytes # 1.0 H Nucleated Red Blood Cells # Platelet Estimate NORMAL Giant Platelets 2 H Platelet Morphology Comment @See below Polychromasia 2+ Hypochromasia 1+ Anisocytosis 2+ Macrocytosis 1+ Target Cells 1+ Sodium Level 134 L Potassium Level 5.6 H Chloride Level 99 Carbon Dioxide Level 23 Anion Gap 18 H Blood Urea Nitrogen 53 H Creatinine 2.55 H Glucose Level 80 Calcium Level 8.4 Total Bilirubin 3.0 H Direct Bilirubin 2.10 #H Indirect Bilirubin 0.9 Aspartate Amino Transf (AST/SGOT) 428 H Alanine Aminotransferase (ALT/SGPT) 232 H Alkaline Phosphatase 508 H Total Protein 5.4 L Albumin 2.3 L Globulin 3.10 Albumin/Globulin Ratio 0.74 Medications Medications Current Medications Ondansetron HCl (Zofran Inj) 4 mg Q6H PRN IV NAUSEA AND/OR VOMITING Last administered on 08/02/17 18:03; Admin Dose 4 MG; Start 07/21/17 at 13:30 Metoclopramide HCl (Reglan) 10 mg Q6H PRN IV NAUSEA AND/OR VOMITING; Start at 13:30 Acetaminophen 650 mg 650 mg Q6H PRN PO PAIN LEVEL 1-3 OR FEVER; Start at 13:30 Piperacillin Sod/ Tazobactam Sod (Zosyn 3.375gm/ 50 ml (Pmx)) 50 ml @ 100 mls/ hr Q8 IVPB Last administered on 08/03/17 14:12; Admin Dose 100 MLS/HR; Start 07/21/17 at 22:00 Morphine Sulfate (morphine) 1 mg Q6H PRN IV PAIN Last administered on 12:41; Admin Dose 1 MG; Start 07/26/17 at 16:00 Pantoprazole (Protonix Tab) 40 mg DAILY@06 PO Last administered on 08/03/17 05 :36; Admin Dose 40 MG; Start 07/31/17 at 06:00 Spironolactone (Aldactone) 25 mg DAILY PO Last administered on 08/03/17 09:30 ; Admin Dose 25 MG; Start 07/31/17 at 11:30 Midodrine (Proamatine) 5 mg BID@ PO Last administered on 08/03/17t 09:46; Admin Dose 5 MG; Start 07/31/17 at 12:00 Tramadol HCl (Ultram) 50 mg BID PRN PO PAIN; Start 08/01/17 at 11:00 Capecitabine (Xeloda) 1,000 mg Q12 PO ; Start 08/02/17 at 09:00; Stop 08/15/17 at 21:01; Status MADALYN TYSON Aug 03, 2017 14:35
[2017-08-03 17:18] VITALS: BP 85/52; RESP 22
--- NOTE | 2017-08-03 19:30 | CONS ---
Date/Time of Note Date/Time of Note DATE: 08/03/17 TIME: 19:24 Assessment/Plan Assessment/Plan Chief Complaint/Hosp Course SUBJECTIVE: No events overnight. Patient is awake, looks comfortable, no fevers. MICROBIOLOGY: Blood and urine cultures have been negative. ANTIMICROBIALS: Patient is on Zosyn. PHYSICAL EXAMINATION: GENERAL: This is a well-developed, ill-appearing, middle-aged man who is awake , in no distress. HEENT: Atraumatic, normocephalic. Sclerae anicteric. Buccal mucosa dry. NECK: Supple. CHEST: Rise is symmetrical. Breath sounds diminished. HEART: S1, S2. ABDOMEN: Large, obese. Bowel sounds hypoactive. EXTREMITIES: With bilateral lower extremity dependent 2+ edema. ASSESSMENT 1. Systemic inflammatory response syndrome with ongoing leukocytosis, possibly secondary to malignancy, as well as pulmonary process, on antibiotics. 2. Intrahepatic bile duct obstruction, status post pancreatic stent, sphincterotomy. 3. Acute possibly on chronic kidney disease. 4. Metastatic adenocarcinoma. 5. Mental retardation. 6. Ascites, s/p paracentesis PLAN: Stable, no fevers, will dc abx and observe, repeat cx's prn DW staff Problems: Consultation Date/Type/Reason Admit Date/Time Jul 21, 2017 at 12:47 Initial Consult Date 07/22/17 Type of Consultation: ID Referring Provider: YASEMIN OLIVARES MD Exam/Review of Systems Vital Signs Vitals Vital Signs Date Time Temp Pulse Resp B/P Pulse Ox O2 Delivery O2 Flow Rate FiO2 08/03/17 17:53 2.0 08/03/17 17:18 95 22 85/52 92 08/03/17 11:20 98.6 Nasal Cannula Intake and Output 08/02/17 08/02/17 08/03/17 14:59 22:59 06:59 Intake Total 890 ml 600 ml Output Total 550 ml 700 ml Balance 340 ml -100 ml Results Result Diagram: 08/03/17 0431 08/03/17 0431 Results 24 hrs Laboratory Tests Test 08/03/17 04:31 White Blood Count 25.6 H Red Blood Count 2.61 L Hemoglobin 8.9 L Hematocrit 26.3 L Mean Corpuscular Volume 100.8 Mean Corpuscular Hemoglobin 34.1 H Mean Corpuscular Hemoglobin Concent 33.8 Red Cell Distribution Width 22.2 H Platelet Count 203 Mean Platelet Volume 12.9 H Neutrophils % Segmented Neutrophils % (Manual) 80 H Band Neutrophils % (Manual) 6 H Lymphocytes % Lymphocytes % (Manual) 5 L Monocytes % Monocytes % (Manual) 2 Eosinophils % Basophils % Metamyelocytes % (manual) 3 H Myelocytes % (Manual) 4 H Nucleated Red Blood Cells % 0.0 Neutrophils # Neutrophils # (Manual) 20.9 H Band Neutrophils # 1.5 H Absolute Lymphocytes (Manual) 1.2 Lymphocytes # Monocytes # Absolute Monocytes (Manual) 0.5 Eosinophils # Basophils # Metamyelocytes # 0.7 H Myelocytes # 1.0 H Nucleated Red Blood Cells # Platelet Estimate NORMAL Giant Platelets 2 H Platelet Morphology Comment @See below Polychromasia 2+ Hypochromasia 1+ Anisocytosis 2+ Macrocytosis 1+ Target Cells 1+ Sodium Level 134 L Potassium Level 5.6 H Chloride Level 99 Carbon Dioxide Level 23 Anion Gap 18 H Blood Urea Nitrogen 53 H Creatinine 2.55 H Glucose Level 80 Calcium Level 8.4 Total Bilirubin 3.0 H Direct Bilirubin 2.10 #H Indirect Bilirubin 0.9 Aspartate Amino Transf (AST/SGOT) 428 H Alanine Aminotransferase (ALT/SGPT) 232 H Alkaline Phosphatase 508 H Total Protein 5.4 L Albumin 2.3 L Globulin 3.10 Albumin/Globulin Ratio 0.74 Medications Medications Current Medications Ondansetron HCl (Zofran Inj) 4 mg Q6H PRN IV NAUSEA AND/OR VOMITING Last administered on 08/02/17 18:03; Admin Dose 4 MG; Start 07/21/17 at 13:30 Metoclopramide HCl (Reglan) 10 mg Q6H PRN IV NAUSEA AND/OR VOMITING; Start at 13:30 Acetaminophen 650 mg 650 mg Q6H PRN PO PAIN LEVEL 1-3 OR FEVER; Start at 13:30 Piperacillin Sod/ Tazobactam Sod (Zosyn 3.375gm/ 50 ml (Pmx)) 50 ml @ 100 mls/ hr Q8 IVPB Last administered on 08/03/17 14:12; Admin Dose 100 MLS/HR; Start 07/21/17 at 22:00 Morphine Sulfate (morphine) 1 mg Q6H PRN IV PAIN Last administered on 12:41; Admin Dose 1 MG; Start 07/26/17 at 16:00 Pantoprazole (Protonix Tab) 40 mg DAILY@06 PO Last administered on 08/03/17 05 :36; Admin Dose 40 MG; Start 07/31/17 at 06:00 Spironolactone (Aldactone) 25 mg DAILY PO Last administered on 08/03/17 09:30 ; Admin Dose 25 MG; Start 07/31/17 at 11:30 Midodrine (Proamatine) 5 mg BID@ PO Last administered on 08/03/17 17:29; Admin Dose 5 MG; Start 07/31/17 at 12:00 Tramadol HCl (Ultram) 50 mg BID PRN PO PAIN; Start 08/01/17 at 11:00 Capecitabine (Xeloda) 1,000 mg Q12 PO ; Start 08/02/17 at 09:00; Stop 08/15/17 at 21:01; Status PAO THOMAS NP Aug 03, 2017 19:30 Globulin 3.10 Albumin/Globulin Ratio 0.74 Medications Medications Current Medications Ondansetron HCl (Zofran Inj) 4 mg Q6H PRN IV NAUSEA AND/OR VOMITING Last administered on 08/02/17 18:03; Admin Dose 4 MG; Start 07/21/17 at 13:30 Metoclopramide HCl (Reglan) 10 mg Q6H PRN IV NAUSEA AND/OR VOMITING; Start at 13:30 Acetaminophen 650 mg 650 mg Q6H PRN PO PAIN LEVEL 1-3 OR FEVER; Start at 13:30 Piperacillin Sod/ Tazobactam Sod (Zosyn 3.375gm/ 50 ml (Pmx)) 50 ml @ 100 mls/ hr Q8 IVPB Last administered on 08/03/17 14:12; Admin Dose 100 MLS/HR; Start 07/21/17 at 22:00 Morphine Sulfate (morphine) 1 mg Q6H PRN IV PAIN Last administered on 12:41; Admin Dose 1 MG; Start 07/26/17 at 16:00 Pantoprazole (Protonix Tab) 40 mg DAILY@06 PO Last administered on 08/03/17 05 :36; Admin Dose 40 MG; Start 07/31/17 at 06:00 Spironolactone (Aldactone) 25 mg DAILY PO Last administered on 08/03/17 09:30 ; Admin Dose 25 MG; Start 07/31/17 at 11:30 Midodrine (Proamatine) 5 mg BID@ PO Last administered on 08/03/17 17:29; Admin Dose 5 MG; Start 07/31/17 at 12:00 Tramadol HCl (Ultram) 50 mg BID PRN PO PAIN; Start 08/01/17 at 11:00 Capecitabine (Xeloda) 1,000 mg Q12 PO ; Start 08/02/17 at 09:00; Stop 08/15/17 at 21:01; Status PAO THOMAS NP Aug 03, 2017 19:30
[2017-08-03 19:53] VITALS: BP 96/52; RESP 18
[2017-08-04 01:49] VITALS: BP 91/53; RESP 18
[2017-08-04 05:37] LABS: ABNORMAL IP MESSAGE 1; BASOPHIL # 0.1 10^3/ul (0.0-0.1); BASOPHILS % 0.5 % (0.0-2.0); EOSINOPHILS % 0.1 % (0.0-7.0); HEMATOCRIT 25.2 % (42.0-52.0); HEMOGLOBIN 8.5 g/dl (14.0-18.0); LYMPHOCYTES # 1.5 10^3/ul (0.8-2.9); LYMPHOCYTES % 6.1 % (15.0-51.0); MEAN CORPUSCULAR HEMOGLOBIN 33.7 pg (29.0-33.0); MEAN CORPUSCULAR HGB CONC 33.7 g/dl (32.0-37.0); MEAN PLATELET VOLUME 12.7 fl (7.4-10.4); MONOCYTE # 0.9 10^3/ul (0.3-0.9); MONOCYTES % 3.6 % (0.0-11.0); NEUTROPHIL # 19.9 10^3/ul (1.6-7.5); NEUTROPHILS % 82.2 % (39.0-77.0); PLATELET COUNT 196 10^3/UL (140-415); POSITIVE DIFF @See below; RED BLOOD COUNT 2.52 10^6/ul (4.70-6.10); WHITE BLOOD COUNT 24.3 10^3/ul (4.8-10.8)
[2017-08-04] MEDS: PANTOPRAZOLE (EC) 40 MG TAB PO SCH (05:46)
[2017-08-04] MEDS: morphine 2 MG INJ IV PRN (05:46)
[2017-08-04 06:03] LABS: ALBUMIN 2.1 g/dl (3.3-4.9); ALBUMIN/GLOBULIN RATIO 0.65; BILIRUBIN,DIRECT 3.5 mg/dl (0.00-0.20); BILIRUBIN,TOTAL 4.5 mg/dl (0.2-1.3); CALCIUM 8.7 mg/dl (8.4-10.2); CREATININE 2.49 mg/dl (0.61-1.24); POTASSIUM 5.1 mmol/L (3.5-5.1); TOTAL PROTEIN 5.3 g/dl (6.1-8.1)
--- NOTE | 2017-08-04 07:15 | PN ---
DATE: 08/02/2017 INFECTIOUS DISEASE PROGRESS NOTE SUBJECTIVE: No events overnight. Per report, the patient is awake, complaining of abdominal pain. He is afebrile, looks comfortable, tolerating diet. LABORATORY DATA: WBC 23.9, H and H 8.9 and 26.5, platelets 184, neutrophils 83.2, BUN 44, creatinin e 2.22. MICROBIOLOGY: Blood and urine cultures have been negative. DIAGNOSTICS: Chest x-ray on 07/28 revealed possible bibasilar pneumonia. Renal ultrasound reveals no stones or hydronephrosis. ANTIMICROBIALS: Patient is on Zosyn. PHYSICAL EXAMINATION: GENERAL: This is a well-developed, ill-appearing, middle-aged man who is awake, in no distress. HEENT: Atraumatic, normocephalic. Sclerae anicteric. Buccal mucosa dry. NECK: Supple. CHEST: Rise is symmetrical. Breath sounds diminished. HEART: S1, S2. ABDOMEN: Large, obese. Bowel sounds hypoactive. Patient has pain on palpation. EXTREMITIES: With bilateral lower extremity dependent 2+ edema. ASSESSMENT 1. Systemic inflammatory response syndrome with ongoing leukocytosis, possibly secondary to maligna ncy, as well as pulmonary process, on antibiotics. 2. Intrahepatic bile duct obstruction, status post pancreatic stent, sphincterotomy. 3. Acute possibly on chronic kidney disease. 4. Metastatic adenocarcinoma. 5. Mental retardation. PLAN: The patient is clinically stable. He is being followed by multiple consultants. We will con tinue him on current antibiotics. Repeat chest x-ray in a.m. Dictated By: PAO PA[employer]NE [employer] OPERATOR for [employer] Conf#: [id number] DID#: [id number] CC: YASEMIN OLIVARES;*EndCC*
[2017-08-04 08:02] VITALS: BP 90/55; RESP 20
[2017-08-04] MEDS: SPIRONOLACTONE 25 MG TAB PO SCH (08:56)
[2017-08-04] MEDS: traMADol 50 MG TAB PO PRN (09:49)
[2017-08-04] MEDS: MIDODRINE 5 MG TAB PO SCH ×2 (09:49→17:52)
--- NOTE | 2017-08-04 14:55 | CONS ---
Date/Time of Note Date/Time of Note DATE: 08/04/17 TIME: 14:54 Assessment/Plan Assessment/Plan Chief Complaint/Hosp Course SUBJECTIVE: No events overnight. Patient is awake, looks comfortable, no fevers. MICROBIOLOGY: Blood and urine cultures have been negative. ANTIMICROBIALS: none s/p Zosyn. PHYSICAL EXAMINATION: GENERAL: This is a well-developed, ill-appearing, middle-aged man who is awake , in no distress. HEENT: Atraumatic, normocephalic. Sclerae anicteric. Buccal mucosa dry. NECK: Supple. CHEST: Rise is symmetrical. Breath sounds diminished. HEART: S1, S2. ABDOMEN: Large, obese. Bowel sounds hypoactive. EXTREMITIES: With bilateral lower extremity dependent 2+ edema. ASSESSMENT 1. Systemic inflammatory response syndrome with ongoing leukocytosis, possibly secondary to malignancy, s/p antibiotics. 2. Intrahepatic bile duct obstruction, status post pancreatic stent, sphincterotomy. 3. Acute possibly on chronic kidney disease. 4. Metastatic adenocarcinoma. 5. Mental retardation. 6. Ascites, s/p paracentesis PLAN: Remains stable, off abx, repeat cx's prn DW staff Problems: Consultation Date/Type/Reason Admit Date/Time Jul 21, 2017 at 12:47 Initial Consult Date 07/22/17 Type of Consultation: ID Referring Provider: YASEMIN OLIVARES MD Exam/Review of Systems Vital Signs Vitals Vital Signs Date Time Temp Pulse Resp B/P Pulse Ox O2 Delivery O2 Flow Rate FiO2 08/04/17 08:35 Nasal Cannula 2.0 08/04/17 08:02 98.8 108 20 90/55 93 Intake and Output 08/03/17 08/03/17 08/04/17 15:00 23:00 07:00 Intake Total 50 ml 780 ml 640 ml Output Total 400 ml 700 ml Balance 50 ml 380 ml -60 ml Results Result Diagram: 08/04/17 0440 08/04/17 0439 Results 24 hrs Laboratory Tests Test 08/04/17 04:39 08/04/17 04:40 Sodium Level 134 L Potassium Level 5.1 Chloride Level 100 Carbon Dioxide Level 24 Anion Gap 15 Blood Urea Nitrogen 55 H Creatinine 2.49 H Glucose Level 82 Calcium Level 8.7 Total Bilirubin 4.5 H Direct Bilirubin 3.50 #H Indirect Bilirubin 1.0 Aspartate Amino Transf (AST/SGOT) 529 H Alanine Aminotransferase (ALT/SGPT) 266 H Alkaline Phosphatase 545 H Total Protein 5.3 L Albumin 2.1 L Globulin 3.20 Albumin/Globulin Ratio 0.65 White Blood Count 24.3 H Red Blood Count 2.52 L Hemoglobin 8.5 L Hematocrit 25.2 L Mean Corpuscular Volume 100.0 Mean Corpuscular Hemoglobin 33.7 H Mean Corpuscular Hemoglobin Concent 33.7 Red Cell Distribution Width 23.0 H Platelet Count 196 Mean Platelet Volume 12.7 H Neutrophils % 82.2 H Lymphocytes % 6.1 L Monocytes % 3.6 Eosinophils % 0.1 Basophils % 0.5 Nucleated Red Blood Cells % 0.0 Neutrophils # 19.9 H Lymphocytes # 1.5 Monocytes # 0.9 Eosinophils # 0.0 Basophils # 0.1 Nucleated Red Blood Cells # 0.0 Medications Medications Current Medications Ondansetron HCl (Zofran Inj) 4 mg Q6H PRN IV NAUSEA AND/OR VOMITING Last administered on 08/02/17 18:03; Admin Dose 4 MG; Start 07/21/17 at 13:30 Metoclopramide HCl (Reglan) 10 mg Q6H PRN IV NAUSEA AND/OR VOMITING; Start at 13:30 Acetaminophen (Tylenol Tab) 650 mg Q6H PRN PO PAIN LEVEL 1-3 OR FEVER; Start 07/21/17 at 13:30 Morphine Sulfate (morphine) 1 mg Q6H PRN IV PAIN Last administered on 05:46; Admin Dose 1 MG; Start 07/26/17 at 16:00 Pantoprazole (Protonix Tab) 40 mg DAILY@06 PO Last administered on 08/04/17 05 :46; Admin Dose 40 MG; Start 07/31/17 at 06:00 Spironolactone (Aldactone) 25 mg DAILY PO Last administered on 08/04/17 08:56 ; Admin Dose 25 MG; Start 07/31/17 at 11:30 Midodrine (Proamatine) 5 mg BID@ PO Last administered on 08/04/17 09:49; Admin Dose 5 MG; Start 07/31/17 at 12:00 Tramadol HCl (Ultram) 50 mg BID PRN PO PAIN Last administered on 08/04/17 09: 49; Admin Dose 50 MG; Start 08/01/17 at 11:00 Capecitabine (Xeloda) 1,000 mg Q12 PO ; Start 08/02/17 at 09:00; Stop 08/15/17 at 21:01; Status UNV PAO PAYNE NP Aug 04, 2017 14:55
[2017-08-04 15:27] VITALS: BP 92/52; RESP 20
--- NOTE | 2017-08-04 16:30 | CONS ---
Date/Time of Note Date/Time of Note DATE: 08/04/17 TIME: 16:29 Assessment/Plan Assessment/Plan Additional Assessment/Plan Assessment/Plan Additional Assessment/Plan 1. The patient definitely has biliary stricture with intrahepatic bile duct dilatation and abnormal LFT. LFT is deteriorating 2. Leukocytosis, on antibiotic. 3. Developmental delay. 4. Renal insufficiency, creatinine is now 2.2 5. Hypertension 6. 2-3+ pedal edema 7. Gout 8. Status post abdominal paracentesis Plan Patient is a complete bile duct obstruction, pancreatic stent successfully deployed. Sphincterotomy was done and does a good drainage. Patient bilirubin is coming down Duodenum is fixed secondary to tumor. Ask Dr. Kilo De La Rosa to do PTC, but because of metastasis he declined it. Continue present care Advance diet Discussed with the brother [id number] and also on telephone. Patient's liver function test improving slowly. Renal function has stabilized. If bilirubin keeps going up then patient definitely needs a PTC. Continue antibiotic Consultation Date/Type/Reason Admit Date/Time Jul 21, 2017 at 12:47 Initial Consult Date 07/22/17 Type of Consultation: ID Referring Provider: YASEMIN OLIVARES MD 24 HR Interval Summary Constitutional: no complaints Exam/Review of Systems Vital Signs Vitals Vital Signs Date Time Temp Pulse Resp B/P Pulse Ox O2 Delivery O2 Flow Rate FiO2 08/04/17 15:27 97.8 105 20 92/52 92 08/04/17 08:35 Nasal Cannula 2.0 Intake and Output 08/03/17 08/03/17 08/04/17 15:00 23:00 07:00 Intake Total 50 ml 780 ml 640 ml Output Total 400 ml 700 ml Balance 50 ml 380 ml -60 ml Exam Constitutional: alert, oriented, well developed Psych: nl mood/affect, no complaints Head: atraumatic, normocephalic Eyes: EOMI, PERRL, nl conjunctiva, nl lids, nl sclera ENMT: nl external ears & nose, nl lips & teeth, nl nasal mucosa & septum Neck: non-tender, supple Respiratory: clear to auscultation, normal air movement Cardiovascular: nl pulses, regular rate and rhythm Gastrointestinal: nl liver, spleen, non-tender, soft Musculoskeletal: nl extremities to inspection, nl gait and stance Extremities: normal pulses Neurological: [employer] II-XII intact, nl mental status, nl speech, nl strength Skin: nl turgor, No rash or lesions Lymph: nl lymph nodes Results Result Diagram: 08/04/17 0440 08/04/17 0439 Results 24 hrs Laboratory Tests Test 08/04/17 04:39 08/04/17 04:40 Sodium Level 134 L Potassium Level 5.1 Chloride Level 100 Carbon Dioxide Level 24 Anion Gap 15 Blood Urea Nitrogen 55 H Creatinine 2.49 H Glucose Level 82 Calcium Level 8.7 Total Bilirubin 4.5 H Direct Bilirubin 3.50 #H Indirect Bilirubin 1.0 Aspartate Amino Transf (AST/SGOT) 529 H Alanine Aminotransferase (ALT/SGPT) 266 H Alkaline Phosphatase 545 H Total Protein 5.3 L Albumin 2.1 L Globulin 3.20 Albumin/Globulin Ratio 0.65 White Blood Count 24.3 H Red Blood Count 2.52 L Hemoglobin 8.5 L Hematocrit 25.2 L Mean Corpuscular Volume 100.0 Mean Corpuscular Hemoglobin 33.7 H Mean Corpuscular Hemoglobin Concent 33.7 Red Cell Distribution Width 23.0 H Platelet Count 196 Mean Platelet Volume 12.7 H Neutrophils % 82.2 H Lymphocytes % 6.1 L Monocytes % 3.6 Eosinophils % 0.1 Basophils % 0.5 Nucleated Red Blood Cells % 0.0 Neutrophils # 19.9 H Lymphocytes # 1.5 Monocytes # 0.9 Eosinophils # 0.0 Basophils # 0.1 Nucleated Red Blood Cells # 0.0 Medications Medications Current Medications Ondansetron HCl (Zofran Inj) 4 mg Q6H PRN IV NAUSEA AND/OR VOMITING Last administered on 08/02/17 18:03; Admin Dose 4 MG; Start 07/21/17 at 13:30 Metoclopramide HCl (Reglan) 10 mg Q6H PRN IV NAUSEA AND/OR VOMITING; Start at 13:30 Acetaminophen (Tylenol Tab) 650 mg Q6H PRN PO PAIN LEVEL 1-3 OR FEVER; Start 07/21/17 at 13:30 Morphine Sulfate (morphine) 1 mg Q6H PRN IV PAIN Last administered on 05:46; Admin Dose 1 MG; Start 07/26/17 at 16:00 Pantoprazole (Protonix Tab) 40 mg DAILY@06 PO Last administered on 08/04/17 05 :46; Admin Dose 40 MG; Start 07/31/17 at 06:00 Spironolactone (Aldactone) 25 mg DAILY PO Last administered on 08/04/17 08:56 ; Admin Dose 25 MG; Start 07/31/17 at 11:30 Midodrine (Proamatine) 5 mg BID@ PO Last administered on 08/04/17 09:49; Admin Dose 5 MG; Start 07/31/17 at 12:00 Tramadol HCl (Ultram) 50 mg BID PRN PO PAIN Last administered on 08/04/17 09: 49; Admin Dose 50 MG; Start 08/01/17 at 11:00 Capecitabine (Xeloda) 1,000 mg Q12 PO ; Start 08/02/17 at 09:00; Stop 08/15/17 at 21:01; Status UNMERRY SHETH MD Aug 04, 2017 16:30
--- NOTE | 2017-08-04 16:41 | CONS ---
Date/Time of Note Date/Time of Note DATE: 08/04/17 TIME: 16:34 Assessment/Plan Assessment/Plan Chief Complaint/Hosp Course 52 yo with 1. Multiple liver masses - likely of gall bladder origin 2. Hyperbilirubinemia 3. Hypertension 4. Gout 5. Hepatorenal syndrome. Cr now elevated - clinical presentation and pathology make gall bladder primary the most likely -pt is now w/p ERCP and bilirubin has decreased -still given elevated AST/ALT Xeloda still carries its risk -given the rapidly rising Creatine and LFTs will need to stop Xeloda at this time. -Recommend hospice at this time - extensive discussion was had with patient's brother who understands that chemotherapy is making his brother's clinical situation worse. - recommend hospice care at this time A total of 40 minutes of [id number] time was spent speaking with the patient, of which greater than 50% was spent in counseling and coordination of care and a detailed question and answer session. Problems: Consultation Date/Type/Reason Admit Date/Time Jul 21, 2017 at 12:47 Initial Consult Date 07/22/17 Type of Consultation: Oncology Reason for Consultation gall bladder cancer Referring Provider: YASEMIN OLIVARES MD 24 HR Interval Summary Free Text/Dictation patient's Cr and liver enzymes continue to rise Exam/Review of Systems Vital Signs Vitals Vital Signs Date Time Temp Pulse Resp B/P Pulse Ox O2 Delivery O2 Flow Rate FiO2 08/04/17 15:27 97.8 105 20 92/52 92 08/04/17 08:35 Nasal Cannula 2.0 Intake and Output 08/03/17 08/03/17 08/04/17 15:00 23:00 07:00 Intake Total 50 ml 780 ml 640 ml Output Total 400 ml 700 ml Balance 50 ml 380 ml -60 ml Exam Constitutional: other (with developmental delay) Head: normocephalic Eyes: nl conjunctiva ENMT: nl external ears & nose Neck: non-tender, supple Respiratory: clear to auscultation Cardiovascular: nl pulses, regular rate and rhythm Gastrointestinal: soft Musculoskeletal: nl extremities to inspection, nl gait and stance Results Result Diagram: 08/04/17 0440 08/04/17 0439 Results 24 hrs Laboratory Tests Test 08/04/17 04:39 08/04/17 04:40 Sodium Level 134 L Potassium Level 5.1 Chloride Level 100 Carbon Dioxide Level 24 Anion Gap 15 Blood Urea Nitrogen 55 H Creatinine 2.49 H Glucose Level 82 Calcium Level 8.7 Total Bilirubin 4.5 H Direct Bilirubin 3.50 #H Indirect Bilirubin 1.0 Aspartate Amino Transf (AST/SGOT) 529 H Alanine Aminotransferase (ALT/SGPT) 266 H Alkaline Phosphatase 545 H Total Protein 5.3 L Albumin 2.1 L Globulin 3.20 Albumin/Globulin Ratio 0.65 White Blood Count 24.3 H Red Blood Count 2.52 L Hemoglobin 8.5 L Hematocrit 25.2 L Mean Corpuscular Volume 100.0 Mean Corpuscular Hemoglobin 33.7 H Mean Corpuscular Hemoglobin Concent 33.7 Red Cell Distribution Width 23.0 H Platelet Count 196 Mean Platelet Volume 12.7 H Neutrophils % 82.2 H Lymphocytes % 6.1 L Monocytes % 3.6 Eosinophils % 0.1 Basophils % 0.5 Nucleated Red Blood Cells % 0.0 Neutrophils # 19.9 H Lymphocytes # 1.5 Monocytes # 0.9 Eosinophils # 0.0 Basophils # 0.1 Nucleated Red Blood Cells # 0.0 Medications Medications Current Medications Ondansetron HCl (Zofran Inj) 4 mg Q6H PRN IV NAUSEA AND/OR VOMITING Last administered on 08/02/17 18:03; Admin Dose 4 MG; Start 07/21/17 at 13:30 Metoclopramide HCl (Reglan) 10 mg Q6H PRN IV NAUSEA AND/OR VOMITING; Start at 13:30 Acetaminophen (Tylenol Tab) 650 mg Q6H PRN PO PAIN LEVEL 1-3 OR FEVER; Start 07/21/17 at 13:30 Morphine Sulfate (morphine) 1 mg Q6H PRN IV PAIN Last administered on 05:46; Admin Dose 1 MG; Start 07/26/17 at 16:00 Pantoprazole (Protonix Tab) 40 mg DAILY@06 PO Last administered on 08/04/17 05 :46; Admin Dose 40 MG; Start 07/31/17 at 06:00 Spironolactone (Aldactone) 25 mg DAILY PO Last administered on 08/04/17 08:56 ; Admin Dose 25 MG; Start 07/31/17 at 11:30 Midodrine (Proamatine) 5 mg BID@ PO Last administered on 08/04/17 09:49; Admin Dose 5 MG; Start 07/31/17 at 12:00 Tramadol HCl (Ultram) 50 mg BID PRN PO PAIN Last administered on 08/04/17 09: 49; Admin Dose 50 MG; Start 08/01/17 at 11:00 Capecitabine (Xeloda) 1,000 mg Q12 PO ; Start 08/02/17 at 09:00; Stop 08/15/17 at 21:01; Status EMIGDIO MA M.D. Aug 04, 2017 16:41
--- NOTE | 2017-08-04 17:08 | PN ---
Date/Time of Note Date/Time of Note DATE: 08/04/17 TIME: 17:06 Assessment/Plan VTE Prophylaxis VTE Prophylaxis Intervention: other Lines/Catheters IV [facility] Type [email or web address] Saline Lock Urinary Cath still in place: No Assessment/Plan Chief Complaint/Hosp Course 1. Sepsis,on Zosyn 2. Multiple liver masses with metastatic adenocarcinoma, primary gastrointestinal. Esophagogastroduodenoscopy and colonoscopy negative for any primary malignancy. 3. Hyponatremia, resolved 4. Mental retardation. 5. Hypothyroidism. 6. History of dyslipidemia. 7. History of gout. 8. Anemia 9. Hypoalbuminemia 10 Ventral hernia, containing fat 11. Hyperbilirubinemia. 12. Biliary stricture with intrahepatic bile duct dilatation and abnormal LFT.S /P ERCP 13 S/P ERCP 14 EDEMA LEGS 15scrotal edema 16 leucocytosis 17 S/P PARACENTESIS plan ck labs per gi PER DR SPIVEY NEED SNF W HOSPICE Problems: Subjective 24 Hr Interval Summary Subjective hx not possible: other (NO DISTRESS,POOR PROGNOSIS) Exam/Review of Systems Vital Signs Vitals Vital Signs Date Time Temp Pulse Resp B/P Pulse Ox O2 Delivery O2 Flow Rate FiO2 08/04/17 15:27 97.8 105 20 92/52 92 08/04/17 08:35 Nasal Cannula 2.0 Intake and Output 08/03/17 08/03/17 08/04/17 15:00 23:00 07:00 Intake Total 50 ml 780 ml 640 ml Output Total 400 ml 700 ml Balance 50 ml 380 ml -60 ml Exam Neck: supple Respiratory: clear to auscultation Cardiovascular: regular rate and rhythm Gastrointestinal: soft Musculoskeletal: nl extremities to inspection Extremities: edema (++), normal pulses Results Result Diagram: 08/04/17 0440 08/04/17 0439 Results 24 hrs Laboratory Tests Test 08/04/17 04:39 08/04/17 04:40 Sodium Level 134 L Potassium Level 5.1 Chloride Level 100 Carbon Dioxide Level 24 Anion Gap 15 Blood Urea Nitrogen 55 H Creatinine 2.49 H Glucose Level 82 Calcium Level 8.7 Total Bilirubin 4.5 H Direct Bilirubin 3.50 #H Indirect Bilirubin 1.0 Aspartate Amino Transf (AST/SGOT) 529 H Alanine Aminotransferase (ALT/SGPT) 266 H Alkaline Phosphatase 545 H Total Protein 5.3 L Albumin 2.1 L Globulin 3.20 Albumin/Globulin Ratio 0.65 White Blood Count 24.3 H Red Blood Count 2.52 L Hemoglobin 8.5 L Hematocrit 25.2 L Mean Corpuscular Volume 100.0 Mean Corpuscular Hemoglobin 33.7 H Mean Corpuscular Hemoglobin Concent 33.7 Red Cell Distribution Width 23.0 H Platelet Count 196 Mean Platelet Volume 12.7 H Neutrophils % 82.2 H Lymphocytes % 6.1 L Monocytes % 3.6 Eosinophils % 0.1 Basophils % 0.5 Nucleated Red Blood Cells % 0.0 Neutrophils # 19.9 H Lymphocytes # 1.5 Monocytes # 0.9 Eosinophils # 0.0 Basophils # 0.1 Nucleated Red Blood Cells # 0.0 Medications Medications Current Medications Ondansetron HCl (Zofran Inj) 4 mg Q6H PRN IV NAUSEA AND/OR VOMITING Last administered on 08/02/17 18:03; Admin Dose 4 MG; Start 07/21/17 at 13:30 Metoclopramide HCl (Reglan) 10 mg Q6H PRN IV NAUSEA AND/OR VOMITING; Start at 13:30 Acetaminophen (Tylenol Tab) 650 mg Q6H PRN PO PAIN LEVEL 1-3 OR FEVER; Start 07/21/17 at 13:30 Morphine Sulfate (morphine) 1 mg Q6H PRN IV PAIN Last administered on 05:46; Admin Dose 1 MG; Start 07/26/17 at 16:00 Pantoprazole (Protonix Tab) 40 mg DAILY@06 PO Last administered on 08/04/17 05 :46; Admin Dose 40 MG; Start 07/31/17 at 06:00 Spironolactone (Aldactone) 25 mg DAILY PO Last administered on 08/04/17 08:56 ; Admin Dose 25 MG; Start 07/31/17 at 11:30 Midodrine (Proamatine) 5 mg BID@ PO Last administered on 08/04/17 09:49; Admin Dose 5 MG; Start 07/31/17 at 12:00 Tramadol HCl (Ultram) 50 mg BID PRN PO PAIN Last administered on 08/04/17 09: 49; Admin Dose 50 MG; Start 08/01/17 at 11:00 Capecitabine (Xeloda) 1,000 mg Q12 PO ; Start 08/02/17 at 09:00; Stop 08/15/17 at 21:01; Status KINGSLEY LOPEZ MD Aug 04, 2017 17:08
[2017-08-04 19:40] VITALS: BP 96/56; RESP 18
--- NOTE | 2017-08-04 21:33 | CONS ---
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 Patient has no complaints. I spoke to th e brother also. OBJECTIVE: VITALS: Stable. ABDOMEN: There is a firmness in the epigastric area with mass-like structure felt probably due to t he malignant deposit in the liver. EXTREMITIES: He has 4+ pedal edema. CENTRAL NERVOUS SYSTEM: Grossly within normal limits. LABORATORY DATA: Shows WBC of 25.6, hematocrit is 26, bilirubin is going up now, it is 3, alkaline phosphatase is going up also. IMPRESSION: 1. 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 2. Metastatic liver disease. 3. Developmental delay. 4. Leukocytosis. PLAN: At this point, is to continue antibiotics, continue present care, make the patient comfortabl e and I will readdress the issue with Dr. De La Rosa if he could do PTC. Dictated By: MERRY KIM/EDGAR Conf#: [id number] DID#: [id number] CC: YASEMIN OLIVARES;*EndCC*
[2017-08-05 01:25] VITALS: BP 92/50; RESP 18
[2017-08-05 05:15] LABS: ABNORMAL IP MESSAGE 1; BASOPHIL # 0.1 10^3/ul (0.0-0.1); BASOPHILS % 0.4 % (0.0-2.0); EOSINOPHILS % 0.1 % (0.0-7.0); HEMATOCRIT 25.2 % (42.0-52.0); HEMOGLOBIN 8.6 g/dl (14.0-18.0); LYMPHOCYTES # 2.1 10^3/ul (0.8-2.9); LYMPHOCYTES % 7.8 % (15.0-51.0); MEAN CORPUSCULAR HGB CONC 34.1 g/dl (32.0-37.0); MEAN CORPUSCULAR VOLUME 99.6 fl (82.0-101.0); MEAN PLATELET VOLUME 12.4 fl (7.4-10.4); MONOCYTE # 0.9 10^3/ul (0.3-0.9); MONOCYTES % 3.2 % (0.0-11.0); NEUTROPHIL # 21.2 10^3/ul (1.6-7.5); NEUTROPHILS % 80.2 % (39.0-77.0); NUCLEATED RED BLOOD CELLS% 0.1 /100WBC (0.0-0.0); PLATELET COUNT 188 10^3/UL (140-415); POSITIVE DIFF @See below; RED BLOOD COUNT 2.53 10^6/ul (4.70-6.10); RED CELL DISTRIBUTION WIDTH 23.2 % (11.5-14.5); WHITE BLOOD COUNT 26.4 10^3/ul (4.8-10.8)
[2017-08-05 05:50] LABS: ALBUMIN 2.1 g/dl (3.3-4.9); ALBUMIN/GLOBULIN RATIO 0.7; BILIRUBIN,DIRECT 4.6 mg/dl (0.00-0.20); BILIRUBIN,TOTAL 5.6 mg/dl (0.2-1.3); CALCIUM 8.4 mg/dl (8.4-10.2); CREATININE 2.61 mg/dl (0.61-1.24); POTASSIUM 5.4 mmol/L (3.5-5.1); TOTAL PROTEIN 5.1 g/dl (6.1-8.1)
[2017-08-05] MEDS: PANTOPRAZOLE (EC) 40 MG TAB PO SCH (06:03)
[2017-08-05 07:35] VITALS: BP 81/48; RESP 20
[2017-08-05] MEDS ORDERED: NA POLYST SULFON 15 GM/60 ML BTL PO ONE (11:00)
[2017-08-05] MEDS: MIDODRINE 5 MG TAB PO SCH ×2 (11:19→17:00)
[2017-08-05] MEDS: SPIRONOLACTONE 25 MG TAB PO SCH (11:20)
--- NOTE | 2017-08-05 13:11 | PN ---
DATE: 08/05/2017 SUBJECTIVE: No events overnight. The patient is lying comfortably in bed. No fevers. LABORATORY DATA: WBC 26.4, platelets 188, neutrophils 80.2. BUN 59, creatinine 2.61. PHYSICAL EXAMINATION: GENERAL: This is a chronically ill-appearing, middle-aged man who is in no distress. HEENT: Head atraumatic, normocephalic. Sclerae anicteric. Buccal mucosa dry. NECK: Supple. CHEST: Rise symmetrical. Breath sounds diminished to bases. HEART: S1, S2. ABDOMEN: Distended, soft. Bowel tones hypoactive. EXTREMITIES: Bilateral lower extremity edema. ASSESSMENT: 1. Leukocytosis, likely secondary to underlying malignancy. 2. Multiple liver masses. 3. Intrahepatic bile duct obstruction status post pancreatic stent placement with sphincterotomy. 4. Acute possibly on chronic kidney disease. 5. Mental retardation. PLAN: The patient remains stable. He is off antibiotics as per oncology recommendations, needs hos pice. We are going to repeat blood and urine cultures given persistent leukocytosis. Dictated By: PAO PAYNE NURSING SPECIALIST for [employer] BLANK/EDGAR Conf#: [id number] DID#: [id number]
[2017-08-05 14:38] VITALS: BP 81/51; RESP 20
[2017-08-05] MEDS: ONDANSETRON 4 MG INJ IV PRN (15:46)
[2017-08-05] MEDS: traMADol 50 MG TAB PO PRN (15:50)
[2017-08-05 20:02] VITALS: BP 96/52; RESP 19
--- NOTE | 2017-08-05 20:31 | PN ---
Date/Time of Note Date/Time of Note DATE: 08/05/17 TIME: 20:29 Assessment/Plan VTE Prophylaxis VTE Prophylaxis Intervention: other Lines/Catheters [facility] Saline Lock Urinary Cath still in place: No Assessment/Plan Chief Complaint/Hosp Course 1. leucocytosis 2. Multiple liver masses with metastatic adenocarcinoma, primary gastrointestinal. Esophagogastroduodenoscopy and colonoscopy negative for any primary malignancy. 3. Hyponatremia, resolved 4. Mental retardation. 5. Hypothyroidism. 6. History of dyslipidemia. 7. History of gout. 8. Anemia 9. Hypoalbuminemia 10 Ventral hernia, containing fat 11. Hyperbilirubinemia. 12. Biliary stricture with intrahepatic bile duct dilatation and abnormal LFT.S /P ERCP 13 S/P ERCP 14 EDEMA LEGS 15scrotal edema 16 leucocytosis 17 S/P PARACENTESIS 18 OBED W CKD 19 HYPERKALEMIA plan ck labs per gi PER DR SPIVEY NEED SNF W HOSPICE [place] Problems: Subjective 24 Hr Interval Summary Respiratory: no complaints Cardiovascular: no complaints Gastrointestinal: decreased appetite, no complaints, No diarrhea, No nausea Exam/Review of Systems Vital Signs Vitals Vital Signs Date Time Temp Pulse Resp B/P Pulse Ox O2 Delivery O2 Flow Rate FiO2 08/05/17 20:02 97.2 100 19 96/52 95 08/05/17 08:00 Nasal Cannula 2.0 Intake and Output 08/04/17 08/04/17 08/05/17 15:00 23:00 07:00 Intake Total 840 ml 400 ml Output Total 900 ml Balance 840 ml -500 ml Exam Respiratory: clear to auscultation Cardiovascular: regular rate and rhythm Gastrointestinal: bowel sounds (+), soft Extremities: edema (++) Results Result Diagram: 08/05/17 0442 08/05/17 0442 Results 24 hrs Laboratory Tests Test 08/05/17 04:42 White Blood Count 26.4 H Red Blood Count 2.53 L Hemoglobin 8.6 L Hematocrit 25.2 L Mean Corpuscular Volume 99.6 Mean Corpuscular Hemoglobin 34.0 H Mean Corpuscular Hemoglobin Concent 34.1 Red Cell Distribution Width 23.2 H Platelet Count 188 Mean Platelet Volume 12.4 H Neutrophils % 80.2 H Lymphocytes % 7.8 L Monocytes % 3.2 Eosinophils % 0.1 Basophils % 0.4 Nucleated Red Blood Cells % 0.1 H Neutrophils # 21.2 H Lymphocytes # 2.1 Monocytes # 0.9 Eosinophils # 0.0 Basophils # 0.1 Nucleated Red Blood Cells # 0.0 Sodium Level 131 L Potassium Level 5.4 H Chloride Level 98 Carbon Dioxide Level 23 Anion Gap 15 Blood Urea Nitrogen 59 H Creatinine 2.61 H Glucose Level 74 Calcium Level 8.4 Total Bilirubin 5.6 H Direct Bilirubin 4.60 #H Indirect Bilirubin 1.0 Aspartate Amino Transf (AST/SGOT) 534 H Alanine Aminotransferase (ALT/SGPT) 271 H Alkaline Phosphatase 605 H Total Protein 5.1 L Albumin 2.1 L Globulin 3.00 Albumin/Globulin Ratio 0.70 Medications Medications Current Medications Ondansetron HCl (Zofran Inj) 4 mg Q6H PRN IV NAUSEA AND/OR VOMITING Last administered on 08/05/17 15:46; Admin Dose 4 MG; Start 07/21/17 at 13:30 Metoclopramide HCl (Reglan) 10 mg Q6H PRN IV NAUSEA AND/OR VOMITING; Start at 13:30 Acetaminophen (Tylenol Tab) 650 mg Q6H PRN PO PAIN LEVEL 1-3 OR FEVER Last administered on 08/05/17 16:02; Admin Dose 650 MG; Start 07/21/17 at 13:30 Morphine Sulfate (morphine) 1 mg Q6H PRN IV PAIN Last administered on 05:46; Admin Dose 1 MG; Start 07/26/17 at 16:00 Pantoprazole (Protonix Tab) 40 mg DAILY@06 PO Last administered on 08/05/17 06 :03; Admin Dose 40 MG; Start 07/31/17 at 06:00 Spironolactone (Aldactone) 25 mg DAILY PO Last administered on 08/05/17 11:20 ; Admin Dose 25 MG; Start 07/31/17 at 11:30 Midodrine (Proamatine) 5 mg BID@,17 PO Last administered on 08/05/17 11:19; Admin Dose 5 MG; Start 07/31/17 at 12:00 Tramadol HCl (Ultram) 50 mg BID PRN PO PAIN Last administered on 08/05/17 15: 50; Admin Dose 50 MG; Start 08/01/17 at 11:00 Capecitabine (Xeloda) 1,000 mg Q12 PO ; Start 08/02/17 at 09:00; Stop 08/15/17 at 21:01; Status KINGSLEY LOPEZ MD Aug 05, 2017 20:31
[2017-08-06] VITALS (7 sets, daily range): BP systolic 69–95; BP diastolic 42–50; PULSE 105–107; RESP 18–22
[2017-08-06 05:22] LABS: ABNORMAL IP MESSAGE 1; BASOPHIL # 0.1 10^3/ul (0.0-0.1); BASOPHILS % 0.2 % (0.0-2.0); HEMATOCRIT 26.1 % (42.0-52.0); LYMPHOCYTES # 1.5 10^3/ul (0.8-2.9); LYMPHOCYTES % 6.1 % (15.0-51.0); MEAN CORPUSCULAR HEMOGLOBIN 34.6 pg (29.0-33.0); MEAN CORPUSCULAR HGB CONC 34.5 g/dl (32.0-37.0); MEAN CORPUSCULAR VOLUME 100.4 fl (82.0-101.0); MEAN PLATELET VOLUME 12.4 fl (7.4-10.4); MONOCYTE # 0.9 10^3/ul (0.3-0.9); MONOCYTES % 3.6 % (0.0-11.0); NEUTROPHIL # 19.8 10^3/ul (1.6-7.5); NEUTROPHILS % 80.4 % (39.0-77.0); PLATELET COUNT 177 10^3/UL (140-415); POSITIVE DIFF @See below; RED CELL DISTRIBUTION WIDTH 23.7 % (11.5-14.5); WHITE BLOOD COUNT 24.7 10^3/ul (4.8-10.8)
[2017-08-06 05:44] LABS: ALBUMIN/GLOBULIN RATIO 0.62; BILIRUBIN,DIRECT 6.2 mg/dl (0.00-0.20); BILIRUBIN,INDIRECT 1.1 mg/dl (0-1.1); BILIRUBIN,TOTAL 7.3 mg/dl (0.2-1.3); CALCIUM 8.6 mg/dl (8.4-10.2); CREATININE 3.1 mg/dl (0.61-1.24); POTASSIUM 5.8 mmol/L (3.5-5.1); TOTAL PROTEIN 5.2 g/dl (6.1-8.1)
[2017-08-06] MEDS: PANTOPRAZOLE (EC) 40 MG TAB PO SCH (06:52)
[2017-08-06] MEDS: SPIRONOLACTONE 25 MG TAB PO SCH (09:40)
[2017-08-06] MEDS: MIDODRINE 5 MG TAB PO SCH ×2 (09:44→17:22)
[2017-08-06 10:24] LABS: ANISOCYTOSIS 2+ (0-0); EOSINOPHILS % (M) 1 % (0-7); GIANT THROMBO% (M) 1 % (0-0); HYPOCHROMASIA 1+ (0-0); METAMYELOCYTES %M 2 % (0-0); MONOCYTES % (M) 2 % (0-11); MYELOCYTES % (M) 2 % (0-0); PLATELET ESTIMATE NORMAL; POLYCHROMASIA 2+ (0-0); TARGET CELLS 1+ (0-0)
[2017-08-06] MEDS ORDERED: NA POLYST SULFON 15 GM/60 ML BTL PO ONE (11:00)
--- NOTE | 2017-08-06 12:33 | CONS ---
Date/Time of Note Date/Time of Note DATE: 08/06/17 TIME: 12:32 Assessment/Plan Assessment/Plan Chief Complaint/Hosp Course SUBJECTIVE: No events overnight. Patient looks comfortable, no fevers. MICROBIOLOGY: Blood and urine cultures have been negative. ANTIMICROBIALS: none s/p Zosyn. PHYSICAL EXAMINATION: GENERAL: This is a well-developed, ill-appearing, middle-aged man who is awake , in no distress. HEENT: Atraumatic, normocephalic. Sclerae anicteric. Buccal mucosa dry. NECK: Supple. CHEST: Rise is symmetrical. Breath sounds diminished. HEART: S1, S2. ABDOMEN: Large, obese. Bowel sounds hypoactive. EXTREMITIES: With bilateral lower extremity dependent 2+ edema. ASSESSMENT 1. Systemic inflammatory response syndrome with ongoing leukocytosis likely secondary to malignancy, s/p antibiotics. 2. Intrahepatic bile duct obstruction, status post pancreatic stent, sphincterotomy. 3. Acute possibly on chronic kidney disease. 4. Metastatic adenocarcinoma. 5. Mental retardation. 6. Ascites, s/p paracentesis PLAN: Remains stable, off abx, pending hospice eval staff Problems: Consultation Date/Type/Reason Admit Date/Time Jul 21, 2017 at 12:47 Initial Consult Date 07/22/17 Type of Consultation: id Referring Provider: YASEMIN OLIVARES MD Exam/Review of Systems Vital Signs Vitals Vital Signs Date Time Temp Pulse Resp B/P Pulse Ox O2 Delivery O2 Flow Rate FiO2 08/06/17 10:37 97.2 105 18 80/49 93 08/06/17 06:32 2.0 08/05/17 20:45 Nasal Cannula Intake and Output 08/05/17 08/05/17 08/06/17 14:59 22:59 06:59 Intake Total 480 ml 520 ml Output Total 800 ml Balance 480 ml -280 ml Results Result Diagram: 08/06/17 0452 08/06/17 0452 Results 24 hrs Laboratory Tests Test 08/06/17 04:52 White Blood Count 24.7 H Red Blood Count 2.60 L Hemoglobin 9.0 L Hematocrit 26.1 L Mean Corpuscular Volume 100.4 Mean Corpuscular Hemoglobin 34.6 H Mean Corpuscular Hemoglobin Concent 34.5 Red Cell Distribution Width 23.7 H Platelet Count 177 Mean Platelet Volume 12.4 H Neutrophils % 80.4 H Segmented Neutrophils % (Manual) 80 H Band Neutrophils % (Manual) 8 H Lymphocytes % 6.1 L Lymphocytes % (Manual) 5 L Monocytes % 3.6 Monocytes % (Manual) 2 Eosinophils % 0.0 Eosinophils % (Manual) 1 Basophils % 0.2 Metamyelocytes % (manual) 2 H Myelocytes % (Manual) 2 H Nucleated Red Blood Cells % 0.0 Neutrophils # 19.8 H Neutrophils # (Manual) 20.2 H Band Neutrophils # 1.9 H Absolute Lymphocytes (Manual) 1.2 Lymphocytes # 1.5 Monocytes # 0.9 Absolute Monocytes (Manual) 0.4 Eosinophils # 0.0 Basophils # 0.1 Metamyelocytes # 0.4 H Myelocytes # 0.4 H Nucleated Red Blood Cells # 0.0 Platelet Estimate NORMAL Giant Platelets 1 H Polychromasia 2+ Hypochromasia 1+ Anisocytosis 2+ Macrocytosis 2+ Target Cells 1+ Sodium Level 129 L Potassium Level 5.8 H Chloride Level 97 Carbon Dioxide Level 23 Anion Gap 15 Blood Urea Nitrogen 71 H Creatinine 3.10 H Glucose Level 65 L Calcium Level 8.6 Total Bilirubin 7.3 H Direct Bilirubin 6.20 H Indirect Bilirubin 1.1 Aspartate Amino Transf (AST/SGOT) 742 H Alanine Aminotransferase (ALT/SGPT) 374 H Alkaline Phosphatase 659 H Total Protein 5.2 L Albumin 2.0 L Globulin 3.20 Albumin/Globulin Ratio 0.62 Medications Medications Current Medications Ondansetron HCl (Zofran Inj) 4 mg Q6H PRN IV NAUSEA AND/OR VOMITING Last administered on 08/05/17 15:46; Admin Dose 4 MG; Start 07/21/17 at 13:30 Metoclopramide HCl (Reglan) 10 mg Q6H PRN IV NAUSEA AND/OR VOMITING; Start at 13:30 Acetaminophen (Tylenol Tab) 650 mg Q6H PRN PO PAIN LEVEL 1-3 OR FEVER Last administered on 08/05/17 16:02; Admin Dose 650 MG; Start 07/21/17 at 13:30 Morphine Sulfate (morphine) 1 mg Q6H PRN IV PAIN Last administered on 05:46; Admin Dose 1 MG; Start 07/26/17 at 16:00 Pantoprazole (Protonix Tab) 40 mg DAILY@06 PO Last administered on 08/06/17 06 :52; Admin Dose 40 MG; Start 07/31/17 at 06:00 Midodrine (Proamatine) 5 mg BID@ PO Last administered on 08/06/17 09:44; Admin Dose 5 MG; Start 07/31/17 at 12:00 Tramadol HCl (Ultram) 50 mg BID PRN PO PAIN Last administered on 08/05/17 15: 50; Admin Dose 50 MG; Start 08/01/17 at 11:00 Capecitabine (Xeloda) 1,000 mg Q12 PO ; Start 08/02/17 at 09:00; Stop 08/15/17 at 21:01; Status UNPAO HAYWOOD NP Aug 06, 2017 12:33
[2017-08-06] MEDS: traMADol 50 MG TAB PO PRN (13:34)
[2017-08-06] MEDS: ONDANSETRON 4 MG INJ IV PRN (13:43)
[2017-08-06] MEDS: morphine 2 MG INJ IV PRN (13:43)
[2017-08-06] MEDS ORDERED: NA POLYST SULFON 15 GM/60 ML BTL PR ONE (15:00)
--- NOTE | 2017-08-06 16:36 | PN ---
Date/Time of Note Date/Time of Note DATE: 08/06/17 TIME: 16:33 Assessment/Plan VTE Prophylaxis VTE Prophylaxis Intervention: other Lines/Catheters [facility] [place] Urinary Cath still in place: No Assessment/Plan Chief Complaint/Hosp Course 1. leucocytosis 2. Multiple liver masses with metastatic adenocarcinoma, primary gastrointestinal. Esophagogastroduodenoscopy and colonoscopy negative for any primary malignancy. 3. Hyponatremia, resolved 4. Mental retardation. 5. Hypothyroidism. 6. History of dyslipidemia. 7. History of gout. 8. Anemia 9. Hypoalbuminemia 10 Ventral hernia, containing fat 11. Hyperbilirubinemia. 12. Biliary stricture with intrahepatic bile duct dilatation and abnormal LFT.S /P ERCP 13 S/P ERCP 14 EDEMA LEGS 15scrotal edema 16 leucocytosis 17 S/P PARACENTESIS 18 OBED W CKD 19 HYPERKALEMIA plan ck labs per gi PER DR SPIVEY NEED SNF W HOSPICE KAYEXALATE poor prognosis Problems: Subjective 24 Hr Interval Summary Cardiovascular: no complaints Gastrointestinal: decreased appetite, passing stool, No vomiting Exam/Review of Systems Vital Signs Vitals Vital Signs Date Time Temp Pulse Resp B/P Pulse Ox O2 Delivery O2 Flow Rate FiO2 08/06/17 15:23 98.7 101 22 69/42 91 08/06/17 08:10 Nasal Cannula 2.0 Intake and Output 08/05/17 08/05/17 08/06/17 15:00 23:00 07:00 Intake Total 480 ml 520 ml Output Total 800 ml Balance 480 ml -280 ml Exam Neck: supple Respiratory: clear to auscultation Cardiovascular: regular rate and rhythm Gastrointestinal: ascites (+), bowel sounds Extremities: edema Results Result Diagram: 08/06/17 0452 08/06/17 0452 Results 24 hrs Laboratory Tests Test 08/06/17 04:52 White Blood Count 24.7 H Red Blood Count 2.60 L Hemoglobin 9.0 L Hematocrit 26.1 L Mean Corpuscular Volume 100.4 Mean Corpuscular Hemoglobin 34.6 H Mean Corpuscular Hemoglobin Concent 34.5 Red Cell Distribution Width 23.7 H Platelet Count 177 Mean Platelet Volume 12.4 H Neutrophils % 80.4 H Segmented Neutrophils % (Manual) 80 H Band Neutrophils % (Manual) 8 H Lymphocytes % 6.1 L Lymphocytes % (Manual) 5 L Monocytes % 3.6 Monocytes % (Manual) 2 Eosinophils % 0.0 Eosinophils % (Manual) 1 Basophils % 0.2 Metamyelocytes % (manual) 2 H Myelocytes % (Manual) 2 H Nucleated Red Blood Cells % 0.0 Neutrophils # 19.8 H Neutrophils # (Manual) 20.2 H Band Neutrophils # 1.9 H Absolute Lymphocytes (Manual) 1.2 Lymphocytes # 1.5 Monocytes # 0.9 Absolute Monocytes (Manual) 0.4 Eosinophils # 0.0 Basophils # 0.1 Metamyelocytes # 0.4 H Myelocytes # 0.4 H Nucleated Red Blood Cells # 0.0 Platelet Estimate NORMAL Giant Platelets 1 H Polychromasia 2+ Hypochromasia 1+ Anisocytosis 2+ Macrocytosis 2+ Target Cells 1+ Sodium Level 129 L Potassium Level 5.8 H Chloride Level 97 Carbon Dioxide Level 23 Anion Gap 15 Blood Urea Nitrogen 71 H Creatinine 3.10 H Glucose Level 65 L Calcium Level 8.6 Total Bilirubin 7.3 H Direct Bilirubin 6.20 H Indirect Bilirubin 1.1 Aspartate Amino Transf (AST/SGOT) 742 H Alanine Aminotransferase (ALT/SGPT) 374 H Alkaline Phosphatase 659 H Total Protein 5.2 L Albumin 2.0 L Globulin 3.20 Albumin/Globulin Ratio 0.62 Medications Medications Current Medications Ondansetron HCl (Zofran Inj) 4 mg Q6H PRN IV NAUSEA AND/OR VOMITING Last administered on 08/06/17 13:43; Admin Dose 4 MG; Start 07/21/17 at 13:30 Metoclopramide HCl (Reglan) 10 mg Q6H PRN IV NAUSEA AND/OR VOMITING; Start at 13:30 Acetaminophen (Tylenol Tab) 650 mg Q6H PRN PO PAIN LEVEL 1-3 OR FEVER Last administered on 08/05/17 16:02; Admin Dose 650 MG; Start 07/21/17 at 13:30 Morphine Sulfate (morphine) 1 mg Q6H PRN IV PAIN Last administered on 13:43; Admin Dose 1 MG; Start 07/26/17 at 16:00 Pantoprazole (Protonix Tab) 40 mg DAILY@06 PO Last administered on 08/06/17 06 :52; Admin Dose 40 MG; Start 07/31/17 at 06:00 Midodrine (Proamatine) 5 mg BID@09,17 PO Last administered on 08/06/17 09:44; Admin Dose 5 MG; Start 07/31/17 at 12:00 Tramadol HCl (Ultram) 50 mg BID PRN PO PAIN Last administered on 08/05/17 15: 50; Admin Dose 50 MG; Start 08/01/17 at 11:00 Capecitabine (Xeloda) 1,000 mg Q12 PO ; Start 08/02/17 at 09:00; Stop 08/15/17 at 21:01; Status KINGSLEY LOPEZ MD Aug 06, 2017 16:36
--- NOTE | 2017-08-06 17:34 | CONS ---
Date/Time of Note Date/Time of Note DATE: 08/06/17 TIME: 17:33 Assessment/Plan Assessment/Plan Additional Assessment/Plan IMPRESSION: 1. 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 2. Metastatic liver disease. 3. Developmental delay. 4. Leukocytosis. 5. Ascites, spontaneously draining. There is a colostomy bag Plan Continue IV hydration Pain management Continue antibiotic If Dr. Kilo De La Rosa agrees then proceed with PTC and drainage Consultation Date/Type/Reason Admit Date/Time Jul 21, 2017 at 12:47 Initial Consult Date 07/22/17 Type of Consultation: id Referring Provider: YASEMIN OLIVARES MD 24 HR Interval Summary Free Text/Dictation Abdominal pain on and off Exam/Review of Systems Vital Signs Vitals Vital Signs Date Time Temp Pulse Resp B/P Pulse Ox O2 Delivery O2 Flow Rate FiO2 08/06/17 17:22 98.1 105 20 79/47 93 Nasal Cannula 2.0 Intake and Output 08/05/17 08/05/17 08/06/17 14:59 22:59 06:59 Intake Total 480 ml 520 ml Output Total 800 ml Balance 480 ml -280 ml Exam Constitutional: alert, oriented, well developed Psych: nl mood/affect, no complaints Head: atraumatic, normocephalic Eyes: EOMI, PERRL, nl conjunctiva, nl lids, nl sclera ENMT: nl external ears & nose, nl lips & teeth, nl nasal mucosa & septum Neck: non-tender, supple Respiratory: clear to auscultation, normal air movement Cardiovascular: nl pulses, regular rate and rhythm Gastrointestinal: nl liver, spleen, non-tender, soft Musculoskeletal: nl extremities to inspection, nl gait and stance Extremities: normal pulses Neurological: [employer] II-XII intact, nl mental status, nl speech, nl strength Skin: nl turgor, No rash or lesions Lymph: nl lymph nodes Results Result Diagram: 08/06/17 0452 08/06/17 0452 Results 24 hrs Laboratory Tests Test 08/06/17 04:52 White Blood Count 24.7 H Red Blood Count 2.60 L Hemoglobin 9.0 L Hematocrit 26.1 L Mean Corpuscular Volume 100.4 Mean Corpuscular Hemoglobin 34.6 H Mean Corpuscular Hemoglobin Concent 34.5 Red Cell Distribution Width 23.7 H Platelet Count 177 Mean Platelet Volume 12.4 H Neutrophils % 80.4 H Segmented Neutrophils % (Manual) 80 H Band Neutrophils % (Manual) 8 H Lymphocytes % 6.1 L Lymphocytes % (Manual) 5 L Monocytes % 3.6 Monocytes % (Manual) 2 Eosinophils % 0.0 Eosinophils % (Manual) 1 Basophils % 0.2 Metamyelocytes % (manual) 2 H Myelocytes % (Manual) 2 H Nucleated Red Blood Cells % 0.0 Neutrophils # 19.8 H Neutrophils # (Manual) 20.2 H Band Neutrophils # 1.9 H Absolute Lymphocytes (Manual) 1.2 Lymphocytes # 1.5 Monocytes # 0.9 Absolute Monocytes (Manual) 0.4 Eosinophils # 0.0 Basophils # 0.1 Metamyelocytes # 0.4 H Myelocytes # 0.4 H Nucleated Red Blood Cells # 0.0 Platelet Estimate NORMAL Giant Platelets 1 H Polychromasia 2+ Hypochromasia 1+ Anisocytosis 2+ Macrocytosis 2+ Target Cells 1+ Sodium Level 129 L Potassium Level 5.8 H Chloride Level 97 Carbon Dioxide Level 23 Anion Gap 15 Blood Urea Nitrogen 71 H Creatinine 3.10 H Glucose Level 65 L Calcium Level 8.6 Total Bilirubin 7.3 H Direct Bilirubin 6.20 H Indirect Bilirubin 1.1 Aspartate Amino Transf (AST/SGOT) 742 H Alanine Aminotransferase (ALT/SGPT) 374 H Alkaline Phosphatase 659 H Total Protein 5.2 L Albumin 2.0 L Globulin 3.20 Albumin/Globulin Ratio 0.62 Medications Medications Current Medications Ondansetron HCl (Zofran Inj) 4 mg Q6H PRN IV NAUSEA AND/OR VOMITING Last administered on 08/06/17 13:43; Admin Dose 4 MG; Start 07/21/17 at 13:30 Metoclopramide HCl (Reglan) 10 mg Q6H PRN IV NAUSEA AND/OR VOMITING; Start at 13:30 Acetaminophen (Tylenol Tab) 650 mg Q6H PRN PO PAIN LEVEL 1-3 OR FEVER Last administered on 08/05/17 16:02; Admin Dose 650 MG; Start 07/21/17 at 13:30 Morphine Sulfate (morphine) 1 mg Q6H PRN IV PAIN Last administered on 13:43; Admin Dose 1 MG; Start 07/26/17 at 16:00 Pantoprazole (Protonix Tab) 40 mg DAILY@06 PO Last administered on 08/06/17 06 :52; Admin Dose 40 MG; Start 07/31/17 at 06:00 Midodrine (Proamatine) 5 mg BID@ PO Last administered on 08/06/17 17:22; Admin Dose 5 MG; Start 07/31/17 at 12:00 Tramadol HCl (Ultram) 50 mg BID PRN PO PAIN Last administered on 08/05/17 15: 50; Admin Dose 50 MG; Start 08/01/17 at 11:00 Capecitabine (Xeloda) 1,000 mg Q12 PO ; Start 08/02/17 at 09:00; Stop 08/15/17 at 21:01; Status UNV MERRY KWAN MD Aug 06, 2017 17:34
[2017-08-06] MEDS ORDERED: ALBUMIN HUMAN 5% 250 ML IV ONE (20:30)
[2017-08-07] VITALS (33 sets, daily range): BP systolic 61–95; BP diastolic 39–67; PULSE 92–118; RESP 12–37
[2017-08-07] MEDS ORDERED: NA POLYST SULFON 15 GM/60 ML BTL ONE ×2 (00:28→00:29)
[2017-08-07] MEDS ORDERED: NA PHOSPHATE/BIPHOS 133 ML ENEMA PR ONE ×2 (00:28→00:31)
[2017-08-07 05:17] LABS: ABNORMAL IP MESSAGE 1; BASOPHIL # 0.1 10^3/ul (0.0-0.1); BASOPHILS % 0.3 % (0.0-2.0); HEMATOCRIT 26.6 % (42.0-52.0); HEMOGLOBIN 9.1 g/dl (14.0-18.0); LYMPHOCYTES # 1.5 10^3/ul (0.8-2.9); LYMPHOCYTES % 6.6 % (15.0-51.0); MEAN CORPUSCULAR HEMOGLOBIN 34.7 pg (29.0-33.0); MEAN CORPUSCULAR HGB CONC 34.2 g/dl (32.0-37.0); MEAN CORPUSCULAR VOLUME 101.5 fl (82.0-101.0); MEAN PLATELET VOLUME 12.7 fl (7.4-10.4); MONOCYTE # 0.8 10^3/ul (0.3-0.9); MONOCYTES % 3.2 % (0.0-11.0); NEUTROPHIL # 18.1 10^3/ul (1.6-7.5); NEUTROPHILS % 77.8 % (39.0-77.0); NUCLEATED RED BLOOD CELLS% 0.1 /100WBC (0.0-0.0); PLATELET COUNT 170 10^3/UL (140-415); POSITIVE DIFF @See below; RED BLOOD COUNT 2.62 10^6/ul (4.70-6.10); RED CELL DISTRIBUTION WIDTH 24.2 % (11.5-14.5); WHITE BLOOD COUNT 23.2 10^3/ul (4.8-10.8)
[2017-08-07] MEDS: PANTOPRAZOLE (EC) 40 MG TAB PO SCH (05:43)
[2017-08-07 05:45] LABS: ALBUMIN 2.1 g/dl (3.3-4.9); ALBUMIN/GLOBULIN RATIO 0.7; BILIRUBIN,INDIRECT 1.2 mg/dl (0-1.1); BILIRUBIN,TOTAL 8.2 mg/dl (0.2-1.3); CREATININE 3.62 mg/dl (0.61-1.24); TOTAL PROTEIN 5.1 g/dl (6.1-8.1)
--- NOTE | 2017-08-07 06:11 | PN ---
DATE: 08/06/2017 SUBJECTIVE: The patient is a 52-year-old male with a cholangiocarcinoma. Has progressive elevation of bilirubin. He also complains of epigastric discomfort. OBJECTIVE: VITAL SIGNS: Stable. ABDOMEN: Soft. There is fullness and firmness in the epigastric area which is secondary to tumor f elt in the left lobe of the liver. The patient also has ascites which is draining into the bag. EXTREMITIES: Pedal edema 2 to 3+. CENTRAL NERVOUS SYSTEM: Grossly within normal limits. LABORATORY DATA: WBC is 26, hematocrit is 25. Creatinine has gone up to 2.61. Bilirubin is 5.6. IMPRESSION: 1. Obstructive jaundice. 2. Metastasis to the liver. 3. Renal failure. 4. Ascites. 5. Pedal edema. 6. Developmental delay. PLAN: At this point, continue IV antibiotic. The patient definitely needs PTC with drainage. I wi ll request Dr. Kilo De La Rosa again. Hopefully, he agrees. Pain management in the interim. Dictated By: MERRY KIM/EDGAR Conf#: [id number] DID#: [id number] CC: YASEMIN OLIVARES;*EndCC*
[2017-08-07] MEDS ORDERED: ALBUMIN HUMAN 5% 250 ML IV ONE (06:30)
[2017-08-07] MEDS: morphine 2 MG INJ IV PRN ×2 (08:38→13:52)
[2017-08-07] MEDS: CAPECITABINE 500 MG TAB PO SCH ×2 (09:00→21:00)
[2017-08-07] MEDS: MIDODRINE 5 MG TAB PO SCH ×2 (10:22→17:00)
[2017-08-07] MEDS: DEXTROSE 5%-0.45% NACL 1,000 ML IV SCH (12:08)
--- NOTE | 2017-08-07 13:00 | CONS ---
Date/Time of Note Date/Time of Note DATE: 08/07/17 TIME: 12:59 Assessment/Plan Assessment/Plan Chief Complaint/Hosp Course SUBJECTIVE: Tx to ICU 2 hypotension, being evaluated by Hospice, looks comfortable ANTIMICROBIALS: none PHYSICAL EXAMINATION: GENERAL: This is a well-developed, ill-appearing, middle-aged man who is awake , in no distress. HEENT: Atraumatic, normocephalic. Sclerae anicteric. Buccal mucosa dry. NECK: Supple. CHEST: Rise is symmetrical. Breath sounds diminished. HEART: S1, S2. ABDOMEN: Large, obese. Bowel sounds hypoactive. EXTREMITIES: With bilateral lower extremity dependent 2+ edema. ASSESSMENT 1. Systemic inflammatory response syndrome with ongoing leukocytosis likely secondary to malignancy, s/p antibiotics. 2. Intrahepatic bile duct obstruction, status post pancreatic stent, sphincterotomy. 3. Acute possibly on chronic kidney disease. 4. Metastatic adenocarcinoma. 5. Mental retardation. 6. Ascites, s/p paracentesis PLAN: Remains unchanged, pending dc with hospice [facility] staff Problems: Consultation Date/Type/Reason Admit Date/Time Jul 21, 2017 at 12:47 Initial Consult Date 07/22/17 Type of Consultation: id Referring Provider: YASEMIN OLIVARES MD Exam/Review of Systems Vital Signs Vitals Vital Signs Date Time Temp Pulse Resp B/P Pulse Ox O2 Delivery O2 Flow Rate FiO2 08/07/17 08:35 98.3 118 20 88/55 95 Nasal Cannula 5.0 Intake and Output 08/06/17 08/06/17 08/07/17 15:00 23:00 07:00 Intake Total 1170 ml 680 ml Output Total 1000 ml 550 ml Balance 170 ml 130 ml Results Result Diagram: 08/07/17 0436 08/07/17 0436 Results 24 hrs Laboratory Tests Test 08/07/17 04:36 08/07/17 07:46 White Blood Count 23.2 H Red Blood Count 2.62 L Hemoglobin 9.1 L Hematocrit 26.6 L Mean Corpuscular Volume 101.5 H Mean Corpuscular Hemoglobin 34.7 H Mean Corpuscular Hemoglobin Concent 34.2 Red Cell Distribution Width 24.2 H Platelet Count 170 Mean Platelet Volume 12.7 H Neutrophils % 77.8 H Lymphocytes % 6.6 L Monocytes % 3.2 Eosinophils % 0.0 Basophils % 0.3 Nucleated Red Blood Cells % 0.1 H Neutrophils # 18.1 H Lymphocytes # 1.5 Monocytes # 0.8 Eosinophils # 0.0 Basophils # 0.1 Nucleated Red Blood Cells # 0.0 Sodium Level 129 L Potassium Level 6.0 H Chloride Level 96 L Carbon Dioxide Level 20 L Anion Gap 19 H Blood Urea Nitrogen 86 H Creatinine 3.62 H Glucose Level 62 L Calcium Level 8.0 L Total Bilirubin 8.2 H Direct Bilirubin 7.00 H Indirect Bilirubin 1.2 H Aspartate Amino Transf (AST/SGOT) 1441 H Alanine Aminotransferase (ALT/SGPT) 601 H Alkaline Phosphatase 701 H Total Protein 5.1 L Albumin 2.1 L Globulin 3.00 Albumin/Globulin Ratio 0.70 Bedside Glucose 74 Medications Medications Current Medications Ondansetron HCl (Zofran Inj) 4 mg Q6H PRN IV NAUSEA AND/OR VOMITING Last administered on 08/06/17 13:43; Admin Dose 4 MG; Start 07/21/17 at 13:30 Metoclopramide HCl (Reglan) 10 mg Q6H PRN IV NAUSEA AND/OR VOMITING; Start at 13:30 Acetaminophen (Tylenol Tab) 650 mg Q6H PRN PO PAIN LEVEL 1-3 OR FEVER Last administered on 08/05/17 16:02; Admin Dose 650 MG; Start 07/21/17 at 13:30 Morphine Sulfate (morphine) 1 mg Q6H PRN IV PAIN Last administered on 08:38; Admin Dose 1 MG; Start 07/26/17 at 16:00 Pantoprazole (Protonix Tab) 40 mg DAILY@06 PO Last administered on 08/07/17 05 :43; Admin Dose 40 MG; Start 07/31/17 at 06:00 Midodrine (Proamatine) 5 mg BID@,17 PO Last administered on 08/07/17 10:22; Admin Dose 5 MG; Start 07/31/17 at 12:00 Tramadol HCl (Ultram) 50 mg BID PRN PO PAIN Last administered on 08/05/17 15: 50; Admin Dose 50 MG; Start 08/01/17 at 11:00 Capecitabine 1000 mg 1,000 mg Q12 PO ; Start 08/02/17 at 09:00; Stop 08/15/17 at 21:01; Status UNV Dextrose/Sodium Chloride (D5-1/2ns) 1,000 ml @ 40 mls/hr Q24H IV Last administered on 08/07/17t 12:08; Admin Dose 40 MLS/HR; Start 08/07/17 at 10:30 Sodium Polystyrene Sulfonate (Kayexalate) 60 gm DAILY HI ; Start 08/08/17 at 09: 00 PAO PAYNE NP Aug 07, 2017 13:00
[2017-08-07] MEDS: ONDANSETRON 4 MG INJ IV PRN ×2 (13:57→22:43)
--- NOTE | 2017-08-07 17:22 | PN ---
Date/Time of Note Date/Time of Note DATE: 08/07/17 TIME: 17:16 Assessment/Plan VTE Prophylaxis VTE Prophylaxis Intervention: other Lines/Catheters IV [facility] Type (from [facility] Peripheral IV Urinary Cath still in place: No Assessment/Plan Chief Complaint/Hosp Course 1. leucocytosis 2. Multiple liver masses with metastatic adenocarcinoma, primary gastrointestinal. Esophagogastroduodenoscopy and colonoscopy negative for any primary malignancy. 3. Hyponatremia, resolved 4. Mental retardation. 5. Hypothyroidism. 6. History of dyslipidemia. 7. History of gout. 8. Anemia 9. Hypoalbuminemia 10 Ventral hernia, containing fat 11. Hyperbilirubinemia. 12. Biliary stricture with intrahepatic bile duct dilatation and abnormal LFT.S /P ERCP 13 S/P ERCP 14 EDEMA LEGS 15scrotal edema 16 leucocytosis 17 S/P PARACENTESIS 18 OBED W CKD WORSE 19 HYPERKALEMIA 20 WORSE LIVER FAILURE plan PER FAMILY DNR DR SPIVEY RECOM HOSPICE UNABLE TO TAKE CHEMO NOT A CANDIDATES FOR HD LOW BP Problems: Subjective 24 Hr Interval Summary Subjective hx not possible: other (D/W PT BROTHER PT W POOR PROGNOSIS,PER FAMILY DNR AND COMFORT CARE) Exam/Review of Systems Vital Signs Vitals Vital Signs Date Time Temp Pulse Resp B/P Pulse Ox O2 Delivery O2 Flow Rate FiO2 08/07/17 16:00 98.6 99 22 92/67 95 Nasal Cannula 5.0 Intake and Output 08/06/17 08/06/17 08/07/17 15:00 23:00 07:00 Intake Total 1170 ml 680 ml Output Total 1000 ml 550 ml Balance 170 ml 130 ml Exam Respiratory: diminished breath sounds Cardiovascular: regular rate and rhythm Gastrointestinal: soft Musculoskeletal: nl extremities to inspection Extremities: edema (++) Results Result Diagram: 08/07/17 0436 08/07/17 0436 Results 24 hrs Laboratory Tests Test 08/07/17 04:36 08/07/17 07:46 White Blood Count 23.2 H Red Blood Count 2.62 L Hemoglobin 9.1 L Hematocrit 26.6 L Mean Corpuscular Volume 101.5 H Mean Corpuscular Hemoglobin 34.7 H Mean Corpuscular Hemoglobin Concent 34.2 Red Cell Distribution Width 24.2 H Platelet Count 170 Mean Platelet Volume 12.7 H Neutrophils % 77.8 H Lymphocytes % 6.6 L Monocytes % 3.2 Eosinophils % 0.0 Basophils % 0.3 Nucleated Red Blood Cells % 0.1 H Neutrophils # 18.1 H Lymphocytes # 1.5 Monocytes # 0.8 Eosinophils # 0.0 Basophils # 0.1 Nucleated Red Blood Cells # 0.0 Sodium Level 129 L Potassium Level 6.0 H Chloride Level 96 L Carbon Dioxide Level 20 L Anion Gap 19 H Blood Urea Nitrogen 86 H Creatinine 3.62 H Glucose Level 62 L Calcium Level 8.0 L Total Bilirubin 8.2 H Direct Bilirubin 7.00 H Indirect Bilirubin 1.2 H Aspartate Amino Transf (AST/SGOT) 1441 H Alanine Aminotransferase (ALT/SGPT) 601 H Alkaline Phosphatase 701 H Total Protein 5.1 L Albumin 2.1 L Globulin 3.00 Albumin/Globulin Ratio 0.70 Bedside Glucose 74 Medications Medications Current Medications Ondansetron HCl (Zofran Inj) 4 mg Q6H PRN IV NAUSEA AND/OR VOMITING Last administered on 08/07/17 13:57; Admin Dose 4 MG; Start 07/21/17 at 13:30 Metoclopramide HCl (Reglan) 10 mg Q6H PRN IV NAUSEA AND/OR VOMITING; Start at 13:30 Acetaminophen (Tylenol Tab) 650 mg Q6H PRN PO PAIN LEVEL 1-3 OR FEVER Last administered on 08/05/17 16:02; Admin Dose 650 MG; Start 07/21/17 at 13:30 Pantoprazole (Protonix Tab) 40 mg DAILY@06 PO Last administered on 08/07/17 05 :43; Admin Dose 40 MG; Start 07/31/17 at 06:00 Midodrine (Proamatine) 5 mg BID@, PO Last administered on 08/07/17 10:22; Admin Dose 5 MG; Start 07/31/17 at 12:00 Tramadol HCl (Ultram) 50 mg BID PRN PO PAIN Last administered on 08/05/17 15: 50; Admin Dose 50 MG; Start 08/01/17 at 11:00 Capecitabine 1000 mg 1,000 mg Q12 PO ; Start 08/02/17 at 09:00; Stop 08/15/17 at 21:01; Status UNV Dextrose/Sodium Chloride (D5-1/2ns) 1,000 ml @ 40 mls/hr Q24H IV Last administered on 08/07/17 12:08; Admin Dose 40 MLS/HR; Start 08/07/17 at 10:30 Sodium Polystyrene Sulfonate (Kayexalate) 60 gm DAILY MA ; Start 08/08/17 at 09: 00 Morphine Sulfate (morphine) 2 mg Q4H PRN IV PAIN Last administered on 13:52; Admin Dose 2 MG; Start 08/07/17 at 13:30 KINGSLEY OVALLE MD Aug 07, 2017 17:22
--- NOTE | 2017-08-07 20:35 | CONS ---
Date/Time of Note Date/Time of Note DATE: 08/07/17 TIME: 20:33 Assessment/Plan Assessment/Plan Additional Assessment/Plan I had extensive discussion with all the members of the family and grocery cashier. Explained to them regarding the progression of the disease and renal failure and a poor outcome. Family all unanimously wants 1 more trial of drainage through PTC and if that fails then they will transfer the patient to the hospice care. But at this point entire family insist on doing PTC and drainage of the biliary obstruction. I had [id number] discussion with all the members of the family's and the grocery cashier at 8 PM today for almost 20-25 minutes Consultation Date/Type/Reason Admit Date/Time Jul 21, 2017 at 12:47 Initial Consult Date 07/22/17 Type of Consultation: id Referring Provider: YASEMIN OLIVARES MD Exam/Review of Systems Vital Signs Vitals Vital Signs Date Time Temp Pulse Resp B/P Pulse Ox O2 Delivery O2 Flow Rate FiO2 08/07/17 19:00 96 19 86/55 99 Nasal Cannula 5.0 08/07/17 16:00 98.6 Intake and Output 08/06/17 08/06/17 08/07/17 15:00 23:00 07:00 Intake Total 1170 ml 680 ml Output Total 1000 ml 550 ml Balance 170 ml 130 ml Results Result Diagram: 08/07/17 0436 08/07/17 0436 Results 24 hrs Laboratory Tests Test 08/07/17 04:36 08/07/17 07:46 White Blood Count 23.2 H Red Blood Count 2.62 L Hemoglobin 9.1 L Hematocrit 26.6 L Mean Corpuscular Volume 101.5 H Mean Corpuscular Hemoglobin 34.7 H Mean Corpuscular Hemoglobin Concent 34.2 Red Cell Distribution Width 24.2 H Platelet Count 170 Mean Platelet Volume 12.7 H Neutrophils % 77.8 H Lymphocytes % 6.6 L Monocytes % 3.2 Eosinophils % 0.0 Basophils % 0.3 Nucleated Red Blood Cells % 0.1 H Neutrophils # 18.1 H Lymphocytes # 1.5 Monocytes # 0.8 Eosinophils # 0.0 Basophils # 0.1 Nucleated Red Blood Cells # 0.0 Sodium Level 129 L Potassium Level 6.0 H Chloride Level 96 L Carbon Dioxide Level 20 L Anion Gap 19 H Blood Urea Nitrogen 86 H Creatinine 3.62 H Glucose Level 62 L Calcium Level 8.0 L Total Bilirubin 8.2 H Direct Bilirubin 7.00 H Indirect Bilirubin 1.2 H Aspartate Amino Transf (AST/SGOT) 1441 H Alanine Aminotransferase (ALT/SGPT) 601 H Alkaline Phosphatase 701 H Total Protein 5.1 L Albumin 2.1 L Globulin 3.00 Albumin/Globulin Ratio 0.70 Bedside Glucose 74 Medications Medications Current Medications Ondansetron HCl (Zofran Inj) 4 mg Q6H PRN IV NAUSEA AND/OR VOMITING Last administered on 08/07/17 13:57; Admin Dose 4 MG; Start 07/21/17 at 13:30 Metoclopramide HCl (Reglan) 10 mg Q6H PRN IV NAUSEA AND/OR VOMITING; Start at 13:30 Acetaminophen (Tylenol Tab) 650 mg Q6H PRN PO PAIN LEVEL 1-3 OR FEVER Last administered on 08/05/17 16:02; Admin Dose 650 MG; Start 07/21/17 at 13:30 Pantoprazole (Protonix Tab) 40 mg DAILY@06 PO Last administered on 08/07/17 05 :43; Admin Dose 40 MG; Start 07/31/17 at 06:00 Midodrine (Proamatine) 5 mg BID@ PO Last administered on 08/07/17 10:22; Admin Dose 5 MG; Start 07/31/17 at 12:00 Tramadol HCl (Ultram) 50 mg BID PRN PO PAIN Last administered on 08/05/17 15: 50; Admin Dose 50 MG; Start 08/01/17 at 11:00 Capecitabine 1000 mg 1,000 mg Q12 PO ; Start 08/02/17 at 09:00; Stop 08/15/17 at 21:01; Status UNV Dextrose/Sodium Chloride (D5-1/2ns) 1,000 ml @ 40 mls/hr Q24H IV Last administered on 08/07/17 12:08; Admin Dose 40 MLS/HR; Start 08/07/17 at 10:30 Sodium Polystyrene Sulfonate (Kayexalate) 60 gm DAILY OH ; Start 08/08/17 at 09: 00 Morphine Sulfate (morphine) 2 mg Q4H PRN IV PAIN Last administered on 13:52; Admin Dose 2 MG; Start 08/07/17 at 13:30 MERRY KWAN MD Aug 07, 2017 20:35
[2017-08-07] MEDS ORDERED: NORepinephrine 8MG/250 ML (PMX 250 ML ONE (21:06)
[2017-08-07] MEDS: NORepinephrine 8MG/250 ML (PMX 250 ML IV SCH (21:19)
[2017-08-08] VITALS (74 sets, daily range): BP systolic 51–182; BP diastolic 28–163; PULSE 86–123; RESP 14–39
[2017-08-08] MEDS: morphine 2 MG INJ IV PRN (02:55)
[2017-08-08] MEDS ORDERED: SOD CHLORIDE 0.9% 500 ML IV ONE (03:30)
[2017-08-08] MEDS: NORepinephrine 8MG/250 ML (PMX 250 ML IV SCH ×2 (04:35→08:53)
--- NOTE | 2017-08-08 04:55 | EN ---
Date/Time of Note Date/Time of Note DATE: 08/08/17 TIME: 04:52 ER Progress Note I was asked by his physician to place the central line because he is hypotensive , on pressor. Consent was obtained. Risks/benefits/alternatives were explained to the family by the RN. This is done on emergent basis. Central Line Placement by me: Patient consented, sterilely draped, full prep, gown, glove, mask, time out performed. Anesthesia: 1% lidocaine locally Location: R IJ Device: Multiple lumen Technique: Seldinger technique. Secured with suture. Results: Venous return from all ports with easy saline flush. No complications. Guide wire retrieved and disposed of. [ED Ultrasound: Central line placed by me using concurrent ultrasound guidance. Real time image archived in the medical record confirms vascular anatomy. Chest X-ray 1V Interpreted by me: Central line in SVC, Normal soft tissue, No evidence of pneumothorax. EZRA GIVENS MD Aug 08, 2017 04:55
[2017-08-08] MEDS: PANTOPRAZOLE (EC) 40 MG TAB PO SCH (05:31)
[2017-08-08] MEDS ORDERED: PHENYLephrine 20MG IN 250 ML 250 ML IV SCH (06:00)
[2017-08-08] MEDS: DEXTROSE 5%-0.45% NACL 1,000 ML IV SCH (06:14)
--- NOTE | 2017-08-08 06:54 | RADRPT ---
PROCEDURE: XR Chest. CLINICAL INDICATION: Atelectasis. Central line placement. TECHNIQUE: Portable single view of the chest COMPARISON: 08/02/17 FINDINGS: There has been interval placement of a right internal jugular central venous line with tip likely at the atriocaval junction. No pneumothorax is seen. Lung volumes are reduced compared with prior . Ri ght base atelectasis or infiltrate and probable small right effusion again seen. Top normal heart si ze. IMPRESSION: New right central line without visible pneumothorax. Otherwise stable exam. RPTAT: [facility] Physician Emanuel Date Time Electronically viewed and signed by Lidia Herman Physician on 08/08/2017 04:47 LE/
[2017-08-08 08:22] LABS: ABNORMAL IP MESSAGE 1; HEMATOCRIT 27.4 % (42.0-52.0); HEMOGLOBIN 9.2 g/dl (14.0-18.0); MEAN CORPUSCULAR HEMOGLOBIN 35.1 pg (29.0-33.0); MEAN CORPUSCULAR HGB CONC 33.6 g/dl (32.0-37.0); MEAN CORPUSCULAR VOLUME 104.6 fl (82.0-101.0); MEAN PLATELET VOLUME 12.1 fl (7.4-10.4); NUCLEATED RED BLOOD CELLS% 0.3 /100WBC (0.0-0.0); PLATELET COUNT 148 10^3/UL (140-415); POSITIVE DIFF @See below; RED BLOOD COUNT 2.62 10^6/ul (4.70-6.10); RED CELL DISTRIBUTION WIDTH 24.6 % (11.5-14.5); WHITE BLOOD COUNT 29.6 10^3/ul (4.8-10.8)
[2017-08-08 08:47] LABS: ALBUMIN 2.2 g/dl (3.3-4.9); ALBUMIN/GLOBULIN RATIO 0.7; BILIRUBIN,DIRECT 11.2 mg/dl (0.00-0.20); BILIRUBIN,INDIRECT 1.5 mg/dl (0-1.1); BILIRUBIN,TOTAL 12.7 mg/dl (0.2-1.3); CALCIUM 7.3 mg/dl (8.4-10.2); TOTAL PROTEIN 5.3 g/dl (6.1-8.1)
[2017-08-08] MEDS ORDERED: NORepinephrine 8MG/250 ML (PMX 250 ML ONE (08:47)
[2017-08-08 08:56] LABS: CREATININE 4.31 mg/dl (0.61-1.24)
[2017-08-08] MEDS: CAPECITABINE 500 MG TAB PO SCH (09:00)
[2017-08-08] MEDS ORDERED: NA POLYST SULFON 15 GM/60 ML BTL PR SCH (09:00)
[2017-08-08] MEDS: MIDODRINE 5 MG TAB PO SCH (09:06)
[2017-08-08 09:31] LABS: POTASSIUM 6.7 mmol/L (3.5-5.1)
[2017-08-08] MEDS ORDERED: INSULIN REGULAR, HUMAN 100 UNIT/1 ML 3ML VIAL IV STA (09:38)
[2017-08-08] MEDS ORDERED: CALCIUM GLUCONATE 10% 1 GM in SOD CHLORIDE 0.9% 100 ML IVPB STA (09:38)
[2017-08-08] MEDS ORDERED: NA BICARBONATE 8.4% 50 ML SYG IV STA (09:38)
[2017-08-08] MEDS ORDERED: DEXTROSE 50% 50 ML SYRINGE IV STA (09:38)
[2017-08-08 09:39] LABS: ANISOCYTOSIS 3+ (0-0); BASOPHILS % (M) 1 % (0-2); GIANT THROMBO% (M) 2 % (0-0); METAMYELOCYTES %M 1 % (0-0); MONOCYTES % (M) 7 % (0-11); MYELOCYTES % (M) 1 % (0-0); PLATELET ESTIMATE NORMAL; POLYCHROMASIA 3+ (0-0); PROMYELOCYTES #M 0.5 10^3/ul (0-0); PROMYELOCYTES % (M) 2 % (0-0)
[2017-08-08] MEDS ORDERED: NA POLYST SULFON 15 GM/60 ML BTL PO SCH (10:00)
[2017-08-08] MEDS ORDERED: NA POLYST SULFON 15 GM/60 ML BTL ONE (10:01)
[2017-08-08] MEDS: PHENYLephrine 40 MG in DEXTROSE 5% 496 ML IV SCH ×2 (11:18→16:07)
--- NOTE | 2017-08-08 12:01 | CONS ---
Date/Time of Note Date/Time of Note DATE: 08/08/17 TIME: 11:58 Consult Date/Type/Reason Admit Date/Time Jul 21, 2017 at 12:47 Initial Consult Date 07/22/17 Type of Consultation: Pulmonary Ordering Provider: YASEMIN OLIVARES MD Subjective Patient transferred to intensive care unit for hypotension and worsening respiratory distress this morning following attempts at oral Kayexalate. Objective Vital Signs Date Time Temp Pulse Resp B/P Pulse Ox O2 Delivery O2 Flow Rate FiO2 08/08/17 08:00 94 08/08/17 06:45 14 101/62 94 08/08/17 05:30 Nasal Cannula 08/08/17 04:00 98.3 08/08/17 01:37 5.0 Intake and Output 08/07/17 08/07/17 08/08/17 15:00 23:00 07:00 Intake Total 870 ml 604.375 ml 1352.50 ml Output Total 600 ml 450 ml 500 ml Balance 270 ml 154.375 ml 852.50 ml Exam PHYSICAL EXAMINATION: GENERAL: Chronically ill appearing gentleman. Jaundice. VITAL SIGNS: Nasal cannula oxygen NECK: Supple. No JVD or lymphadenopathy. CARDIAC: S1, S2, no added sounds or murmurs. CHEST: Diminished air entry bilaterally. Coarse rhonchi. ABDOMEN: Soft, nontender. No guarding or rebound. EXTREMITIES: No cyanosis, clubbing. Edema +1. NEUROLOGIC: Generalized weakness. Results/Medications Result Diagram: 08/08/17 0812 08/08/17 0812 Results 24 hrs Laboratory Tests Test 08/08/17 08:12 White Blood Count 29.6 #H Red Blood Count 2.62 L Hemoglobin 9.2 L Hematocrit 27.4 L Mean Corpuscular Volume 104.6 H Mean Corpuscular Hemoglobin 35.1 H Mean Corpuscular Hemoglobin Concent 33.6 Red Cell Distribution Width 24.6 H Platelet Count 148 Mean Platelet Volume 12.1 H Neutrophils % Segmented Neutrophils % (Manual) 68 Band Neutrophils % (Manual) 12 H Lymphocytes % Lymphocytes % (Manual) 9 L Monocytes % Monocytes % (Manual) 7 Eosinophils % Basophils % Basophils % (Manual) 1 Metamyelocytes % (manual) 1 H Myelocytes % (Manual) 1 H Promyelocytes % (Manual) 2 H Nucleated Red Blood Cells % 0.3 H Neutrophils # Neutrophils # (Manual) 21.2 H Band Neutrophils # 3.5 H Absolute Lymphocytes (Manual) 2.6 Lymphocytes # Monocytes # Absolute Monocytes (Manual) 2.0 H Eosinophils # Basophils # Basophils # (Manual) 0.2 H Metamyelocytes # 0.2 H Myelocytes # 0.2 H Promyelocytes # 0.5 H Nucleated Red Blood Cells # Platelet Estimate NORMAL Giant Platelets 2 H Polychromasia 3+ Anisocytosis 3+ Macrocytosis 3+ Sodium Level 128 L Potassium Level 6.7 *H Chloride Level 95 L Carbon Dioxide Level 14 L Anion Gap 26 #H Blood Urea Nitrogen 91 H Creatinine 4.31 H Glucose Level 81 Calcium Level 7.3 L Total Bilirubin 12.7 #H Direct Bilirubin 11.20 #H Indirect Bilirubin 1.5 H Aspartate Amino Transf (AST/SGOT) 2746 H Alanine Aminotransferase (ALT/SGPT) 1060 H Alkaline Phosphatase 818 H Total Protein 5.3 L Albumin 2.2 L Globulin 3.10 Albumin/Globulin Ratio 0.70 Medications Current Medications Ondansetron HCl (Zofran Inj) 4 mg Q6H PRN IV NAUSEA AND/OR VOMITING Last administered on 08/07/17 22:43; Admin Dose 4 MG; Start 07/21/17 at 13:30 Metoclopramide HCl (Reglan) 10 mg Q6H PRN IV NAUSEA AND/OR VOMITING; Start at 13:30 Acetaminophen (Tylenol Tab) 650 mg Q6H PRN PO PAIN LEVEL 1-3 OR FEVER Last administered on 08/05/17 16:02; Admin Dose 650 MG; Start 07/21/17 at 13:30 Pantoprazole (Protonix Tab) 40 mg DAILY@06 PO Last administered on 08/08/17 05 :31; Admin Dose 40 MG; Start 07/31/17 at 06:00 Midodrine (Proamatine) 5 mg BID@ PO Last administered on 08/08/17 09:06; Admin Dose 5 MG; Start 07/31/17 at 12:00 Tramadol HCl (Ultram) 50 mg BID PRN PO PAIN Last administered on 08/05/17 15: 50; Admin Dose 50 MG; Start 08/01/17 at 11:00 Capecitabine 1000 mg 1,000 mg Q12 PO ; Start 08/02/17 at 09:00; Stop 08/15/17 at 21:01; Status UNV Dextrose/Sodium Chloride (D5-1/2ns) 1,000 ml @ 40 mls/hr Q24H IV Last administered on 08/08/17 06:14; Admin Dose 40 MLS/HR; Start 08/07/17 at 10:30 Morphine Sulfate 2 mg 2 mg Q4H PRN IV PAIN Last administered on 08/08/17 02:55 ; Admin Dose 2 MG; Start 08/07/17 at 13:30 Norepinephrine 16 mg/Dextrose 500 ml @ 1.87 mls/hr TITRATE IV ; Start 08/08/17 at 04:00 Phenylephrine HCl/ Dextrose (Keven-Syneph/D5W) 500 ml @ 75 mls/hr TITRATE IV Last administered on 08/08/17 11:18; Admin Dose 112.5 MLS/HR; Start 08/08/17 at 08:52 Sodium Polystyrene Sulfonate 60 gm 60 gm BID PO Last administered on 08/08/17 10:04; Admin Dose 60 GM; Start 08/08/17 at 10:00 Piperacillin Sod/ Tazobactam Sod (Zosyn 2.25gm/ 50ml (Pmx)) 50 ml @ 100 mls/hr Q8 IVPB ; Start 08/08/17 at 14:00 Assessment/Plan Chief Complaint/Hosp Course IMPRESSION 1. Septic shock with possible aspiration pneumonia 2. Progressive metastatic adenocarcinoma with significant hepatic tumor burden. 3. Worsening transaminitis Plan: 1. Aspiration precautions, aggressive pulmonary toilet 2. Antibiotics. 3. Vasopressors as needed 4. Correction of hyperkalemia if possible Overall prognosis extremely poor. Discussed with family. Problems: RICHIE ANN MD, [facility] Aug 08, 2017 12:01
--- NOTE | 2017-08-08 13:26 | PN ---
DATE: 08/08/2017 SUBJECTIVE: No acute events overnight. The patient is restless, status post MSSA. He is also tach ypneic family at bedside. VITAL SIGNS: He is afebrile. Temperature 98.3, pulse 86, respirations 14, blood pressure 101/62, s aturation 94%. LABORATORY DATA: WBC 91, creatinine 4.31, potassium 6.7. Sodium 128. INDWELLINGS: Peripheral IV and right IJ triple-lumen catheter. PHYSICAL EXAMINATION: GENERAL: Chronically ill-appearing, middle-aged man who is awake, tachypneic, tachycardic. Patient is in mild distress. HEENT: Head atraumatic, normocephalic. Sclerae anicteric. Buccal mucosa dry. NECK: Supple. CHEST: Rise symmetrical. Breath sounds with bilateral rhonchi. HEART: S1, S2. ABDOMEN: Obese. Positive ascites. Bowel tones hyperactive. EXTREMITIES: Bilateral lower extremities edema. ASSESSMENT: 1. Septic shock, multifactorial. 2. Acute respiratory distress, possibly secondary to aspiration. 3. Hyponatremia and hyperkalemia, status post Kayexalate. 4. Acute on chronic kidney failure. 5. Metastatic adenocarcinoma. 6. Recurrent ascites, status post paracentesis on admission. 7. Mental retardation. PLAN: We are going to start patient on Zosyn for possible aspiration. He is a DNR and DNI status. Pending hospice evaluation. Continue supportive care. Overall prognosis poor. Dictated By: PA[employer] CONTROL SPECIALIST for [employer] Conf#: [id number] DID#: [id number]
[2017-08-08] MEDS ORDERED: PIPER-TAZO 2.25 GM (PMX) 50 ML IVPB SCH (14:00)
[2017-08-08 14:12] LABS: CALCIUM 7.4 mg/dl (8.4-10.2)
[2017-08-08 14:19] LABS: CREATININE 4.73 mg/dl (0.61-1.24)
[2017-08-08 14:20] LABS: POTASSIUM 6.6 mmol/L (3.5-5.1)
[2017-08-08] MEDS ORDERED: morphine (DRIP) 100 MG/100 ML 100 ML IV SCH (15:30)
--- NOTE | 2017-08-08 15:43 | PN ---
Date/Time of Note Date/Time of Note DATE: 08/08/17 TIME: 15:40 Assessment/Plan VTE Prophylaxis VTE Prophylaxis Intervention: contraindicated Lines/Catheters IV Catheter Type (from Nrs): Central Line Central line still needed: Yes Urinary Cath still in place: No Assessment/Plan Chief Complaint/Hosp Course 1. Sepsis,comfort measure 2. Multiple liver masses with metastatic adenocarcinoma, primary gastrointestinal. Esophagogastroduodenoscopy and colonoscopy negative for any primary malignancy. 3. Hyponatremia, resolved 4. Mental retardation. 5. Hypothyroidism. 6. History of dyslipidemia. 7. History of gout. 8. Anemia 9. Hypoalbuminemia 10 Ventral hernia, containing fat 11. Hyperbilirubinemia. 12. Biliary stricture with intrahepatic bile duct dilatation and abnormal LFT. 13 Bilateral edema Problems: Assessment/Plan 1. Has extensive conversation with family 2. decided to keep pt on vasopressors and start morphine drip for comfort 3. Keep in ICU 4.NO labwork, no a/b Subjective 24 Hr Interval Summary Free Text/Dictation pt is hardly talking Subjective hx not possible: pt critical Respiratory: shortness of breath Cardiovascular: no complaints Gastrointestinal: pain Exam/Review of Systems Vital Signs Vitals Vital Signs Date Time Temp Pulse Resp B/P Pulse Ox O2 Delivery O2 Flow Rate FiO2 08/08/17 15:00 92 27 124/100 100 Mask 10.0 08/08/17 13:30 96.5 Intake and Output 08/07/17 08/07/17 08/08/17 15:00 23:00 07:00 Intake Total 870 ml 604.375 ml 1352.50 ml Output Total 600 ml 450 ml 500 ml Balance 270 ml 154.375 ml 852.50 ml Exam icteric Constitutional: distress Psych: other (traching in the bed) Neck: supple Respiratory: diminished breath sounds, labored breathing Cardiovascular: regular rate and rhythm Gastrointestinal: soft Extremities: edema Neurological: confused Results Result Diagram: 08/08/17 0812 08/08/17 1309 Results 24 hrs Laboratory Tests Test 08/08/17 08:12 08/08/17 13:09 White Blood Count 29.6 #H Red Blood Count 2.62 L Hemoglobin 9.2 L Hematocrit 27.4 L Mean Corpuscular Volume 104.6 H Mean Corpuscular Hemoglobin 35.1 H Mean Corpuscular Hemoglobin Concent 33.6 Red Cell Distribution Width 24.6 H Platelet Count 148 Mean Platelet Volume 12.1 H Neutrophils % Segmented Neutrophils % (Manual) 68 Band Neutrophils % (Manual) 12 H Lymphocytes % Lymphocytes % (Manual) 9 L Monocytes % Monocytes % (Manual) 7 Eosinophils % Basophils % Basophils % (Manual) 1 Metamyelocytes % (manual) 1 H Myelocytes % (Manual) 1 H Promyelocytes % (Manual) 2 H Nucleated Red Blood Cells % 0.3 H Neutrophils # Neutrophils # (Manual) 21.2 H Band Neutrophils # 3.5 H Absolute Lymphocytes (Manual) 2.6 Lymphocytes # Monocytes # Absolute Monocytes (Manual) 2.0 H Eosinophils # Basophils # Basophils # (Manual) 0.2 H Metamyelocytes # 0.2 H Myelocytes # 0.2 H Promyelocytes # 0.5 H Nucleated Red Blood Cells # Platelet Estimate NORMAL Giant Platelets 2 H Polychromasia 3+ Anisocytosis 3+ Macrocytosis 3+ Sodium Level 128 L 131 L Potassium Level 6.7 *H 6.6 *H Chloride Level 95 L 96 L Carbon Dioxide Level 14 L 13 L Anion Gap 26 #H 29 H Blood Urea Nitrogen 91 H 90 H Creatinine 4.31 H 4.73 H Glucose Level 81 110 Calcium Level 7.3 L 7.4 L Total Bilirubin 12.7 #H Direct Bilirubin 11.20 #H Indirect Bilirubin 1.5 H Aspartate Amino Transf (AST/SGOT) 2746 H Alanine Aminotransferase (ALT/SGPT) 1060 H Alkaline Phosphatase 818 H Total Protein 5.3 L Albumin 2.2 L Globulin 3.10 Albumin/Globulin Ratio 0.70 Medications Medications Current Medications Ondansetron HCl (Zofran Inj) 4 mg Q6H PRN IV NAUSEA AND/OR VOMITING Last administered on 08/07/17 22:43; Admin Dose 4 MG; Start 07/21/17 at 13:30 Metoclopramide HCl (Reglan) 10 mg Q6H PRN IV NAUSEA AND/OR VOMITING; Start at 13:30 Acetaminophen 650 mg 650 mg Q6H PRN PO PAIN LEVEL 1-3 OR FEVER Last administered on 08/05/17 16:02; Admin Dose 650 MG; Start 07/21/17 at 13:30 Dextrose/Sodium Chloride (D5-1/2ns) 1,000 ml @ 10 mls/hr Q24H IV Last administered on 08/08/17 06:14; Admin Dose 40 MLS/HR; Start 08/07/17 at 10:30 Morphine Sulfate 2 mg 2 mg Q4H PRN IV PAIN Last administered on 08/08/17 02:55 ; Admin Dose 2 MG; Start 08/07/17 at 13:30 Norepinephrine 16 mg/Dextrose 500 ml @ 1.87 mls/hr TITRATE IV Last administered on 08/08/17 13:41; Admin Dose 56.25 MLS/HR; Start 08/08/17 at 04: 00 Phenylephrine HCl 40 mg/Dextrose 500 ml @ 75 mls/hr TITRATE IV Last administered on 08/08/17 11:18; Admin Dose 112.5 MLS/HR; Start 08/08/17 at 08: 52 Morphine Sulfate/ Sodium Chloride (morphine) 100 ml @ 2 mls/hr TITRATE IV ; Start 08/08/17 at 15:30 MADALYN ART Aug 08, 2017 15:43
--- NOTE | 2017-08-08 17:15 | CONS ---
Date/Time of Note Date/Time of Note DATE: 08/08/17 TIME: 17:13 Assessment/Plan Assessment/Plan Additional Assessment/Plan IMPRESSION: 1. Obstructive jaundice. 2. Metastasis to the liver. 3. Renal failure. 4. Ascites. 5. Pedal edema. 6. Developmental delay. 7. Progressive renal failure 8. Aspiration pneumonia 9. Hyperkalemia Plan Condition has deteriorated now Discussed with the family and advised comfort measures Transfer the patient to hospice care Consultation Date/Type/Reason Admit Date/Time Jul 21, 2017 at 12:47 Initial Consult Date 07/22/17 Type of Consultation: Pulmonary Referring Provider: YASEMIN OLIVARES MD 24 HR Interval Summary Subjective hx not possible: pt critical Exam/Review of Systems Vital Signs Vitals Vital Signs Date Time Temp Pulse Resp B/P Pulse Ox O2 Delivery O2 Flow Rate FiO2 08/08/17 16:00 92 20 132/117 95 Mask 10.0 08/08/17 13:30 96.5 Intake and Output 08/07/17 08/07/17 08/08/17 15:00 23:00 07:00 Intake Total 870 ml 604.375 ml 1453.75 ml Output Total 600 ml 450 ml 500 ml Balance 270 ml 154.375 ml 953.75 ml Exam Constitutional: alert, oriented, well developed Head: atraumatic, normocephalic Respiratory: diminished breath sounds, labored breathing Cardiovascular: nl pulses, regular rate and rhythm Results Result Diagram: 08/08/17 0812 08/08/17 1309 Results 24 hrs Laboratory Tests Test 08/08/17 08:12 08/08/17 13:09 White Blood Count 29.6 #H Red Blood Count 2.62 L Hemoglobin 9.2 L Hematocrit 27.4 L Mean Corpuscular Volume 104.6 H Mean Corpuscular Hemoglobin 35.1 H Mean Corpuscular Hemoglobin Concent 33.6 Red Cell Distribution Width 24.6 H Platelet Count 148 Mean Platelet Volume 12.1 H Neutrophils % Segmented Neutrophils % (Manual) 68 Band Neutrophils % (Manual) 12 H Lymphocytes % Lymphocytes % (Manual) 9 L Monocytes % Monocytes % (Manual) 7 Eosinophils % Basophils % Basophils % (Manual) 1 Metamyelocytes % (manual) 1 H Myelocytes % (Manual) 1 H Promyelocytes % (Manual) 2 H Nucleated Red Blood Cells % 0.3 H Neutrophils # Neutrophils # (Manual) 21.2 H Band Neutrophils # 3.5 H Absolute Lymphocytes (Manual) 2.6 Lymphocytes # Monocytes # Absolute Monocytes (Manual) 2.0 H Eosinophils # Basophils # Basophils # (Manual) 0.2 H Metamyelocytes # 0.2 H Myelocytes # 0.2 H Promyelocytes # 0.5 H Nucleated Red Blood Cells # Platelet Estimate NORMAL Giant Platelets 2 H Polychromasia 3+ Anisocytosis 3+ Macrocytosis 3+ Sodium Level 128 L 131 L Potassium Level 6.7 *H 6.6 *H Chloride Level 95 L 96 L Carbon Dioxide Level 14 L 13 L Anion Gap 26 #H 29 H Blood Urea Nitrogen 91 H 90 H Creatinine 4.31 H 4.73 H Glucose Level 81 110 Calcium Level 7.3 L 7.4 L Total Bilirubin 12.7 #H Direct Bilirubin 11.20 #H Indirect Bilirubin 1.5 H Aspartate Amino Transf (AST/SGOT) 2746 H Alanine Aminotransferase (ALT/SGPT) 1060 H Alkaline Phosphatase 818 H Total Protein 5.3 L Albumin 2.2 L Globulin 3.10 Albumin/Globulin Ratio 0.70 Medications Medications Current Medications Ondansetron HCl (Zofran Inj) 4 mg Q6H PRN IV NAUSEA AND/OR VOMITING Last administered on 08/07/17 22:43; Admin Dose 4 MG; Start 07/21/17 at 13:30 Metoclopramide HCl (Reglan) 10 mg Q6H PRN IV NAUSEA AND/OR VOMITING; Start at 13:30 Acetaminophen 650 mg 650 mg Q6H PRN PO PAIN LEVEL 1-3 OR FEVER Last administered on 08/05/17 16:02; Admin Dose 650 MG; Start 07/21/17 at 13:30 Dextrose/Sodium Chloride (D5-1/2ns) 1,000 ml @ 10 mls/hr Q24H IV Last administered on 08/08/17 06:14; Admin Dose 40 MLS/HR; Start 08/07/17 at 10:30 Morphine Sulfate 2 mg 2 mg Q4H PRN IV PAIN Last administered on 08/08/17 02:55 ; Admin Dose 2 MG; Start 08/07/17 at 13:30 Norepinephrine 16 mg/Dextrose 500 ml @ 1.87 mls/hr TITRATE IV Last administered on 08/08/17 13:41; Admin Dose 56.25 MLS/HR; Start 08/08/17 at 04: 00 Phenylephrine HCl 40 mg/Dextrose 500 ml @ 75 mls/hr TITRATE IV Last administered on 08/08/17 16:07; Admin Dose 135 MLS/HR; Start 08/08/17 at 08:52 Morphine Sulfate/ Sodium Chloride (morphine) 100 ml @ 2 mls/hr TITRATE IV Last administered on 08/08/17 16:06; Admin Dose 2 MLS/HR; Start 08/08/17 at 15:30 MERRY KWAN MD Aug 08, 2017 17:15
--- NOTE | 2017-08-11 21:29 | DES ---
Date/Time of Note Date/Time of Note DATE: 08/11/17 TIME: 21:06 Discharge/ Summary Admission/Discharge Info Admit Date/Time Jul 21, 2017 at 12:47 Discharge Date/Time Aug 08, 2017 at 23:18 Final Diagnosis Cardiac arrest Preliminary Cause of Sepsis Hospital Course During admission Patient was unable to provide any history. Per patient brother patient did not feel good last week, showed abdominal pain and was weak. The primary doctor ordered Hydromorphone 4 mg once and the medication knocked pt down, he slept, not moving whole consecutive night, developed diaphoresis and weakness. Next day his abdomen was more distended and umbilicus protrudes. Per [facility] vascular radiologist, who also presents at the bedside, on Friday patient vomited few times undigested food and Friday he vomited once. Pt has history of liver metastatic disease, obesity, the primary lesion still undiagnosed, hypertension , OBED, and mental retardation. The patient has appointment with Dr Desai to start chemotherapy. Dx: 1. Sepsis 2. Multiple liver masses with metastatic adenocarcinoma, primary gastrointestinal. Esophagogastroduodenoscopy and colonoscopy negative for any primary malignancy. 3. Hyponatremia, resolved 4. Mental retardation. 5. Hypothyroidism. 6. History of dyslipidemia. 7. History of gout. 8. Anemia 9. Hypoalbuminemia 10 Ventral hernia, containing fat 11. Hyperbilirubinemia. 12. Biliary stricture with intrahepatic bile duct dilatation and abnormal LFT. 13. Bilateral edema During hospitalization two ERCP were performed. Dr Villavicencio cannulated the pancreatic duct selectively. Double wire technique was used, hoping that it would go into the bile duct, but the bile duct appeared to be completely blocked by the tumor. Bile duct cannot be cannulated due to tumor. Dr Villavicencio tried other ERCP but could not relieve the bile duct. Patient developed edema in his feet, was in bed for a few days. Abdominal paracentesis was done to decrease ascites. The bilirubin level increased daily. Kidney function got impaired. Blood pressure decreased and pt was transferred to ICU for vasopressor therapy. Brothers changed his code to DNR/DNI. His potassium reach critical level and he received Oral Kayaxalate treatment. During drinking the treatment pt aspirated the medication and vomit it. Progressive metastatic adenocarcinoma with significant hepatic tumor burden patient. He developed worsening transaminitis. In ICU pt was supported with two vasopressor medications and oxygen via mask. He exhibited labored breathing. Family decides to start morphine drip for comfort. In few hours monitor showed straight line and patient . During hospitalization pt was on antibiotics, IV hydration and under care of oncology, GI, nephrology and ID specialists. MADALYN ART Aug 11, 2017 21:16
== END 2017-08-08 23:18 | disposition expired | DRG 871 ==
LOC: E/R 11:07 → MS3 12:47 → TEL 07-23 16:47 → MS1 07-31 22:10 → ICU 08-07 08:01
PROVIDERS: ADMIT Internal Medicine; ATTEND Internal Medicine
PROC: 0F998ZZ Drainage of Common Bile Duct, Via Natural or Artificial Opening Endoscopic (ICD-10-PCS; 2017-07-24)
PROC: 0F7D8DZ Dilation of Pancreatic Duct with Intraluminal Device, Via Natural or Artificial Opening Endoscopic (ICD-10-PCS; principal; 2017-07-24 19:30)
PROC: 0F798ZZ Dilation of Common Bile Duct, Via Natural or Artificial Opening Endoscopic (ICD-10-PCS; 2017-07-28)
PROC: 0W9G3ZZ Drainage of Peritoneal Cavity, Percutaneous Approach (ICD-10-PCS; 2017-08-03)
PROC: 02HV33Z Insertion of Infusion Device into Superior Vena Cava, Percutaneous Approach (ICD-10-PCS; 2017-08-08)
DX: A41.9 Sepsis, unspecified organism (principal); K76.7 Hepatorenal syndrome; J69.0 Pneumonitis due to inhalation of food and vomit; R65.21 Severe sepsis with septic shock; C78.7 Secondary malignant neoplasm of liver and intrahepatic bile duct; N17.9 Acute kidney failure, unspecified; C24.0 Malignant neoplasm of extrahepatic bile duct; E87.2 Acidosis; R18.8 Other ascites; K83.1 Obstruction of bile duct; E87.1 Hypo-osmolality and hyponatremia; J98.11 Atelectasis; I95.9 Hypotension, unspecified; E88.09 Other disorders of plasma-protein metabolism, not elsewhere classified; D64.9 Anemia, unspecified; E03.9 Hypothyroidism, unspecified; E78.5 Hyperlipidemia, unspecified; K43.9 Ventral hernia without obstruction or gangrene; E66.9 Obesity, unspecified; Z68.31 Body mass index [BMI] 31.0-31.9, adult; R65.20 Severe sepsis without septic shock; Q90.9 Down syndrome, unspecified; R59.0 Localized enlarged lymph nodes; K80.20 Calculus of gallbladder without cholecystitis without obstruction; R06.03 Acute respiratory distress; N50.89 Other specified disorders of the male genital organs; R60.0 Localized edema; E87.5 Hyperkalemia; I12.9 Hypertensive chronic kidney disease with stage 1 through stage 4 chronic kidney disease, or unspecified chronic kidney disease; N18.9 Chronic kidney disease, unspecified; Z66 Do not resuscitate
CPT/HCPCS: 36415; 71010; 74176; 74181; 74330; 76705; 76775; 80048; 80053; 80202; 81001; 82140; 82150; 82962; 83605; 83690; 83735; 84100; 84484; 85025; 85610; 86704; 86709; 86803; 87040; 87086; 87340; 93005; 96374; 96375; 96376; 97116; 97162; 97530; J1940; C2617; C9113; J0610; J0690; J0692; J0744; J1100; J1610; J1650; J1815; J1885; J2250; J2270; J2370; J2405; J2543; J2710; J2765; J3010; J3370; J7030; J7040; J7042; J7050; J7060; J7120; P9045; P9047; Q9967